=== PATIENT | male | born 1975 | race Two or more races ===

== ENCOUNTER 2023-12-07 11:02 | Inpatient (IN) | payer OTHER ==
[~2023-12-07] VITALS: Ht 182.9 cm; Wt 140.7 kg
[~2023-12-07 11:02] MED LIST: AMLO1TAB23 PO; ATOR20TA PO; CLON0.5T3 PO; DAPA1TAB4 PO; ESCI10TA PO; GLIP5TAB21 PO; METF-370 PO
[2023-12-07 11:39] LABS: Basophils # (auto) 0.1 10 ^3/uL (0-0.2); Basophils % (auto) 1.1 % (0.0-2.0); Eosinophils # (auto) 0.4 10 ^3/uL (0-0.8); Hematocrit 37.5 % (41.0-53.0); Hemoglobin 12.3 g/dL (13.5-17.5); Lymphocytes # (auto) 1.4 10 ^3/uL (0.4-5.4); Lymphocytes % (auto) 17.2 % (10.0-50.0); Mean Corpuscular Hemoglobin 27.5 pg (28.0-32.0); Mean Corpuscular Hgb Conc. 32.9 g/dL (32.0-36.0); Mean Corpuscular Volume 83.5 fL (80.0-100.0); Monocytes # (auto) 0.5 10 ^3/uL (0-1.3); Monocytes % (auto) 6.3 % (0.0-12.0); Neutrophils # (auto) 5.8 10 ^3/uL (1.6-8.6); Neutrophils % (auto) 70.4 % (37.0-80.0); Nucleated Red Blood Cells % 0.2 %; Platelet Count (auto) 237 10^3/uL (140-450); Red Blood Cells 4.49 10^6/uL (4.5-5.90); Red Cell Distribution Width 17.3 % (11.8-14.3); White Blood Cell 8.2 10^3/uL (4.4-10.8)
[2023-12-07 11:55] LABS: Chloride 110 mmol/L (98-107); Sodium 140 mmol/L (136-145)
[2023-12-07 11:56] LABS: Anion Gap 5 (5-15); Calcium 9.1 mg/dL (8.7-10.4); Carbon Dioxide 25 mmol/L (20-30)
[2023-12-07 12:01] LABS: BUN/Creatinine Ratio 17.1 (10.0-20.0); Blood Urea Nitrogen 29 mg/dL (9-23); Glucose 189 mg/dL (74-106)
[2023-12-07 12:03] LABS: Potassium 6.1 mmol/L (3.5-5.1)
[2023-12-07] MEDS: ALBUTEROL SULF 2.5 MG/0.5ML(0.5%) NEB SOLN HHN ONE (12:30)
[2023-12-07] MEDS: CALCIUM GLUC 1,000mg/50ml-NS 50 ML IV ONE (12:30)
[2023-12-07] MEDS: SODIUM BICARB 8.4% 50Meq/50ml SYR Vial IV ONE (12:30)
[2023-12-07] MEDS: SODIUM ZIRCONIUM CYCL 10 GM PAK PO ONE (14:30)
[2023-12-07] MEDS ORDERED: DOCUSATE SOD 100 MG CAP PO PRN (14:30)
[2023-12-07] MEDS ORDERED: ACETAMINOPHEN 325 MG TAB PO PRN (14:30)
[2023-12-07] MEDS: SODIUM CHLORIDE 0.9% 1,000 ML IV ONE (14:30)
[2023-12-07 14:42] VITALS: PULSE 88; RESP 18; O2SAT 96
[2023-12-07] MEDS: amLODIPine BESYLATE 5 MG TAB PO SCH (15:51)
[2023-12-07] MEDS: SODIUM CHLORIDE 0.9% 500 ML IV ONE (16:00)
[2023-12-07] MEDS: FUROSEMIDE 100 MG/10ML VIAL IV ONE (16:00)
[2023-12-07 17:55] LABS: Urine Bacteria None Seen /hpf (None Seen)
[2023-12-07 18:10] LABS: Urine Blood TRACE /uL (Negative); Urine Clarity Clear (Clear); Urine Color Colorless (Yellow); Urine Protein, UAD 2+ (Negative); Urine Specific Gravity 1.008 (1.001-1.035); Urine Urobilinogen Normal (Negative); Urine WBC 1 /hpf (0 - 3); Urine pH 6.5 (5.0-9.0)
[2023-12-07 18:21] LABS: Protein, Urine 221.6 mg/dL (0.0-11.9)
[2023-12-07 18:23] LABS: Creatinine, Urine 20.9 mg/dL (30.0-125.0); Urine Protein/Creatinine Ratio 10.6
[2023-12-07 19:21] LABS: Chloride 111 mmol/L (98-107); Potassium 4.9 mmol/L (3.5-5.1); Sodium 144 mmol/L (136-145)
[2023-12-07 19:22] LABS: Anion Gap 8 (5-15); Carbon Dioxide 25 mmol/L (20-30)
[2023-12-07 19:23] LABS: Calcium 8.9 mg/dL (8.7-10.4)
[2023-12-07 19:27] LABS: BUN/Creatinine Ratio 18.8 (10.0-20.0); Blood Urea Nitrogen 30 mg/dL (9-23); Glucose 100 mg/dL (74-106)
[2023-12-07] MEDS: hydrALAZINE HCL 20 MG/ML VL IV PRN (20:11)
[2023-12-07 20:40] VITALS: PULSE 92; RESP 20; O2SAT 95
[2023-12-07] MEDS: SODIUM CHLOR 0.9% PF (SALINE LOCK) 10ML VIAL/SYR IV SCH (22:21)
[2023-12-07 23:15] VITALS: BP 170/78; PULSE 79; RESP 18; TEMP 98.5; O2SAT 95
[2023-12-07 23:40] VITALS: PULSE 80
[2023-12-07 23:47] VITALS: BP 170/78; PULSE 79; RESP 18; TEMP 97.6; O2SAT 95
[2023-12-08] VITALS (9 sets, daily range): BP systolic 135–172; BP diastolic 76–92; PULSE 73–81; RESP 16–20; TEMP 97.9–98.4; O2SAT 90–97
[2023-12-08 08:45] LABS: Basophils # (auto) 0.1 10 ^3/uL (0-0.2); Eosinophils # (auto) 0.4 10 ^3/uL (0-0.8); Lymphocytes # (auto) 1.1 10 ^3/uL (0.4-5.4); Lymphocytes % (auto) 13.5 % (10.0-50.0); Monocytes # (auto) 0.5 10 ^3/uL (0-1.3); Neutrophils # (auto) 6.1 10 ^3/uL (1.6-8.6); White Blood Cell 8.2 10^3/uL (4.4-10.8)
[2023-12-08 08:47] LABS: Basophils % (auto) 0.9 % (0.0-2.0); Eosinophils % (auto) 4.6 % (0.0-7.0); Hematocrit 39.1 % (41.0-53.0); Hemoglobin 12.6 g/dL (13.5-17.5); Mean Corpuscular Hemoglobin 26.8 pg (28.0-32.0); Mean Corpuscular Hgb Conc. 32.1 g/dL (32.0-36.0); Mean Corpuscular Volume 83.4 fL (80.0-100.0); Monocytes % (auto) 5.9 % (0.0-12.0); Neutrophils % (auto) 75.1 % (37.0-80.0); Platelet Count (auto) 272 10^3/uL (140-450); Red Blood Cells 4.69 10^6/uL (4.5-5.90); Red Cell Distribution Width 17.2 % (11.8-14.3)
[2023-12-08 09:11] LABS: Alanine Aminotransferase 29 U/L (7-40); Albumin 3.8 g/dL (3.2-4.8); Alkaline Phosphatase 128 U/L (46-116); Anion Gap 6 (5-15); Aspartate Aminotransferase 17 U/L (13-40); BUN/Creatinine Ratio 18.8 (10.0-20.0); Bilirubin, Total 0.3 mg/dL (0.2-1.0); Blood Urea Nitrogen 30 mg/dL (9-23); Calcium 8.9 mg/dL (8.7-10.4); Carbon Dioxide 24 mmol/L (20-30); Chloride 109 mmol/L (98-107); Glucose 167 mg/dL (74-106); Potassium 5.2 mmol/L (3.5-5.1); Sodium 139 mmol/L (136-145); Total Protein 6.2 g/dL (5.7-8.2)
[2023-12-08] MEDS: MUPIROCIN 2% OINT 15gm or 22gm TOP SCH (10:00)
[2023-12-08] MEDS: amLODIPine BESYLATE 5 MG TAB PO SCH (10:52)
[2023-12-08] MEDS: METOPROLOL SUCCINATE XL 50 MG TAB PO SCH (10:53)
[2023-12-08] MEDS: PANTOPRAZOLE 40 MG/10 ML VIAL INJ IV SCH (10:53)
[2023-12-08] MEDS: NYSTATIN TOPICAL POWDER 15GM TOP ONE (11:00)
[2023-12-08] MEDS: cefTRIAXone 1GM/50ML D5W 50 ML IV ONE (11:00)
[2023-12-08] MEDS: AZITHROMYCIN 500MG/ 250ML 250 ML IV ONE (11:00)
[2023-12-08] MEDS: SODIUM ZIRCONIUM CYCL 10 GM PAK PO ONE (11:04)
[2023-12-08] MEDS ORDERED: hydrALAZINE HCL 20 MG/ML VL IV SCH (12:00)
[2023-12-08 12:31] LABS: Triglycerides 200 mg/dL (< 150)
[2023-12-08 12:32] LABS: Cholesterol 129 mg/dL (< 200); LDL Cholesterol 64 mg/dL (< 100)
[2023-12-08 12:33] LABS: HDL Cholesterol 33 mg/dL (40-59)
[2023-12-08] MEDS ORDERED: CLON0.253 PO (14:03)
[2023-12-08] MEDS ORDERED: HYDR12.55 PO (14:03)
[2023-12-08] MEDS ORDERED: ATEN-60 PO (14:03)
[2023-12-08] MEDS ORDERED: METF-929 PO (14:03)
[2023-12-08] MEDS ORDERED: ESCI1TAB37 PO (14:03)
[2023-12-08] MEDS ORDERED: LOSA-533 PO (14:03)
[2023-12-08] MEDS ORDERED: SEMA2INJ3 SC (14:03)
[2023-12-08] MEDS: FUROSEMIDE 40 MG/4 ML VIAL IV SCH (17:38)
[2023-12-08] MEDS: hydroCHLOROthiazide 25 MG TAB PO ONE (17:38)
[2023-12-08] MEDS ORDERED: FUROSEMIDE 40 MG/4 ML VIAL IV SCH (18:00)
[2023-12-08] MEDS: ONDANSETRON HCL 4 MG/2 ML VIAL IV PRN (19:15)
[2023-12-08] MEDS: GEMFIBROZIL 600 MG TAB PO SCH (21:41)
[2023-12-08] MEDS: NYSTATIN TOPICAL POWDER 15GM TOP SCH (21:46)
[2023-12-09] VITALS (8 sets, daily range): BP systolic 119–157; BP diastolic 66–91; PULSE 75–85; RESP 16–18; TEMP 97.7–100.1; O2SAT 89–94
[2023-12-09] MEDS: PANTOPRAZOLE 40 MG TAB PO SCH (05:23)
[2023-12-09 06:38] LABS: Alanine Aminotransferase 31 U/L (7-40); Albumin 3.7 g/dL (3.2-4.8); Alkaline Phosphatase 126 U/L (46-116); Anion Gap 6 (5-15); Aspartate Aminotransferase 15 U/L (13-40); BUN/Creatinine Ratio 15.9 (10.0-20.0); Blood Urea Nitrogen 30 mg/dL (9-23); Calcium 8.9 mg/dL (8.7-10.4); Carbon Dioxide 26 mmol/L (20-30); Chloride 107 mmol/L (98-107); Glucose 209 mg/dL (74-106); Potassium 5.1 mmol/L (3.5-5.1); Sodium 139 mmol/L (136-145)
[2023-12-09 06:40] LABS: Bilirubin, Total 0.3 mg/dL (0.2-1.0); Total Protein 5.9 g/dL (5.7-8.2)
[2023-12-09 06:48] LABS: Basophils # (auto) 0.1 10 ^3/uL (0-0.2); Eosinophils # (auto) 0.4 10 ^3/uL (0-0.8); Eosinophils % (auto) 6.5 % (0.0-7.0); Hematocrit 37.9 % (41.0-53.0); Hemoglobin 12.4 g/dL (13.5-17.5); Lymphocytes # (auto) 1.1 10 ^3/uL (0.4-5.4); Lymphocytes % (auto) 16.5 % (10.0-50.0); Mean Corpuscular Hemoglobin 27.3 pg (28.0-32.0); Mean Corpuscular Hgb Conc. 32.7 g/dL (32.0-36.0); Mean Corpuscular Volume 83.5 fL (80.0-100.0); Monocytes # (auto) 0.5 10 ^3/uL (0-1.3); Monocytes % (auto) 7.8 % (0.0-12.0); Neutrophils # (auto) 4.7 10 ^3/uL (1.6-8.6); Neutrophils % (auto) 68.2 % (37.0-80.0); Nucleated Red Blood Cells % 0.1 %; Platelet Count (auto) 237 10^3/uL (140-450); Red Blood Cells 4.54 10^6/uL (4.5-5.90); Red Cell Distribution Width 16.8 % (11.8-14.3); White Blood Cell 6.8 10^3/uL (4.4-10.8)
[2023-12-09] MEDS ORDERED: FUROSEMIDE 40 MG/4 ML VIAL IV SCH (07:00)
[2023-12-09] MEDS: SODIUM ZIRCONIUM CYCL 10 GM PAK PO ONE (08:49)
[2023-12-09] MEDS: cefTRIAXone 1GM/50ML D5W 50 ML IV SCH (09:47)
[2023-12-09] MEDS: hydroCHLOROthiazide 25 MG TAB PO SCH (09:48)
[2023-12-09] MEDS: AZITHROMYCIN 500MG/ 250ML 250 ML IV SCH (10:23)
[2023-12-09] MEDS: LOSARTAN POTASSIUM 50 MG TAB PO SCH (10:24)
[2023-12-10] VITALS (7 sets, daily range): BP systolic 132–156; BP diastolic 74–88; PULSE 73–78; RESP 16–20; TEMP 97.5–98.8; O2SAT 86–98
[2023-12-10 06:10] LABS: Basophils # (auto) 0.1 10 ^3/uL (0-0.2); Basophils % (auto) 1.3 % (0.0-2.0); Eosinophils # (auto) 0.5 10 ^3/uL (0-0.8); Eosinophils % (auto) 7.7 % (0.0-7.0); Hematocrit 37.1 % (41.0-53.0); Lymphocytes # (auto) 1.2 10 ^3/uL (0.4-5.4); Lymphocytes % (auto) 17.7 % (10.0-50.0); Mean Corpuscular Hgb Conc. 32.4 g/dL (32.0-36.0); Mean Corpuscular Volume 83.3 fL (80.0-100.0); Monocytes # (auto) 0.6 10 ^3/uL (0-1.3); Monocytes % (auto) 8.8 % (0.0-12.0); Neutrophils # (auto) 4.4 10 ^3/uL (1.6-8.6); Neutrophils % (auto) 64.5 % (37.0-80.0); Nucleated Red Blood Cells % 0.1 %; Platelet Count (auto) 233 10^3/uL (140-450); Red Blood Cells 4.45 10^6/uL (4.5-5.90); Red Cell Distribution Width 16.5 % (11.8-14.3); White Blood Cell 6.8 10^3/uL (4.4-10.8)
[2023-12-10 06:30] LABS: Alanine Aminotransferase 26 U/L (7-40); Albumin 3.5 g/dL (3.2-4.8); Alkaline Phosphatase 115 U/L (46-116); Anion Gap 6 (5-15); Aspartate Aminotransferase 13 U/L (13-40); BUN/Creatinine Ratio 13.6 (10.0-20.0); Blood Urea Nitrogen 27 mg/dL (9-23); Calcium 8.7 mg/dL (8.7-10.4); Carbon Dioxide 27 mmol/L (20-30); Chloride 106 mmol/L (98-107); Glucose 164 mg/dL (74-106); Potassium 4.7 mmol/L (3.5-5.1); Sodium 139 mmol/L (136-145)
[2023-12-10 06:31] LABS: Bilirubin, Total 0.3 mg/dL (0.2-1.0); Total Protein 5.9 g/dL (5.7-8.2)
[2023-12-10] MEDS: SODIUM ZIRCONIUM CYCL 10 GM PAK PO SCH (10:00)
[2023-12-10 11:55] LABS: Magnesium 2.3 mg/dL (1.6-2.6)
[2023-12-10 11:56] LABS: Phosphorus 5.2 mg/dL (2.4-5.1)
[2023-12-10 13:03] LABS: Partial Thromboplastin Time 27.9 SEC (24.5-34.5); Prothrombin Time 10.6 sec (9.3-11.8)
[2023-12-10] MEDS ORDERED: HYDR25TA5 PO (13:06)
[2023-12-10] MEDS ORDERED: METO-6 PO (13:06)
[2023-12-10] MEDS ORDERED: SODI5PAK PO (13:06)
[2023-12-10] MEDS ORDERED: LOSA-534 PO (13:06)
[2023-12-11] MEDS ORDERED: FUROSEMIDE 40 MG TAB PO SCH (06:00)
== END 2023-12-10 19:00 | disposition home or self-care (01) | DRG 137 ==
LOC: ER 11:14 → TELE 14:19 → TELE-CENTR 23:02
PROVIDERS: ADMIT Internal Medicine; ATTEND Internal Medicine
DX: J15.69 Pneumonia due to other Gram-negative bacteria (principal); N17.0 Acute kidney failure with tubular necrosis; I50.33 Acute on chronic diastolic (congestive) heart failure; I13.0 Hypertensive heart and chronic kidney disease with heart failure and stage 1 through stage 4 chronic kidney disease, or unspecified chronic kidney disease; K76.0 Fatty (change of) liver, not elsewhere classified; E11.22 Type 2 diabetes mellitus with diabetic chronic kidney disease; E87.5 Hyperkalemia; E11.65 Type 2 diabetes mellitus with hyperglycemia; I16.1 Hypertensive emergency; N18.31 Chronic kidney disease, stage 3a; F41.9 Anxiety disorder, unspecified; E66.01 Morbid (severe) obesity due to excess calories; Z89.431 Acquired absence of right foot; Z79.899 Other long term (current) drug therapy; Z79.84 Long term (current) use of oral hypoglycemic drugs; Z68.41 Body mass index [BMI] 40.0-44.9, adult; J15.9 Unspecified bacterial pneumonia
CPT/HCPCS: 36415; 71045; 71046; 71250; 76705; 76775; 80048; 80053; 80061; 81001; 82140; 82306; 82570; 82607; 82962; 83036; 83605; 83735; 83880; 84100; 84156; 84300; 84443; 85025; 85610; 85730; 93005; 94644; 96365; 96375; 99291; G0378; J2405; J2470

== ENCOUNTER 2024-03-12 14:02 | Emergency (ER) | payer OTHER ==
[~2024-03-12] VITALS: Ht 177.8 cm; Wt 131.5 kg
[~2024-03-12 14:02] MED LIST changes: +CLON0.253 PO; -CLON0.5T3 PO; -ESCI10TA PO; +ESCI1TAB37 PO; +HYDR25TA5 PO; +LOSA-534 PO; -METF-370 PO; +METF-929 PO; +METO-6 PO; +SEMA2INJ3 SC; +SODI5PAK PO
--- NOTE | 2024-03-12 14:31 | ED.PDOC ---
SOB-HPI HPI Comments 48Y M with PMHx DM and HTN presents to ED for chief complaint SOB with wheezing and bilateral lower extremity swelling. Pt denies chest pain and any h/o heart problems. Pt states SOB worsens with exertion. Pt was last d/c from [facility] on 12/10/2023 with dx hypertensive emergency, SUSY, and hyperkalemia. Pt is currently taking HCTZ. Pt has had rt toe 4th digit amputated. No known allergies. Time Seen by MD: 14:22 Primary Care Provider: MONTSERRAT Schmidt notes: Medications, Allergies Information Source: Patient Mode of Arrival: Ambulatory Severity: Mild Timing: Days Duration: Since onset Context: At Rest, With Light Exertion, With Heavy Exertion PE Risk Factors: None History of: None Modifying Factors: Nothing Associated Signs and Symptoms: Wheeze, Other Past Medical History PAST MEDICAL HISTORY: DM, HTN Surgical History: Denies all surgeries Family History Family History: Reviewed,noncontributory to illness Social History Smoker: Non-Smoker Alcohol: Denies ETOH Use Drugs: Denies Drug Use Lives In: Home Constitutional: denies: chills, diaphoresis, fatigue, fever, malaise, sweats, weakness, others EENTM: denies: blurred vision, double vision, ear bleeding, ear discharge, ear drainage, ear pain, ear ringing, eye pain, eye redness, hearing loss, mouth pain, mouth swelling, nasal discharge, nose bleeding, nose congestion, nose pain, photophobia, tearing, throat pain, throat swelling, voice changes, others Respiratory: reports: shortness of breath, SOB with excertion, wheezing; denies: cough, hemoptysis, orthopnea, SOB at rest, stridor, others Cardiovascular: denies: chest pain, dizzy spells, diaphoresis, Dyspnea on exertion, edema, irregular heart beat, left arm pain, lightheadedness, palpitations, PND, syncope, others Gastrointestinal: denies: abdomen distended, abdominal pain, blood streaked bowels, constipated, diarrhea, dysphagia, difficulty swallowing, hematemesis, melena, nausea, poor appetite, poor fluid intake, rectal bleeding, rectal pain, vomiting, others Genitourinary: denies: burning, dysuria, flank pain, frequency, hematuria, incontinence, penile discharge, penile sore, pain, testicle pain, testicle swelling, urgency, others Neurological: denies: dizziness, fainting, headache, left sided numbness, left sided weakness, numbness, paresthesia, pre-existing deficit, right sided numbness, right sided weakness, seizure, speech problems, tingling, tremors, weakness, others Musculoskeletal: denies: back pain, gout, joint pain, joint swelling, muscle pain, muscle stiffness, neck pain, others Integumetry: denies: bruises, change in color, change in hair/nails, dryness, laceration, lesions, lumps, rash, wounds, others Allergic/Immunocompromised: denies: Difficulty Healing, Frequent Infections, Hives, Itching, others Hematologic/Lymphatic: denies: anemia, blood clots, easy bleeding, easy bruising, swollen glands, others Endocrine: denies: excessive hunger, excessive sweating, excessive thirst, excessive urination, flushing, intolerance to cold, intolerance to heat, unexplained weight gain, unexplained weight loss, others Psychiatric: denies: anxiety, bipolar disorder, depression, hopeless, panic disorder, schizophrenia, sleepless, suicidal, others All Other Systems: Reviewed and Negative Physical Exam General Appearance: Moderate Distress, Normal HEENT: Normal ENT Inspection, Pharynx Normal, TMs Normal Neck: Full Range of Motion, Non-Tender, Normal, Normal Inspection Respiratory: Chest Non-Tender, Lungs Clear, No Accessory Muscle Use, No Respira tory Distress, Normal Breath Sounds Cardiovascular: No JVD, No Murmur, No Gallop, Normal Peripheral Pulses, Regular Rate/Rhythm Breast Exam: Deferred Gastrointestinal: No Organomegaly, Non Tender, No Pulsatile Mass, Normal Bowel Sounds, Soft Genitalia: Deferred Pelvic: Deferred Rectal: Deferred Extremities: Leg edema, Normal capillary refill, Normal range of motion, Non- tender, Swelling (Bilateral lower extremity) Musculoskeletal : Apperance: Normal Neurologic: Alert, geoint analyst II-XII nml as Tested, No Motor Deficits, Normal Affect, Normal Mood, No Sensory Deficits Cerebellar Function: Normal Reflexes: Normal Skin: Dry, Normal Color, Warm Peripheral Pulses: 3+ Radial (R), 3+ Radial (L) Lymphatic: No Adenopathy Was a procedure done? Was a procedure done?: No Differential Dx Differential Diagnosis: Anxiety, Asthma, Bronchitis, CHF X-Ray, Labs, Meds, VS Vital Signs Date Time Temp Pulse Resp B/P (MAP) Pulse Ox O2 Delivery O2 Flow Rate FiO2 03/12/24 17:10 157/75 03/12/24 16:37 98.0 66 16 157/75 (102) 96 98.0 03/12/24 14:37 97.7 70 18 166/90 (115) 97 03/12/24 14:36 18 97 Room Air* 0 21 03/12/24 14:20 69 Lab Test 03/12/24 14:23 Range/Units White Blood Count 8.6 4.4-10.8 10^3/uL Red Blood Count 5.10 4.5-5.90 10^6/uL Hemoglobin 13.3 L 13.5-17.5 g/dL Hematocrit 41.0 41.0-53.0 % Mean Corpuscular Volume 80.4 80.0-100.0 fL Mean Corpuscular Hemoglobin 26.1 L 28.0-32.0 pg Mean Corpuscular Hemoglobin Concent 32.4 32.0-36.0 g/dL Red Cell Distribution Width 17.1 H 11.8-14.3 % Platelet Count 218 140-450 10^3/uL Mean Platelet Volume 10.0 6.9-10.8 fL Neutrophils (%) (Auto) 66.3 37.0-80.0 % Lymphocytes (%) (Auto) 21.3 10.0-50.0 % Monocytes (%) (Auto) 6.9 0.0-12.0 % Eosinophils (%) (Auto) 4.5 0.0-7.0 % Basophils (%) (Auto) 1.0 0.0-2.0 % Neutrophils # (Auto) 5.7 1.6-8.6 10 ^3/uL Lymphocytes # (Auto) 1.8 0.4-5.4 10 ^3/uL Monocytes # (Auto) 0.6 0-1.3 10 ^3/uL Eosinophils # (Auto) 0.4 0-0.8 10 ^3/uL Basophils # (Auto) 0.1 0-0.2 10 ^3/uL Nucleated Red Blood Cells 0.1 % Sodium Level 140 136-145 mmol/L Potassium Level 5.1 3.5-5.1 mmol/L Chloride Level 112 H 98-107 mmol/L Carbon Dioxide Level 25 20-31 mmol/L Anion Gap 3 L 5-15 Blood Urea Nitrogen 46 H 9-23 mg/dL Creatinine 1.98 H 0.700-1.30 mg/dL Glomerular Filtration Rate Calc 41 >90 mL/min BUN/Creatinine Ratio 23.2 H 10.0-20.0 Serum Glucose 124 H 74-106 mg/dL Calcium Level 9.4 8.7-10.4 mg/dL Current Medications Medications (Trade) Dose Ordered Sig/Jadon Route Start Time Stop Time Status Last Admin Furosemide (Lasix Injection) 40 mg ONCE ONCE IV 03/12/24 14:45 03/12/24 14:46 DC 03/12/24 17:10 [place] [id number] Ph: [phone] DIAGNOSTIC IMAGING Diagnostic Imaging Report : [id number] Signed PATIENT: JASPREET PRESLEY JRACCT: [id number] UNIT: [id number] : 1975 LOC: ER ROOM / BED: / AGE / SEX: 48 / M ADM STATUS: REG ER SERVICE 14 ORDERING PHYSICIAN: ODILIA GROSS MD PROCEDURE(s): CXRP - CHEST PORTABLE REASON: sob ORDER NUMBER(s): [id number], ACCESSION NUMBER(s): [id number] CHEST RADIOGRAPH Indication:sob Technique: Single frontal view of the chest was obtained Comparison: XY CHEST XRAY 1 VIEW on DOS: 12/10/23, XY CHEST XRAY 1 VIEW on DOS: 07/21/23 FINDINGS: Lines and Tubes: None Lungs: No focal consolidation. Pleura: No effusion. No pneumothorax. Cardiomediastinal contours: Unremarkable Bones: No acute osseous abnormality. IMPRESSION: No acute cardiopulmonary disease. ATED BY: TANVIR FARIAS MD DICTATED DATE/TIME: 03/12/241445 SIGNED BY: TANVIR FARIAS MD SIGNED DATE/TIME: 03/12/241445 CC: Patient alert. Complaining of shortness a breath. EKG does show changes. Vitals stable. Blood pressure elevated. Was given nadolol. Reviewed his previous visit. Bilateral lower extremity swelling. Was given Lasix. Chest x-ray reviewed does show CHF. Kidney function elevated. WBC within normal limits. Hematocrit within normal limits. Explained to the patient. Continue cardiac monitoring. Time of 1ST Reevaluation: 14:52 Reevaluation 1ST: Unchanged Patient Education/Counseling: Diagnosis, Treatment Family Education/Counseling: No Family Present Departure 1 Departure Time of Disposition: 14:37 Impression: Primary Impression: CHF (congestive heart failure) Qualified Codes: I50.43 - Acute on chronic combined systolic (congestive) and diastolic (congestive) heart failure Additional Impressions: Hyperglycemia Hypertensive urgency Chronic kidney disease Qualified Codes: N18.9 - Chronic kidney disease, unspecified Disposition: ADMITTED INPATIENT Admit to: Med Surg Condition: Guarded Critical Care Note Critical Care Time?: Yes (45 min-critical care time only) Stability Stability form required: No Heart Score Heart Score: Heart Score Response (Comments) Value History Moderate Suspicious 1 EKG Normal 0 Age 45-64 1 Risk Factors 1 or 2 risk factors 1 Troponin Normal limit 0 Total 3 I personally scribed for ODILIA GROSS MD ([email or web address]) on 03/12/24 at 14:31. Electronically submitted by Selin Vazquez ([employer] I personally scribed for ODILIA GROSS MD ([email or web address]) on 03/12/24 at 14:51. Electronically submitted by Selin Vazquez ([employer] ODILIA GROSS MD Mar 12, 2024 14:31
--- NOTE | 2024-03-12 14:42 | ECG ---
[facility] Test Date: 2024-03-12 Test Time: 14:20:01 Pat Name: JASPREET PRESLEY Department: ER Room: Gender: M Supervisor Soakers: : 1975 Requested By: ODILIA GROSS Order Number: [id number] Reading MD: Torrey Fairbanks Measurements Intervals [place] Rate: 69 P: 23 NM: 148 QRS: 72 QRSD: 113 T: 158 QT: 416 QTc: 446 Interpretive Statements Sinus rhythm Inferior infarct, old Lateral leads are also involved Electronically Signed On 03-22-2024 12:48:33 PST by Torrey Fairbanks Please click the below link to view image of tracing.
--- NOTE | 2024-03-12 14:48 | DVH ---
CHEST RADIOGRAPH Indication:sob Technique: Single frontal view of the chest was obtained Comparison: XY CHEST XRAY 1 VIEW on DOS: 12/10/23, XY CHEST XRAY 1 VIEW on DOS: 07/21/23 FINDINGS: Lines and Tubes: None Lungs: No focal consolidation. Pleura: No effusion. No pneumothorax. Cardiomediastinal contours: Unremarkable Bones: No acute osseous abnormality. IMPRESSION: No acute cardiopulmonary disease.
[2024-03-12 14:51] LABS: Basophils # (auto) 0.1 10 ^3/uL (0-0.2); Eosinophils # (auto) 0.4 10 ^3/uL (0-0.8); Eosinophils % (auto) 4.5 % (0.0-7.0); Hemoglobin 13.3 g/dL (13.5-17.5); Lymphocytes # (auto) 1.8 10 ^3/uL (0.4-5.4); Lymphocytes % (auto) 21.3 % (10.0-50.0); Mean Corpuscular Hemoglobin 26.1 pg (28.0-32.0); Mean Corpuscular Hgb Conc. 32.4 g/dL (32.0-36.0); Mean Corpuscular Volume 80.4 fL (80.0-100.0); Monocytes # (auto) 0.6 10 ^3/uL (0-1.3); Monocytes % (auto) 6.9 % (0.0-12.0); Neutrophils # (auto) 5.7 10 ^3/uL (1.6-8.6); Neutrophils % (auto) 66.3 % (37.0-80.0); Nucleated Red Blood Cells % 0.1 %; Platelet Count (auto) 218 10^3/uL (140-450); Red Cell Distribution Width 17.1 % (11.8-14.3); White Blood Cell 8.6 10^3/uL (4.4-10.8)
[2024-03-12 15:05] LABS: Chloride 112 mmol/L (98-107); Potassium 5.1 mmol/L (3.5-5.1); Sodium 140 mmol/L (136-145)
[2024-03-12 15:06] LABS: Anion Gap 3 (5-15); Carbon Dioxide 25 mmol/L (20-31)
[2024-03-12 15:07] LABS: Calcium 9.4 mg/dL (8.7-10.4)
[2024-03-12 15:11] LABS: Glucose 124 mg/dL (74-106)
[2024-03-12 15:12] LABS: BUN/Creatinine Ratio 23.2 (10.0-20.0); Blood Urea Nitrogen 46 mg/dL (9-23)
[2024-03-12 16:37] VITALS: BP 157/75; TEMP 98
[2024-03-12] MEDS: FUROSEMIDE 40 MG/4 ML VIAL IV ONE (17:10)
[2024-03-12] MEDS: LABETALOL HCL 20 MG/4 ML VL IV ONE (17:10)
[2024-03-12 17:15] VITALS: PULSE 66; RESP 16; O2SAT 96
[2024-03-12 18:21] LABS: Urine Bacteria FEW /hpf (None Seen); Urine Blood 1+ /uL (Negative); Urine Clarity Clear (Clear); Urine Color Light-Yellow (Yellow); Urine Hyaline Cast FEW /lpf (0 - 2); Urine Mucus FEW (None Seen); Urine Protein, UAD 3+ (Negative); Urine Specific Gravity 1.016 (1.001-1.035); Urine Urobilinogen Normal (Negative); Urine WBC 2 /hpf (0 - 3)
== END 2024-03-12 21:41 | disposition left against medical advice (07) ==
LOC: ER 14:02
DX: I13.0 Hypertensive heart and chronic kidney disease with heart failure and stage 1 through stage 4 chronic kidney disease, or unspecified chronic kidney disease (principal); E11.22 Type 2 diabetes mellitus with diabetic chronic kidney disease; N18.9 Chronic kidney disease, unspecified; I50.89 Other heart failure
CPT/HCPCS: 36415; 71045; 80048; 81001; 85025; 93005; 96374; 99291; J1940

== ENCOUNTER 2024-05-16 12:06 | Inpatient (IN) | payer OTHER ==
[~2024-05-16] VITALS: Ht 205.7 cm; Wt 131.6 kg
--- NOTE | 2024-05-16 12:26 | ED.PDOC ---
History of Present Illness HPI Comments 48-year-old male brought by paramedics because of generalized weakness. He has been having weakness for the past week. He did have his right toe amputated on April 26. History of diabetes hypertension. Patient currently on Zosyn. Denies chest pain nausea vomiting diarrhea. Denies any other symptoms. Time Seen by : 12:11 Primary Care Provider: georgi Schmidt Notes: Nurses Notes, Medications, Allergies Allergies: Coded Allergies: NO KNOWN ALLERGIES (Unverified , 07/21/23) Home Meds Active Scripts Sodium Zirconium Cyclosilicate (Lokelma) 5 Gm Selvin, 10 GM PO DAILY for 15 Days, #1 PACK Prov:JAMILAH MARADIAGA MD 12/10/23 Hctz (Hydrochlorothiazide) 25 Mg Tab, 25 MG PO DAILY for 30 Days, #30 TAB Prov:JAMILAH MARADIAGA MD 12/10/23 Losartan Potassium (Losartan Potassium) 50 Mg Tab, 50 MG PO DAILY for 30 Days, #30 TAB Prov:JAMILAH MARADIAGA MD 12/10/23 Metoprolol Succinate (Toprol Xl) 50 Mg Tab, 50 MG PO DAILY for 30 Days, #30 TAB Prov:JAMILAH MARADIAGA MD 12/10/23 Reported Medications Semaglutide (Ozempic) 2 Mg/3 Ml Inj, 0.25 MG SC QWEEKLY, INJ 12/08/23 Clonazepam (Clonazepam Orally Disinte) 0.25 Mg Tab, 0.25 MG PO DAILY PRN for ANXIETY, TAB 12/08/23 Escitalopram Oxalate (ESCITALOPRAM OXALATE) 20 Mg Tab, 20 MG PO DAILY, TAB 12/08/23 Metformin HCl (Metformin Hydrochloride) 1,000 Mg Tab, 1000 MG PO BIDWM, TAB 12/08/23 Atorvastatin Calcium (Lipitor) 20 Mg Tab, 20 MG PO DAILY, TAB 07/22/23 Dapagliflozin Propanediol (Farxiga) 10 Mg Tab, 10 MG PO DAILY, TAB 07/22/23 Amlodipine Besylate (Amlodipine Besylate) 10 Mg Tab, 10 MG PO DAILY, TAB 07/22/23 Glipizide (Glipizide) 5 Mg Tab, 5 MG PO BIDAC, TAB 07/22/23 Information Source: Patient, Emergency Med Personnel Mode of Arrival: EMS Severity: Moderate Timing: Days Duration: Since onset Past Medical History PAST MEDICAL HISTORY: DM, HTN Surgical History: Denies all surgeries Family History Family History: Reviewed,noncontributory to illness Social History Smoker: Non-Smoker Alcohol: Denies ETOH Use Drugs: Denies Drug Use Lives In: Home Constitutional: reports: weakness; denies: chills, diaphoresis, fatigue, fever, malaise, sweats, others EENTM: denies: blurred vision, double vision, ear bleeding, ear discharge, ear drainage, ear pain, ear ringing, eye pain, eye redness, hearing loss, mouth pain, mouth swelling, nasal discharge, nose bleeding, nose congestion, nose pain, photophobia, tearing, throat pain, throat swelling, voice changes, others Respiratory: denies: cough, hemoptysis, orthopnea, SOB at rest, shortness of breath, SOB with excertion, stridor, wheezing, others Cardiovascular: denies: chest pain, dizzy spells, diaphoresis, Dyspnea on exertion, edema, irregular heart beat, left arm pain, lightheadedness, palpitations, PND, syncope, others Gastrointestinal: denies: abdomen distended, abdominal pain, blood streaked bowels, constipated, diarrhea, dysphagia, difficulty swallowing, hematemesis, melena, nausea, poor appetite, poor fluid intake, rectal bleeding, rectal pain, vomiting, others Genitourinary: denies: burning, dysuria, flank pain, frequency, hematuria, incontinence, penile discharge, penile sore, pain, testicle pain, testicle swelling, urgency, others Neurological: denies: dizziness, fainting, headache, left sided numbness, left sided weakness, numbness, paresthesia, pre-existing deficit, right sided numbnes s, right sided weakness, seizure, speech problems, tingling, tremors, weakness, others Musculoskeletal: denies: back pain, gout, joint pain, joint swelling, muscle pain, muscle stiffness, neck pain, others Integumetry: denies: bruises, change in color, change in hair/nails, dryness, laceration, lesions, lumps, rash, wounds, others Allergic/Immunocompromised: denies: Difficulty Healing, Frequent Infections, Hives, Itching, others Hematologic/Lymphatic: denies: anemia, blood clots, easy bleeding, easy bruising, swollen glands, others Endocrine: denies: excessive hunger, excessive sweating, excessive thirst, excessive urination, flushing, intolerance to cold, intolerance to heat, unexplained weight gain, unexplained weight loss, others Psychiatric: denies: anxiety, bipolar disorder, depression, hopeless, panic disorder, schizophrenia, sleepless, suicidal, others Physical Exam General Appearance: Moderate Distress HEENT: Normal ENT Inspection, Pharynx Normal, TMs Normal Neck: Full Range of Motion, Non-Tender, Normal, Normal Inspection Respiratory: Chest Non-Tender, Lungs Clear, No Accessory Muscle Use, No Respiratory Distress, Normal Breath Sounds Cardiovascular: No Edema, No JVD, No Murmur, No Gallop, Normal Peripheral Pulses, Regular Rate/Rhythm Breast Exam: Deferred Gastrointestinal: No Organomegaly, Non Tender, No Pulsatile Mass, Normal Bowel Sounds, Soft Genitalia: Deferred Pelvic: Deferred Rectal: Deferred Extremities: No calf tenderness, Normal capillary refill, Normal inspection, Normal range of motion, Non-tender, No pedal edema Musculoskeletal : Apperance: Normal Neurologic: Alert, administrator pesticide II-XII nml as Tested, No Motor Deficits, Normal Affect, Normal Mood, No Sensory Deficits Cerebellar Function: NOT DONE Reflexes: NOT DONE Skin: Dry, Normal Color, Warm, Wounds (Right foot) Peripheral Pulses: 3+ Radial (R), 3+ Radial (L) Lymphatic: No Adenopathy Was a procedure done? Was a procedure done?: No Differential Dx Considerations may include: Cellulitis Electrolyte imbalance X-Ray, Labs, Meds, VS Vital Signs Date Time Temp Pulse Resp B/P (MAP) Pulse Ox O2 Delivery O2 Flow Rate FiO2 05/16/24 12:37 96.9 68 22 151/91 (111) 98 05/16/24 12:12 61 Lab Test 05/16/24 12:42 Range/Units White Blood Count 6.7 4.4-10.8 10^3/uL Red Blood Count 3.65 L 4.5-5.90 10^6/uL Hemoglobin 9.7 L 13.5-17.5 g/dL Hematocrit 30.4 L 41.0-53.0 % Mean Corpuscular Volume 83.2 80.0-100.0 fL Mean Corpuscular Hemoglobin 26.5 L 28.0-32.0 pg Mean Corpuscular Hemoglobin Concent 31.9 L 32.0-36.0 g/dL Red Cell Distribution Width 19.4 H 11.8-14.3 % Platelet Count 215 140-450 10^3/uL Mean Platelet Volume 10.5 6.9-10.8 fL Neutrophils (%) (Auto) 77.6 37.0-80.0 % Lymphocytes (%) (Auto) 13.6 10.0-50.0 % Monocytes (%) (Auto) 5.6 0.0-12.0 % Eosinophils (%) (Auto) 2.3 0.0-7.0 % Basophils (%) (Auto) 0.9 0.0-2.0 % Neutrophils # (Auto) 5.2 1.6-8.6 10 ^3/uL Lymphocytes # (Auto) 0.9 0.4-5.4 10 ^3/uL Monocytes # (Auto) 0.4 0-1.3 10 ^3/uL Eosinophils # (Auto) 0.2 0-0.8 10 ^3/uL Basophils # (Auto) 0.1 0-0.2 10 ^3/uL Nucleated Red Blood Cells 0.7 % Sodium Level 137 136-145 mmol/L Potassium Level 7.2 *H 3.5-5.1 mmol/L Chloride Level 109 H 98-107 mmol/L Carbon Dioxide Level 13 L 20-31 mmol/L Anion Gap 15 5-15 Blood Urea Nitrogen 149 *H 9-23 mg/dL Creatinine 7.85 H 0.700-1.30 mg/dL Glomerular Filtration Rate Calc 8 >90 mL/min BUN/Creatinine Ratio 19.0 10.0-20.0 Serum Glucose 128 H 74-106 mg/dL Calcium Level 8.7 8.7-10.4 mg/dL Troponin I High Sensitivity 252 *H </=54 ng/L Current Medications Medications (Trade) Dose Ordered Sig/Jadon Route Start Time Stop Time Status Last Admin Sodium Chloride 1,000 ml @ 1,000 mls/hr Q1H ONCE IV 05/16/24 12:30 05/16/24 13:29 DC 05/16/24 13:28 Patient alert. Complaining of generalized weakness. Vitals stable. Answering all questions. Establish intravenous access. Was given fluids. Reviewed his history. Explained to the patient. Continue cardiac monitoring. EKG reviewed does not show any acute changes. Time of 1ST Reevaluation: 12:24 Reevaluation 1ST: Unchanged Patient Education/Counseling: Diagnosis, Treatment, Prognosis Family Education/Counseling: No Family Present Departure 1 Departure Time of Disposition: 12:25 Impression: Primary Impression: Hyperkalemia Additional Impression: Generalized weakness Disposition: ADMITTED INPATIENT Admit to: Med Surg Condition: Guarded Critical Care Note Critical Care Time?: Yes (90 min-critical care time only) Stability Stability form required: No Heart Score Heart Score: Heart Score Response (Comments) Value History Slightly Suspicious 0 EKG Normal 0 Age 45-64 1 Risk Factors >3 or Hx ASHD 2 Troponin Normal limit 0 Total 3 ODILIA GROSS MD May 16, 2024 12:25
[2024-05-16 13:02] LABS: Basophils # (auto) 0.1 10 ^3/uL (0-0.2); Basophils % (auto) 0.9 % (0.0-2.0); Eosinophils # (auto) 0.2 10 ^3/uL (0-0.8); Eosinophils % (auto) 2.3 % (0.0-7.0); Hematocrit 30.4 % (41.0-53.0); Hemoglobin 9.7 g/dL (13.5-17.5); Lymphocytes # (auto) 0.9 10 ^3/uL (0.4-5.4); Lymphocytes % (auto) 13.6 % (10.0-50.0); Mean Corpuscular Hemoglobin 26.5 pg (28.0-32.0); Mean Corpuscular Hgb Conc. 31.9 g/dL (32.0-36.0); Mean Corpuscular Volume 83.2 fL (80.0-100.0); Monocytes # (auto) 0.4 10 ^3/uL (0-1.3); Monocytes % (auto) 5.6 % (0.0-12.0); Neutrophils # (auto) 5.2 10 ^3/uL (1.6-8.6); Neutrophils % (auto) 77.6 % (37.0-80.0); Nucleated Red Blood Cells % 0.7 %; Platelet Count (auto) 215 10^3/uL (140-450); Red Blood Cells 3.65 10^6/uL (4.5-5.90); Red Cell Distribution Width 19.4 % (11.8-14.3); White Blood Cell 6.7 10^3/uL (4.4-10.8)
[2024-05-16 13:13] LABS: Anion Gap 15 (5-15); Sodium 137 mmol/L (136-145)
[2024-05-16 13:23] LABS: Calcium 8.7 mg/dL (8.7-10.4); Carbon Dioxide 13 mmol/L (20-31); Chloride 109 mmol/L (98-107); Glucose 128 mg/dL (74-106)
[2024-05-16 13:24] LABS: Blood Urea Nitrogen 149 mg/dL (9-23); Potassium 7.2 mmol/L (3.5-5.1)
--- NOTE | 2024-05-16 13:26 | DVH ---
EXAM: XY CHEST PORTABLE Indication: sob Technique: Single frontal view of the chest was obtained Comparison: XY CHEST PORTABLE on DOS: 03/12/24, XY CHEST XRAY 1 VIEW on DOS: 12/10/23, XY CHEST XRAY 1 VIEW on DOS: 07/21/23 FINDINGS: Lines and Tubes: None Lungs: No focal consolidation. Pleura: No effusion. No pneumothorax. Cardiomediastinal contours: Unremarkable Bones: No acute osseous abnormality. IMPRESSION: No acute cardiopulmonary disease.
[2024-05-16] MEDS: SODIUM CHLORIDE 0.9% 1,000 ML IV ONE (13:28)
[2024-05-16 14:00] VITALS: PULSE 60; RESP 21; O2SAT 100
[2024-05-16] MEDS: ALBUTEROL SULF 2.5 MG/0.5ML(0.5%) NEB SOLN NEB ONE ×2 (14:00→19:02)
[2024-05-16] MEDS: FUROSEMIDE 20 MG/2 ML VIAL IV ONE (14:26)
[2024-05-16] MEDS: SODIUM ZIRCONIUM CYCL 10 GM PAK PO ONE (14:26)
[2024-05-16] MEDS: CALCIUM GLUC 1,000mg/50ml-NS 50 ML IV ONE (14:33)
[2024-05-16 14:52] LABS: Urine Bacteria FEW /hpf (None Seen); Urine Blood Negative /uL (Negative); Urine Clarity Turbid (Clear); Urine Color Yellow (Yellow); Urine Protein, UAD 2+ (Negative); Urine Specific Gravity 1.015 (1.001-1.035); Urine Squamous Epithelial Cell None Seen /hpf (<5); Urine Urobilinogen Normal (Negative); Urine WBC 1 /hpf (0 - 3); Urine pH 5.5 (5.0-9.0)
[2024-05-16] MEDS: DEXTROSE (50%) 50ML SYRG IV ONE ×2 (14:54→19:02)
[2024-05-16] MEDS: SODIUM BICARB 8.4% 50Meq/50ml SYR INJ IV ONE (14:56)
[2024-05-16] MEDS: InsuLIN REG 1unit/0.01ml Soln (100units/ml) IV ONE ×2 (14:56→19:03)
[2024-05-16] MEDS: BUMETANIDE 2.5mg/10ml (0.25 mg/ml) INJ IV ONE (14:56)
[2024-05-16 14:57] LABS: Opiate Scree,Urine Neg (NEGATIVE)
[2024-05-16 14:59] LABS: Amphetamine Screen, Urine Neg (NEGATIVE); Barbiturate Scree,Urine Neg (NEGATIVE); Benzodiazephine Screen, Urine Neg (NEGATIVE); Cannabinoid Screen, Urine Neg (NEGATIVE); Cocaine Screen, Urine Neg (NEGATIVE); Phencyclidine Screen, Urine Neg (NEGATIVE)
[2024-05-16] MEDS: SODIUM BICARB 8.4% 50Meq/50ml SYR Vial IV ONE ×2 (15:18→19:02)
--- NOTE | 2024-05-16 15:40 | DVHINCON2 ---
Date of service: May 16, [address] Carter Reason for Consultation Acute kidney injury History of Present Illness 46-year-old male with past medical history of hypertension, diabetes, last known CKD approximately 50% GFR, hyperkalemia, diabetes, grade 1 diastolic heart failure, diabetic nephropathy. Patient reports that he was recently outside hospital more than a week ago for osteomyelitis of the foot placed on IV antibiotics with a PICC line in his arm. He does not know the name of the antibiotic. He presents to the hospital now complaining of weakness and fatigue. Nephrology consulted due to abnormal labs including an elevated potassium level and an elevated serum bicarb level. He reports that he is also on diuretics which have not been working over the last few days and has had decreased urinary output Allergies: Coded Allergies: NO KNOWN ALLERGIES (Unverified , 07/21/23) Home Meds Active Scripts Sodium Zirconium Cyclosilicate (Lokelma) 5 Gm Selvin, 10 GM PO DAILY for 15 Days, #1 PACK Prov:JAMILAH MARADIAGA MD 12/10/23 Hctz (Hydrochlorothiazide) 25 Mg Tab, 25 MG PO DAILY for 30 Days, #30 TAB Prov:JAMILAH MARADIAGA MD 12/10/23 Losartan Potassium (Losartan Potassium) 50 Mg Tab, 50 MG PO DAILY for 30 Days, #30 TAB Prov:JAMILAH MARADIAGA MD 12/10/23 Metoprolol Succinate (Toprol Xl) 50 Mg Tab, 50 MG PO DAILY for 30 Days, #30 TAB Prov:JAMILAH MARADIAGA MD 12/10/23 Reported Medications Semaglutide (Ozempic) 2 Mg/3 Ml Inj, 0.25 MG SC QWEEKLY, INJ 12/08/23 Clonazepam (Clonazepam Orally Disinte) 0.25 Mg Tab, 0.25 MG PO DAILY PRN for ANXIETY, TAB 12/08/23 Escitalopram Oxalate (ESCITALOPRAM OXALATE) 20 Mg Tab, 20 MG PO DAILY, TAB 12/08/23 Metformin HCl (Metformin Hydrochloride) 1,000 Mg Tab, 1000 MG PO BIDWM, TAB 12/08/23 Atorvastatin Calcium (Lipitor) 20 Mg Tab, 20 MG PO DAILY, TAB 07/22/23 Dapagliflozin Propanediol (Farxiga) 10 Mg Tab, 10 MG PO DAILY, TAB 07/22/23 Amlodipine Besylate (Amlodipine Besylate) 10 Mg Tab, 10 MG PO DAILY, TAB 07/22/23 Glipizide (Glipizide) 5 Mg Tab, 5 MG PO BIDAC, TAB 07/22/23 Family History: Diabetes mellitus G8 MOTHER G8 FATHER H&P Exam Vital Signs/I&O Vital Sign Date Time Temp Pulse Resp B/P (MAP) Pulse Ox O2 Delivery O2 Flow Rate FiO2 05/16/24 14:56 111/54 05/16/24 14:02 60 21 100 05/16/24 14:00 Room Air* 0 21 05/16/24 13:36 97.9 97.9 Physical Exam Obese male Mildly tremulous Abdomen is large nontender nondistended 3+ bilateral pitting edema Heart rate regular rate and rhythm Right foot in dressing and diabetic boot Labs/Diagnostic Data Labs/Diagnostic Data Laboratory Tests Test 05/16/24 14:26 05/16/24 14:23 05/16/24 14:05 05/16/24 12:42 Range/Units Random Vancomycin Level < 3.0 L 5-10 ug/mL Urine Color Yellow Yellow Urine Clarity Turbid H Clear Urine pH 5.5 5.0-9.0 Urine Specific [place] 1.015 1.001-1.035 Urine Protein 2+ H Negative Urine Ketones Negative Negative Urine Blood Negative Negative /uL Urine Nitrite Negative Negative Urine Bilirubin Negative Negative Urine Urobilinogen Normal Negative mg/dL Urine Leukocyte Esterase Trace Negative /uL Urine RBC 2 0 - 3 /hpf Urine WBC 1 0 - 3 /hpf Urine Squamous Epithelial Cells None seen <5 /hpf Urine Bacteria Few H None Seen /hpf Urine Glucose Normal Normal mg/dL Urine Opiates Screen Neg NEGATIVE Urine Fentanyl Screen Neg NEGATIVE Urine Barbiturates Screen Neg NEGATIVE Urine Phencyclidine Screen Neg NEGATIVE Urine Amphetamines Screen Neg NEGATIVE Urine Benzodiazepines Screen Neg NEGATIVE Urine Cocaine Screen Neg NEGATIVE Urine Cannabinoids Screen Neg NEGATIVE POC Glucose 118 H 70-106 mg/dl White Blood Count 6.7 4.4-10.8 10^3/uL Red Blood Count 3.65 L 4.5-5.90 10^6/uL Hemoglobin 9.7 L 13.5-17.5 g/dL Hematocrit 30.4 L 41.0-53.0 % Mean Corpuscular Volume 83.2 80.0-100.0 fL Mean Corpuscular Hemoglobin 26.5 L 28.0-32.0 pg Mean Corpuscular Hemoglobin Concent 31.9 L 32.0-36.0 g/dL Red Cell Distribution Width 19.4 H 11.8-14.3 % Platelet Count 215 140-450 10^3/uL Mean Platelet Volume 10.5 6.9-10.8 fL Neutrophils (%) (Auto) 77.6 37.0-80.0 % Lymphocytes (%) (Auto) 13.6 10.0-50.0 % Monocytes (%) (Auto) 5.6 0.0-12.0 % Eosinophils (%) (Auto) 2.3 0.0-7.0 % Basophils (%) (Auto) 0.9 0.0-2.0 % Neutrophils # (Auto) 5.2 1.6-8.6 10 ^3/uL Lymphocytes # (Auto) 0.9 0.4-5.4 10 ^3/uL Monocytes # (Auto) 0.4 0-1.3 10 ^3/uL Eosinophils # (Auto) 0.2 0-0.8 10 ^3/uL Basophils # (Auto) 0.1 0-0.2 10 ^3/uL Nucleated Red Blood Cells 0.7 % Sodium Level 137 136-145 mmol/L Potassium Level 7.2 *H 3.5-5.1 mmol/L Chloride Level 109 H 98-107 mmol/L Carbon Dioxide Level 13 L 20-31 mmol/L Anion Gap 15 5-15 Blood Urea Nitrogen 149 *H 9-23 mg/dL Creatinine 7.85 H 0.700-1.30 mg/dL Glomerular Filtration Rate Calc 8 >90 mL/min BUN/Creatinine Ratio 19.0 10.0-20.0 Serum Glucose 128 H 74-106 mg/dL Calcium Level 8.7 8.7-10.4 mg/dL Troponin I High Sensitivity 252 *H </=54 ng/L Assessment Acute kidney injury on chronic kidney disease likely multifactorial fluid overload versus medications Chronic kidney disease stage IIIA Diabetic nephropathy Diastolic heart failure decompensated Hyperkalemia Metabolic acidosis Sepsis secondary to subacute foot infection Anemia due to iron deficiency versus chronic kidney disease Medical treatment for elevated potassium level Obtain outside records to determine which antibiotic patient is taking Given concern for possible vancomycin nephrotoxicity obtain vancomycin trough Place a Kwok catheter Start diuretics Anemia panel Given fluid overload Given hypotension and low heart rate start patient on dopamine increase diuretics Strict Is&Os Low threshold to start hemodialysis does not respond to medical therapy soon. Plan discussed with: Patient HANK ACKERMAN MD May 16, 2024 15:40
[2024-05-16] MEDS: DOPamine 1600MCG/ML D5W 250 ML IV ONE (16:26)
[2024-05-16 16:28] LABS: Sodium 142 mmol/L (136-145)
[2024-05-16 16:29] LABS: Anion Gap 14 (5-15)
[2024-05-16 16:45] LABS: Calcium 8.4 mg/dL (8.7-10.4); Carbon Dioxide 17 mmol/L (20-31); Chloride 111 mmol/L (98-107); Glucose 125 mg/dL (74-106)
[2024-05-16 16:47] LABS: Potassium 6.4 mmol/L (3.5-5.1)
[2024-05-16 16:48] LABS: Blood Urea Nitrogen 157 mg/dL (9-23)
--- NOTE | 2024-05-16 16:50 | DVHHPRES ---
History of Present Illness Resident Creating Document: YOBANY HSIEH RESIDENT History of Present Illness This is a 48-year-old male with past medical history of hypertension, CKD, type 2 diabetes mellitus, osteomyelitis presented to the ED with generalized weakness for 1 week prior to this admission. the patient states that his right toe amputated on April 26, 2024 and he is on IV Zosyn TID for 6 weeks. patient denies chest pain, shortness of breath, cough, dizziness, diaphoresis, abdominal pain, nausea, vomiting, dysuria, hematuria or any change in bowel or bladder hab it. On admission potassium was 7.2, BUN 149 and creatinine was 7.85 and ekg revealed sinus rhythm. Nephrology was consulted in the ED and recommended hyperkalemia protocol management and IV dopamine per protocol. Past Medical History Hypertension, CKD, type 2 diabetes mellitus, osteomyelitis Past Surgical History Amputation Of the right 5th toes. Family History None Smoke: No ALCOHOL: none Drugs: None Lives: with Family Review of Systems Constitutional: Yes: Weakness; No: Fever, Chills, Sweats, Malaise, Other Eyes: No: Pain, Vision change, Conjunctivae inflammation, Eyelid inflammation, Other, Redness ENT: No: Ear pain, Ear discharge, Nose pain, Nose discharge, Nose congestion, Mouth pain, Mouth swelling, Throat pain, Throat swelling, Other Respiratory: Shortness of breath; No: Cough, Dry, SOB with excertion, Wheezing, Hemoptysis, Pleuritic Pain, Sputum, Wheezing, Other Cardiovascular: No: Chest Pain, Palpitations, Orthopnea, Paroxysmal Noc. Dyspnea, Edema, Lt Headedness, Other Gastrointestinal: No: Nausea, Vomiting, Abdominal Pain, Diarrhea, Constipation, Melena, Hematochezia, Other Genitourinary: No Dysuria, No Frequency, No Incontinence, No Hematuria, No Retention, No Other Musculoskeletal: No: other, neck pain, shoulder pain, arm pain, back pain, hand pain, leg pain, foot pain Skin: No: Rash, Lesions, Jaundice, Bruising, Other Neurological: No: Weakness, Numbness, Incoordination, Change in speech, Confusion, Seizures, Other Allergies: Coded Allergies: NO KNOWN ALLERGIES (Unverified , 07/21/23) Exam Vital Signs Vital Signs Date Time Temp Pulse Resp B/P (MAP) Pulse Ox O2 Delivery O2 Flow Rate FiO2 05/16/24 16:26 110/70 05/16/24 15:00 60 13 96 05/16/24 14:20 97.2 97.2 05/16/24 14:00 Room Air* 0 21 Exam Physical examination: General Appearance: Alert, Oriented X3, Cooperative, mild distress HEENT: Atraumatic, PERRLA, EOMI, Mucous membrane moist/pink Respiratory: Bilateral crackles Cardiovascular: Regular rate, Normal S1, Normal S2, No murmurs, no chest wall tenderness Abdominal: Normal bowel sounds, Soft, No tenderness, No hepatospenomegaly, No masses Extremities: Oedema + bilaterally, s/p amputation of rt 5th finger, No clubbing, No cyanosis, Normal pulses, No tenderness/swelling Skin: No rashes, No breakdown, No significant lesion Neuro: Normal gait, Normal speech, Strength at 5/5 X4 ext, Normal tone, Sensation intact, grossly intact cranial nerves. Psych/Mental Status: Mental status NL, Mood NL Labs/Xrays Labs Test 05/16/24 15:50 05/16/24 14:26 05/16/24 14:23 05/16/24 14:05 Range/Units Sodium Level 142 # 136-145 mmol/L Potassium Level 6.4 *H 3.5-5.1 mmol/L Chloride Level 111 H 98-107 mmol/L Carbon Dioxide Level 17 L 20-31 mmol/L Anion Gap 14 5-15 Blood Urea Nitrogen 157 *H 9-23 mg/dL Creatinine 7.86 H 0.700-1.30 mg/dL Glomerular Filtration Rate Calc 8 >90 mL/min BUN/Creatinine Ratio 20.0 10.0-20.0 Serum Glucose 125 H 74-106 mg/dL Calcium Level 8.4 L 8.7-10.4 mg/dL Random Vancomycin Level < 3.0 L 5-10 ug/mL Urine Color Yellow Yellow Urine Clarity Turbid H Clear Urine pH 5.5 5.0-9.0 Urine Specific [place] 1.015 1.001-1.035 Urine Protein 2+ H Negative Urine Ketones Negative Negative Urine Blood Negative Negative /uL Urine Nitrite Negative Negative Urine Bilirubin Negative Negative Urine Urobilinogen Normal Negative mg/dL Urine Leukocyte Esterase Trace Negative /uL Urine RBC 2 0 - 3 /hpf Urine WBC 1 0 - 3 /hpf Urine Squamous Epithelial Cells None seen <5 /hpf Urine Bacteria Few H None Seen /hpf Urine Glucose Normal Normal mg/dL Urine Opiates Screen Neg NEGATIVE Urine Fentanyl Screen Neg NEGATIVE Urine Barbiturates Screen Neg NEGATIVE Urine Phencyclidine Screen Neg NEGATIVE Urine Amphetamines Screen Neg NEGATIVE Urine Benzodiazepines Screen Neg NEGATIVE Urine Cocaine Screen Neg NEGATIVE Urine Cannabinoids Screen Neg NEGATIVE POC Glucose 118 H 70-106 mg/dl Test 05/16/24 12:42 Range/Units White Blood Count 6.7 4.4-10.8 10^3/uL Red Blood Count 3.65 L 4.5-5.90 10^6/uL Hemoglobin 9.7 L 13.5-17.5 g/dL Hematocrit 30.4 L 41.0-53.0 % Mean Corpuscular Volume 83.2 80.0-100.0 fL Mean Corpuscular Hemoglobin 26.5 L 28.0-32.0 pg Mean Corpuscular Hemoglobin Concent 31.9 L 32.0-36.0 g/dL Red Cell Distribution Width 19.4 H 11.8-14.3 % Platelet Count 215 140-450 10^3/uL Mean Platelet Volume 10.5 6.9-10.8 fL Neutrophils (%) (Auto) 77.6 37.0-80.0 % Lymphocytes (%) (Auto) 13.6 10.0-50.0 % Monocytes (%) (Auto) 5.6 0.0-12.0 % Eosinophils (%) (Auto) 2.3 0.0-7.0 % Basophils (%) (Auto) 0.9 0.0-2.0 % Neutrophils # (Auto) 5.2 1.6-8.6 10 ^3/uL Lymphocytes # (Auto) 0.9 0.4-5.4 10 ^3/uL Monocytes # (Auto) 0.4 0-1.3 10 ^3/uL Eosinophils # (Auto) 0.2 0-0.8 10 ^3/uL Basophils # (Auto) 0.1 0-0.2 10 ^3/uL Nucleated Red Blood Cells 0.7 % Troponin I High Sensitivity 252 *H </=54 ng/L Assessment/Plan Assessment/Plan Assessment and Plan: # Hyperkalemia with possible uremic encephalopathy # CKD stage 5 progressing to ESRD # NSTEMI type 2 # Osteomyelitis of the rt foot, s/p amputation of the rt 5th toes. - Nephrology on board - Hyperkalemia protocol management - Lokelma PO tid - IV lasix 80 mg b.i.d. - Stat hemodialysis as per Nephrology recommendation - IV dopamine drip as per protocol - IV meropenem renal dose 500 mg t.i.d. - Ordered echo - BiPAP at nighttime. Diet- Renal diet PUD prophylaxis- Pepcid 20 mg po daily Goal care discussed with the patient for more than 20 minutes full code Disposition- Telemetry Plan discussed with Dr. Barker Plan discussed with: Patient, Spouse My Orders Orders - YOBANY HSIEH Procedure Category Date Status Time Admit ADMIT 05/16/24 Transmitted 16:43 Date of Service: May 16, 2024 Billing Provider: DYLAN OWENS MD Common Visit Codes: [id number] INP/OBS CARE (HIGH) YOBANY HSIEH May 16, 2024 16:50 DYLAN OWENS MD May 17, 2024 16:40
[2024-05-16 17:13] LABS: Base Excess -14.3 mmol/L (-2.0-3.0)
[2024-05-16] MEDS: MEROPENEM 500MG IVPB 50 ML IV ONE (17:13)
[2024-05-16] MEDS ORDERED: FUROSEMIDE 20 MG/2 ML VIAL IV SCH (18:00)
[2024-05-16] MEDS: FUROSEMIDE 20 MG/2 ML VIAL IV SCH (19:01)
[2024-05-16 19:02] VITALS: BP 165/80; PULSE 70; O2SAT 98; O2SAT 99
--- NOTE | 2024-05-16 19:03 | ECG ---
[facility] Test Date: 2024-05-16 Test Time: 12:12:48 Pat Name: JASPREET PRESLEY Department: er Room: 0246T Gender: M Diagrammer: claire : 1975 Requested By: ODILIA GROSS Order Number: [id number] Reading MD: Torrey Fairbanks Measurements Intervals [place] Rate: 61 P: 138 NJ: 154 QRS: 155 QRSD: 146 T: 197 QT: 476 QTc: 480 Interpretive Statements Right and left arm electrode reversal, interpretation assumes no reversal Sinus or ectopic atrial rhythm Nonspecific intraventricular conduction delay Inferolateral infarct, age indeterminate Electronically Signed On 05-20-2024 15:36:04 PST by Torrey Fairbanks Please click the below link to view image of tracing.
--- NOTE | 2024-05-16 19:23 | DVHNC2 ---
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 Barker) Indication: Other (Dialysis) Room prepared for procedure: Yes Automotive General Manager performed hand hygien: Yes Maximal sterile barrier precau: Mask/Eye shield, Sterile gown, Cap, Sterlie gloves, Large sterlie drape Skin Preparation: Chlorhexidine gluconate Skin preparation completely dr: Yes Insertion site: Right, Internal jugular Central line catheter type: Dialysis non-tunneled Number of lumens: 2 Central line exchanged over a: No Antiseptic ointment applied to: Yes Post Assessment: Chest X-Ray, Proper placement Informed consent obtained: Yes Risks/benefits/alt described: Yes Date of Service: May 16, 2024 Billing Provider: DYLAN OWENS MD Common Visit Codes: PROCEDURE ONLY Procedure Codes: [id number] NON-TUNNEL CV CATH CHRISTIAN SLOAN RESIDENT May 16, 2024 19:23 DYLAN OWENS MD May 17, 2024 16:41
[2024-05-16 19:28] VITALS: BP 165/80; PULSE 80; RESP 16; TEMP 97.2; O2SAT 98
--- NOTE | 2024-05-16 19:33 | DVH ---
CHEST RADIOGRAPH Indication: STATUS POST DIALYSIS CATH Technique: Single frontal view of the chest was obtained COMPARISON: XY CHEST PORTABLE on DOS: 05/16/24, XY CHEST PORTABLE on DOS: 03/12/24, XY CHEST XRAY 1 EW on DOS: 12/10/23, XY CHEST XRAY 1 VIEW on DOS: 07/21/23 FINDINGS: Lines and Tubes: Right-sided central venous catheter seen with tip in the lower SVC. Lungs: Questionable mild interstitial pulmonary edema. Pleura: No effusion. No pneumothorax. Cardiomediastinal contours: Mild cardiomegaly Bones: Unremarkable IMPRESSION: 1. Questionable mild interstitial pulmonary edema. 2. Right-sided central venous catheter seen with tip in the lower SVC.
[2024-05-16] MEDS: EPOETIN ALFA-EPBX 10,000 UNIT/1ML VIAL SC ONE (21:00)
[2024-05-16 21:17] LABS: Base Excess -11.6 mmol/L (-2.0-3.0)
[2024-05-16 22:04] LABS: Protein, Urine 177.3 mg/dL (1-14)
[2024-05-16 22:07] LABS: Creatinine, Urine 105.33 mg/dL (30.0-125.0)
[2024-05-17] MEDS: hydrALAZINE HCL 20 MG/ML VL IV PRN (00:50)
[2024-05-17] MEDS: hydrALAZINE HCL 20 MG/ML VL ONE (01:02)
[2024-05-17 02:29] VITALS: O2SAT 93
[2024-05-17 06:32] LABS: Chloride 103 mmol/L (98-107); Potassium 4.7 mmol/L (3.5-5.1); Sodium 140 mmol/L (136-145)
[2024-05-17 06:33] LABS: Anion Gap 17 (5-15); Carbon Dioxide 20 mmol/L (20-31)
[2024-05-17 06:38] LABS: BUN/Creatinine Ratio 16.4 (10.0-20.0)
[2024-05-17 06:42] LABS: Calcium 8.6 mg/dL (8.7-10.4); Glucose 147 mg/dL (74-106)
[2024-05-17 06:43] LABS: Blood Urea Nitrogen 93 mg/dL (9-23)
[2024-05-17 06:46] LABS: % Iron Saturation 17.9 % (20-55)
[2024-05-17 07:30] VITALS: PULSE 91; RESP 22; O2SAT 90
[2024-05-17] MEDS: SODIUM CHL 0.9% 1000 ML BAG XX ONE (07:52)
[2024-05-17 09:02] LABS: Basophils # (auto) 0.1 10 ^3/uL (0-0.2); Basophils % (auto) 0.8 % (0.0-2.0); Eosinophils # (auto) 0.2 10 ^3/uL (0-0.8); Hemoglobin 9.2 g/dL (13.5-17.5); Monocytes # (auto) 0.5 10 ^3/uL (0-1.3); Monocytes % (auto) 5.8 % (0.0-12.0); Nucleated Red Blood Cells % 0.4 %
[2024-05-17 09:03] LABS: Hematocrit 28.1 % (41.0-53.0); Lymphocytes # (auto) 0.5 10 ^3/uL (0.4-5.4); Lymphocytes % (auto) 5.9 % (10.0-50.0); Mean Corpuscular Hemoglobin 26.8 pg (28.0-32.0); Mean Corpuscular Hgb Conc. 32.8 g/dL (32.0-36.0); Mean Corpuscular Volume 81.7 fL (80.0-100.0); Neutrophils # (auto) 6.9 10 ^3/uL (1.6-8.6); Neutrophils % (auto) 84.5 % (37.0-80.0); Platelet Count (auto) 195 10^3/uL (140-450); Red Blood Cells 3.44 10^6/uL (4.5-5.90); Red Cell Distribution Width 18.7 % (11.8-14.3); White Blood Cell 8.1 10^3/uL (4.4-10.8)
[2024-05-17 10:09] LABS: Hepatitis A Ab IgM Negative; Hepatitis B Core IgM Negative (Negative); Hepatitis B Surface Antigen Negative (Negative); Hepatitis C Antibody Negative (Negative)
[2024-05-17] MEDS: MEROPENEM 500MG IVPB 50 ML IV SCH (10:18)
[2024-05-17] MEDS: EPOETIN ALFA-EPBX 4,000 UNIT/ML VIAL SC SCH (10:19)
--- NOTE | 2024-05-17 11:02 | DVHSR ---
APPROVED REPORT EXAM: Two-dimensional and M-mode echocardiogram with Doppler and color Doppler. Blood Pressure: 158/77 mmHg INDICATION Dizziness and Vertigo RISK FACTORS Height: 69, Weight: 286 DIMENSIONS LVDd5.3 (3.8-5.7cm)LA (2D)5.0 (1.9-4.0cm)Aortic Root3.7 (2.0-3.7cm) LVDs3.9 (2.5-4.0cm)LA (MM) (1.9-4.0cm)Aortic Cusp Exc2.3 (1.5-2.0cm) EF (%) 55.0 (55-70%)Rt. Atrium4.5 (1.9-4.0cm)Asc. Aorta cm IVSd1.1 (0.7-1.1cm)RV (D) (1.8-2.4cm) PWd1.2 (0.7-1.1cm) Mitral Valve MitralMitral Stenosis E wave1.17m/sMV Mean GR.mmHg A wave1.07m/sMV Peak GR.mmHg E/A ratio1.12D MVAcm2 DECEL [id number] 1/2 [id number] IVRTmsDop MVA3.39cm2 Aortic Valve Aortic ValveAortic Stenosis V11.28m/Camila Mean GR.6mmHg V21.64m/Camila Peak GR.11mmHg LVOT Diameter2.3 (1.8-2.4cm)Doppler AVA3.24cm2 Pulmonic Valve V21.25m/s Tricuspid Valve TR Velocity3.26m/s [id number] LEFT VENTRICLE The left ventricle is of normal size. Wall thickness is mildly increased. Ejection fraction is norm al and is estimated at 55%. There is no gross wall motion abnormalities but endocardial definition i s suboptimal. There is a grade II diastolic dysfunction with evidence of elevated left-sided filling pressure. E to E prime ratio is more than 15. RIGHT VENTRICLE Mildly dilated in size. Systolic function is normal. ATRIA Moderately dilated in size. Mildly dilated in size. Likely normal. MITRAL VALVE Normal in structure and function. There is no significant mitral regurgitation. PULMONIC VALVE Likely normal. TRICUSPID VALVE Normal structure and function. There is mild tricuspid regurgitation. PA systolic pressure is estim ated at 50-55 mm Hg. AORTIC VALVE Normal in structure and function. GREAT VESSELS The aortic root is of normal size. Proximal ascending aorta is not visualized. PERICARDIAL EFFUSION No pericardial effusion. IVC is dilated in size. Other Information Technically limited study due to body habitus. Conclusion The study is technically limited. Normal left ventricular size and systolic function. Ejection fraction is estimated at 55%. Mild left ventricular hypertrophy. There is grade II diastolic dysfunction with evidence of elevated left-sided filling pressure. Mildly dilated right ventricle with a preserved systolic function. Moderately dilated left atrial chamber size. Mildly dilated right atrial chamber size. PA systolic pressure is estimated at 50-55 mm Hg.
[2024-05-17] MEDS: ONDANSETRON HCL 4 MG/2 ML VIAL IV PRN (12:32)
[2024-05-17] MEDS: CALCIUM ACETATE 667 MG CAP PO SCH (12:44)
[2024-05-17] MEDS: IRON SUCROSE COMPLEX 110 ML IV SCH (12:45)
--- NOTE | 2024-05-17 14:38 | DVHPN2 ---
Progress Note Date Seen: May 17, 2024 Medical Necessity Reason Pt with a Central, PICC or Fol: Yes The following are medically ne: PICC Line, Kwok Catheter Subjective Patient reports: Feels better Objective vital signs Vital Sign Date Time Temp Pulse Resp B/P (MAP) Pulse Ox O2 Delivery O2 Flow Rate FiO2 05/17/24 14:00 97.9 83 23 144/66 (92) 99 97.9 05/17/24 07:30 Nasal Cannula* 4 36 Total Intake and Output 05/16/24 05/16/24 05/17/24 15:00 23:00 07:00 Intake Total 1050 ml 142.222 ml 97.504 ml Output Total 200 ml 950 ml Balance 850 ml -807.778 ml 97.504 ml medications Current Medications Medications Dose Ordered Sig/Jadon Route Start Time Stop Time Status Last Admin Dose Admin Meropenem 50 ml @ 17 mls/hr DAILY IV 05/17/24 10:00 05/17/24 10:18 17 MLS/HR Furosemide 80 mg BIDD IV 05/16/24 18:00 05/17/24 05:30 80 MG Hydralazine HCl 10 mg Q6HP PRN IV 05/17/24 00:56 05/17/24 08:32 10 MG Iron Sucrose 110 ml @ 110 mls/hr DAILY@1200 IV 05/17/24 12:00 05/21/24 12:59 05/17/24 13:52 110 MLS/HR Calcium Acetate 1,334 mg TIDWMEALS PO 05/17/24 12:00 05/17/24 12:44 1,334 MG Epoetin Sagar-epbx 4,000 unit TUTHSA SC 05/17/24 10:00 05/17/24 10:19 4,000 UNIT Pantoprazole Sodium 40 mg DAILY@0600 PO 05/18/24 06:00 Ondansetron HCl 4 mg Q8HPRN PRN IV 05/17/24 12:00 05/17/24 12:32 4 MG Examination: GENERAL:Abnormal, LUNGS:Abnormal, ABDOMEN:Abnormal, SKIN:Abnormal laboratory and microbiology Laboratory Tests 05/17/24 05:38 05/17/24 05:35 Test 05/17/24 05:35 Range/Units Serum Glucose 147 H 74-106 mg/dL Problem List/Assessment/Plan Problem List/Assessment/Plan Acute kidney injury on chronic kidney disease likely multifactorial fluid overload versus medications ; inpatient HD due to Uremia Chronic kidney disease stage IIIA Diabetic nephropathy Diastolic heart failure decompensated Hyperkalemia Metabolic acidosis Sepsis secondary to subacute foot infection on ABX via PiCC Anemia due to iron deficiency versus chronic kidney disease IV iron and epogen HD tomorrow phos binder continue diuretics Strict Is&Os SW consult for acute HD chair renal diet Plan discussed with: Patient My Orders My Orders Orders - HANK ACKERMAN MD Procedure Category Date Status Time Furosemide Injection PHA 05/16/24 In Process (Lasix Injection) 18:00 Communication Order ORDERS 05/16/24 Transmitted 17:31 Hemodialysis Orders ORDERS 05/16/24 Transmitted 17:31 Dialysis Nursing SHAHZAD 05/16/24 In Process Message 17:31 Document Fluid Input SHAHZAD 05/16/24 In Process And Outpu 17:31 Basic Metabolic Panel LAB 05/18/24 Verified 04:00 Iron Sucrose Complex PHA 05/17/24 In Process (Venofer) 12:00 Calcium Acetate PHA 05/17/24 In Process Capsule (Phoslo 12:00 Epoetin Sagar-Epbx PHA 05/17/24 In Process (Retacrit) 10:00 HANK ACKERMAN MD May 17, 2024 14:38
[2024-05-17] MEDS ORDERED: DEXTROSE (50%) 50ML SYRG IV PRN (14:45)
[2024-05-17] MEDS: MORPHINE SULFATE INJ 2 MG/ml SYRG IV PRN (15:29)
[2024-05-17] MEDS: InsuLIN REG 1unit/0.01ml Soln (100units/ml) SC SCH (16:00)
[2024-05-17] MEDS: ACCU-CHEK COMFORT CURVE STRIP VI SCH (16:03)
--- NOTE | 2024-05-17 19:06 | DVHPNRES ---
Progress Note Date Seen: May 17, 2024 Resident Creating Document: YOBANY HSIEH RESIDENT Medical Necessity Reason Pt with a Central, PICC or Fol: Yes The following are medically ne: PICC Line, Kwok Catheter Subjective Review of Systems This is a 48-year-old male with past medical history of hypertension, CKD, type 2 diabetes mellitus, osteomyelitis presented to the ED with generalized weakness for 1 week prior to this admission. the patient states that his right toe amputated on April 26, 2024 and he is on IV Zosyn TID for 6 weeks. Constitutional: Yes: Weakness; No: Fever, Chills, Sweats, Malaise, Other Eyes: No: Pain, Vision change, Conjunctivae inflammation, Eyelid inflammation, Other, Redness ENT: No: Ear pain, Ear discharge, Nose pain, Nose discharge, Nose congestion, Mouth pain, Mouth swelling, Throat pain, Throat swelling, Other Respiratory: Shortness of breath; No: Cough, Dry, SOB with excertion, Wheezing, Hemoptysis, Pleuritic Pain, Sputum, Wheezing, Other Cardiovascular: No: Chest Pain, Palpitations, Orthopnea, Paroxysmal Noc. Dyspnea, Edema, Lt Headedness, Other Gastrointestinal: No: Nausea, Vomiting, Abdominal Pain, Diarrhea, Constipation, Melena, Hematochezia, Other Genitourinary: No Dysuria, No Frequency, No Incontinence, No Hematuria, No Retention, No Other Musculoskeletal: No: other, neck pain, shoulder pain, arm pain, back pain, hand pain, leg pain, foot pain Skin: No: Rash, Lesions, Jaundice, Bruising, Other Neurological: No: Weakness, Numbness, Incoordination, Change in speech, Confusion, Seizures, Other Objective vital signs Vital Sign Date Time Temp Pulse Resp B/P (MAP) Pulse Ox O2 Delivery O2 Flow Rate FiO2 05/17/24 18:06 120/69 05/17/24 18:00 116 18 91 05/17/24 14:00 97.9 97.9 05/17/24 07:30 Nasal Cannula* 4 36 Total Intake and Output 05/16/24 05/16/24 05/17/24 15:00 23:00 07:00 Intake Total 1050 ml 142.222 ml 97.504 ml Output Total 200 ml 950 ml Balance 850 ml -807.778 ml 97.504 ml medications Current Medications Medications Dose Ordered Sig/Jadon Route Start Time Stop Time Status Last Admin Dose Admin Meropenem 50 ml @ 17 mls/hr DAILY IV 05/17/24 10:00 05/17/24 10:18 17 MLS/HR Furosemide 80 mg BIDD IV 05/16/24 18:00 05/17/24 18:06 80 MG Hydralazine HCl 10 mg Q6HP PRN IV 05/17/24 00:56 05/17/24 16:50 10 MG Iron Sucrose 110 ml @ 110 mls/hr DAILY@1200 IV 05/17/24 12:00 05/21/24 12:59 05/17/24 17:32 110 MLS/HR Calcium Acetate 1,334 mg TIDWMEALS PO 05/17/24 12:00 05/17/24 18:06 1,334 MG Epoetin Sagar-epbx 4,000 unit TUTHSA SC 05/17/24 10:00 05/17/24 10:19 4,000 UNIT Pantoprazole Sodium 40 mg DAILY@0600 PO 05/18/24 06:00 Ondansetron HCl 4 mg Q8HPRN PRN IV 05/17/24 12:00 05/17/24 12:32 4 MG Diagnostic Test (Pha) 1 strip IQ4HR 05/17/24 16:00 05/17/24 16:03 1 STRIP Insulin Human Regular IQ4HR SC 05/17/24 16:00 Dextrose 50 ml UD PRN IV 05/17/24 14:45 Acetaminophen 650 mg Q6HPRN PRN PO 05/17/24 14:45 Acetaminophen/ Hydrocodone Bitart 1 tab Q4HP PRN PO 05/17/24 14:45 Morphine Sulfate 2 mg Q4HPRN PRN IV 05/17/24 14:45 05/17/24 15:29 2 MG Examination Physical examination: General Appearance: Alert, Oriented X3, Cooperative, mild distress HEENT: Atraumatic, PERRLA, EOMI, Mucous membrane moist/pink Respiratory: Bilateral crackles Cardiovascular: Regular rate, Normal S1, Normal S2, No murmurs, no chest wall tenderness Abdominal: Normal bowel sounds, Soft, No tenderness, No hepatospenomegaly, No masses Extremities: Oedema + bilaterally, s/p amputation of rt 5th finger, No clubbing, No cyanosis, Normal pulses, No tenderness/swelling Skin: No rashes, No breakdown, No significant lesion Neuro: Normal gait, Normal speech, Strength at 5/5 X4 ext, Normal tone, Sensation intact, grossly intact cranial nerves. Psych/Mental Status: Mental status NL, Mood NL laboratory and microbiology Laboratory Tests 05/17/24 05:38 05/17/24 05:35 Test 05/17/24 05:35 Range/Units Serum Glucose 147 H 74-106 mg/dL Labs and/or images reviewed: Labs reviewed by me, Image(s) reviewed by me Problem List/Assessment/Plan Problem List/Assessment/Plan Assessment and Plan: # Hyperkalemia with possible uremic encephalopathy # CKD stage 5 progressing to ESRD # NSTEMI type 2 secondary to above # Osteomyelitis of the rt foot, s/p amputation of the rt 5th toes. - Nephrology on board - Lokelma PO tid - IV lasix 80 mg b.i.d. - Continue hemodialysis as per Nephrology recommendation - IV meropenem renal dose 500 mg t.i.d. - Echo revealed ejection fraction 55% - BiPAP at nighttime. - Wound consult - Hepatitis panel negative - Consulted social work coordinator to arrange outpatient chair time. Hypertensive emergency - Amlodipine 10 mg p.o. daily and losartan potassium 50 mg daily . - IV hydralazine 10 mg q.6 p.r.n. Diet- Renal diet PUD prophylaxis- Protonix 40 mg po daily Goal care discussed with the patient for more than 20 minutes full code Disposition- Telemetry Plan discussed with Dr. Barker Plan discussed with: Patient, Other My Orders My Orders Orders - YOBANY HSIEH RESIDENT Procedure Category Date Status Time Renal DIET 05/17/24 Transmitted Standard(2gna,3gk,Lopho) Breakfast * Wound Consult CONS 05/17/24 Transmitted * Life Care Planner CONS 05/17/24 Transmitted Consult Pantoprazole Tablet PHA 05/18/24 In Process (Protonix Tablet) 06:00 Ondansetron Hcl PHA 05/17/24 In Process (Zofran) 12:00 Date of Service: May 17, 2024 Billing Provider: DYLAN OWENS MD Common Visit Codes: [id number] INP/OBS CARE(HIGH) YOBANY HSIEH RESIDENT May 17, 2024 19:06 DYLAN OWENS MD May 21, 2024 16:23
[2024-05-17 19:25] VITALS: PULSE 79; RESP 21; O2SAT 97
[2024-05-17 21:18] VITALS: BP 112/67; PULSE 76; O2SAT 98
[2024-05-18] VITALS (11 sets, daily range): BP systolic 113–166; BP diastolic 54–85; PULSE 74–83; RESP 16–19; TEMP 97.6–99.2; O2SAT 94–100
[2024-05-18] MEDS: PANTOPRAZOLE 40 MG TAB PO SCH (06:24)
[2024-05-18] MEDS: FUROSEMIDE 40 MG/4 ML VIAL IV SCH (06:25)
[2024-05-18 09:41] LABS: Basophils # (auto) 0.1 10 ^3/uL (0-0.2); Basophils % (auto) 0.9 % (0.0-2.0); Eosinophils # (auto) 0.7 10 ^3/uL (0-0.8); Eosinophils % (auto) 8.6 % (0.0-7.0); Hematocrit 25.3 % (41.0-53.0); Hemoglobin 8.3 g/dL (13.5-17.5); Lymphocytes # (auto) 0.9 10 ^3/uL (0.4-5.4); Lymphocytes % (auto) 11.3 % (10.0-50.0); Mean Corpuscular Hemoglobin 26.9 pg (28.0-32.0); Mean Corpuscular Volume 81.5 fL (80.0-100.0); Monocytes # (auto) 0.9 10 ^3/uL (0-1.3); Monocytes % (auto) 11.1 % (0.0-12.0); Neutrophils # (auto) 5.6 10 ^3/uL (1.6-8.6); Neutrophils % (auto) 68.1 % (37.0-80.0); Nucleated Red Blood Cells % 0.4 %; Platelet Count (auto) 166 10^3/uL (140-450); Red Cell Distribution Width 18.8 % (11.8-14.3); White Blood Cell 8.2 10^3/uL (4.4-10.8)
[2024-05-18 09:54] LABS: Alanine Aminotransferase 19 U/L (7-40); Albumin 3.7 g/dL (3.2-4.8); Alkaline Phosphatase 75 U/L (46-116); Anion Gap 10 (5-15); Aspartate Aminotransferase 13 U/L (13-40); BUN/Creatinine Ratio 16.9 (10.0-20.0); Carbon Dioxide 25 mmol/L (20-31); Chloride 103 mmol/L (98-107); Potassium 4.8 mmol/L (3.5-5.1); Sodium 138 mmol/L (136-145)
[2024-05-18] MEDS ORDERED: hydroCHLOROthiazide 25 MG TAB PO SCH (10:00)
[2024-05-18 10:17] LABS: Bilirubin, Total 0.3 mg/dL (0.2-1.0); Calcium 8.2 mg/dL (8.7-10.4); Glucose 184 mg/dL (74-106)
[2024-05-18 10:20] LABS: Blood Urea Nitrogen 96 mg/dL (9-23)
--- NOTE | 2024-05-18 10:29 | DVHPNRES ---
Progress Note Date Seen: May 18, 2024 Resident Creating Document: YOBANY HSIEH RESIDENT Medical Necessity Reason Pt with a Central, PICC or Fol: Yes The following are medically ne: Kwok Catheter Subjective Review of Systems This is a 48-year-old male with past medical history of hypertension, CKD, type 2 diabetes mellitus, osteomyelitis presented to the ED with generalized weakness for 1 week prior to this admission. the patient states that his right toe amputated on April 26, 2024 and he is on IV Zosyn TID for 6 weeks. Patient was seen and examined on the bedside. He is alert,oriented x3. No overnight complains. Mentioned improvement of shortness of breath and decreased bilateral leg swelling. He underwent 2nd dialysis today and waiting for outpatient chair time to discharge the patient to home. Objective vital signs Vital Sign Date Time Temp Pulse Resp B/P (MAP) Pulse Ox O2 Delivery O2 Flow Rate FiO2 05/18/24 09:00 98.3 74 16 113/54 (73) 94 98.3 05/18/24 05:12 Nasal Cannula* 4 36 Total Intake and Output 05/17/24 05/17/24 05/18/24 15:00 23:00 07:00 Intake Total 302.752 ml 330 ml Output Total 1300 ml 450 ml 1500 ml Balance -997.248 ml -120 ml -1500 ml medications Current Medications Medications Dose Ordered Sig/Jadon Route Start Time Stop Time Status Last Admin Dose Admin Meropenem 50 ml @ 17 mls/hr DAILY IV 05/17/24 10:00 05/17/24 10:18 17 MLS/HR Hydralazine HCl 10 mg Q6HP PRN IV 05/17/24 00:56 05/18/24 04:49 10 MG Iron Sucrose 110 ml @ 110 mls/hr DAILY@1200 IV 05/17/24 12:00 05/21/24 12:59 05/17/24 17:32 110 MLS/HR Calcium Acetate 1,334 mg TIDWMEALS PO 05/17/24 12:00 05/18/24 08:24 1,334 MG Epoetin Sagar-epbx 4,000 unit TUTHSA SC 05/17/24 10:00 05/17/24 10:19 4,000 UNIT Pantoprazole Sodium 40 mg DAILY@0600 PO 05/18/24 06:00 05/18/24 06:24 40 MG Ondansetron HCl 4 mg Q8HPRN PRN IV 05/17/24 12:00 05/17/24 12:32 4 MG Diagnostic Test (Pha) 1 strip IQ4HR 05/17/24 16:00 05/18/24 08:22 1 STRIP Insulin Human Regular IQ4HR SC 05/17/24 16:00 05/18/24 08:24 3 UNITS Dextrose 50 ml UD PRN IV 05/17/24 14:45 Acetaminophen 650 mg Q6HPRN PRN PO 05/17/24 14:45 Acetaminophen/ Hydrocodone Bitart 1 tab Q4HP PRN PO 05/17/24 14:45 Morphine Sulfate 2 mg Q4HPRN PRN IV 05/17/24 14:45 05/17/24 15:29 2 MG Atorvastatin Calcium 20 mg DAILY PO 05/18/24 10:00 Losartan Potassium 50 mg DAILY PO 05/18/24 10:00 Metoprolol Succinate 50 mg DAILY PO 05/18/24 10:00 Amlodipine Besylate 10 mg DAILY PO 05/18/24 10:00 Furosemide 80 mg BIDD IV 05/18/24 06:00 05/18/24 06:25 80 MG Examination Physical examination: General Appearance: Alert, Oriented X3, Cooperative, mild distress HEENT: Atraumatic, PERRLA, EOMI, Mucous membrane moist/pink Respiratory: Bilateral crackles Cardiovascular: Regular rate, Normal S1, Normal S2, No murmurs, no chest wall tenderness Abdominal: Normal bowel sounds, Soft, No tenderness, No hepatospenomegaly, No masses Extremities: Oedema + bilaterally, s/p amputation of rt 5th finger, No clubbing, No cyanosis, Normal pulses, No tenderness/swelling Skin: No rashes, No breakdown, No significant lesion Neuro: Normal gait, Normal speech, Strength at 5/5 X4 ext, Normal tone, Sensation intact, grossly intact cranial nerves. Psych/Mental Status: Mental status NL, Mood NL laboratory and microbiology Laboratory Tests 05/18/24 09:25 Test 05/18/24 09:25 Range/Units Serum Glucose 184 H 74-106 mg/dL Labs and/or images reviewed: Labs reviewed by me, Image(s) reviewed by me Problem List/Assessment/Plan Problem List/Assessment/Plan Assessment and Plan: # Hyperkalemia with possible uremic encephalopathy resolved # CKD stage 5 progressing to ESRD # NSTEMI type 2 secondary to above # Osteomyelitis of the rt foot, s/p amputation of the rt 5th toes. - Nephrology on board - Lokelma PO tid - IV lasix 80 mg b.i.d. - Continue hemodialysis as per Nephrology recommendation - IV meropenem renal dose 500 mg t.i.d. - Echo revealed ejection fraction 55% - BiPAP at nighttime. - Wound consult - Hepatitis panel negative - Consulted long term care social worker to arrange outpatient chair time. Hypertensive emergency - Amlodipine 10 mg p.o. daily and losartan potassium 50 mg daily . - IV hydralazine 10 mg q.6 p.r.n. Type 2 diabetes mellitus, HbA1C 6.8% - Mild sliding scale of insulin Diet- Renal diet PUD prophylaxis- Protonix 40 mg po daily Goal care discussed with the patient for more than 20 minutes full code Disposition- Telemetry Plan discussed with Dr. Barker Plan discussed with: Patient, Other My Orders My Orders Orders - YOBANY HSIEH Procedure Category Date Status Time * Bullet Lubricant Mixer CONS 05/17/24 Transmitted Consult Pantoprazole Tablet PHA 05/18/24 In Process (Protonix Tablet) 06:00 Ondansetron Hcl PHA 05/17/24 In Process (Zofran) 12:00 Atorvastatin (Lipitor) PHA 05/18/24 In Process 10:00 Losartan Tablet PHA 05/18/24 In Process (Cozaar Tablet) 10:00 Metoprolol Xl PHA 05/18/24 In Process Succinate (Toprol Xl) 10:00 Amlodipine Tablet PHA 05/18/24 In Process (Norvasc Tablet) 10:00 Date of Service: May 18, 2024 Billing Provider: DYLAN OWENS MD Common Visit Codes: [id number] INP/OBS CARE(HIGH) YOBANY HSIEH May 18, 2024 10:29 DYLAN OWENS MD May 21, 2024 16:37
[2024-05-18] MEDS: LOSARTAN POTASSIUM 50 MG TAB PO SCH (15:23)
[2024-05-18] MEDS: amLODIPine BESYLATE 5 MG TAB PO SCH (15:24)
[2024-05-18] MEDS: ATORVASTATIN 20 MG TAB PO SCH (15:24)
[2024-05-18] MEDS: METOPROLOL SUCCINATE XL 50 MG TAB PO SCH (15:24)
[2024-05-18] MEDS: SODIUM CHL 0.9% 1000 ML BAG XX ONE (15:39)
--- NOTE | 2024-05-18 18:30 | DVHPN2 ---
Progress Note Date Seen: May 18, 2024 Medical Necessity Reason Pt with a Central, PICC or Fol: Yes The following are medically ne: Kwok Catheter Subjective Patient reports: No new complaints, Feels better Review of Systems: HEENT:Normal, CVS:Normal, RESPIRATORY:Normal, GI:Normal, :Normal, MSK:Normal, NEURO:Normal Objective vital signs Vital Sign Date Time Temp Pulse Resp B/P (MAP) Pulse Ox O2 Delivery O2 Flow Rate FiO2 05/18/24 17:41 164/78 05/18/24 17:00 99.2 79 19 99 99.2 05/18/24 10:19 Nasal Cannula* 4 36 Total Intake and Output 05/17/24 05/17/24 05/18/24 15:00 23:00 07:00 Intake Total 302.752 ml 330 ml Output Total 1300 ml 450 ml 1500 ml Balance -997.248 ml -120 ml -1500 ml medications Current Medications Medications Dose Ordered Sig/Jadon Route Start Time Stop Time Status Last Admin Dose Admin Meropenem 50 ml @ 17 mls/hr DAILY IV 05/17/24 10:00 05/18/24 15:22 17 MLS/HR Hydralazine HCl 10 mg Q6HP PRN IV 05/17/24 00:56 05/18/24 04:49 10 MG Iron Sucrose 110 ml @ 110 mls/hr DAILY@1200 IV 05/17/24 12:00 05/21/24 12:59 05/17/24 17:32 110 MLS/HR Calcium Acetate 1,334 mg TIDWMEALS PO 05/17/24 12:00 05/18/24 15:32 1,334 MG Epoetin Sagar-epbx 4,000 unit TUTHSA SC 05/17/24 10:00 05/17/24 10:19 4,000 UNIT Pantoprazole Sodium 40 mg DAILY@0600 PO 05/18/24 06:00 05/18/24 06:24 40 MG Ondansetron HCl 4 mg Q8HPRN PRN IV 05/17/24 12:00 05/17/24 12:32 4 MG Diagnostic Test (Pha) 1 strip IQ4HR 05/17/24 16:00 05/18/24 17:41 1 STRIP Insulin Human Regular IQ4HR SC 05/17/24 16:00 05/18/24 17:56 2 UNITS Dextrose 50 ml UD PRN IV 05/17/24 14:45 Acetaminophen 650 mg Q6HPRN PRN PO 05/17/24 14:45 Acetaminophen/ Hydrocodone Bitart 1 tab Q4HP PRN PO 05/17/24 14:45 Morphine Sulfate 2 mg Q4HPRN PRN IV 05/17/24 14:45 05/17/24 15:29 2 MG Atorvastatin Calcium 20 mg DAILY PO 05/18/24 10:00 05/18/24 15:24 20 MG Losartan Potassium 50 mg DAILY PO 05/18/24 10:00 05/18/24 15:23 50 MG Metoprolol Succinate 50 mg DAILY PO 05/18/24 10:00 05/18/24 15:24 50 MG Amlodipine Besylate 10 mg DAILY PO 05/18/24 10:00 05/18/24 15:24 10 MG Furosemide 80 mg BIDD IV 05/18/24 06:00 05/18/24 17:41 80 MG laboratory and microbiology Laboratory Tests 05/18/24 09:25 Test 05/18/24 09:25 Range/Units Serum Glucose 184 H 74-106 mg/dL Problem List/Assessment/Plan Problem List/Assessment/Plan Acute kidney injury on chronic kidney disease likely multifactorial fluid overload versus medications ; inpatient HD due to Uremia Chronic kidney disease stage IIIA Diabetic nephropathy Diastolic heart failure decompensated Hyperkalemia Metabolic acidosis Sepsis secondary to subacute foot infection on ABX via PiCC Anemia due to iron deficiency versus chronic kidney disease IV iron and epogen HD today uf as tolerated phos binder continue diuretics Strict Is&Os SW consult for acute HD chair renal diet Plan discussed with: Patient Dietary Evaluation Review Comments: Continue current plan of care Expected Outcomes/Goals: F/U in 3-5 days MICA HURT MD May 18, 2024 18:30
[2024-05-18] MEDS: EPOETIN ALFA-EPBX 10,000 UNIT/1ML VIAL SC ONE (20:54)
[2024-05-19] VITALS (10 sets, daily range): BP systolic 135–174; BP diastolic 67–88; PULSE 69–77; RESP 17–19; TEMP 97.9–98.9; O2SAT 90–100
[2024-05-19] MEDS: HYDROcodone-ACET 10/325MG TAB PO PRN (00:16)
[2024-05-19 06:53] LABS: Anion Gap 10 (5-15); Carbon Dioxide 28 mmol/L (20-31); Chloride 101 mmol/L (98-107); Potassium 4.1 mmol/L (3.5-5.1); Sodium 139 mmol/L (136-145)
[2024-05-19 06:54] LABS: Calcium 8.9 mg/dL (8.7-10.4)
[2024-05-19 06:59] LABS: BUN/Creatinine Ratio 13.7 (10.0-20.0)
[2024-05-19 07:03] LABS: Blood Urea Nitrogen 60 mg/dL (9-23); Glucose 152 mg/dL (74-106)
--- NOTE | 2024-05-19 14:46 | DVHPNRES ---
Progress Note Date Seen: May 19, 2024 Resident Creating Document: CHRISTIAN SLOAN RESIDENT Has the PT tested + for MRSA If YES, has PT been informed?: No Medical Necessity Reason Pt with a Central, PICC or Fol: No The following are medically ne: Kwok Catheter Subjective Review of Systems This is a 48-year-old male with past medical history of hypertension, CKD, type 2 diabetes mellitus, osteomyelitis presented to the ED with generalized weakness for 1 week prior to this admission. the patient states that his right toe amputated on April 26, 2024 and he is on IV Zosyn TID for 6 weeks. Patient seen and examined at bedside. The patient was reporting nausea but no episode of emesis. The patient states that feels well overall, denies shortness of breath, chest pain or any other symptoms at this time. The patient had hemodialysis yesterday and BUN and creatinine are 60 and 4.39 respectively. We will continue current medical management at this time. We are still waiting for chair sit for outpatient hemodialysis. Social workers has been working on the case. ROS Constitutional: Denies weight loss, fever and chills. HEENT: Denies changes in vision and hearing. Respiratory: Denies shortness of breath and cough Cardiovascular: Denies chest discomfort or palpitations GI: Reports nausea but no vomiting. Denies abdominal pain, vomiting and diarrhea. : Denies dysuria and urinary frequency. Musculoskeletal: Denies myalgias and joint pain Skin: Denies rash and pruritus. Neurological: Denies dizziness, headache, vision or hearing problems Objective vital signs Vital Sign Date Time Temp Pulse Resp B/P (MAP) Pulse Ox O2 Delivery O2 Flow Rate FiO2 05/19/24 10:33 174/88 05/19/24 10:33 69 05/19/24 09:00 98.4 19 99 98.4 05/19/24 06:11 Nasal Cannula* 4 36 Total Intake and Output 05/18/24 05/18/24 05/19/24 15:00 23:00 07:00 Intake Total 945 ml 700 ml Output Total 2100 ml Balance -1155 ml 700 ml medications Current Medications Medications Dose Ordered Sig/Jadon Route Start Time Stop Time Status Last Admin Dose Admin Meropenem 50 ml @ 17 mls/hr DAILY IV 05/17/24 10:00 05/19/24 10:31 17 MLS/HR Hydralazine HCl 10 mg Q6HP PRN IV 05/17/24 00:56 05/19/24 07:14 10 MG Iron Sucrose 110 ml @ 110 mls/hr DAILY@1200 IV 05/17/24 12:00 05/21/24 12:59 05/19/24 14:05 110 MLS/HR Calcium Acetate 1,334 mg TIDWMEALS PO 05/17/24 12:00 05/19/24 12:54 1,334 MG Epoetin Sagar-epbx 4,000 unit TUTHSA SC 05/17/24 10:00 05/19/24 10:32 4,000 UNIT Pantoprazole Sodium 40 mg DAILY@0600 PO 05/18/24 06:00 05/19/24 05:46 40 MG Ondansetron HCl 4 mg Q8HPRN PRN IV 05/17/24 12:00 05/19/24 08:51 4 MG Diagnostic Test (Pha) 1 strip IQ4HR 05/17/24 16:00 05/19/24 12:00 1 STRIP Insulin Human Regular IQ4HR SC 05/17/24 16:00 05/19/24 14:13 4 UNITS Dextrose 50 ml UD PRN IV 05/17/24 14:45 Acetaminophen 650 mg Q6HPRN PRN PO 05/17/24 14:45 Acetaminophen/ Hydrocodone Bitart 1 tab Q4HP PRN PO 05/17/24 14:45 05/19/24 00:16 1 TAB Morphine Sulfate 2 mg Q4HPRN PRN IV 05/17/24 14:45 05/17/24 15:29 2 MG Atorvastatin Calcium 20 mg DAILY PO 05/18/24 10:00 05/19/24 10:32 20 MG Losartan Potassium 50 mg DAILY PO 05/18/24 10:00 05/19/24 10:33 50 MG Metoprolol Succinate 50 mg DAILY PO 05/18/24 10:00 05/19/24 10:33 50 MG Amlodipine Besylate 10 mg DAILY PO 05/18/24 10:00 05/19/24 10:33 10 MG Furosemide 80 mg BIDD IV 05/18/24 06:00 05/19/24 05:46 80 MG Examination Physical Examination General: Patient alert and oriented in person, place and time. Patient following commands. HEENT: Dialysis catheter placed in right internal jugular vein. Normocephalic, atraumatic, moist mucous membranes Respiratory/pulmonary: Clear lungs bilaterally, no associated crackles or wheezes. Cardiovascular: Normal heart sounds S1 and S2 with no associated murmurs Abdomen: Abdomen nondistended, there is no pain to palpation in any of the abdominal quadrants, no palpable masses. Extremities: There is no peripheral edema present at the lower extremities. Peripheral Pulses: 3+ Radial (R). 3+ Radial (L). 3+ Dorsalis pedis (R). 3+ Dorsalis pedis(L) Skin: No rashes or pruritus, there is no sacral edema present at this time. Neurological: Intact cranial nerves with no focal neurologic deficits laboratory and microbiology Laboratory Tests 05/19/24 05:02 05/18/24 09:25 Test 05/19/24 05:02 Range/Units Serum Glucose 152 H 74-106 mg/dL Problem List/Assessment/Plan Problem List/Assessment/Plan Assessment/plan Hyperkalemia with possible uremic encephalopathy resolved CKD stage 5 progressing to ESRD NSTEMI type 2 secondary to above Osteomyelitis of the rt foot, s/p amputation of the rt 5th toes. - Nephrology on board - Lokelma PO tid - IV lasix 80 mg b.i.d. - Continue hemodialysis as per Nephrology recommendation - IV meropenem renal dose 500 mg t.i.d. - Echo revealed ejection fraction 55% - BiPAP at nighttime. - Wound consult - Hepatitis panel negative - Consulted social service agency director to arrange outpatient chair time. Still waiting for chair time, social service on the case -patient reported nausea but no episodes of emesis. Patient is feeling well overall Hypertensive emergency - Amlodipine 10 mg p.o. daily and losartan potassium 50 mg daily . - IV hydralazine 10 mg q.6 p.r.n. -monitor blood pressure closely Type 2 diabetes mellitus, HbA1C 6.8% - Mild sliding scale of insulin Goals of care discussed with the patient at bedside for 20 minutes, full code Plan discussed with Dr. Arroyo Plan discussed with: Patient Dietary Evaluation Review Comments: Continue current plan of care Expected Outcomes/Goals: F/U in 3-5 days Date of Service: May 19, 2024 Billing Provider: DOMINGO ARROYO MD Common Visit Codes: [id number] INP/OBS CARE(HIGH) CHRISTIAN SLOAN RESIDENT May 19, 2024 14:46 DOMINGO ARROYO MD May 20, 2024 20:03
--- NOTE | 2024-05-19 19:11 | DVHPN2 ---
Progress Note Date Seen: May 19, 2024 Has the PT tested + for MRSA If YES, has PT been informed?: No Medical Necessity Reason Pt with a Central, PICC or Fol: No The following are medically ne: Kwok Catheter Subjective Patient reports: No new complaints Review of Systems: Deferred Objective vital signs Vital Sign Date Time Temp Pulse Resp B/P (MAP) Pulse Ox O2 Delivery O2 Flow Rate FiO2 05/19/24 18:20 139/70 05/19/24 17:00 98.9 72 18 90 98.9 05/19/24 08:00 Room Air* 0 21 Total Intake and Output 05/18/24 05/18/24 05/19/24 15:00 23:00 07:00 Intake Total 945 ml 700 ml Output Total 2100 ml Balance -1155 ml 700 ml medications Current Medications Medications Dose Ordered Sig/Jadon Route Start Time Stop Time Status Last Admin Dose Admin Meropenem 50 ml @ 17 mls/hr DAILY IV 05/17/24 10:00 05/19/24 10:31 17 MLS/HR Hydralazine HCl 10 mg Q6HP PRN IV 05/17/24 00:56 05/19/24 07:14 10 MG Iron Sucrose 110 ml @ 110 mls/hr DAILY@1200 IV 05/17/24 12:00 05/21/24 12:59 05/19/24 14:05 110 MLS/HR Calcium Acetate 1,334 mg TIDWMEALS PO 05/17/24 12:00 05/19/24 18:19 1,334 MG Epoetin Sagar-epbx 4,000 unit TUTHSA SC 05/17/24 10:00 05/19/24 10:32 4,000 UNIT Pantoprazole Sodium 40 mg DAILY@0600 PO 05/18/24 06:00 05/19/24 05:46 40 MG Ondansetron HCl 4 mg Q8HPRN PRN IV 05/17/24 12:00 05/19/24 08:51 4 MG Diagnostic Test (Pha) 1 strip IQ4HR 05/17/24 16:00 05/19/24 16:10 1 STRIP Insulin Human Regular IQ4HR SC 05/17/24 16:00 05/19/24 16:22 2 UNITS Dextrose 50 ml UD PRN IV 05/17/24 14:45 Acetaminophen 650 mg Q6HPRN PRN PO 05/17/24 14:45 Acetaminophen/ Hydrocodone Bitart 1 tab Q4HP PRN PO 05/17/24 14:45 05/19/24 00:16 1 TAB Morphine Sulfate 2 mg Q4HPRN PRN IV 05/17/24 14:45 05/17/24 15:29 2 MG Atorvastatin Calcium 20 mg DAILY PO 05/18/24 10:00 05/19/24 10:32 20 MG Losartan Potassium 50 mg DAILY PO 05/18/24 10:00 05/19/24 10:33 50 MG Metoprolol Succinate 50 mg DAILY PO 05/18/24 10:00 05/19/24 10:33 50 MG Amlodipine Besylate 10 mg DAILY PO 05/18/24 10:00 05/19/24 10:33 10 MG Furosemide 80 mg BIDD IV 05/18/24 06:00 05/19/24 18:20 80 MG laboratory and microbiology Laboratory Tests 05/19/24 05:02 05/18/24 09:25 Test 05/19/24 05:02 Range/Units Serum Glucose 152 H 74-106 mg/dL Problem List/Assessment/Plan Problem List/Assessment/Plan Acute kidney injury on chronic kidney disease likely multifactorial fluid overload versus medications ; inpatient HD due to Uremia Chronic kidney disease stage IIIA Diabetic nephropathy Diastolic heart failure decompensated Hyperkalemia Metabolic acidosis Sepsis secondary to subacute foot infection on ABX via PiCC Anemia due to iron deficiency versus chronic kidney disease IV iron and epogen HD tuesday uf as tolerated phos binder continue diuretics Strict Is&Os SW consult for acute HD chair--[facility] [employer] renal diet Plan discussed with: Patient Dietary Evaluation Review Comments: Continue current plan of care Expected Outcomes/Goals: F/U in 3-5 days MICA HURT MD May 19, 2024 19:11
[2024-05-20] VITALS (7 sets, daily range): BP systolic 131–186; BP diastolic 63–88; PULSE 74–97; RESP 16–19; TEMP 97.5–98.7; O2SAT 92–99
[2024-05-20 07:23] LABS: Basophils # (auto) 0.2 10 ^3/uL (0-0.2); Basophils % (auto) 1.7 % (0.0-2.0); Eosinophils % (auto) 10.6 % (0.0-7.0); Hematocrit 27.5 % (41.0-53.0); Lymphocytes # (auto) 0.8 10 ^3/uL (0.4-5.4); Mean Corpuscular Hgb Conc. 32.6 g/dL (32.0-36.0); Mean Corpuscular Volume 82.9 fL (80.0-100.0); Monocytes # (auto) 0.8 10 ^3/uL (0-1.3); Monocytes % (auto) 8.4 % (0.0-12.0); Neutrophils # (auto) 6.6 10 ^3/uL (1.6-8.6); Neutrophils % (auto) 70.3 % (37.0-80.0); Nucleated Red Blood Cells % 0.2 %; Platelet Count (auto) 175 10^3/uL (140-450); Red Blood Cells 3.32 10^6/uL (4.5-5.90); Red Cell Distribution Width 18.3 % (11.8-14.3); White Blood Cell 9.4 10^3/uL (4.4-10.8)
[2024-05-20 07:27] LABS: Alanine Aminotransferase 18 U/L (7-40); Albumin 3.7 g/dL (3.2-4.8); Alkaline Phosphatase 89 U/L (46-116); Anion Gap 8 (5-15); Aspartate Aminotransferase 15 U/L (13-40); BUN/Creatinine Ratio 13.6 (10.0-20.0); Calcium 9.1 mg/dL (8.7-10.4); Carbon Dioxide 29 mmol/L (20-31); Chloride 102 mmol/L (98-107); Magnesium 2.1 mg/dL (1.6-2.6); Phosphorus 4.7 mg/dL (2.4-5.1); Potassium 4.6 mmol/L (3.5-5.1); Sodium 139 mmol/L (136-145)
[2024-05-20 07:28] LABS: Total Protein 6.3 g/dL (5.7-8.2)
[2024-05-20 07:58] LABS: Bilirubin, Total 0.3 mg/dL (0.2-1.0); Blood Urea Nitrogen 64 mg/dL (9-23); Glucose 220 mg/dL (74-106)
--- NOTE | 2024-05-20 11:13 | DVHPNRES ---
Progress Note Date Seen: May 20, 2024 Resident Creating Document: YOBANY HSIEH RESIDENT Has the PT tested + for MRSA If YES, has PT been informed?: No Medical Necessity Reason Pt with a Central, PICC or Fol: No The following are medically ne: Kwok Catheter Subjective Review of Systems This is a 48-year-old male with past medical history of hypertension, CKD, type 2 diabetes mellitus, osteomyelitis presented to the ED with generalized weakness for 1 week prior to this admission. the patient states that his right toe amputated on April 26, 2024 and he is on IV Zosyn TID for 6 weeks. Patient seen and examined at bedside. The patient was reporting nausea but no episode of emesis. The patient states that feels well overall, denies shortness of breath, chest pain or any other symptoms at this time. The patient had hemodialysis on 05/18/24 and BUN and creatinine are 64 and 4.69 respectively. We will continue current medical management at this time. We are still waiting for chair sit for outpatient hemodialysis. Social workers has been working on the case. Objective vital signs Vital Sign Date Time Temp Pulse Resp B/P (MAP) Pulse Ox O2 Delivery O2 Flow Rate FiO2 05/20/24 10:08 153/76 05/20/24 10:08 97 05/20/24 09:00 97.5 18 98 97.5 05/19/24 21:50 Nasal Cannula* 4 36 Total Intake and Output 05/19/24 05/19/24 05/20/24 15:00 23:00 07:00 Intake Total 600 ml 660 ml 210 ml Output Total 1700 ml 1000 ml Balance 600 ml -1040 ml -790 ml medications Current Medications Medications Dose Ordered Sig/Jadon Route Start Time Stop Time Status Last Admin Dose Admin Meropenem 50 ml @ 17 mls/hr DAILY IV 05/17/24 10:00 05/20/24 10:06 17 MLS/HR Hydralazine HCl 10 mg Q6HP PRN IV 05/17/24 00:56 05/19/24 07:14 10 MG Iron Sucrose 110 ml @ 110 mls/hr DAILY@1200 IV 05/17/24 12:00 05/21/24 12:59 05/19/24 14:05 110 MLS/HR Calcium Acetate 1,334 mg TIDWMEALS PO 05/17/24 12:00 05/20/24 08:15 1,334 MG Epoetin Sagar-epbx 4,000 unit TUTHSA SC 05/17/24 10:00 05/19/24 10:32 4,000 UNIT Pantoprazole Sodium 40 mg DAILY@0600 PO 05/18/24 06:00 05/20/24 05:24 40 MG Ondansetron HCl 4 mg Q8HPRN PRN IV 05/17/24 12:00 05/19/24 08:51 4 MG Diagnostic Test (Pha) 1 strip IQ4HR 05/17/24 16:00 05/20/24 08:16 1 STRIP Insulin Human Regular IQ4HR SC 05/17/24 16:00 05/20/24 08:24 3 UNITS Dextrose 50 ml UD PRN IV 05/17/24 14:45 Acetaminophen 650 mg Q6HPRN PRN PO 05/17/24 14:45 Acetaminophen/ Hydrocodone Bitart 1 tab Q4HP PRN PO 05/17/24 14:45 05/19/24 00:16 1 TAB Morphine Sulfate 2 mg Q4HPRN PRN IV 05/17/24 14:45 05/17/24 15:29 2 MG Atorvastatin Calcium 20 mg DAILY PO 05/18/24 10:00 05/20/24 10:07 20 MG Losartan Potassium 50 mg DAILY PO 05/18/24 10:00 05/20/24 10:07 50 MG Metoprolol Succinate 50 mg DAILY PO 05/18/24 10:00 05/20/24 10:08 50 MG Amlodipine Besylate 10 mg DAILY PO 05/18/24 10:00 05/20/24 10:08 10 MG Furosemide 80 mg BIDD IV 05/18/24 06:00 05/20/24 05:26 80 MG Insulin Glargine 10 units HS SC 05/20/24 22:00 Examination Physical examination: General Appearance: Alert, Oriented X3, Cooperative, No acute distress HEENT: Atraumatic, PERRLA, EOMI, Mucous membrane moist/pink Respiratory: Clear to auscultation, Normal air movement Cardiovascular: Regular rate, Normal S1, Normal S2, No murmurs, no chest wall tenderness Abdominal: Normal bowel sounds, Soft, No tenderness, No hepatospenomegaly, No masses Extremities: No clubbing, No cyanosis, No edema, Normal pulses, No tenderness/swelling Skin: No rashes, No breakdown, No significant lesion Neuro: Normal gait, Normal speech, Strength at 5/5 X4 ext, Normal tone, Sensation intact, grossly intact cranial nerves Psych/Mental Status: Mental status NL, Mood NL laboratory and microbiology Laboratory Tests 05/20/24 06:37 Test 05/20/24 06:37 Range/Units Serum Glucose 220 H 74-106 mg/dL Labs and/or images reviewed: Labs reviewed by me, Image(s) reviewed by me Problem List/Assessment/Plan Problem List/Assessment/Plan Assessment and Plan: # Hyperkalemia with possible uremic encephalopathy resolved # CKD stage 5 progressing to ESRD # NSTEMI type 2 secondary to above # Osteomyelitis of the rt foot, s/p amputation of the rt 5th toes. - Nephrology on board - Lokelma PO tid - IV lasix 80 mg b.i.d. - Continue hemodialysis as per Nephrology recommendation - IV meropenem renal dose 500 mg t.i.d. - Echo revealed ejection fraction 55% - BiPAP at nighttime. - Wound consult - Hepatitis panel negative - Consulted social science professor to arrange outpatient chair time. Still waiting for chair time, social service on the case Hypertensive emergency - Amlodipine 10 mg p.o. daily and losartan potassium 50 mg daily . - IV hydralazine 10 mg q.6 p.r.n. Type 2 diabetes mellitus, HbA1C 6.8% - Mild sliding scale of insulin Diet- Renal diet PUD prophylaxis- Protonix 40 mg po daily Goal care discussed with the patient for more than 20 minutes full code Disposition- Telemetry Plan discussed with Dr. Arroyo Plan discussed with: Patient, Other My Orders My Orders Orders - YOBANY HSIEH RESIDENT Procedure Category Date Status Time Insulin Lantus PHA 05/20/24 In Process (Glargine) (Lantus) 22:00 Dietary Evaluation Review Comments: Continue current plan of care Expected Outcomes/Goals: F/U in 3-5 days Date of Service: May 20, 2024 Billing Provider: DOMINGO ARROYO MD Common Visit Codes: [id number] INP/OBS CARE(HIGH) YOBANY HSIEH May 20, 2024 11:13 DOMINGO ARROYO MD May 20, 2024 20:04
[2024-05-20 15:45] LABS: % Iron Saturation 30.9 % (20-55)
--- NOTE | 2024-05-20 17:22 | DVHPN2 ---
Progress Note Date Seen: May 20, 2024 Has the PT tested + for MRSA If YES, has PT been informed?: No Medical Necessity Reason Pt with a Central, PICC or Fol: No The following are medically ne: Kwok Catheter Subjective Patient reports: No new complaints, Feels better Review of Systems: Deferred Objective vital signs Vital Sign Date Time Temp Pulse Resp B/P (MAP) Pulse Ox O2 Delivery O2 Flow Rate FiO2 05/20/24 14:24 79 18 186/88 05/20/24 13:00 98.0 98 98.0 05/19/24 21:50 Nasal Cannula* 4 36 Total Intake and Output 05/19/24 05/19/24 05/20/24 15:00 23:00 07:00 Intake Total 600 ml 660 ml 210 ml Output Total 1700 ml 1000 ml Balance 600 ml -1040 ml -790 ml medications Current Medications Medications Dose Ordered Sig/Jadon Route Start Time Stop Time Status Last Admin Dose Admin Meropenem 50 ml @ 17 mls/hr DAILY IV 05/17/24 10:00 05/20/24 10:06 17 MLS/HR Hydralazine HCl 10 mg Q6HP PRN IV 05/17/24 00:56 05/20/24 12:32 10 MG Iron Sucrose 110 ml @ 110 mls/hr DAILY@1200 IV 05/17/24 12:00 05/21/24 12:59 05/20/24 14:21 110 MLS/HR Calcium Acetate 1,334 mg TIDWMEALS PO 05/17/24 12:00 05/20/24 12:27 1,334 MG Epoetin Sagar-epbx 4,000 unit TUTHSA SC 05/17/24 10:00 05/19/24 10:32 4,000 UNIT Pantoprazole Sodium 40 mg DAILY@0600 PO 05/18/24 06:00 05/20/24 05:24 40 MG Ondansetron HCl 4 mg Q8HPRN PRN IV 05/17/24 12:00 05/20/24 15:31 4 MG Diagnostic Test (Pha) 1 strip IQ4HR 05/17/24 16:00 05/20/24 15:39 1 STRIP Insulin Human Regular IQ4HR SC 05/17/24 16:00 05/20/24 15:51 4 UNITS Dextrose 50 ml UD PRN IV 05/17/24 14:45 Acetaminophen 650 mg Q6HPRN PRN PO 05/17/24 14:45 Acetaminophen/ Hydrocodone Bitart 1 tab Q4HP PRN PO 05/17/24 14:45 05/19/24 00:16 1 TAB Morphine Sulfate 2 mg Q4HPRN PRN IV 05/17/24 14:45 05/20/24 14:24 2 MG Atorvastatin Calcium 20 mg DAILY PO 05/18/24 10:00 05/20/24 10:07 20 MG Losartan Potassium 50 mg DAILY PO 05/18/24 10:00 05/20/24 10:07 50 MG Metoprolol Succinate 50 mg DAILY PO 05/18/24 10:00 05/20/24 10:08 50 MG Amlodipine Besylate 10 mg DAILY PO 05/18/24 10:00 05/20/24 10:08 10 MG Furosemide 80 mg BIDD IV 05/18/24 06:00 05/20/24 05:26 80 MG Insulin Glargine 10 units HS SC 05/20/24 22:00 Examination: GENERAL:Normal, HEENT:Normal, NECK:Normal, LUNGS:Normal, CVS:Normal, ABDOMEN:Normal, MSK:Normal, SKIN:Normal, NEURO:Normal, :Normal laboratory and microbiology Laboratory Tests 05/20/24 06:37 Test 05/20/24 06:37 Range/Units Serum Glucose 220 H 74-106 mg/dL Problem List/Assessment/Plan Problem List/Assessment/Plan Acute kidney injury on chronic kidney disease likely ATN/fluid overload Chronic kidney disease stage IIIA --- pt Diabetic nephropathy Diastolic heart failure decompensated Hyperkalemia Metabolic acidosis Sepsis secondary to subacute foot infection on ABX via PiCC Anemia due to iron deficiency versus chronic kidney disease recs IV iron and epogen HD tuesday uf as tolerated phos binder continue diuretics Strict Is&Os SW consult for acute HD chair--follows renal diet Plan discussed with: Patient Dietary Evaluation Review Comments: Continue current plan of care Expected Outcomes/Goals: F/U in 3-5 days MICA HURT MD May 20, 2024 17:21
[2024-05-20] MEDS: INSULIN LANTUS (GLARGINE) 1 /0.01ml (100units/ml) SC SCH (23:51)
[2024-05-21] VITALS (8 sets, daily range): BP systolic 140–175; BP diastolic 62–89; PULSE 72–103; RESP 18–21; TEMP 97.8–102.2; O2SAT 91–95
[2024-05-21 08:54] LABS: Alanine Aminotransferase 20 U/L (7-40); Alkaline Phosphatase 100 U/L (46-116); Anion Gap 5 (5-15); Aspartate Aminotransferase 19 U/L (13-40); BUN/Creatinine Ratio 12.9 (10.0-20.0); Bilirubin, Total 0.3 mg/dL (0.2-1.0); Calcium 9.4 mg/dL (8.7-10.4); Chloride 99 mmol/L (98-107); Potassium 4.7 mmol/L (3.5-5.1); Sodium 136 mmol/L (136-145); Total Protein 6.8 g/dL (5.7-8.2)
[2024-05-21 09:05] LABS: Blood Urea Nitrogen 59 mg/dL (9-23); Carbon Dioxide 32 mmol/L (20-31); Glucose 169 mg/dL (74-106)
[2024-05-21] MEDS ORDERED: LOSARTAN POTASSIUM 50 MG TAB PO SCH (14:45)
[2024-05-21] MEDS: LOSARTAN POTASSIUM 50 MG TAB PO ONE (14:56)
--- NOTE | 2024-05-21 16:19 | DVHPN2 ---
Progress Note Date Seen: May 21, 2024 Has the PT tested + for MRSA If YES, has PT been informed?: No Medical Necessity Reason Pt with a Central, PICC or Fol: No The following are medically ne: Kwok Catheter Subjective Patient reports: No new complaints Other Systems: Patient seen and examined on HD, BP stable Objective vital signs Vital Sign Date Time Temp Pulse Resp B/P (MAP) Pulse Ox O2 Delivery O2 Flow Rate FiO2 05/21/24 13:00 98.5 103 19 175/88 (117) 91 98.5 05/21/24 07:50 Room Air* 0 21 Total Intake and Output 05/20/24 05/20/24 05/21/24 15:00 23:00 07:00 Intake Total 50 ml 708 ml 900 ml Output Total 1700 ml 1550 ml Balance 50 ml -992 ml -650 ml medications Current Medications Medications Dose Ordered Sig/Jadon Route Start Time Stop Time Status Last Admin Dose Admin Meropenem 50 ml @ 17 mls/hr DAILY IV 05/17/24 10:00 05/21/24 08:53 17 MLS/HR Hydralazine HCl 10 mg Q6HP PRN IV 05/17/24 00:56 05/20/24 12:32 10 MG Calcium Acetate 1,334 mg TIDWMEALS PO 05/17/24 12:00 05/21/24 12:27 1,334 MG Epoetin Sagar-epbx 4,000 unit TUTHSA SC 05/17/24 10:00 05/19/24 10:32 4,000 UNIT Pantoprazole Sodium 40 mg DAILY@0600 PO 05/18/24 06:00 05/21/24 05:54 40 MG Ondansetron HCl 4 mg Q8HPRN PRN IV 05/17/24 12:00 05/21/24 08:57 4 MG Diagnostic Test (Pha) 1 strip IQ4HR 05/17/24 16:00 05/21/24 15:49 1 STRIP Insulin Human Regular IQ4HR SC 05/17/24 16:00 05/21/24 12:31 3 UNITS Dextrose 50 ml UD PRN IV 05/17/24 14:45 Acetaminophen 650 mg Q6HPRN PRN PO 05/17/24 14:45 Acetaminophen/ Hydrocodone Bitart 1 tab Q4HP PRN PO 05/17/24 14:45 1/18/25 00:16 1 TAB Morphine Sulfate 2 mg Q4HPRN PRN IV 05/17/24 14:45 05/20/24 14:24 2 MG Atorvastatin Calcium 20 mg DAILY PO 05/18/24 10:00 05/21/24 08:51 20 MG Metoprolol Succinate 50 mg DAILY PO 05/18/24 10:00 05/21/24 08:52 50 MG Amlodipine Besylate 10 mg DAILY PO 05/18/24 10:00 05/21/24 08:52 10 MG Furosemide 80 mg BIDD IV 05/18/24 06:00 05/21/24 05:54 80 MG Insulin Glargine 10 units HS SC 05/20/24 22:00 05/20/24 23:51 10 UNITS Losartan Potassium 100 mg DAILY PO 05/22/24 10:00 Examination: LUNGS:Normal, CVS:Normal, MSK:Normal laboratory and microbiology Laboratory Tests 05/21/24 08:18 05/20/24 06:37 Test 05/21/24 08:18 Range/Units Serum Glucose 169 H 74-106 mg/dL Problem List/Assessment/Plan Problem List/Assessment/Plan Acute kidney injury on chronic kidney disease likely ATN/fluid overload Chronic kidney disease stage IIIA --- pt Diabetic nephropathy Diastolic heart failure decompensated Hyperkalemia Metabolic acidosis Sepsis secondary to subacute foot infection on ABX via PiCC Anemia due to iron deficiency versus chronic kidney disease recs Continue with UF 2-3 L as tolerated Epogen with HD phos binder continue diuretics Strict Is&Os IV Abx SW consult for acute HD chair--follows renal diet Plan discussed with: Patient My Orders My Orders Orders - LISA WALLACE MD Procedure Category Date Status Time Hemodialysis Orders ORDERS 05/21/24 Transmitted 15:13 Epoetin Sagar-Epbx PHA 05/21/24 In Process (Retacrit) 21:00 Dietary Evaluation Review Comments: Continue current plan of care Expected Outcomes/Goals: F/U in 3-5 days LISA WALLACE MD May 21, 2024 16:18
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
[2024-05-21] MEDS: ACETAMINOPHEN 325 MG TAB PO PRN (17:46)
[2024-05-21] MEDS: EPOETIN ALFA-EPBX 10,000 UNIT/1ML VIAL SC ONE (21:31)
[2024-05-22] VITALS (7 sets, daily range): BP systolic 104–167; BP diastolic 65–84; PULSE 74–84; RESP 18–19; TEMP 98.2–100; O2SAT 85–100
--- NOTE | 2024-05-22 06:29 | DVHDSRES ---
Discharge Summary Date of Admission Resident Creating Document: YOBANY MANCIA RESIDENT May 16, 2024 at 16:43 Date of Discharge: May 22, 2024 Admitting Diagnosis Hyperkalemia with possible uremic encephalopathy Wounds: No wound was present. Labs/Diagnostic Data: Laboratory Results Test 05/22/24 04:43 05/21/24 08:18 05/20/24 06:37 05/17/24 08:29 POC Glucose 237 mg/dl (70-106) Sodium Level 136 mmol/L (136-145) Potassium Level 4.7 mmol/L (3.5-5.1) Chloride Level 99 mmol/L (98-107) Carbon Dioxide Level 32 mmol/L (20-31) Anion Gap 5 (5-15) Blood Urea Nitrogen 59 mg/dL (9-23) Creatinine 4.58 mg/dL (0.700-1.30) Glomerular Filtration Rate Calc 15 mL/min (>90) BUN/Creatinine Ratio 12.9 (10.0-20.0) Serum Glucose 169 mg/dL (74-106) Calcium Level 9.4 mg/dL (8.7-10.4) Total Bilirubin 0.3 mg/dL (0.2-1.0) Aspartate Amino Transferase (AST) 19 U/L (13-40) Alanine Aminotransferase (ALT) 20 U/L (7-40) Alkaline Phosphatase 100 U/L (46-116) Total Protein 6.8 g/dL (5.7-8.2) Albumin 4.0 g/dL (3.2-4.8) White Blood Count 9.4 10^3/uL (4.4-10.8) Red Blood Count 3.32 10^6/uL (4.5-5.90) Hemoglobin 9.0 g/dL (13.5-17.5) Hematocrit 27.5 % (41.0-53.0) Mean Corpuscular Volume 82.9 fL (80.0-100.0) Mean Corpuscular Hemoglobin 27.0 pg (28.0-32.0) Mean Corpuscular Hemoglobin Concent 32.6 g/dL (32.0-36.0) Red Cell Distribution Width 18.3 % (11.8-14.3) Platelet Count 175 10^3/uL (140-450) Mean Platelet Volume 10.1 fL (6.9-10.8) Neutrophils (%) (Auto) 70.3 % (37.0-80.0) Lymphocytes (%) (Auto) 9.0 % (10.0-50.0) Monocytes (%) (Auto) 8.4 % (0.0-12.0) Eosinophils (%) (Auto) 10.6 % (0.0-7.0) Basophils (%) (Auto) 1.7 % (0.0-2.0) Neutrophils # (Auto) 6.6 10 ^3/uL (1.6-8.6) Lymphocytes # (Auto) 0.8 10 ^3/uL (0.4-5.4) Monocytes # (Auto) 0.8 10 ^3/uL (0-1.3) Eosinophils # (Auto) 1.0 10 ^3/uL (0-0.8) Basophils # (Auto) 0.2 10 ^3/uL (0-0.2) Nucleated Red Blood Cells 0.2 % Phosphorus Level 4.7 mg/dL (2.4-5.1) Magnesium Level 2.1 mg/dL (1.6-2.6) Iron Level 72 ug/dL (65-175) Total Iron Binding Capacity 233 ug/dL (250-425) Percent Iron Saturation 30.9 % (20-55) Lactic Acid Level 0.7 mmol/L (0.4-2.0) Troponin I High Sensitivity 261 ng/L (</=54) Test 05/17/24 06:35 05/17/24 05:38 05/17/24 05:35 05/16/24 21:00 Thyroid Stimulating Hormone (TSH) 1.26 uIU/mL (0.55-4.78) Hemoglobin A1c 6.8 % A1C (<5.7) Vitamin D 25-Hydroxy 23.6 ng/mL (30.0-100) Parathyroid Hormone (Intact) 709.3 pg/mL (18.4-80.1) Ferritin 197.2 ng/mL (22-322) Blood Gas Specimen Type Arterial Blood Gas Sample Site Right radial Blood Gas Patient Temperature 37.0 Arterial Blood Date Drawn [id number] Arterial Blood pH 7.261 (7.350-7.450) Arterial Blood Partial Pressure CO2 32.8 mmHg (35.0-48.0) Arterial Blood Partial Pressure O2 127.0 mmHg (83.0-108.0) Arterial Blood HCO3 14.4 mmol/L (21.0-28.0) Arterial Blood Oxygen Saturation 98.0 % (94.0-98.0) Arterial Blood Base Excess -11.6 mmol/L (-2.0-3.0) Arterial Blood Oxyhemoglobin 97.1 % (94.0-98.0) Arterial Blood Carboxyhemoglobin 0.7 % (0.5-1.5) Arterial Blood Methemoglobin 0.2 % (0.0-1.5) Sheldon Test Yes Blood Gas Total Hemoglobin 9.70 g/dL (13.5-17.5) Blood Gas Modality Mask - bipap Blood Gas Spontaneous Rate 19 FiO2 % 40.0 Blood Gas EPAP 5 Blood Gas IPAP 15 Specimen Drawn By Aircraft Engine Assembler simón mercer Test 05/16/24 17:05 05/16/24 14:26 05/16/24 14:23 05/16/24 12:42 Blood Gas Liter Flow 2.00 Blood Gas Critical Value Read Back Yes Blood Gas Notified Whom neelima Mancia md Blood Gas Notified Time [id number] Blood Gas Notified By Cipriano lema truck loader Random Vancomycin Level < 3.0 ug/mL (5-10) Urine Color Yellow (Yellow) Urine Clarity Turbid (Clear) Urine pH 5.5 (5.0-9.0) Urine Specific Rulo 1.015 (1.001-1.035) Urine Protein 2+ (Negative) Urine Ketones Negative (Negative) Urine Blood Negative /uL (Negative) Urine Nitrite Negative (Negative) Urine Bilirubin Negative (Negative) Urine Urobilinogen Normal mg/dL (Negative) Urine Leukocyte Esterase Trace /uL (Negative) Urine RBC 2 /hpf (0 - 3) Urine WBC 1 /hpf (0 - 3) Urine Squamous Epithelial Cells None seen /hpf (<5) Urine Bacteria Few /hpf (None Seen) Urine Creatinine 105.33 mg/dL (30.0-125.0) Urine Glucose Normal mg/dL (Normal) Urine Total Protein 177.3 mg/dL (1-14) Urine Opiates Screen Neg (NEGATIVE) Urine Fentanyl Screen Neg (NEGATIVE) Urine Barbiturates Screen Neg (NEGATIVE) Urine Phencyclidine Screen Neg (NEGATIVE) Urine Amphetamines Screen Neg (NEGATIVE) Urine Benzodiazepines Screen Neg (NEGATIVE) Urine Cocaine Screen Neg (NEGATIVE) Urine Cannabinoids Screen Neg (NEGATIVE) Hepatitis A IgM Antibody Negative Hepatitis B Surface Antigen Negative (Negative) Hepatitis B Core IgM Antibody Negative (Negative) Hepatitis C Antibody Negative (Negative) Other Laboratory Tests 05/21/24 08:18 05/20/24 06:37 Brief Hx & Hospital Course: This is a 48-year-old male with past medical history of hypertension, CKD, type 2 diabetes mellitus, osteomyelitis presented to the ED with generalized weakness for 1 week prior to this admission. the patient states that his right toe amputated on April 26, 2024 and he is on IV Zosyn TID for 6 weeks. Hospital course: Patient was presented with hyperkalemia with elevated BUN and creatinine. Nephrology was on board and hyperkalemia was managed with hyperkalemia protocol management and Lokelma 10 mg p.o. t.i.d. Patient was also volume overloaded and on examination there was bilateral crackles and bilateral pedal edema 2+. IV Lasix 80 mg b.i.d. and emergency Chau catheter was placed and started inpatient hemodialysis and total received 3 session of hemodialysis. Patient has Osteomyelitis of the rt foot, s/p amputation of the rt 5th toes was on IV Zosyn since April 26 which was discontinued and treated IV meropenem renal dose. Blood pressure was controlled with resume home meds amlodipine 10 mg daily, metoprolol succinate 50 mg daily and IV hydralazine q.6 p.r.n. and blood sugar was maintained with Lantus 10 units at q.a.m. and mild sliding scale of insulin. socially responsible investment adviser was consulted regarding outpatient chair time. patient was on 5 L oxygen and titrated down to room air. plan was discussed with the patient and all questions were answered. Patient is being discharged to home . Discharge diagnosis: # Hyperkalemia with possible uremic encephalopathy # CKD stage 5 progressing to ESRD # NSTEMI type 2 secondary to above # Osteomyelitis of the rt foot, s/p amputation of the rt 5th toes. # Hypertensive emergency # Type 2 diabetes mellitus, HbA1C 6.8% Discharge disposition : Home with resume home health for continuation of IV ertapenem 500 mg daily for 3 weeks until 06/11/2024 Medications : Continue home meds Dialysis schedule : [facility] [id number].Patient chair time is set for Tuesday- and Tuesday @ 0415 patient will need to be there May 24 at 0400 for intake patient will need to bring ID, insurance card and [place]. Follow up : PCP in 1 week Podiatry in 1-2 weeks Consults/Reason for consult Nephrology was consulted. Operations or Procedures CHEST RADIOGRAPH Indication: STATUS POST DIALYSIS CATH Technique: Single frontal view of the chest was obtained COMPARISON: XY CHEST PORTABLE on DOS: 05/16/24, XY CHEST PORTABLE on DOS: 03/12/24, XY CHEST XRAY 1 VIEW on DOS: 12/10/23, XY CHEST XRAY 1 VIEW on DOS: 07/21/23 FINDINGS: Lines and Tubes: Right-sided central venous catheter seen with tip in the lower SVC. Lungs: Questionable mild interstitial pulmonary edema. Pleura: No effusion. No pneumothorax. Cardiomediastinal contours: Mild cardiomegaly Bones: Unremarkable IMPRESSION: 1. Questionable mild interstitial pulmonary edema. 2. Right-sided central venous catheter seen with tip in the lower SVC. EXAM: Two-dimensional and M-mode echocardiogram with Doppler and color Doppler. Blood Pressure: 158/77 mmHg INDICATION Dizziness and Vertigo RISK FACTORS Height: 69, Weight: 286 DIMENSIONS LVDd 5.3 (3.8-5.7cm) LA (2D) 5.0 (1.9-4.0cm) Aortic Root 3.7 (2.0- 3.7cm) LVDs 3.9 (2.5-4.0cm) LA (MM) (1.9-4.0cm) Aortic Cusp Exc 2.3 (1.5- 2.0cm) EF (%) 55.0 (55-70%) Rt. Atrium 4.5 (1.9-4.0cm) Asc. Aorta cm IVSd 1.1 (0.7-1.1cm) RV (D) (1.8-2.4cm) PWd 1.2 (0.7-1.1cm) Mitral Valve Mitral Mitral Stenosis E wave 1.17m/s MV Mean GR. mmHg A wave 1.07m/s MV Peak GR. mmHg E/A ratio 1.1 2D MVA cm2 DECEL Time 182ms PRESS 1/2 Time 65ms IVRT ms Dop MVA 3.39cm2 Aortic Valve Aortic Valve Aortic Stenosis V1 1.28m/s AO Mean GR. 6mmHg V2 1.64m/s AO Peak GR. 11mmHg LVOT Diameter 2.3 (1.8-2.4cm) Doppler MAYO 3.24cm2 Pulmonic Valve V2 1.25m/s Tricuspid Valve TR Velocity 3.26m/s RVSP 54mmHg LEFT VENTRICLE The left ventricle is of normal size. Wall thickness is mildly increased. Ejection fraction is normal and is estimated at 55%. There is no gross wall motion abnormalities but endocardial definition is suboptimal. There is a grade II diastolic dysfunction with evidence of elevated left-sided filling pressure. E to E prime ratio is more than 15. RIGHT VENTRICLE Mildly dilated in size. Systolic function is normal. ATRIA Moderately dilated in size. Mildly dilated in size. Likely normal. MITRAL VALVE Normal in structure and function. There is no significant mitral regurgitation. PULMONIC VALVE Likely normal. TRICUSPID VALVE Normal structure and function. There is mild tricuspid regurgitation. PA systolic pressure is estimated at 50-55 mm Hg. AORTIC VALVE Normal in structure and function. GREAT VESSELS The aortic root is of normal size. Proximal ascending aorta is not visualized. PERICARDIAL EFFUSION No pericardial effusion. IVC is dilated in size. Other Information Technically limited study due to body habitus. Conclusion The study is technically limited. Normal left ventricular size and systolic function. Ejection fraction is estimated at 55%. Mild left ventricular hypertrophy. There is grade II diastolic dysfunction with evidence of elevated left-sided filling pressure. Mildly dilated right ventricle with a preserved systolic function. Moderately dilated left atrial chamber size. Mildly dilated right atrial chamber size. PA systolic pressure is estimated at 50-55 mm Hg. Condition at Discharge: Guarded Final Diagnosis/Problems List # Hyperkalemia with possible uremic encephalopathy # CKD stage 5 progressing to ESRD # NSTEMI type 2 secondary to above # Osteomyelitis of the rt foot, s/p amputation of the rt 5th toes. # Hypertensive emergency # Type 2 diabetes mellitus, HbA1C 6.8% Discharge Disposition: Home with Health Services Discharge Instruct/Medications Diet: Consistent carbohydrate, Renal Activity: No Restrictions, As Tolerated Discharge Statement: "Patient was advised to return to the ER or call 911 if any headaches, dizziness, shortness of breath, chest pain, abdominal pain, bleeding, fevers, or worsening of medical condition. Patient was counseled about treatment plan, medications, possible side effects, patientverbalized understanding. All questions were answered to the best of my ability. This discharge took greater then 30 minutes in planning, reviewing documentation, counseling the patient, and discussing with other team members." ASSESSMENT ASSESSMENT Assessment YOBANY MANCIA RESIDENT May 22, 2024 06:29
[2024-05-22 06:51] LABS: Basophils # (auto) 0.1 10 ^3/uL (0-0.2); Eosinophils # (auto) 0.1 10 ^3/uL (0-0.8); Hematocrit 26.9 % (41.0-53.0); Hemoglobin 8.7 g/dL (13.5-17.5); Lymphocytes # (auto) 0.4 10 ^3/uL (0.4-5.4); Lymphocytes % (auto) 8.1 % (10.0-50.0); Mean Corpuscular Hemoglobin 27.1 pg (28.0-32.0); Mean Corpuscular Hgb Conc. 32.5 g/dL (32.0-36.0); Mean Corpuscular Volume 83.3 fL (80.0-100.0); Monocytes # (auto) 0.6 10 ^3/uL (0-1.3); Monocytes % (auto) 11.5 % (0.0-12.0); Neutrophils # (auto) 4.2 10 ^3/uL (1.6-8.6); Neutrophils % (auto) 78.4 % (37.0-80.0); Nucleated Red Blood Cells % 0.3 %; Platelet Count (auto) 178 10^3/uL (140-450); Red Blood Cells 3.23 10^6/uL (4.5-5.90); Red Cell Distribution Width 17.7 % (11.8-14.3); White Blood Cell 5.3 10^3/uL (4.4-10.8)
[2024-05-22 06:54] LABS: Potassium 4.4 mmol/L (3.5-5.1)
[2024-05-22 06:55] LABS: Anion Gap 7 (5-15); Calcium 8.8 mg/dL (8.7-10.4); Carbon Dioxide 30 mmol/L (20-31)
[2024-05-22 07:00] LABS: BUN/Creatinine Ratio 10.7 (10.0-20.0); Blood Urea Nitrogen 43 mg/dL (9-23); Chloride 98 mmol/L (98-107); Glucose 228 mg/dL (74-106); Sodium 135 mmol/L (136-145)
[2024-05-22] MEDS: LOSARTAN POTASSIUM 50 MG TAB PO SCH (10:24)
--- NOTE | 2024-05-22 10:41 | DVHPN2 ---
Progress Note Date Seen: May 22, 2024 Has the PT tested + for MRSA If YES, has PT been informed?: No Medical Necessity Reason Pt with a Central, PICC or Fol: No The following are medically ne: Kwok Catheter Subjective Patient reports: No new complaints Other Systems: Patient seen and examined by myself today in follow-up Objective vital signs Vital Sign Date Time Temp Pulse Resp B/P (MAP) Pulse Ox O2 Delivery O2 Flow Rate FiO2 05/22/24 10:24 123/76 05/22/24 10:24 84 05/22/24 09:00 98.3 19 86 98.3 05/21/24 20:00 Room Air* 0 21 Total Intake and Output 05/21/24 05/21/24 05/22/24 15:00 23:00 07:00 Intake Total 800 ml 500 ml Output Total 1450 ml 250 ml Balance -650 ml 250 ml medications Current Medications Medications Dose Ordered Sig/Jadon Route Start Time Stop Time Status Last Admin Dose Admin Meropenem 50 ml @ 17 mls/hr DAILY IV 05/17/24 10:00 05/22/24 10:23 17 MLS/HR Hydralazine HCl 10 mg Q6HP PRN IV 05/17/24 00:56 05/22/24 05:37 10 MG Calcium Acetate 1,334 mg TIDWMEALS PO 05/17/24 12:00 05/22/24 08:23 1,334 MG Epoetin Sagar-epbx 4,000 unit TUTHSA SC 05/17/24 10:00 05/22/24 10:24 4,000 UNIT Pantoprazole Sodium 40 mg DAILY@0600 PO 05/18/24 06:00 05/22/24 05:34 40 MG Ondansetron HCl 4 mg Q8HPRN PRN IV 05/17/24 12:00 05/22/24 08:34 4 MG Diagnostic Test (Pha) 1 strip IQ4HR 05/17/24 16:00 05/22/24 08:24 1 STRIP Insulin Human Regular IQ4HR SC 05/17/24 16:00 05/22/24 08:41 4 UNITS Dextrose 50 ml UD PRN IV 05/17/24 14:45 Acetaminophen 650 mg Q6HPRN PRN PO 05/17/24 14:45 05/21/24 17:46 650 MG Acetaminophen/ Hydrocodone Bitart 1 tab Q4HP PRN PO 05/17/24 14:45 05/21/24 21:31 1 TAB Morphine Sulfate 2 mg Q4HPRN PRN IV 05/17/24 14:45 05/20/24 14:24 2 MG Atorvastatin Calcium 20 mg DAILY PO 05/18/24 10:00 05/22/24 10:23 20 MG Metoprolol Succinate 50 mg DAILY PO 05/18/24 10:00 05/22/24 10:24 50 MG Amlodipine Besylate 10 mg DAILY PO 05/18/24 10:00 05/22/24 10:23 10 MG Furosemide 80 mg BIDD IV 05/18/24 06:00 05/22/24 05:37 80 MG Insulin Glargine 10 units HS SC 05/20/24 22:00 05/21/24 20:45 10 UNITS Losartan Potassium 100 mg DAILY PO 05/22/24 10:00 05/22/24 10:24 100 MG Examination: LUNGS:Normal, CVS:Normal, MSK:Abnormal laboratory and microbiology Laboratory Tests 05/22/24 05:59 Test 05/22/24 05:59 Range/Units Serum Glucose 228 H 74-106 mg/dL Problem List/Assessment/Plan Problem List/Assessment/Plan Acute kidney injury superimposed Chronic Kidney Disease secondary hemodynamic mediated, requiring intermittent hemodialysis Chronic kidney disease stage IIIA --- pt Diabetic nephropathy Diastolic heart failure decompensated Hyperkalemia Metabolic acidosis Sepsis secondary to subacute foot infection on ABX via PiCC Anemia due to iron deficiency versus chronic kidney disease Recommendations Hemodialysis tomorrow Epogen [id number] IV post hemodialysis phos binder continue diuretics Strict Is&Os IV Abx SW consult for acute HD chair--follows renal diet Plan discussed with: Patient My Orders My Orders Orders - LISA WALLACE MD Procedure Category Date Status Time Hemodialysis Orders ORDERS 05/21/24 Transmitted 15:13 Dietary Evaluation Review Comments: Continue current plan of care Expected Outcomes/Goals: F/U in 3-5 days LISA WALLACE MD May 22, 2024 10:41
[2024-05-22] MEDS: SODIUM CHL 0.9% 1000 ML BAG XX ONE (11:09)
[2024-05-22] MEDS: ERTAPENEM SOD INJ 0.5 GM in SODIUM CHL 0.9% 50 ML IV ONE (16:45)
[2024-05-23] MEDS ORDERED: SODIUM CHL 0.9% 1000 ML BAG XX ONE (07:00)
[2024-05-23] MEDS ORDERED: EPOETIN ALFA-EPBX 10,000 UNIT/1ML VIAL SC ONE (21:00)
[2024-05-24] MEDS ORDERED: CLON0.5T3 PO (12:21)
[2024-05-24] MEDS ORDERED: CLON-1003 PO (12:27)
[2024-05-24] MEDS ORDERED: ESCI1TAB37 PO (12:28)
[2024-05-24] MEDS ORDERED: LOSA-534 PO (12:28)
[2024-05-24] MEDS ORDERED: DAPA10TA3 PO (12:28)
[2024-05-24] MEDS ORDERED: HYDR25TA4 PO (12:28)
[2024-05-24] MEDS ORDERED: AMLO1TAB23 PO (12:28)
[2024-05-24] MEDS ORDERED: ATOR40TA52 PO (12:28)
[2024-05-24] MEDS ORDERED: METO25TA93 PO (12:28)
== END 2024-05-22 18:58 | disposition home health service (06) | DRG 720 ==
LOC: ER 12:06 → EDBD 12:06 → EDUNIT# 12:06 → TELE 16:43 → TELE-EAST 05-18 04:21
PROVIDERS: ADMIT Student in an Organized Health Care Education/Training Program; ATTEND Student in an Organized Health Care Education/Training Program
PROC: 02HV33Z Insertion of Infusion Device into Superior Vena Cava, Percutaneous Approach (ICD-10-PCS; principal; 2024-05-16)
PROC: 5A1D70Z Performance of Urinary Filtration, Intermittent, Less than 6 Hours Per Day (ICD-10-PCS; 2024-05-16)
PROC: 5A09357 Assistance with Respiratory Ventilation, Less than 24 Consecutive Hours, Continuous Positive Airway Pressure (ICD-10-PCS; 2024-05-16)
PROC: 5A09357 Assistance with Respiratory Ventilation, Less than 24 Consecutive Hours, Continuous Positive Airway Pressure (ICD-10-PCS; 2024-05-17)
PROC: 5A1D70Z Performance of Urinary Filtration, Intermittent, Less than 6 Hours Per Day (ICD-10-PCS; 2024-05-18)
PROC: 5A1D70Z Performance of Urinary Filtration, Intermittent, Less than 6 Hours Per Day (ICD-10-PCS; 2024-05-21)
DX: A41.9 Sepsis, unspecified organism (principal); G93.49 Other encephalopathy; I50.33 Acute on chronic diastolic (congestive) heart failure; I21.A1 Myocardial infarction type 2; E87.20 Acidosis, unspecified; E11.22 Type 2 diabetes mellitus with diabetic chronic kidney disease; D50.9 Iron deficiency anemia, unspecified; N17.9 Acute kidney failure, unspecified; I13.0 Hypertensive heart and chronic kidney disease with heart failure and stage 1 through stage 4 chronic kidney disease, or unspecified chronic kidney disease; N18.9 Chronic kidney disease, unspecified; E87.5 Hyperkalemia; I16.1 Hypertensive emergency; L08.9 Local infection of the skin and subcutaneous tissue, unspecified; N18.6 End stage renal disease; E11.40 Type 2 diabetes mellitus with diabetic neuropathy, unspecified; I13.2 Hypertensive heart and chronic kidney disease with heart failure and with stage 5 chronic kidney disease, or end stage renal disease; Z79.4 Long term (current) use of insulin; Z83.3 Family history of diabetes mellitus
CPT/HCPCS: 36415; 36556; 36600; 71045; 80048; 80053; 80074; 80202; 80307; 81001; 82306; 82570; 82728; 82805; 82962; 83036; 83540; 83550; 83605; 83735; 83970; 84100; 84132; 84156; 84443; 84484; 85025; 90935; 93005; 93306; 94640; 94660; 96361; 96365; 96375; 96376; 99291; 99292; G0378; J1335; J1642; J1756; J1815; J2185; J2405

== ENCOUNTER 2024-05-30 09:58 | Inpatient (IN) | payer MEDICAID, OTHER ==
[~2024-05-30] VITALS: Ht 177.8 cm; Wt 122.4 kg
[~2024-05-30 09:58] MED LIST changes: +ATOR40TA52 PO; +CLON-1003 PO; +DAPA10TA3 PO; -GLIP5TAB21 PO; +HYDR25TA4 PO; -METF-929 PO; +METO25TA93 PO; -SEMA2INJ3 SC; -SODI5PAK PO
--- NOTE | 2024-05-30 10:59 | ED.PDOC ---
History of Present Illness HPI Comments 48-year-old male with PMHx HTN, DM presents with a chief complaint of dialysis catheter malfunction. Patient states that he was newly diagnosed with kidney disease and has been undergoing dialysis for only x 3 weeks. Patient states that he has only had dialysis 3 times and each time they were unable to complete the sessions due to malfunctions in his current neck dialysis shunt. Patient reports that right now he does not have a promotions manager or a permanent fistula. No other symptoms or modifying factors present at this time. Chief Complaint: Tube Replacement Time Seen by MD: 10:51 Primary Care Provider: LEONCIO Reviewed Notes: Nurses Notes, Medications, Allergies Allergies: Coded Allergies: NO KNOWN ALLERGIES (Unverified , 07/21/23) Home Meds Active Scripts Metoprolol Succinate (Metoprolol Succinate Er) 25 Mg Tab, 2 TAB PO DAILY for 30 Days, #60 TAB 5 [facility]/24 Losartan Potassium (Losartan Potassium) 50 Mg Tab, 1 TAB PO DAILY for 30 Days, #30 TAB Prov:[facility] 05/24/24 Hydrochlorothiazide (Hydrochlorothiazide) 25 Mg Tab, 1 TAB PO DAILY PRN for 30 Days, #30 TAB 5 Refills Prov[facility] 05/24/24 Escitalopram Oxalate (ESCITALOPRAM OXALATE) 20 Mg Tab, 1 TAB PO DAILY for 30 D ays, #30 TAB 5 Refills Prov:[facility] 05/24/24 Dapagliflozin Propanediol (Dapagliflozin Propanediol) 10 Mg Tab, 10 MG PO DAILY for 30 Days, #30 TAB Prov:[facility] 05/24/24 Atorvastatin Calcium (ATORVASTATIN CALCIUM) 40 Mg Tab, 1 TAB PO DAILY for 30 Days, #30 TAB 5 Refills Prov:[facility] 05/24/24 Amlodipine Besylate (Amlodipine Besylate) 10 Mg Tab, 1 TAB PO DAILY for 30 Days, #30 TAB 5 Refills Prov:[facility] 05/24/24 Hctz (Hydrochlorothiazide) 25 Mg Tab, 25 MG PO DAILY for 30 Days, #30 TAB Prov:JAMILAH MARADIAGA MD 12/10/23 Losartan Potassium (Losartan Potassium) 50 Mg Tab, 50 MG PO DAILY for 30 Days, #30 TAB Prov:JAMILAH MARADIAGA MD 12/10/23 Metoprolol Succinate (Toprol Xl) 50 Mg Tab, 50 MG PO DAILY for 30 Days, #30 TAB Prov:JAMILAH MARADIAGA MD 12/10/23 Reported Medications Zrkim-4-Lsvr Ethyl Esters (Gncsn-4-Maip Ethyl Esters) 1 Gm Cap, 2 05/30/24 B-Complex W/ C & Folic Acid (Samantha-Bartolo Rx) Tab, 1 DAILY 05/30/24 Losartan Potassium (Losartan Potassium) 25 Mg Tab, 1 05/30/24 Ergocalciferol (Vitamin D) 50,000 Unit Cap, 1 05/30/24 Hydrochlorothiazide (Hydrochlorothiazide) 12.5 Mg Tab, 1 DAILY 05/30/24 Atenolol (Atenolol) 25 Mg Tab, 1 DAILY 05/30/24 Clonazepam (Klonopin) 0.5 Mg Tab, 0.5 TAB PO DAILYPRN PRN for 30 Days, #15 TAB 05/24/24 Clonazepam (Clonazepam Orally Disinte) 0.25 Mg Tab, 0.25 MG PO DAILY PRN for ANXIETY, TAB 12/08/23 Escitalopram Oxalate (ESCITALOPRAM OXALATE) 20 Mg Tab, 20 MG PO DAILY, TAB 12/08/23 Atorvastatin Calcium (Lipitor) 20 Mg Tab, 20 MG PO DAILY, TAB 07/22/23 Dapagliflozin Propanediol (Farxiga) 10 Mg Tab, 10 MG PO DAILY, TAB 07/22/23 Amlodipine Besylate (Amlodipine Besylate) 10 Mg Tab, 10 MG PO DAILY, TAB 07/22/23 Discontinued Reported Medications Clonazepam (KlonoPIN TABLET) 0.5 Mg Tb, 0.5 TAB PO PRN for 30 Days, #30 TAB 05/24/24 Discontinued Scripts Sodium Zirconium Cyclosilicate (Lokelma) 5 Gm Selvin, 10 GM PO DAILY for 15 Days, #1 PACK Prov:JAMILAH MARADIAGA MD 12/10/23 Information Source: Patient Mode of Arrival: Ambulatory Severity: Moderate Timing: Weeks Duration: Since onset Prehospital treatment: None Past Medical History PAST MEDICAL HISTORY: DM, HTN Surgical History: Denies all surgeries Surgical History (Other): RIGHT FOOT 4th/5th DIGIT Family History Family History: Reviewed,noncontributory to illness Social History Smoker: Non-Smoker Alcohol: Denies ETOH Use Drugs: Denies Drug Use Lives In: Home Constitutional: denies: chills, diaphoresis, fatigue, fever, malaise, sweats, weakness, others EENTM: denies: blurred vision, double vision, ear bleeding, ear discharge, ear drainage, ear pain, ear ringing, eye pain, eye redness, hearing loss, mouth pain, mouth swelling, nasal discharge, nose bleeding, nose congestion, nose pain, photophobia, tearing, throat pain, throat swelling, voice changes, others Respiratory: denies: cough, hemoptysis, orthopnea, SOB at rest, shortness of breath, SOB with excertion, stridor, wheezing, others Cardiovascular: denies: chest pain, dizzy spells, diaphoresis, Dyspnea on exertion, edema, irregular heart beat, left arm pain, lightheadedness, pal pitations, PND, syncope, others Gastrointestinal: denies: abdomen distended, abdominal pain, blood streaked bowels, constipated, diarrhea, dysphagia, difficulty swallowing, hematemesis, melena, nausea, poor appetite, poor fluid intake, rectal bleeding, rectal pain, vomiting, others Genitourinary: denies: burning, dysuria, flank pain, frequency, hematuria, incontinence, penile discharge, penile sore, pain, testicle pain, testicle swelling, urgency, others Neurological: denies: dizziness, fainting, headache, left sided numbness, left sided weakness, numbness, paresthesia, pre-existing deficit, right sided numbness, right sided weakness, seizure, speech problems, tingling, tremors, weakness, others Musculoskeletal: denies: back pain, gout, joint pain, joint swelling, muscle pain, muscle stiffness, neck pain, others Integumetry: denies: bruises, change in color, change in hair/nails, dryness, laceration, lesions, lumps, rash, wounds, others Allergic/Immunocompromised: denies: Difficulty Healing, Frequent Infections, Hives, Itching, others Hematologic/Lymphatic: denies: anemia, blood clots, easy bleeding, easy bru ising, swollen glands, others Endocrine: denies: excessive hunger, excessive sweating, excessive thirst, e xcessive urination, flushing, intolerance to cold, intolerance to heat, unexplained weight gain, unexplained weight loss, others Psychiatric: denies: anxiety, bipolar disorder, depression, hopeless, panic disorder, schizophrenia, sleepless, suicidal, others Unable to Obtain due to: Medical Urgency (DIALYSIS SHUNT) All Other Systems: Reviewed and Negative Physical Exam General Appearance: Mild Distress HEENT: Normal ENT Inspection, Pharynx Normal, TMs Normal, Other (Internal jugular dialysis catheter in place) Neck: Full Range of Motion, Non-Tender, Normal, Normal Inspection Respiratory: Chest Non-Tender, Lungs Clear, No Accessory Muscle Use, No Respiratory Distress, Normal Breath Sounds Cardiovascular: No Edema, No JVD, No Murmur, No Gallop, Normal Peripheral Pulses, Regular Rate/Rhythm Breast Exam: Deferred Gastrointestinal: No Organomegaly, Non Tender, No Pulsatile Mass, Normal Bowel Sounds, Soft Genitalia: Deferred Pelvic: Deferred Rectal: Deferred Extremities: No calf tenderness, Normal capillary refill, No pedal edema Musculoskeletal : Apperance: Normal Neurologic: Alert, operations general agent II-XII nml as Tested, Motor Weakness, Normal Affect, Normal Mood, No Sensory Deficits Cerebellar Function: Normal Reflexes: Normal Skin: Dry, Normal Color, Warm Lymphatic: No Adenopathy Was a procedure done? Was a procedure done?: No Differential Dx Considerations may include: Dialysis malfunction X-Ray, Labs, Meds, VS Vital Signs Date Time Temp Pulse Resp B/P (MAP) Pulse Ox O2 Delivery O2 Flow Rate FiO2 05/30/24 13:03 98.6 86 20 153/95 (114) 94 98.6 05/30/24 13:02 153/95 05/30/24 11:11 98.9 91 16 206/106 (139) 97 98.9 05/30/24 11:11 91 16 97 Room Air 05/30/24 11:10 206/106 05/30/24 10:51 98.6 90 18 191/102 (131) 97 Lab Test 05/30/24 11:37 Range/Units White Blood Count 9.2 4.4-10.8 10^3/uL Red Blood Count 3.98 L 4.5-5.90 10^6/uL Hemoglobin 10.8 L 13.5-17.5 g/dL Hematocrit 33.5 L 41.0-53.0 % Mean Corpuscular Volume 84.2 80.0-100.0 fL Mean Corpuscular Hemoglobin 27.0 L 28.0-32.0 pg Mean Corpuscular Hemoglobin Concent 32.1 32.0-36.0 g/dL Red Cell Distribution Width 17.2 H 11.8-14.3 % Platelet Count 317 140-450 10^3/uL Mean Platelet Volume 8.9 6.9-10.8 fL Neutrophils (%) (Auto) 69.9 37.0-80.0 % Lymphocytes (%) (Auto) 14.3 10.0-50.0 % Monocytes (%) (Auto) 6.2 0.0-12.0 % Eosinophils (%) (Auto) 8.5 H 0.0-7.0 % Basophils (%) (Auto) 1.1 0.0-2.0 % Neutrophils # (Auto) 6.5 1.6-8.6 10 ^3/uL Lymphocytes # (Auto) 1.3 0.4-5.4 10 ^3/uL Monocytes # (Auto) 0.6 0-1.3 10 ^3/uL Eosinophils # (Auto) 0.8 0-0.8 10 ^3/uL Basophils # (Auto) 0.1 0-0.2 10 ^3/uL Nucleated Red Blood Cells 0.1 % Sodium Level 144 136-145 mmol/L Potassium Level 4.9 3.5-5.1 mmol/L Chloride Level 106 98-107 mmol/L Carbon Dioxide Level 30 20-31 mmol/L Anion Gap 8 5-15 Blood Urea Nitrogen 36 H 9-23 mg/dL Creatinine 2.47 H 0.700-1.30 mg/dL Glomerular Filtration Rate Calc 32 >90 mL/min BUN/Creatinine Ratio 14.6 10.0-20.0 Serum Glucose 130 H 74-106 mg/dL Calcium Level 9.1 8.7-10.4 mg/dL Current Medications Medications (Trade) Dose Ordered Sig/Jadon Route Start Time Stop Time Status Last Admin Clonidine HCl (Catapres Tablet) 0.2 mg ONCE ONCE PO 05/30/24 11:00 05/30/24 11:01 DC 05/30/24 11:10 Chest X-Ray Impression: 1. Right IJ dialysis catheter with its tip in the mid SVC. The catheter may be kinked at the skin insertion site. 2. Mild platelike atelectasis in the left mid lung. No other acute intrathoracic process is identified here. The patient's CBC shows anemia with a hemoglobin of 10.8 hematocrit of 33.5 The BUN is 36 and the creatinine is 2.47 At this time, the patient is being admitted to the hospitalist The patient also came in with accelerated hypertension The patient was given clonidine 0.2 mg by mouth A nephrology consult will be obtained The patient was being admitted Images Reviewed?: Images reviewed and evaluated by me Time of 1ST Reevaluation: 11:21 Reevaluation 1ST: Unchanged Patient Education/Counseling: Diagnosis, Treatment, Prognosis Family Education/Counseling: Diagnosis, Treatment, Prognosis Departure 1 Departure Time of Disposition: 17:56 Impression: Primary Impression: Acute renal failure Qualified Codes: N17.1 - Acute kidney failure with acute cortical necrosis Additional Impression: Encounter for dialysis catheter care Disposition: ADMITTED INPATIENT Admit to: Med Surg Condition: Fair Critical Care Note Critical Care Time?: No Stability Stability form required: Yes Unstable for transfer: ED Physician Assesment (Clinical assesment) Heart Score Heart Score: Heart Score Response (Comments) Value History N/A 0 EKG N/A 0 Age N/A 0 Risk Factors N/A 0 Troponin N/A 0 Total 0 I personally scribed for GERMAINE HERMAN MD ([email or web address]) on 05/30/24 at 10:59. Electronically submitted by Jairo Lopez ([email or web address]). I personally scribed for GERMAINE HERMAN MD ([email or web address]) on 05/30/24 at 12:09. Electronically submitted by Jairo Lopez ([email or web address]). GERMAINE HERMAN MD May 30, 2024 10:59
[2024-05-30] MEDS: cloNIDine HCL 0.1 MG TAB PO ONE (11:10)
--- NOTE | 2024-05-30 11:42 | DVH ---
CHEST RADIOGRAPH Indication: Dialysis catheter malfunction Technique: Single frontal view of the chest was obtained COMPARISON: XY CHEST XRAY 1 VIEW on DOS: 05/16/24, XY CHEST PORTABLE on DOS: 05/16/24, XY CHEST PORTABL E on DOS: 03/12/24, XY CHEST XRAY 1 VIEW on DOS: 12/10/23, XY CHEST XRAY 1 VIEW on DOS: 07/21/23, chest CT dated 12/07/2023 FINDINGS: There is a right IJ dialysis catheter with its tip in the mid SVC. The catheter may be kinked at the skin insertion site. There is a right upper extremity PICC line with its tip in the mid SVC. Lung vo lumes are somewhat low. There is mild platelike atelectasis in the left mid lung. No other infiltrat es, pneumothorax, or pulmonary edema. The heart is borderline enlarged. IMPRESSION: 1. Right IJ dialysis catheter with its tip in the mid SVC. The catheter may be kinked at the skin in sertion site. 2. Mild platelike atelectasis in the left mid lung. No other acute intrathoracic process is identifi ed here.
[2024-05-30 12:25] LABS: Basophils # (auto) 0.1 10 ^3/uL (0-0.2)
[2024-05-30 12:27] LABS: Basophils % (auto) 1.1 % (0.0-2.0); Eosinophils # (auto) 0.8 10 ^3/uL (0-0.8); Eosinophils % (auto) 8.5 % (0.0-7.0); Hematocrit 33.5 % (41.0-53.0); Hemoglobin 10.8 g/dL (13.5-17.5); Lymphocytes # (auto) 1.3 10 ^3/uL (0.4-5.4); Lymphocytes % (auto) 14.3 % (10.0-50.0); Mean Corpuscular Hgb Conc. 32.1 g/dL (32.0-36.0); Mean Corpuscular Volume 84.2 fL (80.0-100.0); Monocytes # (auto) 0.6 10 ^3/uL (0-1.3); Monocytes % (auto) 6.2 % (0.0-12.0); Neutrophils # (auto) 6.5 10 ^3/uL (1.6-8.6); Neutrophils % (auto) 69.9 % (37.0-80.0); Nucleated Red Blood Cells % 0.1 %; Platelet Count (auto) 317 10^3/uL (140-450); Red Blood Cells 3.98 10^6/uL (4.5-5.90); Red Cell Distribution Width 17.2 % (11.8-14.3); White Blood Cell 9.2 10^3/uL (4.4-10.8)
[2024-05-30 12:55] LABS: Anion Gap 8 (5-15); Carbon Dioxide 30 mmol/L (20-31); Chloride 106 mmol/L (98-107); Potassium 4.9 mmol/L (3.5-5.1); Sodium 144 mmol/L (136-145)
[2024-05-30 12:56] LABS: Calcium 9.1 mg/dL (8.7-10.4)
[2024-05-30 13:01] LABS: BUN/Creatinine Ratio 14.6 (10.0-20.0); Blood Urea Nitrogen 36 mg/dL (9-23); Glucose 130 mg/dL (74-106)
[2024-05-30 13:10] VITALS: PULSE 86; RESP 20; O2SAT 94
--- NOTE | 2024-05-30 17:26 | DVHHP2 ---
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 Patient reports that the facility advised him that he was unable to get dialyzed due to an issue with the catheter. 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 Patient denies any chest pain, shortness of breath, abdominal pain, nausea, vomiting, diarrhea, fever, and chills. Patient does report that he still wears a postop shoe on his right foot. He is waiting to see his senior product marketing manager. Cardiovascular: HTN Renal/: Chronic renal failure Endocrine: Diabetes Past Surgical History: Other (Right 4th and 5th digit amputation) Family History: DM, Other (Mom and dad with diabetes) Smoke: No ALCOHOL: none Drugs: None Lives: with Family Domestic Violence: Neg Review of Systems Constitutional: No: Fever, Chills, Sweats, Weakness, Malaise, Other Eyes: No: Pain, Vision change, Conjunctivae inflammation, Eyelid inflammation, Other, Redness ENT: No: Ear pain, Ear discharge, Nose pain, Nose discharge, Nose congestion, Mouth pain, Mouth swelling, Throat pain, Throat swelling, Other Respiratory: No: Cough, Dry, Shortness of breath, SOB with excertion, Wheezing, Hemoptysis, Pleuritic Pain, Sputum, Wheezing, Other Cardiovascular: No: Chest Pain, Palpitations, Orthopnea, Paroxysmal Noc. Dy spnea, Edema, Lt Headedness, Other Gastrointestinal: No: Nausea, Vomiting, Abdominal Pain, Diarrhea, Constipation, Melena, Hematochezia, Other Genitourinary: No Dysuria, No Frequency, No Incontinence, No Hematuria, No Retention, No Other Musculoskeletal: No: other, neck pain, shoulder pain, arm pain, back pain, hand pain, leg pain, foot pain Skin: No: Rash, Lesions, Jaundice, Bruising, Other Neurological: No: Weakness, Numbness, Incoordination, Change in speech, Confusion, Seizures, Other Allergies: Coded Allergies: NO KNOWN ALLERGIES (Unverified , 07/21/23) Exam Vital Signs Vital Signs Date Time Temp Pulse Resp B/P (MAP) Pulse Ox O2 Delivery O2 Flow Rate FiO2 05/30/24 13:03 98.6 86 20 153/95 (114) 94 98.6 05/30/24 11:11 Room Air General Appearance: Alert, Oriented X3, Cooperative, No acute distress HEENT: Atraumatic, PERRLA, EOMI, Mucous membr. moist/pink, Other (Right IJ noted) Respiratory: Clear to auscultation, Normal air movement Cardiovascular: Regular rate, Normal S1, Normal S2, No murmurs Abdominal: Normal bowel sounds, Soft, No tenderness, No hepatospenomegaly, No masses Neuro: Normal speech, Normal tone, Sensation intact Psych/Mental Status: Mental status NL, Mood NL Labs/Xrays Labs Test 05/30/24 11:37 Range/Units White Blood Count 9.2 4.4-10.8 10^3/uL Red Blood Count 3.98 L 4.5-5.90 10^6/uL Hemoglobin 10.8 L 13.5-17.5 g/dL Hematocrit 33.5 L 41.0-53.0 % Mean Corpuscular Volume 84.2 80.0-100.0 fL Mean Corpuscular Hemoglobin 27.0 L 28.0-32.0 pg Mean Corpuscular Hemoglobin Concent 32.1 32.0-36.0 g/dL Red Cell Distribution Width 17.2 H 11.8-14.3 % Platelet Count 317 140-450 10^3/uL Mean Platelet Volume 8.9 6.9-10.8 fL Neutrophils (%) (Auto) 69.9 37.0-80.0 % Lymphocytes (%) (Auto) 14.3 10.0-50.0 % Monocytes (%) (Auto) 6.2 0.0-12.0 % Eosinophils (%) (Auto) 8.5 H 0.0-7.0 % Basophils (%) (Auto) 1.1 0.0-2.0 % Neutrophils # (Auto) 6.5 1.6-8.6 10 ^3/uL Lymphocytes # (Auto) 1.3 0.4-5.4 10 ^3/uL Monocytes # (Auto) 0.6 0-1.3 10 ^3/uL Eosinophils # (Auto) 0.8 0-0.8 10 ^3/uL Basophils # (Auto) 0.1 0-0.2 10 ^3/uL Nucleated Red Blood Cells 0.1 % Sodium Level 144 136-145 mmol/L Potassium Level 4.9 3.5-5.1 mmol/L Chloride Level 106 98-107 mmol/L Carbon Dioxide Level 30 20-31 mmol/L Anion Gap 8 5-15 Blood Urea Nitrogen 36 H 9-23 mg/dL Creatinine 2.47 H 0.700-1.30 mg/dL Glomerular Filtration Rate Calc 32 >90 mL/min BUN/Creatinine Ratio 14.6 10.0-20.0 Serum Glucose 130 H 74-106 mg/dL Calcium Level 9.1 8.7-10.4 mg/dL CHEST RADIOGRAPH Indication: Dialysis catheter malfunction Technique: Single frontal view of the chest was obtained COMPARISON: XY CHEST XRAY 1 VIEW on DOS: 05/16/24, XY CHEST PORTABLE on DOS: 05/16/24, XY CHEST PORTABLE on DOS: 03/12/24, XY CHEST XRAY 1 VIEW on DOS: 12/10/23, XY CHEST XRAY 1 VIEW on DOS: 07/21/23, chest CT dated 12/07/2023 FINDINGS: There is a right IJ dialysis catheter with its tip in the mid SVC. The catheter may be kinked at the skin insertion site. There is a right upper extremity PICC line with its tip in the mid SVC. Lung volumes are somewhat low. There is mild platelike atelectasis in the left mid lung. No other infiltrates, pneumothorax, or pulmonary edema. The heart is borderline enlarged. IMPRESSION: 1. Right IJ dialysis catheter with its tip in the mid SVC. The catheter may be kinked at the skin insertion site. 2. Mild platelike atelectasis in the left mid lung. No other acute i ntrathoracic process is identified here. Assessment/Plan Assessment/Plan Assessment/Plan: HD catheter malfunction SUSY Anemia Lab Antihypertensive Chest x-ray Antiemetics Pain management A.m. labs Nephrology consult Diabetes uncontrolled Hemoglobin A1c ISS and Accu-Cheks History of right 4th and 5th digit amputation Follow up outpatient with PCP Chronic hypertension Continue home medication FEN/PPX Diet Hep-Lock DVT prophylaxis not indicated patient ambulating PUD prophylaxis not indicated no history of GERD or GI bleed Admit to [facility] medications reconciled Discussed plan of care with patient and nurse Plan discussed with: Patient Date of Service: May 30, 2024 Billing Provider: LIZETH ARANDA Common Visit Codes: [id number] INP/OBS CARE (HIGH) LIZETH ARANDA May 30, 2024 17:26
[2024-05-30] MEDS ORDERED: B-CO-6 (17:28)
[2024-05-30] MEDS ORDERED: LOS25T (17:28)
[2024-05-30] MEDS ORDERED: OMEG-86 (17:28)
[2024-05-30] MEDS ORDERED: HYDR12.55 (17:28)
[2024-05-30] MEDS ORDERED: ATEN25TA (17:28)
[2024-05-30] MEDS ORDERED: ERGO1CAP12 (17:28)
[2024-05-30] MEDS ORDERED: DEXTROSE (50%) 50ML SYRG IV PRN (17:30)
[2024-05-30] MEDS ORDERED: ONDANSETRON HCL 4 MG/2 ML VIAL IV PRN (17:30)
[2024-05-30] MEDS: ACCU-CHEK COMFORT CURVE STRIP VI SCH (22:00)
[2024-05-30 23:10] VITALS: BP 197/97; PULSE 94; TEMP 97.7; O2SAT 96
[2024-05-31] MEDS: InsuLIN REG 1unit/0.01ml Soln (100units/ml) SC SCH (00:07)
[2024-05-31 00:18] VITALS: PULSE 94; RESP 18; O2SAT 96
[2024-05-31] MEDS: cloNIDine HCL 0.1 MG TAB PO ONE (00:50)
[2024-05-31 02:15] VITALS: BP 191/102; PULSE 84; RESP 19; TEMP 97.8; O2SAT 96
[2024-05-31] MEDS: hydrALAZINE HCL 20 MG/ML VL IV ONE (04:08)
[2024-05-31 04:54] LABS: Basophils # (auto) 0.1 10 ^3/uL (0-0.2); Basophils % (auto) 1.2 % (0.0-2.0); Eosinophils # (auto) 0.8 10 ^3/uL (0-0.8); Hemoglobin 9.6 g/dL (13.5-17.5); Monocytes # (auto) 0.6 10 ^3/uL (0-1.3); Neutrophils # (auto) 5.8 10 ^3/uL (1.6-8.6); Red Cell Distribution Width 17.2 % (11.8-14.3); White Blood Cell 8.8 10^3/uL (4.4-10.8)
[2024-05-31 04:56] LABS: Eosinophils % (auto) 9.2 % (0.0-7.0); Hematocrit 30.2 % (41.0-53.0); Lymphocytes # (auto) 1.4 10 ^3/uL (0.4-5.4); Lymphocytes % (auto) 16.2 % (10.0-50.0); Mean Corpuscular Hemoglobin 26.5 pg (28.0-32.0); Mean Corpuscular Hgb Conc. 31.9 g/dL (32.0-36.0); Mean Corpuscular Volume 83.3 fL (80.0-100.0); Monocytes % (auto) 7.1 % (0.0-12.0); Neutrophils % (auto) 66.3 % (37.0-80.0); Platelet Count (auto) 297 10^3/uL (140-450); Red Blood Cells 3.63 10^6/uL (4.5-5.90)
[2024-05-31 05:13] LABS: Alanine Aminotransferase 19 U/L (7-40); Anion Gap 10 (5-15); BUN/Creatinine Ratio 15.8 (10.0-20.0); Calcium 8.8 mg/dL (8.7-10.4); Carbon Dioxide 25 mmol/L (20-31); Potassium 4.5 mmol/L (3.5-5.1); Sodium 142 mmol/L (136-145)
[2024-05-31 05:14] LABS: Albumin 3.7 g/dL (3.2-4.8); Aspartate Aminotransferase 17 U/L (13-40); Total Protein 6.4 g/dL (5.7-8.2)
[2024-05-31 05:16] LABS: Alkaline Phosphatase 120 U/L (46-116); Bilirubin, Total 0.2 mg/dL (0.2-1.0); Blood Urea Nitrogen 40 mg/dL (9-23); Chloride 107 mmol/L (98-107); Glucose 182 mg/dL (74-106)
[2024-05-31] MEDS: amLODIPine BESYLATE 5 MG TAB PO SCH (08:41)
[2024-05-31] MEDS: CITALOPRAM HYDROBR 20 MG TAB PO SCH (08:41)
[2024-05-31 11:06] VITALS: BP 166/101; PULSE 101; RESP 18; TEMP 98.3; O2SAT 96
[2024-05-31] MEDS ORDERED: CLOP75TA70 PO (11:51)
[2024-05-31] MEDS ORDERED: HYDR-4902 PO (11:51)
[2024-05-31] MEDS ORDERED: ERTA1INJ3 IV (11:51)
[2024-05-31] MEDS ORDERED: ESCI20TA PO (11:51)
[2024-05-31] MEDS ORDERED: LOSA-534 PO (14:42)
[2024-05-31] MEDS ORDERED: HYDR25TA5 PO (14:42)
[2024-05-31] MEDS ORDERED: CLON-1003 PO (14:42)
[2024-05-31] MEDS ORDERED: METO-6 PO (14:42)
--- NOTE | 2024-05-31 14:49 | DVHPN2 ---
Assessment/Plan Assessment/Plan Progress note 48 M with IDDM, HTN, ESRD on HD TTS with [facility] last HD tuesday, R toe amputation and OM admitted for HD cath malfunction. From HD center informed its not working well and needs to be replaced. Physical exam Alert oriented x3 Clear breath sounds S1 S2 RRR Obese Abdomen soft nontender R IJ permacath R leg in boot Labs imaging reviewed Assessment and plan Dialysis cath malfunction, possibly kink ESRD on HD IDDM HTN s/p R 4th 5th toe amputation Obesity Nephro consult for HD IR for permacath replacement Basal bolus insulin, FSx4 resume home BP meds resume ertapenem Diet renal DVT PPX lovenox hold for possible procedure Plan discussed with: Patient My Orders Orders - VICKIE PRASAD MD Procedure Category Date Status Time Amlodipine Tablet PHA 06/01/24 Logged (Norvasc Tablet) 10:00 Amlodipine Tablet PHA 05/31/24 Logged (Norvasc Tablet) 14:45 Atenolol Tablet PHA 05/31/24 Logged (Tenormin Tablet) 14:45 Atenolol Tablet PHA 05/31/24 Logged (Tenormin Tablet) 22:00 Losartan Tablet PHA 06/01/24 Logged (Cozaar Tablet) 10:00 Losartan Tablet PHA 05/31/24 Logged (Cozaar Tablet) 14:45 Date of Service: May 31, 2024 Billing Provider: VICKIE PRASAD MD Common Visit Codes: [id number] INP/OBS CARE(HIGH) VICKIE PRASAD MD May 31, 2024 14:49
[2024-05-31 16:17] LABS: INR 0.97 (0.9-1.15); Partial Thromboplastin Time 28.7 SEC (24.5-34.5); Prothrombin Time 10.3 sec (9.3-11.8)
[2024-05-31] MEDS: ERTAPENEM SOD INJ 1 GM in SODIUM CHL 0.9% 50 ML IV ONE (16:25)
[2024-05-31] MEDS: LOSARTAN POTASSIUM 50 MG TAB PO ONE (16:26)
[2024-05-31] MEDS: ATENOLOL 25 MG TAB PO ONE (16:26)
[2024-05-31] MEDS: amLODIPine BESYLATE 5 MG TAB PO ONE (16:27)
[2024-05-31 17:00] VITALS: BP 196/111; PULSE 87; RESP 20; TEMP 98.2; O2SAT 95
[2024-05-31 21:00] VITALS: BP 178/99; PULSE 74; RESP 20; TEMP 97.5; O2SAT 93
[2024-05-31] MEDS: ACETAMINOPHEN 325 MG TAB PO PRN (21:07)
[2024-05-31] MEDS: ATORVASTATIN 20 MG TAB PO SCH (21:07)
[2024-05-31] MEDS: ATENOLOL 25 MG TAB PO SCH (21:08)
[2024-06-01] VITALS (12 sets, daily range): BP systolic 149–198; BP diastolic 88–118; PULSE 65–90; RESP 14–20; TEMP 97.5–98.1; O2SAT 94–98
[2024-06-01] MEDS: amLODIPine BESYLATE 5 MG TAB PO SCH (10:00)
[2024-06-01] MEDS: ERTAPENEM SOD INJ 1 GM in SODIUM CHL 0.9% 50 ML IV SCH (10:00)
[2024-06-01] MEDS: LOSARTAN POTASSIUM 50 MG TAB PO SCH (10:00)
--- NOTE | 2024-06-01 11:07 | DVHPN2 ---
Progress Note - Dictate Date Seen: Jun 01, 2024 Has the PT tested + for MRSA If YES, has PT been informed?: No Medical Necessity Reason Pt with a Central, PICC or Fol: No Subjective No complaints vital signs Vital Sign Date Time Temp Pulse Resp B/P (MAP) Pulse Ox O2 Delivery O2 Flow Rate FiO2 06/01/24 09:00 98.0 68 17 160/98 (118) 96 98.0 05/31/24 19:53 Room Air* 0 21 Total Intake and Output 05/31/24 05/31/24 06/01/24 15:00 23:00 07:00 Intake Total 700 ml 700 ml Output Total 0 ml 600 ml Balance 700 ml 100 ml medications Current Medications Medications Dose Ordered Sig/Jadon Route Start Time Stop Time Status Last Admin Dose Admin Ondansetron HCl 4 mg Q4HP PRN IV 05/30/24 17:30 Acetaminophen 650 mg Q6HP PRN PO 05/30/24 17:30 05/31/24 21:07 650 MG Diagnostic Test (Pha) 1 strip ACHS 05/30/24 22:00 06/01/24 06:11 1 STRIP Insulin Human Regular ACHS SC 05/30/24 22:00 06/01/24 06:10 2 UNITS Dextrose 50 ml UD PRN IV 05/30/24 17:30 Atorvastatin Calcium 40 mg HS PO 05/31/24 22:00 05/31/24 21:07 40 MG Citalopram Hydrobromide 40 mg DAILY PO 05/31/24 10:00 05/31/24 08:41 40 MG Amlodipine Besylate 10 mg DAILY PO 06/01/24 10:00 Atenolol 25 mg BID PO 05/31/24 22:00 05/31/24 21:08 25 MG Losartan Potassium 50 mg DAILY PO 06/01/24 10:00 Ertapenem 1 gm/ Sodium Chloride 50 ml @ 100 mls/hr DAILY IV 06/01/24 10:00 objective Alert and oriented x 3 NAD Lungs CTA CV: RR, no rub Abdomen: soft, [place] No edema laboratory and microbiology Laboratory Tests 05/31/24 04:31 Test 05/31/24 04:31 Range/Units Serum Glucose 182 H 74-106 mg/dL Problem List 1. ESRD 2. Clotted HD catheter needs to be replaced 3. HTN 4. Anemia 5. DM2 HD has been scheduled for today UF goal 1 L DC home after HD Plan discussed with: Patient RENE GARCES MD Jun 01, 2024 11:07
[2024-06-01] MEDS: HEPARIN SODIUM (PORCINE) 5000 UNITS/ML 1ML VIAL ONE (11:45)
[2024-06-01] MEDS: MIDAZOLAM HCL 2MG/2ML 2ml VIAL (1mg/ml) ONE (11:45)
[2024-06-01] MEDS: fentaNYL CITRATE 100 MCG/2 ML VL ONE (11:45)
[2024-06-01] MEDS: LIDOCAINE 2%HCL (LOCAL ANESTH.) INJ 20ML MDV ONE (11:46)
[2024-06-01] MEDS: ceFAZolin 1GM/50ML 50 ML IV ONE (12:04)
--- NOTE | 2024-06-01 13:33 | DVH ---
XY Insertion of Venous Cath, HISTORY: HD CATH PL PROCEDURE: Informed consent was obtained. The patient was placed supine on the interventional table. A limited localization ultrasound of the right neck base was obtained. The right neck base and upper chest were prepped with chlorhexidine which was allowed to dry and draped in the usual sterile fashio n. Time out was performed. IV sedation was administered. The skin and the soft tissues were infiltrat ed with 1% Lidocaine . With real-time ultrasound guidance, the internal jugular vein was accessed wit h a micropuncture kit, and an image documenting patency was recorded to PACS. A subcutaneous tunneled tract was created from the right upper chest to the venotomy site. A 14.5 Iranian Colby Path, 23 cm l carole hemodialysis catheter was advanced through the tunneled tract. Fluoroscopy was used to advance a guidewire through the internal jugular vein into the inferior vena cava. Following serial dilatation, a 15 Iranian peel-away sheath was introduced, though which was adva nced the catheter into the right atrium. The catheter tip position was confirmed with fluoroscopy. Th ere was satisfactory flow in both lumens. The catheter lumens were flushed with saline and heparin wa s left indwelling in the catheter. A post-procedure image of the chest was obtained. The neck incisio n site was closed with a Vicryl suture and dressed sterilely. The catheter was sutured at the skin prado rface and exit site also dressed sterilely. No immediate complication was identified. The nontunneled HD catheter was removed and manual compression held for hemostasis. DAP 209.71 FLUOROSCOPY TIME: 2.1 minutes. SEDATION: Dr. Maddy Cantrell was personally responsible for the administration of moderate sedation during the procedure performed, including the use of an independent trained observer who had no other duties during the procedure. The drugs utilized were IV fentanyl and versed (see nursing log for details). The total time of supervision by the attending physician was approximately 30 minutes. FINDINGS: Widely patent right IJV. Post procedure image demonstrates smooth course of the hemodialysi s catheter with the tip in the right atrium. IMPRESSION: Successful placement of 14.5 Iranian Colby Path, 23 cm long hemodialysis catheter through right international banker al jugular vein. Plan: Please contact IR for removal when no longer needed.
[2024-06-01] MEDS: amLODIPine BESYLATE 5 MG TAB PO ONE (17:59)
[2024-06-01] MEDS: ATENOLOL 25 MG TAB PO ONE (17:59)
[2024-06-01] MEDS: LOSARTAN POTASSIUM 50 MG TAB PO ONE (18:00)
[2024-06-01] MEDS: LABETALOL HCL 20 MG/4 ML VL IV PRN (19:25)
--- NOTE | 2024-06-01 21:33 | DVHPN2 ---
Assessment/Plan Assessment/Plan Progress note 48 M with IDDM, HTN, ESRD on HD TTS with [facility] last HD tuesday, R toe amputation and OM admitted for HD cath malfunction. From HD center informed its not working well and needs to be replaced. ssen today during rounds. permacath placed, can be discharge tomorrow after HD, have hoime invanz sreivice Physical exam Alert oriented x3 Clear breath sounds S1 S2 RRR Obese Abdomen soft nontender R IJ permacath R leg in boot Labs imaging reviewed Assessment and plan Dialysis cath malfunction, possibly kink ESRD on HD IDDM HTN s/p R 4th 5th toe amputation Obesity Nephro consult for HD IR for permacath replacement today pending HD today, can be dc tomorrow Basal bolus insulin, FSx4 resume home BP meds resume ertapenem Diet renal DVT PPX lovenox hold for possible procedure Plan discussed with: Patient My Orders Orders - VICKIE PRASAD MD Procedure Category Date Status Time Insertion Of Venous XY 06/01/24 Resulted Cath 12:11 Labetalol Hcl PHA 06/01/24 In Process (Labetalol Hcl) 16:45 Date of Service: Jun 01, 2024 Billing Provider: VICKIE PRASAD MD Common Visit Codes: [id number] INP/OBS CARE(HIGH) VICKIE PRASAD MD Jun 01, 2024 21:33
[2024-06-02] VITALS (7 sets, daily range): BP systolic 147–174; BP diastolic 80–93; PULSE 65–74; RESP 12–18; TEMP 97.9–98.4; O2SAT 91–95
[2024-06-02] MEDS: SODIUM CHL 0.9% 1000 ML BAG XX ONE (07:26)
[2024-06-02] MEDS: hydrALAZINE HCL 20 MG/ML VL IV PRN (14:05)
--- NOTE | 2024-06-02 15:45 | DVHPN2 ---
Progress Note - Dictate Date Seen: Jun 02, 2024 Has the PT tested + for MRSA If YES, has PT been informed?: No Medical Necessity Reason Pt with a Central, PICC or Fol: No Subjective No complaints vital signs Vital Sign Date Time Temp Pulse Resp B/P (MAP) Pulse Ox O2 Delivery O2 Flow Rate FiO2 06/02/24 14:05 162/93 06/02/24 12:56 98.4 69 18 93 98.4 06/02/24 08:12 Room Air* 0 21 Total Intake and Output 06/01/24 06/01/24 06/02/24 15:00 23:00 07:00 Intake Total 550 ml 375 ml Output Total 0 ml Balance 550 ml 375 ml medications Current Medications Medications Dose Ordered Sig/Jadon Route Start Time Stop Time Status Last Admin Dose Admin Ondansetron HCl 4 mg Q4HP PRN IV 05/30/24 17:30 Acetaminophen 650 mg Q6HP PRN PO 05/30/24 17:30 05/31/24 21:07 650 MG Diagnostic Test (Pha) 1 strip ACHS 05/30/24 22:00 06/02/24 11:57 1 STRIP Insulin Human Regular ACHS SC 05/30/24 22:00 06/02/24 12:08 3 UNITS Dextrose 50 ml UD PRN IV 05/30/24 17:30 Atorvastatin Calcium 40 mg HS PO 05/31/24 22:00 06/01/24 22:26 40 MG Citalopram Hydrobromide 40 mg DAILY PO 05/31/24 10:00 06/02/24 11:06 40 MG Amlodipine Besylate 10 mg DAILY PO 06/01/24 10:00 06/02/24 11:06 10 MG Atenolol 25 mg BID PO 05/31/24 22:00 06/02/24 11:07 25 MG Losartan Potassium 50 mg DAILY PO 06/01/24 10:00 06/02/24 11:07 50 MG Ertapenem 1 gm/ Sodium Chloride 50 ml @ 100 mls/hr DAILY IV 06/01/24 10:00 06/02/24 11:57 100 MLS/HR Labetalol HCl 5 mg PRN PRN IV 06/01/24 16:45 Hydralazine HCl 10 mg Q6HP PRN IV 06/01/24 19:15 06/02/24 14:05 10 MG objective Alert and oriented x 3 NAD Lungs CTA CV: RR, no rub Abdomen: soft, [place] No edema laboratory and microbiology Laboratory Tests 05/31/24 04:31 Test 05/31/24 04:31 Range/Units Serum Glucose 182 H 74-106 mg/dL Problem List 1. Renal failure, recent SUSY, he may not have "ESRD", seems to be regaining renal function, will follow this at [facility] as outpatient 2. HD catheter was replaced 3. HTN 4. Anemia 5. DM2 Patient received HD on Tuesday Please send him home today Plan discussed with: Other (mother) RENE GARCES MD Jun 02, 2024 15:45
--- NOTE | 2024-06-02 15:52 | DVHDS2 ---
Discharge Summary Date of Admission May 30, 2024 at 17:17 Date of Discharge: Jun 02, 2024 Admitting Diagnosis HD catheter malfunction ESRD Anemia Labs/Diagnostic Data: Laboratory Results Test 06/02/24 05:42 05/31/24 15:47 05/31/24 04:31 POC Glucose 160 mg/dl (70-106) Prothrombin Time 10.3 sec (9.3-11.8) Prothrombin Time INR 0.97 (0.9-1.15) Activated Partial Thromboplast Time 28.7 SEC (24.5-34.5) White Blood Count 8.8 10^3/uL (4.4-10.8) Red Blood Count 3.63 10^6/uL (4.5-5.90) Hemoglobin 9.6 g/dL (13.5-17.5) Hematocrit 30.2 % (41.0-53.0) Mean Corpuscular Volume 83.3 fL (80.0-100.0) Mean Corpuscular Hemoglobin 26.5 pg (28.0-32.0) Mean Corpuscular Hemoglobin Concent 31.9 g/dL (32.0-36.0) Red Cell Distribution Width 17.2 % (11.8-14.3) Platelet Count 297 10^3/uL (140-450) Mean Platelet Volume 8.6 fL (6.9-10.8) Neutrophils (%) (Auto) 66.3 % (37.0-80.0) Lymphocytes (%) (Auto) 16.2 % (10.0-50.0) Monocytes (%) (Auto) 7.1 % (0.0-12.0) Eosinophils (%) (Auto) 9.2 % (0.0-7.0) Basophils (%) (Auto) 1.2 % (0.0-2.0) Neutrophils # (Auto) 5.8 10 ^3/uL (1.6-8.6) Lymphocytes # (Auto) 1.4 10 ^3/uL (0.4-5.4) Monocytes # (Auto) 0.6 10 ^3/uL (0-1.3) Eosinophils # (Auto) 0.8 10 ^3/uL (0-0.8) Basophils # (Auto) 0.1 10 ^3/uL (0-0.2) Nucleated Red Blood Cells 0.0 % Sodium Level 142 mmol/L (136-145) Potassium Level 4.5 mmol/L (3.5-5.1) Chloride Level 107 mmol/L (98-107) Carbon Dioxide Level 25 mmol/L (20-31) Anion Gap 10 (5-15) Blood Urea Nitrogen 40 mg/dL (9-23) Creatinine 2.53 mg/dL (0.700-1.30) Glomerular Filtration Rate Calc 31 mL/min (>90) BUN/Creatinine Ratio 15.8 (10.0-20.0) Serum Glucose 182 mg/dL (74-106) Calcium Level 8.8 mg/dL (8.7-10.4) Total Bilirubin 0.2 mg/dL (0.2-1.0) Aspartate Amino Transferase (AST) 17 U/L (13-40) Alanine Aminotransferase (ALT) 19 U/L (7-40) Alkaline Phosphatase 120 U/L (46-116) Total Protein 6.4 g/dL (5.7-8.2) Albumin 3.7 g/dL (3.2-4.8) Other Laboratory Tests 05/31/24 04:31 Brief Hx & Hospital Course: On admission Moise Matamoros JR is a 48-year-old male with past medical history of hypertension, diabetes, kidney disease who has a right IJ that was placed 3 weeks ago at [facility], right 4th digit amputation in 2022 and right 5th digit amputation in April 20, 2024 at in her community [place] who presents to the ED for HD catheter malfunction. Patient reports that the facility advised him that he was unable to get dialyzed due to an issue with the catheter. 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 Patient denies any chest pain, shortness of breath, abdominal pain, nausea, vomiting, diarrhea, fever, and chills. Patient does report that he still wears a postop shoe on his right foot. He is waiting to see his business development agent. FINDINGS: There is a right IJ dialysis catheter with its tip in the mid SVC. The catheter may be kinked at the skin insertion site. There is a right upper extremity PICC line with its tip in the mid SVC. Lung volumes are somewhat low. There is mild platelike atelectasis in the left mid lung. No other infiltrates, pneumothorax, or pulmonary edema. The heart is borderline enlarged. IMPRESSION: 1. Right IJ dialysis catheter with its tip in the mid SVC. The catheter may be kinked at the skin insertion site. 2. Mild platelike atelectasis in the left mid lung. No other acute intrathoracic process is identified here. Cath replaced during hospialization. Patietn recieved HD using cath with no issues. DC and continue home health abx order for toe amputation. Condition at Discharge: Stable Final Diagnosis/Problems List Onstructed Chest Cath Line. Discharge Disposition: Home Discharge Instruct/Medications Diet: Renal Activity: No Restrictions, As Tolerated Discharge Statement: "Patient was advised to return to the ER or call 911 if any headaches, dizziness, shortness of breath, chest pain, abdominal pain, bleeding, fevers, or worsening of medical condition. Patient was counseled about treatment plan, medications, possible side effects, patientverbalized understanding. All questions were answered to the best of my ability. This discharge took greater then 30 minutes in planning, reviewing documentation, counseling the patient, and discussing with other team members." ASSESSMENT ASSESSMENT Hospital Course HD catheter malfunction esrd Anemia Assessment Onstructed Chest Cath Line. HD catheter malfunction ESRD Anemia Date of Service: Jun 02, 2024 Billing Provider: NNAMDI GUADALUPE MD Common Visit Codes: 98620-SRS/OBS DISCH DAY >30min NNAMDI GUADALUPE MD Jun 02, 2024 15:52
== END 2024-06-02 17:46 | disposition home health service (06) | DRG 466 ==
LOC: ER 09:58 → OVERFLOW 17:17 → WEST WING 05-31 11:07
PROVIDERS: ATTEND Student in an Organized Health Care Education/Training Program
PROC: 0JH63XZ Insertion of Tunneled Vascular Access Device into Chest Subcutaneous Tissue and Fascia, Percutaneous Approach (ICD-10-PCS; principal; 2024-06-01)
PROC: 02HV33Z Insertion of Infusion Device into Superior Vena Cava, Percutaneous Approach (ICD-10-PCS; 2024-06-01)
PROC: B518ZZA Fluoroscopy of Superior Vena Cava, Guidance (ICD-10-PCS; 2024-06-01)
PROC: B548ZZA Ultrasonography of Superior Vena Cava, Guidance (ICD-10-PCS; 2024-06-01)
PROC: 5A1D70Z Performance of Urinary Filtration, Intermittent, Less than 6 Hours Per Day (ICD-10-PCS; 2024-06-01)
DX: T82.41XA Breakdown (mechanical) of vascular dialysis catheter, initial encounter (principal); I12.0 Hypertensive chronic kidney disease with stage 5 chronic kidney disease or end stage renal disease; N17.9 Acute kidney failure, unspecified; N18.6 End stage renal disease; D63.1 Anemia in chronic kidney disease; E11.22 Type 2 diabetes mellitus with diabetic chronic kidney disease; D64.9 Anemia, unspecified; E66.9 Obesity, unspecified; Z68.39 Body mass index [BMI] 39.0-39.9, adult; Y83.8 Other surgical procedures as the cause of abnormal reaction of the patient, or of later complication, without mention of misadventure at the time of the procedure; Z79.899 Other long term (current) drug therapy; Z99.2 Dependence on renal dialysis; Z83.3 Family history of diabetes mellitus; Y92.89 Other specified places as the place of occurrence of the external cause; Z79.4 Long term (current) use of insulin
CPT/HCPCS: 36415; 36558; 71045; 77001; 80048; 80053; 82962; 85025; 85610; 85730; 87081; 90935; 99152; C1894; G0378; J1335; J1815; J2250

== ENCOUNTER 2024-07-26 10:48 | Inpatient (IN) | payer MEDICAID ==
[~2024-07-26] VITALS: Ht 177.8 cm; Wt 122.2 kg
[~2024-07-26 10:48] MED LIST changes: -ATOR40TA52 PO; +B-CO-6; -CLON0.253 PO; +CLOP75TA70 PO; -DAPA10TA3 PO; +ERGO1CAP12; +ERTA1INJ3 IV; -HYDR25TA4 PO; +OMEG-86
--- NOTE | 2024-07-26 11:17 | ED.PDOC ---
SOB-HPI HPI Comments HPI: Poor Historian. 48y M who presents to the ED for chief complaint of shortness of breath. Pt had the following ED course: - pt states he has been having shortness of breath, fatigue, fever and chills for the past 2 days -pt states he recently had dialysis 1 week prior and states kidney doctor states it was his last dialysis appt due to improvement in kidney function labs, - pt states during this last dialysis appt, after telling staff he having flu -like symptoms , he received antibiotics - pt now in the ED, noted to have 02 sat of 84% on room air and was placed in t he ED on 6 L via nc with 02 sat improving to 98% - pt states now in the ED, denies any pain by CVC dialysis port and states port was placed at [facility] 2 weeks prior - pt otherwise has noted BP of 182/87 and rr of 21 and temp of 99.6 F- -pt otherwise denies any other symptoms and no noted signs of respiratory distress are noted past medical history: DM, HTN, dialysis past surgical history: R toes amputation medications: unknown allergies: nkda social history: denies tobacco use, denies Etoh use, denies drug use REVIEW OF SYSTEMS: CONSTITUTIONAL: Denies acute: diaphoresis, chills, HEAD: Denies acute: headache, photophobia Eyes: Denies acute: Double vision, vision loss, eye pain, eye discharge. EARS: Denies acute: tinnitus, hearing loss, ear discharge, ear pain, THROAT: Denies acute: sore throat, swelling, difficulty swallowing , pain with swallowing, change in voice. NECK: Denies acute: neck pain, neck swelling, stiff neck. HEART: Denies acute : chest pain, palpitations, LUNGS: Denies acute: wheezing, cough, hemoptysis ABDOMEN: Denies acute: abdominal pain, Nausea, Vomiting, diarrhea, melena , hematemesis, hematochezia SKIN: Denies acute: rash, redness, lesions, itchiness. EXTREMITIES: Denies acute: calf pain, numbness, tingling, weakness, denies pain in extremity. Denies acute: Low back pain. Neuro: Denies acute: focal neurological deficit, motor or sensory focal neurological deficit, tremors, seizure like activity, confusion, dizziness, change in mental status, loss of bowel or bladder function, cauda equina like symptoms. : Denies acute: dysuria, hematuria, flank pain, increase in urinary frequency. PSYCH: Denies acute: hallucination, suicidal ideation, homicidal ideation. PHYSICAL EXAM: General: Bxod-jw-qapzbphs acute distress, awake and alert. Head: normocephalic, atraumatic. Neck: supple, trachea is midline, no swelling. Throat: Normal phonation. Eyes:, no erythema, no purulent discharge, no proptosis, no icterus. Heart: regular tachycardic, no significant murmur appreciated. Lungs: no apparent respiratory distress, Able to speak in full sentences. No wheezing, no rhonchi, no crackles. No stridors Clear to auscultation bilaterally. Abdomen: non tender to palpation, non distended, soft, no guarding, no rebound, + bowel sounds. Neuro: Awake, Alert, oriented to name, self, situation, follows commands GCS=15. Speech is normal. Skin: no petechia, no purpura, no cyanosis, slightly-pale, not jaundice. Lower extremities: --2/4 bilateral - Pitting edema no deformity, no focal swelling, no calf TTP. Makes eye contact. moves all four extremities. Face: no apparent facial droop. Ambulating in the ED independently. ED COURSE: Chief Complaint: Shortness of Breath Time Seen by MD: 10:50 Primary Care Provider: LEONCIO Schmidt notes: Nurses Notes, Allergies Information Source: Patient Mode of Arrival: Ambulatory Brought in by: self Past Medical History PAST MEDICAL HISTORY: DM, HTN Surgical History: Denies all surgeries Family History Family History: Reviewed,noncontributory to illness Social History Smoker: Non-Smoker Alcohol: Denies ETOH Use Drugs: Denies Drug Use Lives In: Home Was a procedure done? Was a procedure done?: No Differential Dx Differential Diagnosis: Other (DDx include ACS, unstable angina, anxiety, PE, pneumothroax, neoplasm, cardiac ischemia, COPD, asthma, CHF, pleural effusion, tobacco abuse, pneumonia, hypoxia, hypercapnia, anemia., infection/sepsis., pulmonary edema. Asthma, Cardiac tamponade, infection.) X-Ray, Labs, Meds, VS Vital Signs Date Time Temp Pulse Resp B/P (MAP) Pulse Ox O2 Delivery O2 Flow Rate FiO2 07/26/24 13:54 91 29 176/92 (120) 92 07/26/24 12:01 182/87 07/26/24 11:39 99.6 93 21 182/87 (118) 99.6 07/26/24 11:39 92 21 98 Nasal Cannula* 2 28 07/26/24 11:08 99.2 98 24 168/97 (120) 84 99.2 07/26/24 11:00 95 Lab Test 07/26/24 12:50 07/26/24 11:15 07/26/24 11:00 Range/Units Troponin I High Sensitivity 261 *H 284 *H </=54 ng/L White Blood Count 9.0 4.4-10.8 10^3/uL Red Blood Count 4.31 L 4.5-5.90 10^6/uL Hemoglobin 11.2 L 13.5-17.5 g/dL Hematocrit 34.3 L 41.0-53.0 % Mean Corpuscular Volume 79.6 L 80.0-100.0 fL Mean Corpuscular Hemoglobin 26.0 L 28.0-32.0 pg Mean Corpuscular Hemoglobin Concent 32.6 32.0-36.0 g/dL Red Cell Distribution Width 16.3 H 11.8-14.3 % Platelet Count 296 140-450 10^3/uL Mean Platelet Volume 8.9 6.9-10.8 fL Neutrophils (%) (Auto) 77.1 37.0-80.0 % Lymphocytes (%) (Auto) 13.3 10.0-50.0 % Monocytes (%) (Auto) 6.1 0.0-12.0 % Eosinophils (%) (Auto) 2.5 0.0-7.0 % Basophils (%) (Auto) 1.0 0.0-2.0 % Neutrophils # (Auto) 6.9 1.6-8.6 10 ^3/uL Lymphocytes # (Auto) 1.2 0.4-5.4 10 ^3/uL Monocytes # (Auto) 0.6 0-1.3 10 ^3/uL Eosinophils # (Auto) 0.2 0-0.8 10 ^3/uL Basophils # (Auto) 0.1 0-0.2 10 ^3/uL Nucleated Red Blood Cells 0.1 % D-Dimer, Quantitative 1.91 H 0.0-0.49 mg/L FEU Sodium Level 134 L 136-145 mmol/L Potassium Level 4.6 3.5-5.1 mmol/L Chloride Level 98 98-107 mmol/L Carbon Dioxide Level 25 20-31 mmol/L Anion Gap 11 5-15 Blood Urea Nitrogen 54 H 9-23 mg/dL Creatinine 3.00 H 0.700-1.30 mg/dL Glomerular Filtration Rate Calc 25 >90 mL/min BUN/Creatinine Ratio 18.0 10.0-20.0 Serum Glucose 158 H 74-106 mg/dL Lactic Acid Level 1.0 0.4-2.0 mmol/L Calcium Level 9.0 8.7-10.4 mg/dL Total Bilirubin 0.3 0.2-1.0 mg/dL Aspartate Amino Transferase (AST) 16 13-40 U/L Alanine Aminotransferase (ALT) 25 7-40 U/L Alkaline Phosphatase 174 H 46-116 U/L B-Type Natriuretic Peptide 720.01 0-100 pg/mL Total Protein 7.3 5.7-8.2 g/dL Albumin 4.1 3.2-4.8 g/dL Influenza Type A Antigen Negative Negative Influenza Type B Antigen Negative Negative SARS-CoV-2 Antigen (Rapid) Negative NEGATIVE Microbiology Date/Time Source Procedure Growth Status 07/26/24 11:15 Blood Blood Culture - Preliminary NO GROWTH AFTER 24 HOURS OF INCUBATION. Resulted 07/26/24 11:00 Blood Blood Culture - Preliminary NO GROWTH AFTER 24 HOURS OF INCUBATION. Resulted [place] [address] Ph: [phone] DIAGNOSTIC IMAGING Diagnostic Imaging Report : [id number] Signed PATIENT: JASPREET PRESLEY JRACCT: [id number] UNIT: [id number] : 1975 LOC: ER ROOM / BED: / AGE / SEX: 48 / M ADM STATUS: REG ER SERVICE 1051 ORDERING PHYSICIAN: LES LUCAS DO PROCEDURE(s): CXRP - CHEST PORTABLE REASON: flu like ORDER NUMBER(s): [id number], ACCESSION NUMBER(s): [id number] CHEST RADIOGRAPH Indication: flu like Technique: Single frontal view of the chest was obtained COMPARISON: XY CHEST XRAY 1 VIEW on DOS: 05/30/24, XY CHEST XRAY 1 VIEW on DOS: 05/16/24, XY CHEST PORTABLE on DOS: 05/16/24, XY CHEST PORTABLE on DOS: 03/12/24, XY CHEST XRAY 1 VIEW on DOS: 12/10/23 FINDINGS: Lines and Tubes: Right tunneled central venous catheter in satisfactory position. Lungs: Pulmonary vascular congestion Pleura: No effusion. No pneumothorax. Cardiomediastinal contours: Cardiomegaly Bones: Unremarkable IMPRESSION: Pulmonary vascular congestion ATED BY: JOS REBOLLEDO MD DICTATED DATE/TIME: 07/26/24 135 SIGNED BY: JOS REBOLLEDO MD SIGNED DATE/TIME: 07/26/24 135 CC: [place] [address] Ph: [phone] DIAGNOSTIC IMAGING Diagnostic Imaging Report : [id number] Signed PATIENT: JASPREET PRESLEY JRACCT: [id number] UNIT: [id number] : 1975 LOC: OVERFLOW ROOM / BED: [address] [place] [address] AGE / SEX: 48 / M ADM STATUS: ADM IN SERVICE ORDERING PHYSICIAN: LIZETH ARANDA ORAL SURGERY TECHNICIAN PROCEDURE(s): VQ - NM VQ SCAN REASON: PULMONARY EMBOLISM ORDER NUMBER(s): [id number], ACCESSION NUMBER(s): [id number] EXAM: NM NM VQ SCAN HISTORY: PULMONARY EMBOLISM COMPARISON: None TECHNIQUE: Following the administration of the ventilation agent, standard projections of the lungs were acquired. The same images were repeated after a dministration of the perfusion agent. Findings: Ventilation images demonstrate homogenous distribution of radiotracer throughout both lungs. Perfusion images demonstrate homogeneous distribution of radiotracer throughout both lungs. No peripheral wedge-shaped moderate or large subsegmental or segmental mismatched perfusion defects to suggest acute pulmonary embolism. Impression: 1. Based on PIOPED criteria, low probability for pulmonary embolism. ATED BY: BEBA ORTIZ DO DICTATED DATE/TIME: 07/26/241534 SIGNED BY: BEBA ORTIZ DO SIGNED DATE/TIME: 07/26/241534 CC: Time of 1ST Reevaluation: 00:00 Reevaluation 1ST: Improved Patient Education/Counseling: Diagnosis, Treatment Family Education/Counseling: No Family Present Comments Patient presented with the above HPI.---respiratory complaints/fever---workup was initiated. patient was found with the above mentioned diagnosis. the following medications were ordered: please refer to order lists of meds and tests obtained by myself Dr. Lucas. Patient ED course and VS have been stabilized. Patient has been reassessed in the ED and remained in a stable condition. Pertinent incidental findings were discussed with the patient and/or family. Patient/family voices understanding and is agreeable with plan. Patient has been observed in the ED adequate length of time to insure improvement/stability. Escalation of care considered: Consideration of escalation to observation or admission Patient was ADMITTED to the medicine team for further evaluation and treatment of their presentation. Sepsis protocol was initiated. Fluid replacement was conservative given the patient's chest x-ray finding of pulmonary vascular congestion. Patient was given Lasix. Blood pressure was elevated. He was given hydralazine. Broad- spectrum antibiotics Zosyn was initiated. Patient had elevated troponin and he was given aspirin. All the reports of any imaging studies that were ordered by myself were reviewed by myself. Departure 1 Departure Time of Disposition: 12:43 Impression: Primary Impression: Sepsis Additional Impressions: Elevated troponin Acute renal failure Elevated d-dimer Hypertensive crisis Disposition: ADMITTED INPATIENT Admit to: Tele Condition: Guarded Discharged With: Self Critical Care Note Critical Care Time?: Yes (1 hr-critical care time only) I personally scribed for LES LUCAS DO (ARGENISFARMI) on 07/26/24 at 11:17. Electronically submitted by Grecia Lee (ADARSH). I personally scribed for LES LUCAS DO (ARGENISFARMI) on 07/26/24 at 11:49. Electronically submitted by Grecia Lee (ADARSH). I personally scribed for LES LUCAS DO (ARGENISFARMI) on 07/26/24 at 11:56. Electronically submitted by Grecia Lee ([facility]). I personally scribed for LES LUCAS DO ([facility]) on 07/26/24 at 20:24. Electronically submitted by Grecia Lee ([facility]). LES LUCAS DO Jul 26, 2024 11:17
--- NOTE | 2024-07-26 11:35 | ECG ---
[facility] Test Date: 2024-07-26 Test Time: 11:00:44 Pat Name: JASPREET PRESLEY Department: ER Room: Gender: M Aerosol Supervisor: MARII : 1975 Requested By: LES LUCAS Order Number: [id number] Reading MD: Torrey Fairbanks Measurements Intervals [place] Rate: 95 P: 14 ND: 135 QRS: 4 QRSD: 99 T: 86 QT: 357 QTc: 449 Interpretive Statements Sinus rhythm Electronically Signed On 07-26-2024 14:13:42 PDT by Torrey Fairbanks Please click the below link to view image of tracing.
[2024-07-26 11:39] VITALS: PULSE 92; RESP 21; O2SAT 98
[2024-07-26 11:58] LABS: COVID19 ANTIGEN SOFIA FIA NEGATIVE (NEGATIVE)
[2024-07-26 11:59] LABS: Rapid Influenza A Negative (Negative); Rapid Influenza B Negative (Negative)
[2024-07-26] MEDS: hydrALAZINE HCL 20 MG/ML VL IV ONE (12:01)
[2024-07-26 12:26] LABS: Basophils # (auto) 0.1 10 ^3/uL (0-0.2); Eosinophils # (auto) 0.2 10 ^3/uL (0-0.8); Hemoglobin 11.2 g/dL (13.5-17.5); Monocytes # (auto) 0.6 10 ^3/uL (0-1.3); Neutrophils # (auto) 6.9 10 ^3/uL (1.6-8.6)
[2024-07-26 12:28] LABS: Eosinophils % (auto) 2.5 % (0.0-7.0); Hematocrit 34.3 % (41.0-53.0); Lymphocytes # (auto) 1.2 10 ^3/uL (0.4-5.4); Lymphocytes % (auto) 13.3 % (10.0-50.0); Mean Corpuscular Hgb Conc. 32.6 g/dL (32.0-36.0); Mean Corpuscular Volume 79.6 fL (80.0-100.0); Monocytes % (auto) 6.1 % (0.0-12.0); Neutrophils % (auto) 77.1 % (37.0-80.0); Nucleated Red Blood Cells % 0.1 %; Platelet Count (auto) 296 10^3/uL (140-450); Red Blood Cells 4.31 10^6/uL (4.5-5.90); Red Cell Distribution Width 16.3 % (11.8-14.3)
[2024-07-26 12:56] LABS: Alanine Aminotransferase 25 U/L (7-40); Albumin 4.1 g/dL (3.2-4.8); Anion Gap 11 (5-15); Aspartate Aminotransferase 16 U/L (13-40); Carbon Dioxide 25 mmol/L (20-31); Chloride 98 mmol/L (98-107); Potassium 4.6 mmol/L (3.5-5.1); Total Protein 7.3 g/dL (5.7-8.2)
[2024-07-26 12:57] LABS: Bilirubin, Total 0.3 mg/dL (0.2-1.0)
[2024-07-26 13:04] LABS: Alkaline Phosphatase 174 U/L (46-116); Blood Urea Nitrogen 54 mg/dL (9-23); Glucose 158 mg/dL (74-106); Sodium 134 mmol/L (136-145)
[2024-07-26] MEDS: PIPERACILLIN-TAZOB 3.375GM 100 ML IV ONE (13:15)
[2024-07-26] MEDS: ASPirin-EC 325mg tab PO ONE (13:15)
--- NOTE | 2024-07-26 13:56 | DVH ---
CHEST RADIOGRAPH Indication: flu like Technique: Single frontal view of the chest was obtained COMPARISON: XY CHEST XRAY 1 VIEW on DOS: 05/30/24, XY CHEST XRAY 1 VIEW on DOS: 05/16/24, XY CHEST PORT ABLE on DOS: 05/16/24, XY CHEST PORTABLE on DOS: 03/12/24, XY CHEST XRAY 1 VIEW on DOS: 12/10/23 FINDINGS: Lines and Tubes: Right tunneled central venous catheter in satisfactory position. Lungs: Pulmonary vascular congestion Pleura: No effusion. No pneumothorax. Cardiomediastinal contours: Cardiomegaly Bones: Unremarkable IMPRESSION: Pulmonary vascular congestion
[2024-07-26] MEDS ORDERED: HYDROcodone-ACET 5/325MG TAB PO PRN (14:15)
[2024-07-26] MEDS ORDERED: ONDANSETRON HCL 4 MG/2 ML VIAL IV PRN (14:15)
[2024-07-26] MEDS ORDERED: MORPHINE SULFATE INJ 2 MG/ml SYRG IV PRN ×2 (14:15)
[2024-07-26] MEDS ORDERED: NITROGLYCERIN 0.4 MG SL TAB SL PRN (14:15)
--- NOTE | 2024-07-26 14:16 | DVHHP2 ---
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 Patie nt also reports nausea, fever, dizziness, and fatigue. Patient denies any chest pain, palpitations, recent trauma or injury, abdominal pain, vomiting, diarrhea, lightheadedness, or weakness. Upon examination patient is currently on 2 L nasal cannula and reports that he does not use home oxygen. Right upper chest still has a dialysis catheter. He states that he had it placed here 3 months ago. Patient also reports that his spice mixer told him that he no longer needs dialysis. Cardiovascular: HTN Renal/: Chronic renal insuff Endocrine: Diabetes Past Surgical History: Other (Right 4th and 5th digit amputation) Smoke: No ALCOHOL: none Drugs: None Lives: with Family Domestic Violence: Neg Review of Systems Constitutional: Yes: Fever, Other (Dizziness and fatigue) Respiratory: Shortness of breath Allergies: Coded Allergies: NO KNOWN ALLERGIES (Unverified , 07/21/23) Medications Current Medications Medications Dose Ordered Sig/Jadon Route Start Time Stop Time Status Last Admin Dose Admin Heparin Sodium/ Dextrose 250 ml @ 21.744 mls/ hr [id number] IV 07/26/24 14:00 UNV Exam Vital Signs Vital Signs Date Time Temp Pulse Resp B/P (MAP) Pulse Ox O2 Delivery O2 Flow Rate FiO2 07/26/24 13:54 91 29 176/92 (120) 92 07/26/24 11:39 99.6 99.6 07/26/24 11:39 Nasal Cannula* 2 28 General Appearance: Alert, Oriented X3, Cooperative, mild distress HEENT: Atraumatic, PERRLA, EOMI, Mucous membr. moist/pink Respiratory: Normal air movement Cardiovascular: Regular rate, Normal S1, Normal S2, No murmurs Abdominal: Normal bowel sounds, Soft, No tenderness, No hepatospenomegaly, No masses Extremities: No cyanosis, Normal pulses Skin: No significant lesion Neuro: Normal speech, Normal tone, Sensation intact Psych/Mental Status: Mental status NL, Mood NL Labs/Xrays Labs Test 07/26/24 12:50 07/26/24 11:15 07/26/24 11:00 Range/Units Troponin I High Sensitivity 261 *H </=54 ng/L White Blood Count 9.0 4.4-10.8 10^3/uL Red Blood Count 4.31 L 4.5-5.90 10^6/uL Hemoglobin 11.2 L 13.5-17.5 g/dL Hematocrit 34.3 L 41.0-53.0 % Mean Corpuscular Volume 79.6 L 80.0-100.0 fL Mean Corpuscular Hemoglobin 26.0 L 28.0-32.0 pg Mean Corpuscular Hemoglobin Concent 32.6 32.0-36.0 g/dL Red Cell Distribution Width 16.3 H 11.8-14.3 % Platelet Count 296 140-450 10^3/uL Mean Platelet Volume 8.9 6.9-10.8 fL Neutrophils (%) (Auto) 77.1 37.0-80.0 % Lymphocytes (%) (Auto) 13.3 10.0-50.0 % Monocytes (%) (Auto) 6.1 0.0-12.0 % Eosinophils (%) (Auto) 2.5 0.0-7.0 % Basophils (%) (Auto) 1.0 0.0-2.0 % Neutrophils # (Auto) 6.9 1.6-8.6 10 ^3/uL Lymphocytes # (Auto) 1.2 0.4-5.4 10 ^3/uL Monocytes # (Auto) 0.6 0-1.3 10 ^3/uL Eosinophils # (Auto) 0.2 0-0.8 10 ^3/uL Basophils # (Auto) 0.1 0-0.2 10 ^3/uL Nucleated Red Blood Cells 0.1 % D-Dimer, Quantitative 1.91 H 0.0-0.49 mg/L FEU Sodium Level 134 L 136-145 mmol/L Potassium Level 4.6 3.5-5.1 mmol/L Chloride Level 98 98-107 mmol/L Carbon Dioxide Level 25 20-31 mmol/L Anion Gap 11 5-15 Blood Urea Nitrogen 54 H 9-23 mg/dL Creatinine 3.00 H 0.700-1.30 mg/dL Glomerular Filtration Rate Calc 25 >90 mL/min BUN/Creatinine Ratio 18.0 10.0-20.0 Serum Glucose 158 H 74-106 mg/dL Lactic Acid Level 1.0 0.4-2.0 mmol/L Calcium Level 9.0 8.7-10.4 mg/dL Total Bilirubin 0.3 0.2-1.0 mg/dL Aspartate Amino Transferase (AST) 16 13-40 U/L Alanine Aminotransferase (ALT) 25 7-40 U/L Alkaline Phosphatase 174 H 46-116 U/L B-Type Natriuretic Peptide 720.01 0-100 pg/mL Total Protein 7.3 5.7-8.2 g/dL Albumin 4.1 3.2-4.8 g/dL Influenza Type A Antigen Negative Negative Influenza Type B Antigen Negative Negative SARS-CoV-2 Antigen (Rapid) Negative NEGATIVE CHEST RADIOGRAPH Indication: flu like Technique: Single frontal view of the chest was obtained COMPARISON: XY CHEST XRAY 1 VIEW on DOS: 05/30/24, XY CHEST XRAY 1 VIEW on DOS: 05/16/24, XY CHEST PORTABLE on DOS: 05/16/24, XY CHEST PORTABLE on DOS: 03/12/24, XY CHEST XRAY 1 VIEW on DOS: 12/10/23 FINDINGS: Lines and Tubes: Right tunneled central venous catheter in satisfactory position. Lungs: Pulmonary vascular congestion Pleura: No effusion. No pneumothorax. 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 Plan Admit to tele Flu negative COVID negative Supportive oxygen Aspirin given ED IV antibiotics-Zosyn Antihypertensives BNP Blood cultures Type and screen EKG Troponins peaked at 284 EKG D-dimer Lactic Chest x-ray V/Q scan Echo ordered Heparin drip Nephro consult Cardiology consult DVT prophylaxis PUD prophylaxis-not indicated no history of GERD or GI bleed Discussed plan of care with patient and nurse Home medications reconciled Rounding hospitalist to resume Plavix when off heparin drip Plan discussed with: Patient My Orders Orders - LIZETH ARANDA SANITATION WORKER Procedure Category Date Status Time Ct Angio Chest CT 07/26/24 Logged Contrast 12:52 *Dr. Batool Waller -Da CONS 07/26/24 Transmitted Jackelyn 13:52 Echo 2d Mode Cardiac US 07/26/24 Logged DOP 13:52 Platelet Monitoring SHAHZAD 07/26/24 In Process 13:52 Vte Protocol Initiated SHAHZAD 07/26/24 In Process 13:52 Heparin Per SHAHZAD 07/26/24 In Process Standardized Proce 13:52 Discontinue All Im SHAHZAD 07/26/24 In Process Injections 13:52 PTPTT LAB 07/26/24 Logged 13:52 Complete Blood Count LAB 07/26/24 Logged 13:52 Heparin Sodium PHA 07/26/24 Logged (Porcine) 14:00 Heparin Drip/D5w PHA 07/26/24 Logged 100units/Ml 14:00 Admit ADMIT 07/26/24 Transmitted 14:01 Allergies SHAHZAD 07/26/24 In Process 14:01 Code Status CODE 07/26/24 Transmitted 14:01 Hydrocodone-Acet PHA 07/26/24 Logged 5/325mg Tab (Spencer 14:15 Ondansetron Hcl PHA 07/26/24 Logged (Zofran) 14:15 Complete Blood Count LAB 07/27/24 Verified 04:00 Comprehensive LAB 07/27/24 Verified Metabolic Panel 04:00 Cardiac DIET 07/26/24 Transmitted Diet-2gna,Lofat,Lochol Dinner Acetaminophen Tablet PHA 07/26/24 Logged (Tylenol Tablet) 14:15 Morphine Sulfate PHA 07/26/24 Transmitted Injection 14:15 Nitroglycerin PHA 07/26/24 Transmitted Sublingual (Ntrostat 14:15 Morphine Sulfate PHA 07/26/24 Transmitted Injection 14:15 Stat Ekg For Chest [facility] 07/26/24 In Process Pain 14:01 Notify Md Of Changes SHAHZAD 07/26/24 In Process From Base 14:01 Fire Management Officer For [facility] 07/26/24 In Process 24 Hours 14:01 Emergency Dysrhythmia [facility] 07/26/24 In Process Protocol 14:01 Rhythm Strips Once [facility] 07/26/24 In Process Every Shift 14:01 Oxygen By Nasal RT 07/26/24 Transmitted Cannula 14:01 Date of Service: Jul 26, 2024 Billing Provider: LIZETH ARANDA Common Visit Codes: [id number] INP/OBS CARE (HIGH) LIZETH ARANDA Jul 26, 2024 14:16
[2024-07-26 14:54] LABS: Basophils # (auto) 0.1 10 ^3/uL (0-0.2); Eosinophils # (auto) 0.3 10 ^3/uL (0-0.8); Eosinophils % (auto) 3.5 % (0.0-7.0); Hematocrit 33.2 % (41.0-53.0); Hemoglobin 10.7 g/dL (13.5-17.5); Lymphocytes # (auto) 1.4 10 ^3/uL (0.4-5.4); Mean Corpuscular Hemoglobin 25.6 pg (28.0-32.0); Mean Corpuscular Hgb Conc. 32.1 g/dL (32.0-36.0); Mean Corpuscular Volume 79.7 fL (80.0-100.0); Monocytes # (auto) 0.6 10 ^3/uL (0-1.3); Monocytes % (auto) 7.5 % (0.0-12.0); Neutrophils # (auto) 5.6 10 ^3/uL (1.6-8.6); Platelet Count (auto) 274 10^3/uL (140-450); Red Blood Cells 4.17 10^6/uL (4.5-5.90); Red Cell Distribution Width 16.4 % (11.8-14.3); White Blood Cell 7.9 10^3/uL (4.4-10.8)
[2024-07-26 15:08] LABS: INR 1.08 (0.9-1.15); Partial Thromboplastin Time 36.7 SEC (24.5-34.5); Prothrombin Time 11.4 sec (9.3-11.8)
[2024-07-26] MEDS: HEPARIN DRIP/D5W 100UNITS/ML 250 ML IV SCH (15:29)
[2024-07-26] MEDS: HEPARIN SODIUM (PORCINE) 5000 UNITS/ML 1ML VIAL IV ONE (15:29)
--- NOTE | 2024-07-26 15:37 | DVH ---
EXAM: NM NM VQ SCAN HISTORY: PULMONARY EMBOLISM COMPARISON: None TECHNIQUE: Following the administration of the ventilation agent, standard projections of the lungs were acquired. The same images were repeated after administration of the perfusion agent. Findings: Ventilation images demonstrate homogenous distribution of radiotracer throughout both lungs. Perfusion images demonstrate homogeneous distribution of radiotracer throughout both lungs. No periph eral wedge-shaped moderate or large subsegmental or segmental mismatched perfusion defects to suggest acute pulmonary embolism. Impression: 1. Based on PIOPED criteria, low probability for pulmonary embolism.
[2024-07-26 15:54] VITALS: BP 151/76; PULSE 67; RESP 17; TEMP 97.9; O2SAT 97
[2024-07-26 16:26] VITALS: BP 151/76; PULSE 90; RESP 17; TEMP 97.9; O2SAT 97
[2024-07-26 17:06] VITALS: BP 144/64; PULSE 88; RESP 16; TEMP 97.9; O2SAT 100
[2024-07-26] MEDS: FUROSEMIDE 40 MG/4 ML VIAL IV ONE (17:25)
--- NOTE | 2024-07-26 17:48 | DVHINCON2 ---
Date of service: Jul 26, [address] Wilfredo Alejo Reason for Consultation CKD History of Present Illness 48 Y/O M with history of Severe SUSY on advanced CKD requiring temporary hemodialysis via Rt IJ TC up until last week, DM type II, HTN, and right toe amputation presented with chief complaint of SOB, fever, chills and fatigue for the past 2 days. In ER patient has a temp of 99.6, and was hypoxic 84% on room air, he was therefore placed on supplemental oxygen. CXR shows pulmonary congestion. He still has Right IJ Tunneled CVC in place. Labs shows Cr of 3.0 mg/dl, GFR: 25 ml/min, WBC: 7.9, Troponin is 284, repeat is the same. He was started on IV antibiotics. Nephrology consulted for advanced CKD in patient who was recently taken off hemodialysis. Past Medical History CKD DM HTN Past Surgical History Right toe amputation Tunneled CVC placement Allergies: Coded Allergies: NO KNOWN ALLERGIES (Unverified , 07/21/23) Home Meds Active Scripts Clonazepam (Klonopin) 0.5 Mg Tab, 0.5 TAB PO DAILYPRN PRN for 30 Days, #15 TAB Prov:VICKIE PRASAD MD 05/31/24 Hctz (Hydrochlorothiazide) 25 Mg Tab, 25 MG PO DAILY for 30 Days, #30 TAB Prov:VICKIE PRASAD MD 05/31/24 Losartan Potassium (Losartan Potassium) 50 Mg Tab, 50 MG PO DAILY for 30 Days, #30 TAB Prov:VICKIE PRASAD MD 05/31/24 Metoprolol Succinate (Toprol Xl) 50 Mg Tab, 50 MG PO DAILY for 30 Days, #30 TAB Prov:VICKIE PRASAD MD 05/31/24 Metoprolol Succinate (Metoprolol Succinate Er) 25 Mg Tab, 2 TAB PO DAILY for 30 Days, #60 TAB 5 Refills Prov:YOBANY HSIEH RESIDENT 05/24/24 Reported Medications Ertapenem Sodium (Ertapenem) 1 Gm Inj, 500 MG IV DAILY, INJ 05/31/24 Clopidogrel Bisulfate (CLOPIDOGREL) 75 Mg Tab, 75 MG PO DAILY for 30 Days, MG 05/31/24 Qnpux-9-Eknx Ethyl Esters (Aolvr-2-Jqsy Ethyl Esters) 1 Gm Cap, 2 05/30/24 B-Complex W/ C & Folic Acid (Samantha-Bartolo Rx) Tab, 1 DAILY 05/30/24 Ergocalciferol (Vitamin D) 50,000 Unit Cap, 1 05/30/24 Escitalopram Oxalate (ESCITALOPRAM OXALATE) 20 Mg Tab, 20 MG PO DAILY, TAB 12/08/23 Atorvastatin Calcium (Lipitor) 20 Mg Tab, 20 MG PO DAILY, TAB 07/22/23 Dapagliflozin Propanediol (Farxiga) 10 Mg Tab, 10 MG PO DAILY, TAB 07/22/23 Amlodipine Besylate (Amlodipine Besylate) 10 Mg Tab, 10 MG PO DAILY, TAB 07/22/23 Current Medications Current Medications Medications (Trade) Dose Ordered Sig/Jadon Route PRN Reason Start Time Stop Time Status Last Admin Heparin Sodium/ Dextrose 250 ml @ 20 mls/hr [id number] IV 07/26/24 15:30 07/26/24 16:21 DC 07/26/24 15:29 Acetaminophen/ Hydrocodone Bitart ([place] 5/325MG Tab) 1 tab Q4HP PRN PO MODERATE PAIN (4-6 PAIN SCALE) 07/26/24 14:15 Ondansetron HCl (Zofran) 4 mg Q4HP PRN IV NAUSEA / VOMITING 07/26/24 14:15 Acetaminophen (Tylenol Tablet) 650 mg Q6HP PRN PO PAIN SCALE 1-3 OR TEMP>100.4 07/26/24 14:15 Morphine Sulfate 2 mg Q4HPRN PRN IV SEVERE PAIN (7-10 PAIN SCALE) 07/26/24 14:15 Nitroglycerin (Ntrostat Sublingual) 0.4 mg Q5MINP PRN SL FOR CHEST PAIN 07/26/24 14:15 Morphine Sulfate 2 mg Q30M PRN IV FOR CHEST PAIN 07/26/24 14:15 Atorvastatin Calcium (Lipitor) 20 mg DAILY PO 07/27/24 10:00 Multivit/Ca Carb/ B Cmplx/FA/Prenat (Nephro-Bartolo Tablet) 1 tab DAILY PO 07/27/24 10:00 Ergocalciferol (Vitamin D 50,000 Unit) 50,000 unit DAILY PO 07/27/24 10:00 Hydrochlorothiazide (hydroCHLOROthiazide TABLET) 25 mg DAILY PO 07/27/24 10:00 07/26/24 17:48 DC Patient Own Medication 10 mg DAILY PO 07/27/24 10:00 UNV Patient Own Medication 20 mg DAILY PO 07/27/24 10:00 UNV Patient Own Medication 2 tab DAILY PO 07/27/24 10:00 UNV Losartan Potassium (Cozaar Tablet) 50 mg DAILY PO 07/27/24 10:00 Piperacillin Sod/ Tazobactam Sod 100 ml @ 25 mls/hr Q8HR IV 07/26/24 22:00 Amlodipine Besylate (Norvasc Tablet) 10 mg DAILY PO 07/27/24 10:00 Citalopram Hydrobromide (CeleXA TABLET) 40 mg DAILY PO 07/27/24 10:00 Metoprolol Succinate (Toprol Xl) 50 mg DAILY PO 07/27/24 10:00 Enoxaparin Sodium (Lovenox) 30 mg DAILY SC 07/27/24 10:00 UNV Enoxaparin Sodium (Lovenox) 40 mg HS SC 07/26/24 22:00 Family History: Diabetes mellitus G8 MOTHER G8 FATHER Hypertension G8 MOTHER G8 FATHER Thyroid disease G8 SISTER Review of Systems as per HPI, all other systems were reviewed and are negative H&P Exam Vital Signs/I&O Vital Sign Date Time Temp Pulse Resp B/P (MAP) Pulse Ox O2 Delivery O2 Flow Rate FiO2 07/26/24 17:25 176/86 07/26/24 17:06 97.9 88 16 100 97.9 07/26/24 16:26 Nasal Cannula* 4 36 Physical Exam Gen: NAD, AAOx3 HEENT: NC, AT Cardiac: RRR, no murmur Lungs: Crackles lung bases Abd: soft, no tenderness Ext: no edema Neuro: no focal deficits + Rt IJ TC Labs/Diagnostic Data Labs/Diagnostic Data Laboratory Tests Test 07/26/24 14:34 07/26/24 12:50 07/26/24 11:15 07/26/24 11:00 Range/Units White Blood Count 7.9 9.0 4.4-10.8 10^3/uL Red Blood Count 4.17 L 4.31 L 4.5-5.90 10^6/uL Hemoglobin 10.7 L 11.2 L 13.5-17.5 g/dL Hematocrit 33.2 L 34.3 L 41.0-53.0 % Mean Corpuscular Volume 79.7 L 79.6 L 80.0-100.0 fL Mean Corpuscular Hemoglobin 25.6 L 26.0 L 28.0-32.0 pg Mean Corpuscular Hemoglobin Concent 32.1 32.6 32.0-36.0 g/dL Red Cell Distribution Width 16.4 H 16.3 H 11.8-14.3 % Platelet Count 274 296 140-450 10^3/uL Mean Platelet Volume 8.5 8.9 6.9-10.8 fL Neutrophils (%) (Auto) 70.0 77.1 37.0-80.0 % Lymphocytes (%) (Auto) 18.0 13.3 10.0-50.0 % Monocytes (%) (Auto) 7.5 6.1 0.0-12.0 % Eosinophils (%) (Auto) 3.5 2.5 0.0-7.0 % Basophils (%) (Auto) 1.0 1.0 0.0-2.0 % Neutrophils # (Auto) 5.6 6.9 1.6-8.6 10 ^3/uL Lymphocytes # (Auto) 1.4 1.2 0.4-5.4 10 ^3/uL Monocytes # (Auto) 0.6 0.6 0-1.3 10 ^3/uL Eosinophils # (Auto) 0.3 0.2 0-0.8 10 ^3/uL Basophils # (Auto) 0.1 0.1 0-0.2 10 ^3/uL Nucleated Red Blood Cells 0.0 0.1 % Prothrombin Time 11.4 9.3-11.8 sec Prothrombin Time INR 1.08 0.9-1.15 Activated Partial Thromboplast Time 36.7 H 24.5-34.5 SEC Troponin I High Sensitivity 235 *H 261 *H 284 *H </=54 ng/L D-Dimer, Quantitative 1.91 H 0.0-0.49 mg/L FEU Sodium Level 134 L 136-145 mmol/L Potassium Level 4.6 3.5-5.1 mmol/L Chloride Level 98 98-107 mmol/L Carbon Dioxide Level 25 20-31 mmol/L Anion Gap 11 5-15 Blood Urea Nitrogen 54 H 9-23 mg/dL Creatinine 3.00 H 0.700-1.30 mg/dL Glomerular Filtration Rate Calc 25 >90 mL/min BUN/Creatinine Ratio 18.0 10.0-20.0 Serum Glucose 158 H 74-106 mg/dL Lactic Acid Level 1.0 0.4-2.0 mmol/L Calcium Level 9.0 8.7-10.4 mg/dL Total Bilirubin 0.3 0.2-1.0 mg/dL Aspartate Amino Transferase (AST) 16 13-40 U/L Alanine Aminotransferase (ALT) 25 7-40 U/L Alkaline Phosphatase 174 H 46-116 U/L B-Type Natriuretic Peptide 720.01 0-100 pg/mL Total Protein 7.3 5.7-8.2 g/dL Albumin 4.1 3.2-4.8 g/dL Influenza Type A Antigen Negative Negative Influenza Type B Antigen Negative Negative SARS-CoV-2 Antigen (Rapid) Negative NEGATIVE Assessment CKD stage IV history of Severe SUSY on advanced CKD requiring temporary hemodialysis via Rt IJ TC up until last week Sepsis Acute on chronic diastolic CHF Elevated troponin, serial measurement no uptrend Hypervolemic hyponatremia, mild DM type II HTN right toe amputation Plan: IR consult to remove Tunneled CVC obtain blood cultures Start Lasix 40 mg IV daily continue Metoprolol succinate 50 mg PO daily, Amlodipine 10 mg daily DC HCTZ , it is in effective in patients with advanced CKD daily BMP Strict I&Os Plan discussed with: Patient, Other NAMAN REYES MD Jul 26, 2024 17:48
[2024-07-26 20:00] VITALS: PULSE 85
[2024-07-26 21:00] VITALS: BP 149/87; PULSE 85; RESP 19; TEMP 98.1; O2SAT 96
[2024-07-26] MEDS: ENOXAPARIN SOD 40 MG/0.4 ML SYRINGE SC SCH (21:58)
[2024-07-26] MEDS: PIPERACILLIN-TAZOB 3.375GM 100 ML IV SCH (21:58)
[2024-07-26 22:01] LABS: INR 1.06 (0.9-1.15); Partial Thromboplastin Time 33.9 SEC (24.5-34.5); Prothrombin Time 11.2 sec (9.3-11.8)
[2024-07-27] VITALS (11 sets, daily range): BP systolic 132–189; BP diastolic 62–94; PULSE 80–95; RESP 16–20; TEMP 97.8–98.4; O2SAT 95–97
--- NOTE | 2024-07-27 06:32 | DVHPN2 ---
Progress Note - Dictate Date Seen: Jul 27, 2024 Medical Necessity Reason Pt with a Central, PICC or Fol: No Subjective no new symptoms vital signs Vital Sign Date Time Temp Pulse Resp B/P (MAP) Pulse Ox O2 Delivery O2 Flow Rate FiO2 07/27/24 05:00 97.9 95 20 166/94 (118) 95 97.9 07/26/24 20:00 Nasal Cannula* 4 36 Total Intake and Output 07/26/24 07/26/24 07/27/24 15:00 23:00 07:00 Intake Total 20 ml 640 ml Output Total 700 ml Balance 20 ml -60 ml medications Current Medications Medications Dose Ordered Sig/Jadon Route Start Time Stop Time Status Last Admin Dose Admin Acetaminophen/ Hydrocodone Bitart 1 tab Q4HP PRN PO 07/26/24 14:15 Ondansetron HCl 4 mg Q4HP PRN IV 07/26/24 14:15 Acetaminophen 650 mg Q6HP PRN PO 07/26/24 14:15 Morphine Sulfate 2 mg Q4HPRN PRN IV 07/26/24 14:15 Nitroglycerin 0.4 mg Q5MINP PRN SL 07/26/24 14:15 Morphine Sulfate 2 mg Q30M PRN IV 07/26/24 14:15 Atorvastatin Calcium 20 mg DAILY PO 07/27/24 10:00 Multivit/Ca Carb/ B Cmplx/FA/Prenat 1 tab DAILY PO 07/27/24 10:00 Ergocalciferol 50,000 unit DAILY PO 07/27/24 10:00 Patient Own Medication 10 mg DAILY PO 07/27/24 10:00 UNV Patient Own Medication 20 mg DAILY PO 07/27/24 10:00 UNV Patient Own Medication 2 tab DAILY PO 07/27/24 10:00 UNV Losartan Potassium 50 mg DAILY PO 07/27/24 10:00 Piperacillin Sod/ Tazobactam Sod 100 ml @ 25 mls/hr Q8HR IV 07/26/24 22:00 07/27/24 05:16 25 MLS/HR Amlodipine Besylate 10 mg DAILY PO 07/27/24 10:00 Citalopram Hydrobromide 40 mg DAILY PO 07/27/24 10:00 Metoprolol Succinate 50 mg DAILY PO 07/27/24 10:00 Enoxaparin Sodium 30 mg DAILY SC 07/27/24 10:00 UNV Enoxaparin Sodium 40 mg HS SC 07/26/24 22:00 07/26/24 21:58 40 MG Furosemide 40 mg DAILY IV 07/27/24 10:00 objective Gen: NAD, AAOx3 HEENT: NC,AT Lungs: Crackles lung bases Cardiac: RRR, no murmur Abd: soft, no tenderness Ext: no edema Neuro: no focal deficits + Rt IJ TC laboratory and microbiology Laboratory Tests 07/26/24 14:34 07/26/24 11:15 Test 07/26/24 11:15 Range/Units Serum Glucose 158 H 74-106 mg/dL Assessment/Plan CKD stage IV history of Severe SUSY on advanced CKD requiring temporary hemodialysis via Rt IJ TC up until last week Sepsis Acute on chronic diastolic CHF Elevated troponin, serial measurement no uptrend Hypervolemic hyponatremia, mild DM type II HTN right toe amputation Plan: IR consult to remove Tunneled CVC obtain blood cultures Lasix 40 mg IV daily continue Metoprolol succinate 50 mg PO daily, Amlodipine 10 mg daily DC HCTZ , it is in effective in patients with advanced CKD daily BMP Strict I&Os Plan discussed with: Patient NAMAN REYES MD Jul 27, 2024 06:32
[2024-07-27 07:08] LABS: Basophils # (auto) 0.1 10 ^3/uL (0-0.2); Eosinophils # (auto) 0.5 10 ^3/uL (0-0.8); Hemoglobin 10.7 g/dL (13.5-17.5)
[2024-07-27 07:10] LABS: Alanine Aminotransferase 20 U/L (7-40); Albumin 3.5 g/dL (3.2-4.8); Anion Gap 8 (5-15); Aspartate Aminotransferase 19 U/L (13-40); BUN/Creatinine Ratio 15.3 (10.0-20.0); Calcium 8.8 mg/dL (8.7-10.4); Carbon Dioxide 22 mmol/L (20-31); Chloride 104 mmol/L (98-107); Potassium 4.8 mmol/L (3.5-5.1); Total Protein 6.6 g/dL (5.7-8.2)
[2024-07-27 07:11] LABS: Eosinophils % (auto) 7.1 % (0.0-7.0); Hematocrit 33.9 % (41.0-53.0); Mean Corpuscular Hgb Conc. 31.6 g/dL (32.0-36.0); Mean Corpuscular Volume 82.1 fL (80.0-100.0); Monocytes # (auto) 0.5 10 ^3/uL (0-1.3); Monocytes % (auto) 7.2 % (0.0-12.0); Neutrophils # (auto) 5.3 10 ^3/uL (1.6-8.6); Neutrophils % (auto) 70.7 % (37.0-80.0); Nucleated Red Blood Cells % 0.1 %; Platelet Count (auto) 240 10^3/uL (140-450); Red Blood Cells 4.12 10^6/uL (4.5-5.90); White Blood Cell 7.5 10^3/uL (4.4-10.8)
[2024-07-27 07:13] LABS: Alkaline Phosphatase 146 U/L (46-116); Bilirubin, Total 0.2 mg/dL (0.2-1.0); Blood Urea Nitrogen 44 mg/dL (9-23); Glucose 162 mg/dL (74-106); Sodium 134 mmol/L (136-145)
[2024-07-27] MEDS: LIDOCAINE 2%HCL (LOCAL ANESTH.) INJ 10ml MDV ONE (08:04)
[2024-07-27] MEDS ORDERED: PATIENTS OWN MEDICATION (Escitalopram Oxalate 20 MG) PO SCH (10:00)
[2024-07-27] MEDS ORDERED: METOPROLOL SUCCINATE PO SCH (10:00)
[2024-07-27] MEDS ORDERED: PATIENTS OWN MEDICATION (Amlodipine Besylate 10 MG) PO SCH (10:00)
[2024-07-27] MEDS ORDERED: hydroCHLOROthiazide 25 MG TAB PO SCH (10:00)
[2024-07-27] MEDS ORDERED: ENOXAPARIN SOD 30 MG/0.3 ML SYRINGE SC SCH (10:00)
--- NOTE | 2024-07-27 10:21 | DVHINCON2 ---
Date Seen: Jul 27, 2024 Referring Physician SANAM Juarez Reason for Consultation Elevated troponin, r/o right heart strain History of Present Illness This is a 48-year-old male patient who presents to the emergency room with chief complaint of shortness of breath for one week. He comes to the emergency room for further evaluation. Cardiology has now been consulted for elevated troponin level and to rule out RV strain. Initial twelve lead electrocardiogram reveals normal sinus rhythm without any significant ST segment changes. Initial troponi n level of 284ng/L with down trend thereafter. Significant medical history includes hypertension, dyslipidemia, severe acute kidney injury on advanced CKD requiring temporary dialysis (last dialysis one week ago), [id number] diabetes mellitus, and morbid obesity Past Medical History Past medical history reviewed. No other significant than mentioned above. Past Surgical History Right foot 4th and 5th digit amputation Family History: Diabetes mellitus G8 MOTHER G8 FATHER Hypertension G8 MOTHER G8 FATHER Thyroid disease G8 SISTER Family History Family history reviewed. Social History Denies the use of tobacco, alcohol or illicit drugs. Allergies: Coded Allergies: NO KNOWN ALLERGIES (Unverified , 07/21/23) Home Meds Active Scripts Clonazepam (Klonopin) 0.5 Mg Tab, 0.5 TAB PO DAILYPRN PRN for 30 Days, #15 TAB Prov:VICKIE PRASAD MD 05/31/24 Hctz (Hydrochlorothiazide) 25 Mg Tab, 25 MG PO DAILY for 30 Days, #30 TAB Prov:VICKIE PRASAD MD 05/31/24 Losartan Potassium (Losartan Potassium) 50 Mg Tab, 50 MG PO DAILY for 30 Days, #30 TAB Prov:VICKIE PRASAD MD 05/31/24 Metoprolol Succinate (Toprol Xl) 50 Mg Tab, 50 MG PO DAILY for 30 Days, #30 TAB Prov:VICKIE PRASAD MD 05/31/24 Metoprolol Succinate (Metoprolol Succinate Er) 25 Mg Tab, 2 TAB PO DAILY for 30 Days, #60 TAB 5 Refills Prov:YOBANY HSIEH RESIDENT 05/24/24 Reported Medications Ertapenem Sodium (Ertapenem) 1 Gm Inj, 500 MG IV DAILY, INJ 05/31/24 Clopidogrel Bisulfate (CLOPIDOGREL) 75 Mg Tab, 75 MG PO DAILY for 30 Days, MG 05/31/24 Odrch-2-Rnhp Ethyl Esters (Gawzy-3-Iblx Ethyl Esters) 1 Gm Cap, 2 05/30/24 B-Complex W/ C & Folic Acid (Samantha-Bartolo Rx) Tab, 1 DAILY 05/30/24 Ergocalciferol (Vitamin D) 50,000 Unit Cap, 1 05/30/24 Escitalopram Oxalate (ESCITALOPRAM OXALATE) 20 Mg Tab, 20 MG PO DAILY, TAB 12/08/23 Atorvastatin Calcium (Lipitor) 20 Mg Tab, 20 MG PO DAILY, TAB 07/22/23 Dapagliflozin Propanediol (Farxiga) 10 Mg Tab, 10 MG PO DAILY, TAB 07/22/23 Amlodipine Besylate (Amlodipine Besylate) 10 Mg Tab, 10 MG PO DAILY, TAB 07/22/23 Home Meds Home medications reviewed. Current Medications Current Medications Medications (Trade) Dose Ordered Sig/Jadon Route PRN Reason Start Time Stop Time Status Last Admin Heparin Sodium/ Dextrose 250 ml @ 20 mls/hr [id number] IV 07/26/24 15:30 07/26/24 16:21 DC 07/26/24 15:29 Acetaminophen/ Hydrocodone Bitart ([place] 5/325MG Tab) 1 tab Q4HP PRN PO MODERATE PAIN (4-6 PAIN SCALE) 07/26/24 14:15 Ondansetron HCl (Zofran) 4 mg Q4HP PRN IV NAUSEA / VOMITING 07/26/24 14:15 Acetaminophen (Tylenol Tablet) 650 mg Q6HP PRN PO PAIN SCALE 1-3 OR TEMP>100.4 07/26/24 14:15 Morphine Sulfate 2 mg Q4HPRN PRN IV SEVERE PAIN (7-10 PAIN SCALE) 07/26/24 14:15 Nitroglycerin (Ntrostat Sublingual) 0.4 mg Q5MINP PRN SL FOR CHEST PAIN 07/26/24 14:15 Morphine Sulfate 2 mg Q30M PRN IV FOR CHEST PAIN 07/26/24 14:15 Atorvastatin Calcium (Lipitor) 20 mg DAILY PO 07/27/24 10:00 Multivit/Ca Carb/ B Cmplx/FA/Prenat (Nephro-Bartolo Tablet) 1 tab DAILY PO 07/27/24 10:00 Ergocalciferol (Vitamin D 50,000 Unit) 50,000 unit DAILY PO 07/27/24 10:00 Hydrochlorothiazide (hydroCHLOROthiazide TABLET) 25 mg DAILY PO 07/27/24 10:00 07/26/24 17:48 DC Patient Own Medication 10 mg DAILY PO 07/27/24 10:00 UNV Patient Own Medication 20 mg DAILY PO 07/27/24 10:00 UNV Patient Own Medication 2 tab DAILY PO 07/27/24 10:00 UNV Losartan Potassium (Cozaar Tablet) 50 mg DAILY PO 07/27/24 10:00 Piperacillin Sod/ Tazobactam Sod 100 ml @ 25 mls/hr Q8HR IV 07/26/24 22:00 07/27/24 05:16 Amlodipine Besylate (Norvasc Tablet) 10 mg DAILY PO 07/27/24 10:00 Citalopram Hydrobromide (CeleXA TABLET) 40 mg DAILY PO 07/27/24 10:00 Metoprolol Succinate (Toprol Xl) 50 mg DAILY PO 07/27/24 10:00 Enoxaparin Sodium (Lovenox) 30 mg DAILY SC 07/27/24 10:00 UNV Enoxaparin Sodium (Lovenox) 40 mg HS SC 07/26/24 22:00 07/26/24 21:58 Furosemide (Lasix Injection) 40 mg DAILY IV 07/27/24 10:00 Review of Systems Constitutional: No symptom reported Ears, Nose, & Throat: No symptom reported Eyes: No symptom reported Neurological: No symptoms reported Pulmonary/Respiratory: Shortness of breath Cardiovascular: No symptom reported Gastrointestinal: No symptom reported Genitourinary: No symptom reported Musculoskeletal: No symptom reported Skin: No symptom reported Psychiatric: No symptom reported Endocrine: No symptom reported Hematologic/Lymphatic: No symptom reported Vital Signs Vital Signs Date Time Temp Pulse Resp B/P (MAP) Pulse Ox O2 Delivery O2 Flow Rate FiO2 07/27/24 08:23 Nasal Cannula* 4 36 07/27/24 05:00 97.9 95 20 166/94 (118) 95 97.9 Physical Exam General Appearance: Cooperative. Morbid obesity Pulmonary/Respiratory: Clear, bilateral breaths sounds. Cardiovascular/Chest: Regular rate and rhythm. Peripheral Pulses: 2+ Radial (R). 2+ Radial (L). 2+ Pedal (R). 2+ Pedal (L) Abdominal Exam: Normal bowel sounds. Ankle Exam: Negative ankle edema Lower extremities: Negative lower extremity edema Neuro/Mental Status: A/OX4, coherent. Thoughts/Psych: Normal thought pattern. Appropriate mood and affect. Good judgment and insight. Appearance: No acute distress. Skin Exam: Normal inspection. Normal color. Warm and dry. Labs/Diagnostic Data Labs Test 07/27/24 06:15 07/26/24 21:30 07/26/24 14:34 07/26/24 11:15 Range/Units White Blood Count 7.5 4.4-10.8 10^3/uL Red Blood Count 4.12 L 4.5-5.90 10^6/uL Hemoglobin 10.7 L 13.5-17.5 g/dL Hematocrit 33.9 L 41.0-53.0 % Mean Corpuscular Volume 82.1 80.0-100.0 fL Mean Corpuscular Hemoglobin 26.0 L 28.0-32.0 pg Mean Corpuscular Hemoglobin Concent 31.6 L 32.0-36.0 g/dL Red Cell Distribution Width 16.0 H 11.8-14.3 % Platelet Count 240 140-450 10^3/uL Mean Platelet Volume 8.6 6.9-10.8 fL Neutrophils (%) (Auto) 70.7 37.0-80.0 % Lymphocytes (%) (Auto) 14.0 10.0-50.0 % Monocytes (%) (Auto) 7.2 0.0-12.0 % Eosinophils (%) (Auto) 7.1 H 0.0-7.0 % Basophils (%) (Auto) 1.0 0.0-2.0 % Neutrophils # (Auto) 5.3 1.6-8.6 10 ^3/uL Lymphocytes # (Auto) 1.0 0.4-5.4 10 ^3/uL Monocytes # (Auto) 0.5 0-1.3 10 ^3/uL Eosinophils # (Auto) 0.5 0-0.8 10 ^3/uL Basophils # (Auto) 0.1 0-0.2 10 ^3/uL Nucleated Red Blood Cells 0.1 % Sodium Level 134 L 136-145 mmol/L Potassium Level 4.8 3.5-5.1 mmol/L Chloride Level 104 98-107 mmol/L Carbon Dioxide Level 22 20-31 mmol/L Anion Gap 8 5-15 Blood Urea Nitrogen 44 #H 9-23 mg/dL Creatinine 2.88 H 0.700-1.30 mg/dL Glomerular Filtration Rate Calc 26 >90 mL/min BUN/Creatinine Ratio 15.3 10.0-20.0 Serum Glucose 162 H 74-106 mg/dL Calcium Level 8.8 8.7-10.4 mg/dL Total Bilirubin 0.2 0.2-1.0 mg/dL Aspartate Amino Transferase (AST) 19 13-40 U/L Alanine Aminotransferase (ALT) 20 7-40 U/L Alkaline Phosphatase 146 H 46-116 U/L Total Protein 6.6 5.7-8.2 g/dL Albumin 3.5 3.2-4.8 g/dL Prothrombin Time 11.2 9.3-11.8 sec Prothrombin Time INR 1.06 0.9-1.15 Activated Partial Thromboplast Time 33.9 24.5-34.5 SEC Troponin I High Sensitivity 235 *H </=54 ng/L D-Dimer, Quantitative 1.91 H 0.0-0.49 mg/L FEU Lactic Acid Level 1.0 0.4-2.0 mmol/L B-Type Natriuretic Peptide 720.01 0-100 pg/mL Test 07/26/24 11:00 Range/Units Influenza Type A Antigen Negative Negative Influenza Type B Antigen Negative Negative SARS-CoV-2 Antigen (Rapid) Negative NEGATIVE Assessment NSTEMI, likely type II in the setting of hypertensive urgency Rule out RV strain Dyslipidemia Chronic kidney disease Type 2 diabetes mellitus Morbid obesity Plan/Recommendation We will continue with the following plan/recommendations (Dr. New): Patient seen and examined at bedside with . A transthoracic echocardiogram done on 05/17/2024 reveals an EF of 55%, RVSP 54 mmHg. We will proceed with obtaining a new transthoracic echocardiogram. Elevated troponin level likely secondary to hypertensive urgency. Recommend aggressive blood pressure control as tolerated. Continue with close cardiac surveillance. Thank you for allowing us to care for this patient. Please call with any questions or concerns. Critical care time spent: 42 minutes This medical document was created using an electronic medical record system with voice recognition software and computerized dictation system. Although this document has been carefully reviewed, there might still be some phonetic and typographical errors. Occasional wrong-word or ``sound-alike substitutions may have occurred due to the inherent limitations of voice recognition software. These areas are purely typographical due to imperfections of the software programs and do not reflect any compromise in the patient's medical care. Please read the chart carefully and recognize, using context, where these substitutions have occurred. Plan discussed with: Patient NYHA Physical activity limitations: NA Date of Service: Jul 27, 2024 Billing Provider: DAVE LONDON Cardiology Common Codes: 25316-[id number] INP/OBS CARE (High) Cardiology Consultation Codes: [id number] CONSULT <45MIN DAVE LONDON Jul 27, 2024 10:21
[2024-07-27] MEDS: FUROSEMIDE 40 MG/4 ML VIAL IV SCH (10:38)
[2024-07-27] MEDS: CITALOPRAM HYDROBR 20 MG TAB PO SCH (10:38)
[2024-07-27] MEDS: B-COMPLEX W/ C & FOLIC ACID(NEPHROVITE TAB) PO SCH (10:38)
[2024-07-27] MEDS: ERGOCALCIFEROL 50,000 UNIT(1.25MG) CAP PO SCH (10:38)
[2024-07-27] MEDS: ATORVASTATIN 20 MG TAB PO SCH (10:38)
[2024-07-27] MEDS: METOPROLOL SUCCINATE XL 50 MG TAB PO SCH (10:39)
[2024-07-27] MEDS: LOSARTAN POTASSIUM 50 MG TAB PO SCH (10:40)
[2024-07-27] MEDS: amLODIPine BESYLATE 5 MG TAB PO SCH (10:41)
[2024-07-27] MEDS: LABETALOL HCL 20 MG/4 ML VL IV PRN (13:26)
--- NOTE | 2024-07-27 16:39 | DVHPNRES ---
Progress Note Date Seen: Jul 27, 2024 Resident Creating Document: YOBANY HSIEH RESIDENT Medical Necessity Reason Pt with a Central, PICC or Fol: No Subjective Review of Systems Shiloh, Moise Forrest GRAMAJO is a 48 Year Male with past medical history of hypertension, diabetes type 2, CKD, ESRD on HD (//) with [facility], and s/p amputation due to osteomyelitis presented to the ED with shortness of breath x1 week. Patient also reports nausea, fever, dizziness, and fatigue. Patient denies any chest pain, palpitations, recent trauma or injury, abdominal pain, vomiting, diarrhea, lightheadedness, or weakness. Right upper chest still has a dialysis catheter. He states that he had it placed here 3 months ago and Patient also reports that his edger technician told him that he no longer needs dialysis. Patient was seen and examined on the bedside. He is alert oriented x3 and saturating normal on room air. Dialysis catheter was removed by IR today. patient is complaining of mild shortness of breath and leg swelling. No other active complaint. Constitutional: No: Fever, Chills, Sweats, Weakness, Malaise, Other Eyes: No: Pain, Vision change, Conjunctivae inflammation, Eyelid inflammation, Other, Redness ENT: No: Ear pain, Ear discharge, Nose pain, Nose discharge, Nose congestion, Mouth pain, Mouth swelling, Throat pain, Throat swelling, Other Respiratory: Shortness of breath, improving No: Cough, Dry,Wheezing, Hemoptysis, Pleuritic Pain, Sputum, Wheezing, Other Cardiovascular: No: Chest Pain, Palpitations, Orthopnea, Paroxysmal Noc. Dyspnea, Edema, Lt Headedness, Other Gastrointestinal: No: Nausea, Vomiting, Abdominal Pain, Diarrhea, Constipation, Melena, Hematochezia, Other Musculoskeletal: No: other, neck pain, shoulder pain, arm pain, back pain, hand pain, leg pain, foot pain Neurological:; No: Weakness, Numbness, Incoordination, Change in speech, Confusion, Seizures Objective vital signs Vital Sign Date Time Temp Pulse Resp B/P (MAP) Pulse Ox O2 Delivery O2 Flow Rate FiO2 07/27/24 14:26 86 162/81 07/27/24 12:40 97.8 17 97 97.8 07/27/24 08:23 Nasal Cannula* 4 36 Total Intake and Output 07/26/24 07/26/24 07/27/24 15:00 23:00 07:00 Intake Total 20 ml 790 ml Output Total 700 ml Balance 20 ml 90 ml medications Current Medications Medications Dose Ordered Sig/Jadon Route Start Time Stop Time Status Last Admin Dose Admin Acetaminophen/ Hydrocodone Bitart 1 tab Q4HP PRN PO 07/26/24 14:15 Ondansetron HCl 4 mg Q4HP PRN IV 07/26/24 14:15 Acetaminophen 650 mg Q6HP PRN PO 07/26/24 14:15 Morphine Sulfate 2 mg Q4HPRN PRN IV 07/26/24 14:15 Nitroglycerin 0.4 mg Q5MINP PRN SL 07/26/24 14:15 Morphine Sulfate 2 mg Q30M PRN IV 07/26/24 14:15 Atorvastatin Calcium 20 mg DAILY PO 07/27/24 10:00 07/27/24 10:38 20 MG Multivit/Ca Carb/ B Cmplx/FA/Prenat 1 tab DAILY PO 07/27/24 10:00 07/27/24 10:38 1 TAB Ergocalciferol 50,000 unit DAILY PO 07/27/24 10:00 07/27/24 10:38 50,000 UNIT Patient Own Medication 10 mg DAILY PO 07/27/24 10:00 UNV Patient Own Medication 20 mg DAILY PO 07/27/24 10:00 UNV Patient Own Medication 2 tab DAILY PO 07/27/24 10:00 UNV Losartan Potassium 50 mg DAILY PO 07/27/24 10:00 07/27/24 10:40 50 MG Piperacillin Sod/ Tazobactam Sod 100 ml @ 25 mls/hr Q8HR IV 07/26/24 22:00 07/27/24 14:05 25 MLS/HR Citalopram Hydrobromide 40 mg DAILY PO 07/27/24 10:00 07/27/24 10:38 40 MG Metoprolol Succinate 50 mg DAILY PO 07/27/24 10:00 07/27/24 10:39 50 MG Enoxaparin Sodium 30 mg DAILY SC 07/27/24 10:00 UNV Enoxaparin Sodium 40 mg HS SC 07/26/24 22:00 07/26/24 21:58 40 MG Furosemide 40 mg DAILY IV 07/27/24 10:00 07/27/24 10:38 40 MG Labetalol HCl 5 mg Q2HPRN PRN IV 07/27/24 12:15 07/27/24 13:26 5 MG Nifedipine 60 mg DAILY PO 07/28/24 10:00 Examination Physical examination: General Appearance: Alert, Oriented X3, Cooperative, No acute distress HEENT: Atraumatic, PERRLA, EOMI, Mucous membrane moist/pink Respiratory: Clear to auscultation, Normal air movement Cardiovascular: Regular rate, Normal S1, Normal S2, No murmurs, no chest wall tenderness Abdominal: Normal bowel sounds, Soft, No tenderness, No hepatospenomegaly, No masses Extremities: Bilateral pedal edema+, No clubbing, No cyanosis, Normal pulses, No tenderness/swelling Skin: No rashes, No breakdown, No significant lesion Neuro: Normal gait, Normal speech, Strength at 5/5 X4 ext, Normal tone, Sensation intact, Cranial nerves 3-12 NL, Reflexes 2+ Psych/Mental Status: Mental status NL, Mood NL laboratory and microbiology Laboratory Tests 07/27/24 06:15 Test 07/27/24 06:15 Range/Units Serum Glucose 162 H 74-106 mg/dL Microbiology Date/Time Source Procedure Growth Status 07/26/24 11:15 Blood Blood Culture - Preliminary NO GROWTH AFTER 24 HOURS OF INCUBATION. Resulted Labs and/or images reviewed: Labs reviewed by me, Image(s) reviewed by me Problem List/Assessment/Plan Problem List/Assessment/Plan Assessment and plan: # Sepsis ruled out # Acute Hypoxic respiratory failure, rule out pulmonary embolism # Possible acute exacerbation of chronic diastolic heart failure # Hypertensive emergency # NSTEMI likely type 2 due to above - Elevated D dimer - CxR pulmonary vascular congestion - V/Q scan showed low probability for pulmonary embolism - IV Lasix 40 mg daily - IV labetalol IV mg q.2 hours p.r.n. - Continue amlodipine 10 mg p.o. daily, losartan 50 mg daily , metoprolol succinate 50 mg daily, nifedipine ER 60 mg p.o. daily - Echo on 05/26 demonstrated EF 55% and pulmonary artery systolic pressure 50- 55 mm Hg - Cardiology on board # History of severe SUSY on CKD required hemodialysis 3 times a week for last three-month via rt IJ tunnel catheter - According to the patient edger technician patient does not need to hemodialysis and remove the dialysis catheter by IR - Strict I&O - Avoid nephrotoxic drug - monitor BMP # Type 2 diabetes mellitus, hemoglobin A1c 6.8 on 05/17/2024 - Mild sliding scale of insulin. # History of osteomyelitis and status post amputation of right 4th and 5th toes # PUD prophylaxis - Pepcid 20 mg po daily # DVT prophylaxis - Lovenox 40 mg sc daily Goal of care discussed with the patient for more than 20 minutes full code Plan discussed with Dr. Barker Plan discussed with: Patient, Other My Orders My Orders Orders - YOBANY HSIEH Procedure Category Date Status Time Labetalol Hcl PHA 07/27/24 In Process (Labetalol Hcl) 12:15 Date of Service: Jul 27, 2024 Billing Provider: DYLAN OWENS MD Common Visit Codes: [id number] INP/OBS CARE(HIGH) YOBANY HSIEH Jul 27, 2024 16:39 DYLAN OWENS MD Aug 01, 2024 23:39
[2024-07-27] MEDS: ACETAMINOPHEN 325 MG TAB PO PRN (19:55)
--- NOTE | 2024-07-27 21:14 | DVHINCON2 ---
Date Seen: Jul 27, 2024 Referring Physician SANAM Juarez Reason for Consultation Elevated troponin, r/o right heart strain History of Present Illness This is a 48-year-old male with a PMH of hypertension, dyslipidemia, severe acute kidney injury on advanced CKD requiring temporary dialysis (last dialysis one week ago), [id number] diabetes mellitus, and morbid obesity who presents to the ED with complaint of shortness of breath x1 week. Cardiology has now been consulted for elevated troponin level and to rule out RV strain. Initial twelve lead electrocardiogram reveals normal sinus rhythm without any significant ST segment changes. Initial troponin level of 284ng/L with down trend thereafter. Chest x-ray shows pulmonary vascular congestion. Patient was admitted to the hospital. Past Medical History Past medical history reviewed. No other significant than mentioned above. Past Surgical History Right foot 4th and 5th digit amputation Family History: Diabetes mellitus G8 MOTHER G8 FATHER Hypertension G8 MOTHER G8 FATHER Thyroid disease G8 SISTER Allergies: Coded Allergies: NO KNOWN ALLERGIES (Unverified , 07/21/23) Home Meds Active Scripts Clonazepam (Klonopin) 0.5 Mg Tab, 0.5 TAB PO DAILYPRN PRN for 30 Days, #15 TAB Prov:VICKIE PRASAD MD 05/31/24 Hctz (Hydrochlorothiazide) 25 Mg Tab, 25 MG PO DAILY for 30 Days, #30 TAB Prov:VICKIE PRASAD MD 05/31/24 Losartan Potassium (Losartan Potassium) 50 Mg Tab, 50 MG PO DAILY for 30 Days, #30 TAB Prov:VICKIE PRASAD MD 05/31/24 Metoprolol Succinate (Toprol Xl) 50 Mg Tab, 50 MG PO DAILY for 30 Days, #30 TAB Prov:IVCKIE PRASAD MD 05/31/24 Metoprolol Succinate (Metoprolol Succinate Er) 25 Mg Tab, 2 TAB PO DAILY for 30 Days, #60 TAB 5 Refills Prov:YOBANY HSIEH RESIDENT 05/24/24 Reported Medications Ertapenem Sodium (Ertapenem) 1 Gm Inj, 500 MG IV DAILY, INJ 05/31/24 Clopidogrel Bisulfate (CLOPIDOGREL) 75 Mg Tab, 75 MG PO DAILY for 30 Days, MG 05/31/24 Lgjfp-0-Dogu Ethyl Esters (Fgvay-0-Xbse Ethyl Esters) 1 Gm Cap, 2 05/30/24 B-Complex W/ C & Folic Acid (Samantha-Bartolo Rx) Tab, 1 DAILY 05/30/24 Ergocalciferol (Vitamin D) 50,000 Unit Cap, 1 05/30/24 Escitalopram Oxalate (ESCITALOPRAM OXALATE) 20 Mg Tab, 20 MG PO DAILY, TAB 12/08/23 Atorvastatin Calcium (Lipitor) 20 Mg Tab, 20 MG PO DAILY, TAB 07/22/23 Dapagliflozin Propanediol (Farxiga) 10 Mg Tab, 10 MG PO DAILY, TAB 07/22/23 Amlodipine Besylate (Amlodipine Besylate) 10 Mg Tab, 10 MG PO DAILY, TAB 07/22/23 Current Medications Current Medications Medications (Trade) Dose Ordered Sig/Jadon Route PRN Reason Start Time Stop Time Status Last Admin Heparin Sodium/ Dextrose 250 ml @ 20 mls/hr [id number] IV 07/26/24 15:30 07/26/24 16:21 DC 07/26/24 15:29 Acetaminophen/ Hydrocodone Bitart ([place] 5/325MG Tab) 1 tab Q4HP PRN PO MODERATE PAIN (4-6 PAIN SCALE) 07/26/24 14:15 Ondansetron HCl (Zofran) 4 mg Q4HP PRN IV NAUSEA / VOMITING 07/26/24 14:15 Acetaminophen (Tylenol Tablet) 650 mg Q6HP PRN PO PAIN SCALE 1-3 OR TEMP>100.4 07/26/24 14:15 Morphine Sulfate 2 mg Q4HPRN PRN IV SEVERE PAIN (7-10 PAIN SCALE) 07/26/24 14:15 Nitroglycerin (Ntrostat Sublingual) 0.4 mg Q5MINP PRN SL FOR CHEST PAIN 07/26/24 14:15 Morphine Sulfate 2 mg Q30M PRN IV FOR CHEST PAIN 07/26/24 14:15 Atorvastatin Calcium (Lipitor) 20 mg DAILY PO 07/27/24 10:00 07/27/24 10:38 Multivit/Ca Carb/ B Cmplx/FA/Prenat (Nephro-Bartolo Tablet) 1 tab DAILY PO 07/27/24 10:00 07/27/24 10:38 Ergocalciferol (Vitamin D 50,000 Unit) 50,000 unit DAILY PO 07/27/24 10:00 07/27/24 10:38 Hydrochlorothiazide (hydroCHLOROthiazide TABLET) 25 mg DAILY PO 07/27/24 10:00 07/26/24 17:48 DC Patient Own Medication 10 mg DAILY PO 07/27/24 10:00 UNV Patient Own Medication 20 mg DAILY PO 07/27/24 10:00 UNV Patient Own Medication 2 tab DAILY PO 07/27/24 10:00 UNV Losartan Potassium (Cozaar Tablet) 50 mg DAILY PO 07/27/24 10:00 07/27/24 10:40 Piperacillin Sod/ Tazobactam Sod 100 ml @ 25 mls/hr Q8HR IV 07/26/24 22:00 07/27/24 05:16 Amlodipine Besylate (Norvasc Tablet) 10 mg DAILY PO 07/27/24 10:00 07/27/24 12:29 DC 07/27/24 10:41 Citalopram Hydrobromide (CeleXA TABLET) 40 mg DAILY PO 07/27/24 10:00 07/27/24 10:38 Metoprolol Succinate (Toprol Xl) 50 mg DAILY PO 07/27/24 10:00 07/27/24 10:39 Enoxaparin Sodium (Lovenox) 30 mg DAILY SC 07/27/24 10:00 UNV Enoxaparin Sodium (Lovenox) 40 mg HS SC 07/26/24 22:00 07/26/24 21:58 Furosemide (Lasix Injection) 40 mg DAILY IV 07/27/24 10:00 07/27/24 10:38 Labetalol HCl (Labetalol HCl) 5 mg Q2HPRN PRN IV SBP>160 07/27/24 12:15 07/27/24 13:26 Nifedipine (Procardia Xl (Time-Release)) 60 mg DAILY PO 07/28/24 10:00 Review of Systems Constitutional: No symptom reported Ears, Nose, & Throat: No symptom reported Eyes: No symptom reported Neurological: No symptoms reported Pulmonary/Respiratory: Shortness of breath Cardiovascular: No symptom reported Gastrointestinal: No symptom reported Genitourinary: No symptom reported Musculoskeletal: No symptom reported Skin: No symptom reported Psychiatric: No symptom reported Endocrine: No symptom reported Hematologic/Lymphatic: No symptom reported Vital Signs Vital Signs Date Time Temp Pulse Resp B/P (MAP) Pulse Ox O2 Delivery O2 Flow Rate FiO2 07/27/24 13:26 88 189/91 07/27/24 12:40 97.8 17 97 97.8 07/27/24 08:23 Nasal Cannula* 4 36 Physical Exam GENERAL: Awake, alert, oriented. Morbid obesity. LUNGS: Clear. CARDIOVASCULAR: Heart sounds are good. ABDOMEN: Soft. Labs/Diagnostic Data Labs Test 07/27/24 06:15 07/26/24 21:30 07/26/24 14:34 07/26/24 11:15 Range/Units White Blood Count 7.5 4.4-10.8 10^3/uL Red Blood Count 4.12 L 4.5-5.90 10^6/uL Hemoglobin 10.7 L 13.5-17.5 g/dL Hematocrit 33.9 L 41.0-53.0 % Mean Corpuscular Volume 82.1 80.0-100.0 fL Mean Corpuscular Hemoglobin 26.0 L 28.0-32.0 pg Mean Corpuscular Hemoglobin Concent 31.6 L 32.0-36.0 g/dL Red Cell Distribution Width 16.0 H 11.8-14.3 % Platelet Count 240 140-450 10^3/uL Mean Platelet Volume 8.6 6.9-10.8 fL Neutrophils (%) (Auto) 70.7 37.0-80.0 % Lymphocytes (%) (Auto) 14.0 10.0-50.0 % Monocytes (%) (Auto) 7.2 0.0-12.0 % Eosinophils (%) (Auto) 7.1 H 0.0-7.0 % Basophils (%) (Auto) 1.0 0.0-2.0 % Neutrophils # (Auto) 5.3 1.6-8.6 10 ^3/uL Lymphocytes # (Auto) 1.0 0.4-5.4 10 ^3/uL Monocytes # (Auto) 0.5 0-1.3 10 ^3/uL Eosinophils # (Auto) 0.5 0-0.8 10 ^3/uL Basophils # (Auto) 0.1 0-0.2 10 ^3/uL Nucleated Red Blood Cells 0.1 % Sodium Level 134 L 136-145 mmol/L Potassium Level 4.8 3.5-5.1 mmol/L Chloride Level 104 98-107 mmol/L Carbon Dioxide Level 22 20-31 mmol/L Anion Gap 8 5-15 Blood Urea Nitrogen 44 #H 9-23 mg/dL Creatinine 2.88 H 0.700-1.30 mg/dL Glomerular Filtration Rate Calc 26 >90 mL/min BUN/Creatinine Ratio 15.3 10.0-20.0 Serum Glucose 162 H 74-106 mg/dL Calcium Level 8.8 8.7-10.4 mg/dL Total Bilirubin 0.2 0.2-1.0 mg/dL Aspartate Amino Transferase (AST) 19 13-40 U/L Alanine Aminotransferase (ALT) 20 7-40 U/L Alkaline Phosphatase 146 H 46-116 U/L Total Protein 6.6 5.7-8.2 g/dL Albumin 3.5 3.2-4.8 g/dL Prothrombin Time 11.2 9.3-11.8 sec Prothrombin Time INR 1.06 0.9-1.15 Activated Partial Thromboplast Time 33.9 24.5-34.5 SEC Troponin I High Sensitivity 235 *H </=54 ng/L D-Dimer, Quantitative 1.91 H 0.0-0.49 mg/L FEU Lactic Acid Level 1.0 0.4-2.0 mmol/L B-Type Natriuretic Peptide 720.01 0-100 pg/mL Test 07/26/24 11:00 Range/Units Influenza Type A Antigen Negative Negative Influenza Type B Antigen Negative Negative SARS-CoV-2 Antigen (Rapid) Negative NEGATIVE Microbiology Date/Time Source Procedure Growth Status 07/26/24 11:15 Blood Blood Culture - Preliminary NO GROWTH AFTER 24 HOURS OF INCUBATION. Resulted Assessment NSTEMI, likely type II in the setting of hypertensive urgency. Rule out RV strain. Dyslipidemia. Chronic kidney disease. Type 2 diabetes mellitus. Morbid obesity. Plan/Recommendation I agree with your ongoing assessment and care of plan. Patient has been seen by Alise Guzman NP on my behalf, her and I discussed the plan with the patient. A transthoracic echocardiogram done on 05/17/2024 reveals an EF of 55%, RVSP 54 mmHg. We will proceed with obtaining a new transthoracic echocardiogram. Elevated troponin level likely secondary to hypertensive urgency. Recommend aggressive blood pressure control as tolerated. Continue with close cardiac surveillance. Additional plan as per the hospital course. Plan discussed with: Patient NYHA Physical activity limitations: NA Date of Service: Jul 27, 2024 Billing Provider: RAFFAELE FOUNTAIN MD Cardiology Common Codes: [id number] INP/OBS CARE (High) Cardiology Consultation Codes: [id number] CONSULT <45MIN RAFFAELE FOUNTAIN MD Jul 27, 2024 13:52
[2024-07-28] VITALS (7 sets, daily range): BP systolic 112–153; BP diastolic 72–86; PULSE 61–90; RESP 18–20; TEMP 36.6; O2SAT 91–100
[2024-07-28 07:38] LABS: Chloride 100 mmol/L (98-107)
[2024-07-28 07:39] LABS: Anion Gap 8 (5-15); Carbon Dioxide 27 mmol/L (20-31)
[2024-07-28 07:40] LABS: Calcium 8.7 mg/dL (8.7-10.4); Sodium 135 mmol/L (136-145)
[2024-07-28 07:45] LABS: BUN/Creatinine Ratio 17.4 (10.0-20.0)
[2024-07-28 07:46] LABS: Blood Urea Nitrogen 54 mg/dL (9-23); Glucose 199 mg/dL (74-106)
[2024-07-28] MEDS: NIFEdipine ER 30 MG TAB PO SCH (09:38)
--- NOTE | 2024-07-28 13:32 | DVHPN2 ---
Progress Note - Dictate Date Seen: Jul 28, 2024 Medical Necessity Reason Pt with a Central, PICC or Fol: No Subjective no new symptoms vital signs Vital Sign Date Time Temp Pulse Resp B/P (MAP) Pulse Ox O2 Delivery O2 Flow Rate FiO2 07/28/24 12:38 98.5 68 20 141/85 (103) 100 98.5 07/28/24 07:54 Nasal Cannula* 4 36 Total Intake and Output 07/27/24 07/27/24 07/28/24 15:00 23:00 07:00 Intake Total 1800 ml 235 ml Balance 1800 ml 235 ml medications Current Medications Medications Dose Ordered Sig/Jadon Route Start Time Stop Time Status Last Admin Dose Admin Acetaminophen/ Hydrocodone Bitart 1 tab Q4HP PRN PO 07/26/24 14:15 Ondansetron HCl 4 mg Q4HP PRN IV 07/26/24 14:15 Acetaminophen 650 mg Q6HP PRN PO 07/26/24 14:15 07/27/24 19:55 650 MG Morphine Sulfate 2 mg Q4HPRN PRN IV 07/26/24 14:15 Nitroglycerin 0.4 mg Q5MINP PRN SL 07/26/24 14:15 Morphine Sulfate 2 mg Q30M PRN IV 07/26/24 14:15 Atorvastatin Calcium 20 mg DAILY PO 07/27/24 10:00 07/28/24 09:37 20 MG Multivit/Ca Carb/ B Cmplx/FA/Prenat 1 tab DAILY PO 07/27/24 10:00 07/28/24 09:38 1 TAB Ergocalciferol 50,000 unit DAILY PO 07/27/24 10:00 07/28/24 09:38 50,000 UNIT Patient Own Medication 10 mg DAILY PO 07/27/24 10:00 UNV Patient Own Medication 20 mg DAILY PO 07/27/24 10:00 UNV Patient Own Medication 2 tab DAILY PO 07/27/24 10:00 UNV Losartan Potassium 50 mg DAILY PO 07/27/24 10:00 07/28/24 09:40 50 MG Piperacillin Sod/ Tazobactam Sod 100 ml @ 25 mls/hr Q8HR IV 07/26/24 22:00 07/28/24 05:19 25 MLS/HR Citalopram Hydrobromide 40 mg DAILY PO 07/27/24 10:00 07/28/24 09:37 40 MG Metoprolol Succinate 50 mg DAILY PO 07/27/24 10:00 07/28/24 09:38 50 MG Enoxaparin Sodium 30 mg DAILY SC 07/27/24 10:00 UNV Enoxaparin Sodium 40 mg HS SC 07/26/24 22:00 07/27/24 21:31 40 MG Furosemide 40 mg DAILY IV 07/27/24 10:00 07/28/24 09:37 40 MG Labetalol HCl 5 mg Q2HPRN PRN IV 07/27/24 12:15 07/27/24 13:26 5 MG Nifedipine 60 mg DAILY PO 07/28/24 10:00 07/28/24 09:38 60 MG objective Gen: NAD, AAOx3 HEENT: NC,AT Lungs: Crackles lung bases Cardiac: RRR, no murmur Abd: soft, no tenderness Ext: no edema Neuro: no focal deficits + Rt IJ TC laboratory and microbiology Laboratory Tests 07/28/24 06:54 07/27/24 06:15 Test 07/28/24 06:54 Range/Units Serum Glucose 199 H 74-106 mg/dL Assessment/Plan CKD stage IV history of Severe SUSY on advanced CKD requiring temporary hemodialysis via Rt IJ TC up until last week Sepsis Acute on chronic diastolic CHF Elevated troponin, serial measurement no uptrend Hypervolemic hyponatremia, mild DM type II HTN right toe amputation Plan: s/p removal of Tunneled CVC on 07/27/24 GFR stable f/u blood cultures . no growth so far Continue Lasix 40 mg IV daily continue Metoprolol succinate 50 mg PO daily, Nifedipine 60 mg daily, and Losartan 50 mg daily daily BMP Strict I&Os Plan discussed with: Patient, Other NAMAN REYES MD Jul 28, 2024 13:32
[2024-07-28] MEDS ORDERED: AUG875T PO (16:59)
[2024-07-28] MEDS ORDERED: NIFE1TAB30 PO (16:59)
--- NOTE | 2024-07-28 17:10 | DVHDS2 ---
Discharge Summary Date of Admission Jul 26, 2024 at 14:01 Date of Discharge: Jul 28, 2024 Labs/Diagnostic Data: Laboratory Results Test 07/28/24 06:54 07/27/24 06:15 07/26/24 21:30 07/26/24 14:34 Sodium Level 135 mmol/L (136-145) Potassium Level 5.0 mmol/L (3.5-5.1) Chloride Level 100 mmol/L (98-107) Carbon Dioxide Level 27 mmol/L (20-31) Anion Gap 8 (5-15) Blood Urea Nitrogen 54 mg/dL (9-23) Creatinine 3.11 mg/dL (0.700-1.30) Glomerular Filtration Rate Calc 24 mL/min (>90) BUN/Creatinine Ratio 17.4 (10.0-20.0) Serum Glucose 199 mg/dL (74-106) Calcium Level 8.7 mg/dL (8.7-10.4) White Blood Count 7.5 10^3/uL (4.4-10.8) Red Blood Count 4.12 10^6/uL (4.5-5.90) Hemoglobin 10.7 g/dL (13.5-17.5) Hematocrit 33.9 % (41.0-53.0) Mean Corpuscular Volume 82.1 fL (80.0-100.0) Mean Corpuscular Hemoglobin 26.0 pg (28.0-32.0) Mean Corpuscular Hemoglobin Concent 31.6 g/dL (32.0-36.0) Red Cell Distribution Width 16.0 % (11.8-14.3) Platelet Count 240 10^3/uL (140-450) Mean Platelet Volume 8.6 fL (6.9-10.8) Neutrophils (%) (Auto) 70.7 % (37.0-80.0) Lymphocytes (%) (Auto) 14.0 % (10.0-50.0) Monocytes (%) (Auto) 7.2 % (0.0-12.0) Eosinophils (%) (Auto) 7.1 % (0.0-7.0) Basophils (%) (Auto) 1.0 % (0.0-2.0) Neutrophils # (Auto) 5.3 10 ^3/uL (1.6-8.6) Lymphocytes # (Auto) 1.0 10 ^3/uL (0.4-5.4) Monocytes # (Auto) 0.5 10 ^3/uL (0-1.3) Eosinophils # (Auto) 0.5 10 ^3/uL (0-0.8) Basophils # (Auto) 0.1 10 ^3/uL (0-0.2) Nucleated Red Blood Cells 0.1 % Total Bilirubin 0.2 mg/dL (0.2-1.0) Aspartate Amino Transferase (AST) 19 U/L (13-40) Alanine Aminotransferase (ALT) 20 U/L (7-40) Alkaline Phosphatase 146 U/L (46-116) Total Protein 6.6 g/dL (5.7-8.2) Albumin 3.5 g/dL (3.2-4.8) Prothrombin Time 11.2 sec (9.3-11.8) Prothrombin Time INR 1.06 (0.9-1.15) Activated Partial Thromboplast Time 33.9 SEC (24.5-34.5) Troponin I High Sensitivity 235 ng/L (</=54) Test 07/26/24 11:15 07/26/24 11:00 D-Dimer, Quantitative 1.91 mg/L FEU (0.0-0.49) Lactic Acid Level 1.0 mmol/L (0.4-2.0) B-Type Natriuretic Peptide 720.01 pg/mL (0-100) Influenza Type A Antigen Negative (Negative) Influenza Type B Antigen Negative (Negative) SARS-CoV-2 Antigen (Rapid) Negative (NEGATIVE) Other Laboratory Tests 07/28/24 06:54 07/27/24 06:15 Brief Hx & Hospital Course: [id number] M with past medical history of hypertension, diabetes type 2, CKD, ESRD on HD (T//) with [facility], and right 4th and 5th digit amputation who presents to the ED with shortness of breath x1 week. Patient also reports nausea, fever, dizziness, and fatigue. Patient denies any chest pain, palpitations, recent trauma or injury, abdominal pain, vomiting, diarrhea, lightheadedness, or weakness. Upon examination patient is currently on 2 L nasal cannula and reports that he does not use home oxygen. Right upper chest still has a dialysis catheter. He states that he had it placed here 3 months ago. Patient also reports that his institutional asset manager told him that he no longer needs dialysis. Summary: Patient presented with shortness of breath for 1 week and fatigue dizziness nausea fever. On admit labs patient was noted to have creatinine 3.0 BUN 54, both high due to CKD. CBC shows stable normocytic microcytic anemia. Flu COVID swabs rapid negative. D-dimer elevated 1.9. BNP elevated at 720, troponins elevated at 284 and trending down. Lactic acid negative. Chest x-ray with pulmonary vascular congestion. Unable to do CTA for PE concern, patient was given NM V/Q scan which shows low probability for PE. PE ruled out. On exam patient appears to be volume overload, chest x-ray agreeing, BNP of green, troponin agreeing. Patient admitted for acute on chronic diastolic heart failure exacerbation. Patient also has fevers there is concern for possible infection. Patient has HD catheter is removed and blood culture obtained. On follow up blood cultures are negative but said for infection remains. While inpatient patient was given IV antibiotic Zosyn and we will need further antibiotics Augmentin after discharge. Patient was diuresed with Lasix 40 IV b.i.d. and appeared to be euvolemic on 07/28. Blood pressure control requiring change in medications as outlined below. On 07/28 patient was afebrile, vital signs stable, appears euvolemic, nauseous requirements, patient is stable for discharge as per plan below. Diagnosis: # Acute Hypoxic respiratory failure, ruled out pulmonary embolism # acute exacerbation of chronic diastolic heart failure, possible # Hypervolemic hyponatremia, mild # Hypertensive emergency # NSTEMI, likely type II in the setting of hypertensive urgency # History of severe SUSY on CKD4 required hemodialysis 3 times a week # Type 2 diabetes mellitus, hemoglobin A1c 6.8 on 05/17/2024 # infection from CVC HD catheter, possible # Sepsis ruled out # bacteremia ruled out # History of osteomyelitis and status post amputation of right 4th and 5th toes # Dyslipidemia # Morbid obesity Discharge plan: - take Augmentin 875 mg twice daily twice for 5 days Start Procardia 60 mg daily Stop amlodipine 10 mg, stop hydrochlorothiazide 25 mg, - continue other medications not mentioned above ( Lipitor, Klonopin, Plavix, Farxiga, escitalopram, losartan, metoprolol, ) - Follow up with PCP and Nephrology - continue diabetic, low-salt diet Condition at Discharge: Fair Final Diagnosis/Problems List # Acute Hypoxic respiratory failure, ruled out pulmonary embolism # acute exacerbation of chronic diastolic heart failure, possible # Hypervolemic hyponatremia, mild # Hypertensive emergency # NSTEMI, likely type II in the setting of hypertensive urgency # History of severe SUSY on CKD4 required hemodialysis 3 times a week # Type 2 diabetes mellitus, hemoglobin A1c 6.8 on 05/17/2024 # infection from CVC HD catheter, possible # Sepsis ruled out # bacteremia ruled out # History of osteomyelitis and status post amputation of right 4th and 5th toes # Dyslipidemia # Morbid obesity Discharge Disposition: Home Discharge Instruct/Medications Diet: Consistent carbohydrate, Cardiac 2g Na,low cholest Activity: No Restrictions, As Tolerated Follow Up/Referral: pcp, nephrology Medications: below Discharge Statement: "Patient was advised to return to the ER or call 911 if any headaches, dizziness, shortness of breath, chest pain, abdominal pain, bleeding, fevers, or worsening of medical condition. Patient was counseled about treatment plan, medications, possible side effects, patientverbalized understanding. All questions were answered to the best of my ability. This discharge took greater then 30 minutes in planning, reviewing documentation, counseling the patient, and discussing with other team members." Date of Service: Jul 28, 2024 Billing Provider: DYLAN OWENS MD Common Visit Codes: 42542-KCD/OBS DISCH DAY >30min DYLAN OWENS MD Jul 28, 2024 17:10
--- NOTE | 2024-07-29 00:07 | DVHPN2 ---
Progress Note - Dictate Date Seen: Jul 28, 2024 Medical Necessity Reason Pt with a Central, PICC or Fol: No Subjective Patient was seen and evaluated in follow up. Patient has no new complaints at this time. Patient denies any cardiac symptoms. Patient is cardiac stable for discharge. Telemetry reviewed. vital signs Vital Sign Date Time Temp Pulse Resp B/P (MAP) Pulse Ox O2 Delivery O2 Flow Rate FiO2 07/28/24 17:37 36.6 61 07/28/24 16:44 18 112/73 (86) 92 07/28/24 07:54 Nasal Cannula* 4 36 Total Intake and Output 07/27/24 07/27/24 07/28/24 15:00 23:00 07:00 Intake Total 1800 ml 235 ml Balance 1800 ml 235 ml medications Current Medications Medications Dose Ordered Sig/Jadon Route Start Time Stop Time Status Last Admin Dose Admin Patient Own Medication 10 mg DAILY PO 07/27/24 10:00 UNV Patient Own Medication 20 mg DAILY PO 07/27/24 10:00 UNV Patient Own Medication 2 tab DAILY PO 07/27/24 10:00 UNV Enoxaparin Sodium 30 mg DAILY SC 07/27/24 10:00 UNV objective GENERAL: Awake, alert, oriented. Morbid obesity. LUNGS: Clear. CARDIOVASCULAR: Heart sounds are good. ABDOMEN: Soft. laboratory and microbiology Laboratory Tests 07/28/24 06:54 07/27/24 06:15 Test 07/28/24 06:54 Range/Units Serum Glucose 199 H 74-106 mg/dL Problem List NSTEMI, likely type II in the setting of hypertensive urgency. Rule out RV strain. Dyslipidemia. Chronic kidney disease. Type 2 diabetes mellitus. Morbid obesity. Assessment/Plan Continued all current supportive medical care. Nifedipine, Losartan. Diuretics with Lasix. Lipitor, Metoprolol. IV antibiotics as ordered. [place] and Morphine for pain management. Additional plan as per the hospital course. Plan discussed with: Patient RAFFAELE FOUNTAIN MD Jul 28, 2024 18:28
--- NOTE | 2024-07-29 01:19 | DVHSR ---
APPROVED REPORT EXAM: LIMITED Two-dimensional and M-mode echocardiogram. Blood Pressure: 166/91 mmHg INDICATION SOB RISK FACTORS Obesity: Height: 5' 10", Weight: 266 DIMENSIONS LVDd4.8 (3.8-5.7cm)LA (2D)4.0 (1.9-4.0cm)Aortic Root (2.0-3.7cm) LVDs3.0 (2.5-4.0cm)LA (MM) (1.9-4.0cm)Aortic Cusp Exc (1.5-2.0cm) EF (%) 68.0 (55-70%)Rt. Atrium4.2 (1.9-4.0cm)Asc. Aorta cm IVSd1.0 (0.7-1.1cm)RV (D) (1.8-2.4cm) PWd0.9 (0.7-1.1cm) Mitral Valve MitralMitral Stenosis E/A ratio0.02D MVAcm2 Tricuspid Valve TR Velocity2.80m/s [id number] Other Information Quality : LimitedRhythm : Conclusion LV EJECTION FRACTION IS 65% NORMAL VALVES NORMAL RV FUNCTION NO EFFUSION
== END 2024-07-28 18:07 | disposition home or self-care (01) | DRG 721 ==
LOC: ER 10:48 → OVERFLOW 14:01 → TELE-WESTW 15:53
PROVIDERS: ADMIT Student in an Organized Health Care Education/Training Program; ATTEND Student in an Organized Health Care Education/Training Program
DX: T80.211A Bloodstream infection due to central venous catheter, initial encounter (principal); J96.01 Acute respiratory failure with hypoxia; I21.A1 Myocardial infarction type 2; I50.33 Acute on chronic diastolic (congestive) heart failure; E87.1 Hypo-osmolality and hyponatremia; E11.22 Type 2 diabetes mellitus with diabetic chronic kidney disease; D50.9 Iron deficiency anemia, unspecified; N17.9 Acute kidney failure, unspecified; E66.01 Morbid (severe) obesity due to excess calories; I13.2 Hypertensive heart and chronic kidney disease with heart failure and with stage 5 chronic kidney disease, or end stage renal disease; Z68.38 Body mass index [BMI] 38.0-38.9, adult; N18.6 End stage renal disease; E86.1 Hypovolemia; Y83.8 Other surgical procedures as the cause of abnormal reaction of the patient, or of later complication, without mention of misadventure at the time of the procedure; I16.1 Hypertensive emergency; E78.5 Hyperlipidemia, unspecified; I25.2 Old myocardial infarction; Z83.3 Family history of diabetes mellitus; Z82.49 Family history of ischemic heart disease and other diseases of the circulatory system; Z79.84 Long term (current) use of oral hypoglycemic drugs; Z79.02 Long term (current) use of antithrombotics/antiplatelets; Z99.2 Dependence on renal dialysis; Z79.899 Other long term (current) drug therapy
CPT/HCPCS: 36415; 71045; 78582; 80048; 80053; 83605; 83880; 84484; 85025; 85379; 85610; 85730; 86850; 86900; 86901; 87040; 87426; 87804; 93005; 93306; 96365; 96367; 96375; G0378; J2003; J2543

== ENCOUNTER 2024-08-24 01:12 | Inpatient (IN) | payer MEDICAID ==
[2024-08-24] VITALS (15 sets, daily range): BP systolic 137–155; BP diastolic 60–101; PULSE 80–98; RESP 13–39; TEMP 97.7–98.6; O2SAT 93–99
[~2024-08-24] VITALS: Ht 177.8 cm; Wt 127.1 kg
[~2024-08-24 01:12] MED LIST changes: -AMLO1TAB23 PO; +AUG875T PO; -HYDR25TA5 PO; -METO25TA93 PO; +NIFE1TAB30 PO
--- NOTE | 2024-08-24 01:42 | ECG ---
[facility] Test Date: 2024-08-24 Test Time: 01:28:53 Pat Name: JASPREET PRESLEY Department: ED Room: [address] [place] [address] Gender: M Silicator: SILKE : 1975 Requested By: PURVI RAMOS Order Number: [id number] Reading MD: Torrey Fairbanks Measurements Intervals [place] Rate: 86 P: 55 DC: 148 QRS: 90 QRSD: 114 T: 58 QT: 375 QTc: 449 Interpretive Statements Sinus rhythm Borderline intraventricular conduction delay Electronically Signed On 08-26-2024 20:27:14 PDT by Torrey Fairbanks Please click the below link to view image of tracing.
--- NOTE | 2024-08-24 02:04 | ED.PDOC ---
SOB-HPI HPI Comments 48-year-old male came to ER due to shortness of breath. Patient does have history of hypertension, diabetes, LA, and CHF. Patient used to be on dialysis for 3 months but was discontinued 2 weeks ago. Patient was admitted here a month ago, for acute respiratory failure, CHF exacerbation. Patient states for the past week, he has been having shortness of breath progressively worsening, worsening bipedal edema, and orthopnea. Denies any acute chest pains. Patient was saturating 88% on room air upon arrival, with a blood pressure of 187/94 mm Hg Chief Complaint: Shortness of Breath Time Seen by MD: 02:04 Primary Care Provider: LEONCIO Reviewed notes: Nurses Notes Information Source: Patient Mode of Arrival: Wheelchair Severity: Moderate Timing: Days Duration: Since onset Context: At Rest, With Light Exertion History of: CHF Prehospital treatment: Oxygen Modifying Factors: Nothing Associated Signs and Symptoms: Leg Swelling Past Medical History PAST MEDICAL HISTORY: CHF, DM, HTN, LA Surgical History: Denies all surgeries Family History Family History: Reviewed,noncontributory to illness Social History Smoker: Non-Smoker Alcohol: Denies ETOH Use Drugs: Denies Drug Use Lives In: Home Constitutional: denies: chills, diaphoresis, fatigue, fever, malaise, sweats, weakness, others EENTM: denies: blurred vision, double vision, ear bleeding, ear discharge, ear drainage, ear pain, ear ringing, eye pain, eye redness, hearing loss, mouth pain, mouth swelling, nasal discharge, nose bleeding, nose congestion, nose pain, photophobia, tearing, throat pain, throat swelling, voice changes, others Respiratory: reports: orthopnea, SOB at rest, shortness of breath, SOB with excertion; denies: cough, hemoptysis, stridor, wheezing, others Cardiovascular: reports: edema; denies: chest pain, dizzy spells, diaphoresis, Dyspnea on exertion, irregular heart beat, left arm pain, lightheadedness, palpitations, PND, syncope, others Gastrointestinal: denies: abdomen distended, abdominal pain, blood streaked bowels, constipated, diarrhea, dysphagia, difficulty swallowing, hematemesis, melena, nausea, poor appetite, poor fluid intake, rectal bleeding, rectal pain, vomiting, others Genitourinary: denies: burning, dysuria, flank pain, frequency, hematuria, incontinence, penile discharge, penile sore, pain, testicle pain, testicle swelling, urgency, others Neurological: denies: dizziness, fainting, headache, left sided numbness, left sided weakness, numbness, paresthesia, pre-existing deficit, right sided numbness, right sided weakness, seizure, speech problems, tingling, tremors, weakness, others Musculoskeletal: denies: back pain, gout, joint pain, joint swelling, muscle pain, muscle stiffness, neck pain, others Integumetry: denies: bruises, change in color, change in hair/nails, dryness, laceration, lesions, lumps, rash, wounds, others Allergic/Immunocompromised: denies: Difficulty Healing, Frequent Infections, Hives, Itching, others Hematologic/Lymphatic: denies: anemia, blood clots, easy bleeding, easy bruising, swollen glands, others Endocrine: denies: excessive hunger, excessive sweating, excessive thirst, excessive urination, flushing, intolerance to cold, intolerance to heat, unexplained weight gain, unexplained weight loss, others Psychiatric: denies: anxiety, bipolar disorder, depression, hopeless, panic disorder, schizophrenia, sleepless, suicidal, others Physical Exam General Appearance: No Apparent Distress, Normal HEENT: Normal ENT Inspection, Pharynx Normal, TMs Normal Neck: Full Range of Motion, Non-Tender, Normal, Normal Inspection Respiratory: Chest Non-Tender, Lungs Clear, No Accessory Muscle Use, No Respiratory Distress, Normal Breath Sounds Cardiovascular: No Edema, No JVD, No Murmur, No Gallop, Normal Peripheral Pulses, Regular Rate/Rhythm Breast Exam: Deferred Gastrointestinal: No Organomegaly, Non Tender, No Pulsatile Mass, Normal Bowel Sounds, Soft Genitalia: Deferred Pelvic: Deferred Rectal: Deferred Extremities: No calf tenderness, Normal capillary refill, Normal inspection, Normal range of motion, Non-tender, No pedal edema Musculoskeletal : Apperance: Normal 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 Was a procedure done?: No Differential Dx Differential Diagnosis: Asthma, Bronchitis, CHF, Myocardial infarction, Pneumonia, Respiratory Distress X-Ray, Labs, Meds, VS Vital Signs Date Time Temp Pulse Resp B/P (MAP) Pulse Ox O2 Delivery O2 Flow Rate FiO2 08/24/24 02:13 89 36 93 Nasal Cannula* 4 36 08/24/24 02:13 98.6 89 36 190/93 (125) 93 98.6 08/24/24 02:11 190/97 08/24/24 02:10 190/97 08/24/24 01:28 86 08/24/24 01:27 97.9 89 22 187/94 (125) 88 97.9 08/24/24 01:27 88 Room Air* 0 21 Lab Test 08/24/24 03:08 08/24/24 02:45 08/24/24 01:53 08/24/24 01:24 Range/Units Blood Gas Specimen Type Arterial Blood Gas Sample Site Right radial Blood Gas Patient Temperature 37.0 Arterial Blood Date Drawn [id number] Arterial Blood pH 7.292 L 7.350-7.450 Arterial Blood Partial Pressure CO2 36.9 35.0-48.0 mmHg Arterial Blood Partial Pressure O2 76.4 L 83.0-108.0 mmHg Arterial Blood HCO3 17.4 L 21.0-28.0 mmol/L Arterial Blood Oxygen Saturation 94.0 94.0-98.0 % Arterial Blood Base Excess -8.4 L -2.0-3.0 mmol/L Arterial Blood Oxyhemoglobin 93.0 L 94.0-98.0 % Arterial Blood Carboxyhemoglobin 0.7 0.5-1.5 % Arterial Blood Methemoglobin 0.4 0.0-1.5 % Sheldon Test Yes Blood Gas Total Hemoglobin 11.80 L 13.5-17.5 g/dL Blood Gas Modality Nasal cannula FiO2 % 28.0 Troponin I High Sensitivity Pending 130 *H </=54 ng/L White Blood Count Pending Red Blood Count Pending Hemoglobin Pending Hematocrit Pending Mean Corpuscular Volume Pending Mean Corpuscular Hemoglobin Pending Mean Corpuscular Hemoglobin Concent Pending Red Cell Distribution Width Pending Platelet Count Pending Mean Platelet Volume Pending Neutrophils (%) (Auto) Pending Lymphocytes (%) (Auto) Pending Monocytes (%) (Auto) Pending Basophils (%) (Auto) Pending Neutrophils # (Auto) Pending Lymphocytes # (Auto) Pending Monocytes # (Auto) Pending Prothrombin Time Pending Prothrombin Time INR Pending Activated Partial Thromboplast Time Pending Sodium Level 139 136-145 mmol/L Potassium Level 6.5 *H 3.5-5.1 mmol/L Chloride Level 111 H 98-107 mmol/L Carbon Dioxide Level 20 20-31 mmol/L Anion Gap 8 5-15 Blood Urea Nitrogen 81 *H 9-23 mg/dL Creatinine 3.34 H 0.700-1.30 mg/dL Glomerular Filtration Rate Calc 22 >90 mL/min BUN/Creatinine Ratio 24.3 H 10.0-20.0 Serum Glucose 117 H 74-106 mg/dL Calcium Level 9.0 8.7-10.4 mg/dL Total Bilirubin 0.2 0.2-1.0 mg/dL Aspartate Amino Transferase (AST) 18 13-40 U/L Alanine Aminotransferase (ALT) 27 7-40 U/L Alkaline Phosphatase 185 H 46-116 U/L B-Type Natriuretic Peptide Pending Total Protein 7.3 5.7-8.2 g/dL Albumin 4.3 3.2-4.8 g/dL POC Glucose 127 H 70-106 mg/dl Current Medications Medications (Trade) Dose Ordered Sig/Jadon Route Start Time Stop Time Status Last Admin Furosemide (Lasix Injection) 40 mg ONCE ONCE IV 08/24/24 01:45 08/24/24 01:46 DC 08/24/24 02:10 Nitroglycerin (Nitro-Bid) 1 pkg ONCE ONCE TD 08/24/24 02:00 08/24/24 02:01 DC 08/24/24 02:11 Time of 1ST Reevaluation: 01:51 Reevaluation 1ST: Unchanged Patient Education/Counseling: Diagnosis, Treatment Family Education/Counseling: No Family Present Departure 1 Departure Time of Disposition: 03:22 Impression: Primary Impression: Acute renal failure Additional Impressions: Elevated troponin CHF (congestive heart failure) Disposition: 09 ADMITTED INPATIENT Admit to: [facility] Condition: Guarded Comments Acute CHF Exacerbation with Renal Failure Chief Complaint: Bilateral leg swelling, shortness of breath History of Present Illness: 48-year-old male with known history of chronic kidney disease and congestive heart failure presents with worsening bilateral lower extremity edema over the past 1-2 weeks. Patient reports progressive symptoms including orthopnea and paroxysmal nocturnal dyspnea for the last two days. These symptoms are consistent with acute exacerbation of his congestive heart failure. Review of Systems: Cardiovascular: Positive for orthopnea, paroxysmal nocturnal dyspnea Respiratory: Positive for shortness of breath, increased work of breathing Extremities: Positive for bilateral leg swelling All other systems reviewed and negative Medications: No current medications documented Allergies: No known allergies documented Past Medical History: 1. Chronic kidney disease 2. Congestive heart failure Physical Exam: General: Increased work of breathing Cardiovascular: Decreased blood pressure Respiratory: Decreased breath sounds bilaterally Extremities: Bilateral lower extremity edema present Lab Results: CBC: Unremarkable BUN: 130 Creatinine: 3.34 (elevated from baseline of 1.8) Potassium: 6.5 (elevated) Troponin: Elevated at 130 Imaging and Other Relevant Results: Chest X-ray: Increased pulmonary vascular congestion consistent with CHF Medical Decision Making: Summary Statement: 48-year-old male with history of CHF and CKD presenting with volume overload, acute kidney injury, and hyperkalemia requiring admission. Problem List: 1. Acute on chronic heart failure exacerbation 2. Acute kidney injury 3. Hyperkalemia 4. Elevated troponin Differential Diagnosis: 1. CHF exacerbation 2. Cardiorenal syndrome 3. Acute coronary syndrome 4. Volume overload due to renal failure ED Course: Patient presents with clear evidence of volume overload and cardiopulmonary compromise. Labs reveal significant renal dysfunction and dangerous hyperkalemia requiring immediate attention. Decision made to admit for intensive management. Assessment and Plan: 1. Acute on Chronic Heart Failure Exacerbation: - Admit to hospital for aggressive diuresis - Continue cardiac monitoring - Serial troponin measurements 2. Acute Kidney Injury: - Nephrology consultation - Monitor fluid status and urine output - Trending of renal function 3. Hyperkalemia (K 6.5): - Immediate treatment with calcium gluconate, insulin/glucose, and sodium bicarbonate as needed - Serial potassium monitoring Billing Information: ICD-10: I50.23 - Acute on chronic systolic (congestive) heart failure ICD-10: N17.9 - Acute kidney failure, unspecified ICD-10: E87.5 - Hyperkalemia Critical Care Note Critical Care Time?: Yes (45 min-critical care time only) Critical care comment: Shortness of breath Total critical care time: Approximately 36 minutes Due to a high probability of clinically significant, life threatening deterioration, the patient required my highest level of preparedness to inter vene emergently and I personally spent this critical care time directly and personally managing the patient. This critical care time included obtaining a history; examining the patient; pulse oximetry; ordering and review of studies; arranging urgent treatment with development of a management plan; evaluation of patient's response to treatment; frequent reassessment; and, discussions with other providers. This critical care time was performed to assess and manage the high probability of imminent, life-threatening deterioration that could result in multi-organ failure. It was exclusive of separately billable procedures and treating other patients. Stability Stability form required: No Heart Score Heart Score: Heart Score Response (Comments) Value History Moderate Suspicious 1 EKG Repolarization Disturb 1 Age 45-64 1 Risk Factors >3 or Hx ASHD 2 Troponin Normal limit 0 Total 5 I personally scribed for PURVI RAMOS MD ([email or web address]) on 08/24/24 at 02:04. Electronically submitted by Abdirizak Bowen ([facility]). I personally scribed for PURVI RAMOS MD ([email or web address]) on 08/24/24 at 02:05. Electronically submitted by Abdirizak Bowen ([facility]). PURVI RAMOS MD Aug 24, 2024 02:04
[2024-08-24] MEDS: FUROSEMIDE 40 MG/4 ML VIAL IV ONE ×4 (02:10→23:12)
[2024-08-24] MEDS: NITROGLYCERIN 2% OINT 1GM PKG TD ONE (02:11)
--- NOTE | 2024-08-24 02:51 | DVH ---
CHEST RADIOGRAPH Indication: SOB Technique: Single frontal view of the chest was obtained COMPARISON: XY CHEST PORTABLE on DOS: 07/26/24, XY CHEST XRAY 1 VIEW on DOS: 05/30/24, XY CHEST XRAY 1 VIEW on DOS: 05/16/24, XY CHEST PORTABLE on DOS: 05/16/24, XY CHEST PORTABLE on DOS: 03/12/24 FINDINGS: Lines and Tubes: None Lungs: Diffuse increased prominence of the pulmonary vasculature. Probable small bilateral pleural ef fusions, [id number]. No pneumothorax. Cardiomediastinal contours: Heart within the upper limits of normal in size. Bones: Unremarkable IMPRESSION: 1. Diffuse increased prominence of the pulmonary vasculature and probable small bilateral pleural eff usions, [id number].
[2024-08-24 03:07] LABS: Alanine Aminotransferase 27 U/L (7-40); Albumin 4.3 g/dL (3.2-4.8); Anion Gap 8 (5-15); Aspartate Aminotransferase 18 U/L (13-40); BUN/Creatinine Ratio 24.3 (10.0-20.0); Sodium 139 mmol/L (136-145); Total Protein 7.3 g/dL (5.7-8.2)
[2024-08-24 03:15] LABS: Base Excess -8.4 mmol/L (-2.0-3.0)
[2024-08-24 03:16] LABS: Basophils # (auto) 0.1 10 ^3/uL (0-0.2); Basophils % (auto) 1.3 % (0.0-2.0); Eosinophils # (auto) 0.6 10 ^3/uL (0-0.8); Lymphocytes # (auto) 1.2 10 ^3/uL (0.4-5.4); Monocytes # (auto) 0.4 10 ^3/uL (0-1.3); Neutrophils # (auto) 4.1 10 ^3/uL (1.6-8.6); Neutrophils % (auto) 64.2 % (37.0-80.0); Nucleated Red Blood Cells % 0.1 %; Platelet Count (auto) 242 10^3/uL (140-450)
[2024-08-24 03:18] LABS: Alkaline Phosphatase 185 U/L (46-116); Bilirubin, Total 0.2 mg/dL (0.2-1.0); Carbon Dioxide 20 mmol/L (20-31); Chloride 111 mmol/L (98-107); Glucose 117 mg/dL (74-106)
[2024-08-24 03:19] LABS: Blood Urea Nitrogen 81 mg/dL (9-23); Potassium 6.5 mmol/L (3.5-5.1)
[2024-08-24 03:20] LABS: Eosinophils % (auto) 9.4 % (0.0-7.0); Hematocrit 34.8 % (41.0-53.0); Lymphocytes % (auto) 18.7 % (10.0-50.0); Mean Corpuscular Hemoglobin 25.4 pg (28.0-32.0); Mean Corpuscular Hgb Conc. 31.7 g/dL (32.0-36.0); Mean Corpuscular Volume 80.1 fL (80.0-100.0); Monocytes % (auto) 6.4 % (0.0-12.0); Red Blood Cells 4.35 10^6/uL (4.5-5.90); Red Cell Distribution Width 18.5 % (11.8-14.3); White Blood Cell 6.4 10^3/uL (4.4-10.8)
[2024-08-24 03:34] LABS: INR 0.96 (0.9-1.15); Partial Thromboplastin Time 31.3 SEC (24.5-34.5); Prothrombin Time 10.2 sec (9.3-11.8)
[2024-08-24] MEDS: SODIUM ZIRCONIUM CYCL 10 GM PAK PO ONE ×3 (03:42→08:37)
[2024-08-24] MEDS ORDERED: NITROGLYCERIN 0.4 MG SL TAB SL PRN (04:00)
[2024-08-24] MEDS ORDERED: MORPHINE SULFATE INJ 2 MG/ml SYRG IV PRN (04:00)
[2024-08-24] MEDS ORDERED: DOCUSATE SOD 100 MG CAP PO PRN (04:00)
[2024-08-24] MEDS ORDERED: ONDANSETRON HCL 4 MG/2 ML VIAL IV PRN (04:00)
--- NOTE | 2024-08-24 04:02 | DVHHPRES ---
History of Present Illness Resident Creating Document: CELSO ZHANG History of Present Illness Moise Matamoros is a 48 year old male patient who presents to the ED with chief complaint of progressive dyspnea from functional class II to functional class IV eight days before his admission, associated with bilateral lower limb swelling. Patient reports last hemodialysis session was approximately three weeks ago, he was taken off of dialysis since his kidneys had recovered previously. He was only on hemodialysis for three months. Patient recently admitted due to CHF, he has been compliant with his medication including Lasix. Upon arrival to ED patient was found hypertensive ([id number]'s). Denies fever, chills, palpitation, syncope, chest pain, nausea, vomiting, diarrhea, bleeding, recent travel, sick contacts and motor or sensory deficits. 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 Surgical history: 04/2024 PCI with 1 SALMA, right foot 5th toe amputation, right ankle surgery, incision and drainage of testicular abscess Family history: Father had heart disease Social history: Lives in [place] with family (next of kin is sister). Oc casionally smokes marijuana. Denies current tobacco, alcohol and other drug abuse Allergies: Denies Home medication: Does not recall. Per EMR escitalopram 10 mg p.o. daily, Plavix 75 mg p.o. daily, atorvastatin 20 mg p.o. daily, dapagliflozin 10 mg p.o. daily, nifedipine, metoprolol, losartan 25 mg p.o. daily Patient seen and examined at bedside. Presents currently less dyspnea, still complains of lower limb extremity swelling. Patient responded to hypertensive emergency with nitroglycerin patch, nitroglycerin drip sounds standby. Past Medical History Per HPI Past Surgical History Per HPI Family History Per HPI Past Social History Per HPI Review of Systems Review of Systems Per HPI Allergies: Coded Allergies: NO KNOWN ALLERGIES (Unverified , 07/21/23) Exam Vital Signs Vital Signs Date Time Temp Pulse Resp B/P (MAP) Pulse Ox O2 Delivery O2 Flow Rate FiO2 08/24/24 03:23 157/99 08/24/24 02:13 89 36 93 Nasal Cannula* 4 36 08/24/24 02:13 98.6 98.6 Exam Patient lying in bed, in no acute distress General: Lucid, afebrile, mucosae are moist Cardiovascular: Normal S1 and S2. No murmurs, gallops or rubs Respiratory: Regular ventilation mechanics, tachypneic. Bibasilar crackles, scattered expiratory wheezing, rest of auscultation clear Abdomen: Soft, nontender, no organomegaly, normal bowel sounds MSK/skin: Mobilizes 4 limbs. Skin is dry and warm. Bilateral suprapatellar pitting edema plus two Neurological: Oriented in 3 spheres. No motor no sensitive deficits. Pupils are isocoric and reactive Labs/Xrays Labs Test 08/24/24 03:08 08/24/24 02:45 08/24/24 01:53 08/24/24 01:24 Range/Units Blood Gas Specimen Type Arterial Blood Gas Sample Site Right radial Blood Gas Patient Temperature 37.0 Arterial Blood Date Drawn [id number] Arterial Blood pH 7.292 L 7.350-7.450 Arterial Blood Partial Pressure CO2 36.9 35.0-48.0 mmHg Arterial Blood Partial Pressure O2 76.4 L 83.0-108.0 mmHg Arterial Blood HCO3 17.4 L 21.0-28.0 mmol/L Arterial Blood Oxygen Saturation 94.0 94.0-98.0 % Arterial Blood Base Excess -8.4 L -2.0-3.0 mmol/L Arterial Blood Oxyhemoglobin 93.0 L 94.0-98.0 % Arterial Blood Carboxyhemoglobin 0.7 0.5-1.5 % Arterial Blood Methemoglobin 0.4 0.0-1.5 % Sheldon Test Yes Blood Gas Total Hemoglobin 11.80 L 13.5-17.5 g/dL Blood Gas Modality Nasal cannula FiO2 % 28.0 Troponin I High Sensitivity 131 *H </=54 ng/L White Blood Count 6.4 4.4-10.8 10^3/uL Red Blood Count 4.35 L 4.5-5.90 10^6/uL Hemoglobin 11.0 L 13.5-17.5 g/dL Hematocrit 34.8 L 41.0-53.0 % Mean Corpuscular Volume 80.1 80.0-100.0 fL Mean Corpuscular Hemoglobin 25.4 L 28.0-32.0 pg Mean Corpuscular Hemoglobin Concent 31.7 L 32.0-36.0 g/dL Red Cell Distribution Width 18.5 H 11.8-14.3 % Platelet Count 242 140-450 10^3/uL Mean Platelet Volume 9.5 6.9-10.8 fL Neutrophils (%) (Auto) 64.2 37.0-80.0 % Lymphocytes (%) (Auto) 18.7 10.0-50.0 % Monocytes (%) (Auto) 6.4 0.0-12.0 % Eosinophils (%) (Auto) 9.4 H 0.0-7.0 % Basophils (%) (Auto) 1.3 0.0-2.0 % Neutrophils # (Auto) 4.1 1.6-8.6 10 ^3/uL Lymphocytes # (Auto) 1.2 0.4-5.4 10 ^3/uL Monocytes # (Auto) 0.4 0-1.3 10 ^3/uL Eosinophils # (Auto) 0.6 0-0.8 10 ^3/uL Basophils # (Auto) 0.1 0-0.2 10 ^3/uL Nucleated Red Blood Cells 0.1 % Prothrombin Time 10.2 9.3-11.8 sec Prothrombin Time INR 0.96 0.9-1.15 Activated Partial Thromboplast Time 31.3 24.5-34.5 SEC Sodium Level 139 136-145 mmol/L Potassium Level 6.5 *H 3.5-5.1 mmol/L Chloride Level 111 H 98-107 mmol/L Carbon Dioxide Level 20 20-31 mmol/L Anion Gap 8 5-15 Blood Urea Nitrogen 81 *H 9-23 mg/dL Creatinine 3.34 H 0.700-1.30 mg/dL Glomerular Filtration Rate Calc 22 >90 mL/min BUN/Creatinine Ratio 24.3 H 10.0-20.0 Serum Glucose 117 H 74-106 mg/dL Calcium Level 9.0 8.7-10.4 mg/dL Total Bilirubin 0.2 0.2-1.0 mg/dL Aspartate Amino Transferase (AST) 18 13-40 U/L Alanine Aminotransferase (ALT) 27 7-40 U/L Alkaline Phosphatase 185 H 46-116 U/L B-Type Natriuretic Peptide 448.43 0-100 pg/mL Total Protein 7.3 5.7-8.2 g/dL Albumin 4.3 3.2-4.8 g/dL POC Glucose 127 H 70-106 mg/dl Assessment/Plan Assessment/Plan Assessment: Acute respiratory failure due to fluid overload Hypertensive emergency Cardiorenal syndrome type 3 Acute on chronic diastolic congestive heart failure (HFpEF, LVEF 65% on 06/2024) SUSY hemodynamically mediated (VMN) on CKD - questionable ESRD (off hemodialysis for three weeks) Severe Hyperkalemia NSTEMI probable type 2 due to above Metabolic acidosis with normal anion gap Coronary artery disease with history of SC - status post PCI with 1 SALMA on 04/2024 Diabetes-controlled (hemoglobin A1c: 6.8% on 05/2024) History of diabetic foot status post amputation Anxiety Obesity Plan: Patient required IV diuretics, bronchodilators and oxygen therapy, improving his respiratory status. Ordered swabs, unlikely pneumonia. Ordered Hyperkalemia treatment. EKG shows sinus rhythm with flattened T-waves, indicated calcium gluconate. Consulted nephrology (Dr. Archer). Patient was recently discontinued from hemodialysis, but is currently with fluid overload and hyperkalemia. Patient may require hemodialysis once again. Optimize afterload. Continue with antihypertensive medication accept ARB, nitroglycerin drips on standby. Patient was only on clopidogrel and atorvastatin. Added aspirin since patient recently completed PCI with placement of one SALMA on April 2024. Goals of care discussed with patient for over 18 minutes: Full code status Discussed plan with Dr. Max, patient and nurses: Patient currently on IV diuretics, hyperkalemia protocol, oxygen therapy, bronchodilators. Consulted Nephrology since patient may benefit from hemodialysis he becomes refractory to medical treatment. Patient has poor prognosis. Plan discussed with: Patient, Other (Nurses) My Orders Orders - CELSO ZHANG Procedure Category Date Status Time Admit ADMIT 08/24/24 Transmitted 03:51 Code Status CODE 08/24/24 Transmitted 03:51 Vital Signs SHAHZAD 08/24/24 In Process 03:51 Review Orders With SHAHZAD 08/24/24 In Process . 03:51 Npo (Nothing By DIET 08/24/24 Transmitted Mouth) Diet Breakfast Docusate Sodium PHA 08/24/24 In Process Capsule (Colace 04:00 Notify Md Of Changes SHAHZAD 08/24/24 In Process From Base 03:51 Advance Directive SHAHZAD 08/24/24 In Process 03:51 Echo 2d Mode Cardiac US 08/24/24 Logged DOP 03:51 Patient Condition ORDERS 08/24/24 Transmitted 03:51 Allergies SHAHZAD 08/24/24 In Process 03:51 Ondansetron Hcl PHA 08/24/24 In Process (Zofran) 04:00 Morphine Sulfate PHA 08/24/24 In Process Injection 04:00 Nitroglycerin PHA 08/24/24 In Process Sublingual (Ntrostat 04:00 Morphine Sulfate PHA 08/24/24 In Process Injection 04:00 Oxygen By Nasal RT 08/24/24 Transmitted Cannula 03:51 Stat Ekg For Chest SHAHZAD 08/24/24 In Process Pain 03:51 Notify Md Of Changes SHAHZAD 08/24/24 In Process From Base 03:51 [employer] For SHAHZAD 08/24/24 In Process 24 Hours 03:51 Emergency Dysrhythmia SHAHZAD 08/24/24 In Process Protocol 03:51 Rhythm Strips Once SHAHZAD 08/24/24 In Process Every Shift 03:51 Electrocardigram EKG 08/24/24 Logged 03:51 Potassium LAB 08/24/24 Logged 07:51 Insulin R (Human) PHA 08/24/24 In Process (Insulin R) 04:00 Dextrose 50% Syringe PHA 08/24/24 In Process 04:00 Albuterol Medneb PHA 08/24/24 In Process (Ventolin Medneb) 04:00 Sodium Bicarb PHA 08/24/24 In Process 50meq/50ml Syr 04:00 Furosemide Injection PHA 08/24/24 In Process (Lasix Injection) 04:00 Calcium Gluc PHA 08/24/24 Logged 1,000mg/50ml-Ns 04:00 Sodium Zirconium PHA 08/24/24 Logged Cyclosilicate 04:00 Vitamin D, 25-Hydroxy LAB 08/24/24 Logged 03:51 Vitamin B12 LAB 08/24/24 Logged 03:51 Urinalysis LAB 08/24/24 Logged 03:51 Thyroid Stimulating LAB 08/24/24 Logged Hormone 03:51 Phosphorus LAB 08/24/24 Logged 03:51 Lipid Panel LAB 08/24/24 Logged 03:51 Magnesium LAB 08/24/24 Logged 03:51 Lactic Acid W/ Reflex LAB 08/24/24 Logged Order 03:51 Hemoglobin A1c LAB 08/24/24 Logged 03:51 Drug Screen LAB 08/24/24 Logged 03:51 Nitroglycerin PHA 08/24/24 Logged 50mg/250ml (Tridil) 04:00 *Dr. Gianni Waller CONS 08/24/24 Transmitted -[place] 03:59 Atorvastatin (Lipitor) PHA 08/24/24 Transmitted 10:00 B-Complex W/ C & PHA 08/24/24 Transmitted Folic Tablet 10:00 Clopidogrel Bisulfate PHA 08/24/24 Transmitted (Plavix) 10:00 Ergocalciferol PHA 08/24/24 Transmitted (Vitamin D 50,000 04:00 Metoprolol Xl PHA 08/24/24 Transmitted Succinate (Toprol Xl) 10:00 (Nf) Escitalopram PHA 08/24/24 Transmitted Oxalate 10:00 (Nf) Nifedipine PHA 08/24/24 Transmitted (Nifedipine Er) 10:00 Date of Service: Aug 24, 2024 Billing Provider: MONCHO MAX MD Common Visit Codes: [id number] INP/OBS CARE (HIGH) CELSO ZHANG RESIDENT Aug 24, 2024 04:02 MONCHO MAX MD Aug 24, 2024 11:47
[2024-08-24] MEDS: ALBUTEROL SULF 2.5 MG/0.5ML(0.5%) NEB SOLN NEB ONE ×2 (04:11→23:09)
[2024-08-24] MEDS: CALCIUM GLUC 1,000mg/50ml-NS 50 ML IV ONE ×2 (04:29→23:13)
[2024-08-24] MEDS: SODIUM BICARB 8.4% 50Meq/50ml SYR INJ IV ONE ×2 (04:29→23:12)
[2024-08-24] MEDS: DEXTROSE (50%) 50ML SYRG IV ONE ×3 (04:29→23:12)
[2024-08-24] MEDS: InsuLIN REG 1unit/0.01ml Soln (100units/ml) IV ONE ×3 (04:29→23:24)
[2024-08-24] MEDS: NITROGLYCERIN 50MG/250ML 250 ML IV ONE (04:30)
[2024-08-24] MEDS: FUROSEMIDE 20 MG/2 ML VIAL IV ONE (04:30)
[2024-08-24] MEDS: PANTOPRAZOLE 40 MG/10 ML VIAL INJ IV ONE (04:41)
[2024-08-24] MEDS: ALBUTEROL SULF 2.5 MG/0.5ML(0.5%) NEB SOLN ONE (05:29)
[2024-08-24] MEDS: IPRATROPIUM BROM 0.5 MG/2.5ML INH SOL NEB SCH (05:44)
[2024-08-24] MEDS: LEVALBUTEROL HCL 1.25 MG/3 ML NEB NEB SCH (05:44)
[2024-08-24] MEDS: LEVALBUTEROL HCL 1.25 MG/3 ML NEB ONE (05:45)
[2024-08-24] MEDS: IPRATROPIUM BROM 0.5 MG/2.5ML INH SOL ONE (05:45)
[2024-08-24] MEDS: FUROSEMIDE 40 MG/4 ML VIAL IV SCH (05:49)
[2024-08-24 05:51] LABS: Basophils # (auto) 0.1 10 ^3/uL (0-0.2); Eosinophils # (auto) 0.6 10 ^3/uL (0-0.8); Eosinophils % (auto) 7.5 % (0.0-7.0); Mean Corpuscular Hemoglobin 25.3 pg (28.0-32.0); Mean Corpuscular Hgb Conc. 31.3 g/dL (32.0-36.0); Monocytes # (auto) 0.6 10 ^3/uL (0-1.3)
[2024-08-24 05:54] LABS: Basophils % (auto) 1.1 % (0.0-2.0); Hematocrit 33.9 % (41.0-53.0); Hemoglobin 10.6 g/dL (13.5-17.5); Lymphocytes # (auto) 1.9 10 ^3/uL (0.4-5.4); Lymphocytes % (auto) 24.5 % (10.0-50.0); Mean Corpuscular Volume 80.9 fL (80.0-100.0); Monocytes % (auto) 7.1 % (0.0-12.0); Neutrophils # (auto) 4.7 10 ^3/uL (1.6-8.6); Neutrophils % (auto) 59.8 % (37.0-80.0); Nucleated Red Blood Cells % 0.2 %; Platelet Count (auto) 201 10^3/uL (140-450); Red Blood Cells 4.19 10^6/uL (4.5-5.90); Red Cell Distribution Width 18.8 % (11.8-14.3); White Blood Cell 7.9 10^3/uL (4.4-10.8)
[2024-08-24 06:05] LABS: Alanine Aminotransferase 26 U/L (7-40); Albumin 4.1 g/dL (3.2-4.8); Anion Gap 11 (5-15); Aspartate Aminotransferase 18 U/L (13-40); BUN/Creatinine Ratio 24.4 (10.0-20.0); Calcium 8.8 mg/dL (8.7-10.4); Cholesterol 121 mg/dL (< 200); LDL Cholesterol 63 mg/dL (< 100); Magnesium 2.3 mg/dL (1.6-2.6); Sodium 141 mmol/L (136-145); Total Protein 6.9 g/dL (5.7-8.2); Triglycerides 146 mg/dL (< 150)
[2024-08-24 06:17] LABS: Alkaline Phosphatase 175 U/L (46-116); Bilirubin, Total 0.2 mg/dL (0.2-1.0); Blood Urea Nitrogen 77 mg/dL (9-23); Carbon Dioxide 18 mmol/L (20-31); Chloride 112 mmol/L (98-107); Glucose 122 mg/dL (74-106); HDL Cholesterol 34 mg/dL (40-59); Phosphorus 5.4 mg/dL (2.4-5.1)
[2024-08-24 06:18] LABS: Potassium 5.6 mmol/L (3.5-5.1)
[2024-08-24 07:22] LABS: Platelet Estimate Adequate
[2024-08-24 08:53] LABS: Urine Bacteria None Seen /hpf (None Seen)
[2024-08-24 09:10] LABS: Base Excess -7.5 mmol/L (-2.0-3.0)
[2024-08-24 09:15] LABS: Amphetamine Screen, Urine Neg (NEGATIVE); Barbiturate Scree,Urine Neg (NEGATIVE); Benzodiazephine Screen, Urine Neg (NEGATIVE); Cannabinoid Screen, Urine Neg (NEGATIVE); Cocaine Screen, Urine Neg (NEGATIVE); Opiate Scree,Urine Neg (NEGATIVE); Phencyclidine Screen, Urine Neg (NEGATIVE)
[2024-08-24 09:16] LABS: Urine Blood TRACE /uL (Negative); Urine Clarity Clear (Clear); Urine Color Colorless (Yellow); Urine Mucus FEW (None Seen); Urine Protein, UAD 2+ (Negative); Urine Squamous Epithelial Cell FEW /hpf (<5); Urine Urobilinogen Normal (Negative); Urine WBC 1 /HPF (0-3); Urine pH 5.5 (5.0-9.0)
[2024-08-24] MEDS: CLOPIDOGREL BISULFATE 75 MG TAB PO SCH (10:34)
[2024-08-24] MEDS: ASPirin 81 mg TAB PO SCH (10:35)
[2024-08-24] MEDS: METOPROLOL SUCCINATE XL 50 MG TAB PO SCH (10:35)
[2024-08-24] MEDS: ERGOCALCIFEROL 50,000 UNIT(1.25MG) CAP PO SCH (10:36)
[2024-08-24] MEDS: NIFEdipine ER 30 MG TAB PO SCH (10:36)
[2024-08-24] MEDS: HEPARIN SODIUM (PORCINE) 5000 UNITS/ML 1ML VIAL SC SCH (10:37)
[2024-08-24] MEDS: CITALOPRAM HYDROBR 20 MG TAB PO SCH (10:38)
[2024-08-24] MEDS: B-COMPLEX W/ C & FOLIC ACID(NEPHROVITE TAB) PO SCH (10:38)
[2024-08-24] MEDS: ATORVASTATIN 20 MG TAB PO SCH (10:38)
[2024-08-24 10:58] LABS: Protein, Urine 249.1 mg/dL (1-14)
[2024-08-24 11:01] LABS: Creatinine, Urine 38.19 mg/dL (30.0-125.0); Urine Protein/Creatinine Ratio 6.52
--- NOTE | 2024-08-24 11:14 | DVHPNRES ---
Progress Note Date Seen: Aug 24, 2024 Resident Creating Document: BRIAN STE RESIDENT Medical Necessity Reason Pt with a Central, PICC or Fol: No Subjective Review of Systems Patient is a 48 year old male patient who presents to the ED with chief complaint of progressive dyspnea from functional class II to functional class IV eight days before his admission, associated with bilateral lower limb swelling. Patient reports last hemodialysis session was approximately three weeks ago, he was taken off of dialysis since his kidneys had recovered previously. He was only on hemodialysis for three months. Patient recently admitted due to CHF, he has been compliant with his medication including Lasix. Upon arrival to ED patient was found hypertensive ([id number]). Denies fever, chills, palpitation, syncope, chest pain, nausea, vomiting, diarrhea, bleeding, recent travel, sick contacts and motor or sensory deficits. 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 Surgical history: 04/2024 PCI with 1 SALMA, right foot 5th toe amputation, right ankle surgery, incision and drainage of testicular abscess Family history: Father had heart disease Social history: Lives in [place] with family (next of kin is sister). Occasionally smokes marijuana. Denies current tobacco, alcohol and other drug abuse Allergies: Denies Home medication: Does not recall. Per EMR escitalopram 10 mg p.o. daily, Plavix 75 mg p.o. daily, atorvastatin 20 mg p.o. daily, dapagliflozin 10 mg p.o. daily, nifedipine, metoprolol, losartan 25 mg p.o. daily Review of systems Patient seen and examined at the bedside Patient using accessory muscles of breathing and has work of breathing, with increased respiratory rate around 23-26 Denies chest pain, cough, dysuria, headache, abdominal pain, diarrhea or constipation Objective vital signs Vital Sign Date Time Temp Pulse Resp B/P (MAP) Pulse Ox O2 Delivery O2 Flow Rate FiO2 08/24/24 10:36 145/79 08/24/24 10:35 93 08/24/24 09:31 26 94 08/24/24 08:09 Nasal Cannula* 3 32 08/24/24 07:30 97.5 97.5 medications Current Medications Medications Dose Ordered Sig/Jadon Route Start Time Stop Time Status Last Admin Dose Admin Ondansetron HCl 4 mg Q4HP PRN IV 08/24/24 04:00 Morphine Sulfate 2 mg Q4HPRN PRN IV 08/24/24 04:00 Nitroglycerin 0.4 mg Q5MINP PRN SL 08/24/24 04:00 Morphine Sulfate 2 mg Q30M PRN IV 08/24/24 04:00 Atorvastatin Calcium 20 mg DAILY PO 08/24/24 10:00 08/24/24 10:38 20 MG Multivit/Ca Carb/ B Cmplx/FA/Prenat 1 tab DAILY PO 08/24/24 10:00 08/24/24 10:38 1 TAB Clopidogrel Bisulfate 75 mg DAILY PO 08/24/24 10:00 08/24/24 10:34 75 MG Ergocalciferol 50,000 unit QWEEKLY PO 08/24/24 10:00 08/24/24 10:36 50,000 UNIT Metoprolol Succinate 50 mg DAILY PO 08/24/24 10:00 08/24/24 10:35 50 MG Citalopram Hydrobromide 40 mg DAILY PO 08/24/24 10:00 08/24/24 10:38 40 MG Nifedipine 60 mg DAILY PO 08/24/24 10:00 08/24/24 10:36 60 MG Aspirin 81 mg DAILY PO 08/24/24 10:00 08/24/24 10:35 81 MG Furosemide 40 mg TID IV 08/24/24 06:00 08/24/24 05:49 40 MG Heparin Sodium (Porcine) 5,000 units Q12HR SC 08/24/24 10:00 08/24/24 10:37 5,000 UNITS Ipratropium [place] 0.5 mg Q6HWA [facility] 08/24/24 06:00 08/24/24 05:44 0.5 MG Levalbuterol HCl 0.625 mg Q6HR NEB 08/24/24 06:00 08/24/24 05:44 0.625 MG Sodium Bicarbonate 650 mg TID PO 08/24/24 14:00 Examination Constitutional: Patient is alert and oriented to time, place and person and is in moderate respiratory distress with increased work of breathing and use of accessory muscles with respiratory rate more than 22 per minute Gen - no pallor, no icterus, no cyanosis, no clubbing, no LAD Skin - Patients skin is warm and dry, HEENT - normocephalic, atraumatic, moist mucous membranes, patient was decreased vision with the cataract in the right eye Neck - full ROM, no LAD, JVD could not be assessed. Pulmonary - B/L diminished breath sounds with crackles/rales up to the middle 1/3 of bilateral lungs , no wheezing, no stridor cardiovascular - variable S1,S2 heard, no added sounds, no murmurs heard. capillary refill normal <2 secs. Extremities: Bilateral lower extremity edema 3+ up to the mid shins GI - soft, nontender abdomen. no hepatospleenomegaly. Bowel sounds normoactive Neurological - Patient is A/O X 3 . Bilateral upper extremity strength 5/5, bilateral lower extremity strength 5/5, no facial droop, normal speech, no tremor, no sensory deficiets. laboratory and microbiology Laboratory Tests 08/24/24 07:10 08/24/24 05:28 Test 08/24/24 05:28 Range/Units Serum Glucose 122 H 74-106 mg/dL Problem List/Assessment/Plan Problem List/Assessment/Plan Neurology Normal exam Respiratory Acute on chronic hypoxic respiratory failure likely due to fluid overload B/L Pleural effusion - ABG reviewed shows mixed respiratory and metabolic acidosis - chest x-ray shows bilateral pulmonary edema with left pleural effusion - on diuresis with bumex and metolazone - duo nebs q.6 hours - on oxygen via nasal cannula, maintain SpO2 more than 92% Cardiovascular Acute on chronic heart failure with preserved ejection fraction NSTEMI likely type 2 Coronary artery disease status post PCI with a 1 SALMA (04/2024) Hypertensive heart disease with heart failure Dyslipidemia - 12 lead ECG showed sinus rhythm, troponins elevated 130-150 - echo 07/24 shows LVEF 65%, normal valves, normal RV function, no effusion - elevated BNP - DAPT and atorvastatin - nifedipine 60 mg daily, carvedilol 6.25 mg b.i.d. 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 ESRD, improved , was previously on hemodialysis Hyperkalemia Hyperphosphatemia Hyperparathyroidism likely secondary to ckd Vitamin D deficiency - BUN increased but creatinine improving - FENa 6% - urine microalbumin and total protein elevated - on bumex and metolazone - nephrology on board - hyperkalemia protocol - strict I&O endocrinology Insulin-dependent type 2 diabetes mellitus Morbid obesity - HbA1c 7.5% - on mild insulin sliding scale - consistent carb diet DVT prophylaxis: Heparin PUD prophylaxis: Protonix Goals of care discussed with the patient for over 25 minutes. Full code Critical care time spent excluding procedures: 51 minutes Plan discussed with Dr. Sebastian Plan discussed with: Patient, Other (RN ( Lissette )) My Orders My Orders Orders - BRIAN TSE RESIDENT Procedure Category Date Status Time Abg W/ Co-Ox RT 08/24/24 Logged 08:43 Urine LAB 08/24/24 In Process Protein/Creatinine Urine Sodium LAB 08/24/24 In Process 10:09 Sodium Bicarb Tab PHA 08/24/24 In Process 14:00 Kidney US 08/24/24 Logged 10:09 BRIAN TSE RESIDENT Aug 24, 2024 11:14
[2024-08-24 12:03] LABS: Sodium 140 mmol/L (136-145)
[2024-08-24 12:04] LABS: Anion Gap 8 (5-15); Calcium 8.9 mg/dL (8.7-10.4); Carbon Dioxide 21 mmol/L (20-31)
[2024-08-24 12:07] LABS: Chloride 111 mmol/L (98-107); Potassium 5.5 mmol/L (3.5-5.1)
[2024-08-24 12:09] LABS: BUN/Creatinine Ratio 26.9 (10.0-20.0); Glucose 103 mg/dL (74-106)
[2024-08-24 12:11] LABS: Blood Urea Nitrogen 83 mg/dL (9-23)
[2024-08-24] MEDS: ATORVASTATIN 20 MG TAB PO ONE (13:24)
--- NOTE | 2024-08-24 13:32 | DVH ---
EXAM: US KIDNEY; DATE: 08/24/2024 11:06 AM HISTORY: CKD COMPARISON: US KIDNEY on DOS: 12/07/23, US KIDNEY on DOS: 07/21/23 TECHNIQUE: Real-time ultrasound performed utilizing grayscale and color techniques. FINDINGS: RIGHT KIDNEY: 13.6 cm in length. No hydronephrosis or nephrolithiasis. No suspicious lesions identi fied. LEFT KIDNEY: 13.3 cm in length. No hydronephrosis or nephrolithiasis. No suspicious lesions identif ied. BLADDER: No mural thickening or focal lesion. Postvoid volume was not obtained. The bilateral uretera l jets are not observed. OTHER: None. IMPRESSION: 1. No significant abnormality identified.
[2024-08-24] MEDS: SODIUM BICARBONATE 650 MG TAB PO SCH (14:09)
[2024-08-24] MEDS: PANTOPRAZOLE 40 MG TAB PO ONE (14:09)
[2024-08-24] MEDS: BUMETANIDE 2.5mg/10ml (0.25 mg/ml) INJ IV ONE (14:35)
[2024-08-24] MEDS ORDERED: DEXTROSE (50%) 50ML SYRG IV PRN (15:15)
[2024-08-24] MEDS: ACCU-CHEK COMFORT CURVE STRIP VI SCH (17:00)
[2024-08-24] MEDS: InsuLIN REG 1unit/0.01ml Soln (100units/ml) SC SCH (17:00)
[2024-08-24] MEDS: CARVEDILOL 3.125 MG TAB PO SCH (21:24)
[2024-08-24 21:47] LABS: Sodium 141 mmol/L (136-145)
[2024-08-24 21:48] LABS: Anion Gap 8 (5-15); Carbon Dioxide 23 mmol/L (20-31)
[2024-08-24 21:53] LABS: Glucose 99 mg/dL (74-106)
[2024-08-24 21:58] LABS: Chloride 110 mmol/L (98-107)
[2024-08-24 22:00] LABS: Blood Urea Nitrogen 80 mg/dL (9-23); Potassium 6.1 mmol/L (3.5-5.1)
[2024-08-24] MEDS ORDERED: CARVEDILOL 3.125 MG TAB PO SCH (22:00)
--- NOTE | 2024-08-24 22:06 | DVHINCON2 ---
DATE OF CONSULTATION: 08/24/2024 CONSULTING PHYSICIAN: Dr. Royal. REASON FOR CONSULTATION: Management of renal failure. HISTORY OF PRESENT ILLNESS: The patient is a 48-year-old gentleman who was on hemodialysis until recently. His dialysis treatments were discontinued about 3 weeks ago because a 24-hour urine collection showed that he had recovered enough renal function with a GFR above 20 mL/minute. The dialysis catheter was removed, but unfortunately, since this, he has not followed up with outpatient Nephrology and comes to the hospital complaining of worsening dyspnea and shortness of breath with worsening edema of the lower extremities. When he presented to the Emergency Room, he was mildly hyperkalemic and had obvious fluid overload, so he is being admitted for medical management. REVIEW OF SYSTEMS: He denies any chest pain. No nausea, vomiting, constipation, or diarrhea. No changes in appetite or weight. PAST MEDICAL HISTORY: Significant for longstanding hypertension, diabetes, cwtsk-ae-[id number] renal disease with recent discontinuation of hemodialysis. He has a history of congestive heart failure with diastolic dysfunction. Ejection fraction reportedly 65%. He also has a history of peripheral vascular disease. SOCIAL HISTORY: The patient denies smoking cigarettes or drinking alcohol. He occasionally smokes marijuana. FAMILY HISTORY: Significant for heart disease and diabetes. MEDICATIONS IN THE HOSPITAL: Include atorvastatin, carvedilol, sodium bicarbonate, aspirin, nifedipine, vitamin D, Plavix, albuterol, and furosemide. He also received medical treatment for the hyperkalemia. PHYSICAL EXAMINATION: VITAL SIGNS: Blood pressure is 160/70, heart rate 93, respirations 18, temperature 98.5. GENERAL: The patient is an adult gentleman who appears to be chronically ill, in no acute distress. Alert and oriented x 3. HEENT: Unremarkable. NECK: No jugular venous distention. No palpable thyroid or lymphadenopathy. LUNGS: Show bilateral crackles. CARDIOVASCULAR: Shows an S4 gallop, 2/6 systolic murmur. ABDOMEN: Soft, nontender. No organomegaly. EXTREMITIES: 2+ edema. NEUROLOGIC: Nonfocal. LABORATORY FINDINGS: Sodium 140, potassium 5.5 after treatment down to 5.2, bicarbonate 21, BUN 83, creatinine 3, hemoglobin 11. ASSESSMENT AND PLAN: * Chronic kidney disease stage IV. * Fluid overload. * Congestive heart failure. * Anemia of renal disease. * Diabetic nephropathy. * Hyperkalemia. The patient continue to have medical treatment of the hyperkalemia with dextrose insulin, calcium gluconate, oral potassium binders such as Veltassa or Lokelma, and there is no need for renal replacement therapy. I am going to start him on intravenous Bumex 3 mg every 12 hours and add metolazone 5 mg p.o. in the morning. We will have to carefully follow his intake and output of fluid with the use of nephrotoxic medications, daily check on his creatinine and electrolytes. Thank you for the consultation. MD ALEXIS Lopez/YARA TID: [id number] RECEIPT: [id number]
[2024-08-25] VITALS (36 sets, daily range): BP systolic 122–169; BP diastolic 56–100; PULSE 79–94; RESP 13–22; TEMP 97.6–98.1; O2SAT 89–98
[2024-08-25 03:22] LABS: Basophils # (auto) 0.1 10 ^3/uL (0-0.2); Hemoglobin 10.3 g/dL (13.5-17.5); Lymphocytes # (auto) 0.8 10 ^3/uL (0.4-5.4); Mean Corpuscular Hgb Conc. 31.6 g/dL (32.0-36.0); Monocytes # (auto) 0.4 10 ^3/uL (0-1.3); Nucleated Red Blood Cells % 0.1 %
[2024-08-25 03:24] LABS: Basophils % (auto) 1.1 % (0.0-2.0); Eosinophils # (auto) 0.3 10 ^3/uL (0-0.8); Eosinophils % (auto) 5.3 % (0.0-7.0); Hematocrit 32.6 % (41.0-53.0); Lymphocytes % (auto) 12.7 % (10.0-50.0); Mean Corpuscular Hemoglobin 25.3 pg (28.0-32.0); Monocytes % (auto) 6.2 % (0.0-12.0); Neutrophils # (auto) 4.9 10 ^3/uL (1.6-8.6); Neutrophils % (auto) 74.7 % (37.0-80.0); Platelet Count (auto) 227 10^3/uL (140-450); Red Blood Cells 4.08 10^6/uL (4.5-5.90); Red Cell Distribution Width 18.4 % (11.8-14.3); White Blood Cell 6.6 10^3/uL (4.4-10.8)
[2024-08-25 03:35] LABS: Sodium 140 mmol/L (136-145)
[2024-08-25 03:36] LABS: Anion Gap 7 (5-15); Carbon Dioxide 23 mmol/L (20-31)
[2024-08-25 03:37] LABS: Calcium 8.8 mg/dL (8.7-10.4)
[2024-08-25 03:41] LABS: BUN/Creatinine Ratio 24.9 (10.0-20.0)
[2024-08-25 03:42] LABS: Chloride 110 mmol/L (98-107); Glucose 116 mg/dL (74-106); Potassium 5.5 mmol/L (3.5-5.1)
[2024-08-25 03:44] LABS: Blood Urea Nitrogen 80 mg/dL (9-23)
[2024-08-25] MEDS: SODIUM ZIRCONIUM CYCL 10 GM PAK PO ONE (04:53)
[2024-08-25] MEDS: PANTOPRAZOLE 40 MG TAB PO SCH (04:54)
--- NOTE | 2024-08-25 05:41 | ECG ---
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
[2024-08-25 06:35] LABS: Anion Gap 7 (5-15); Carbon Dioxide 24 mmol/L (20-31); Sodium 141 mmol/L (136-145)
[2024-08-25 06:36] LABS: Calcium 8.8 mg/dL (8.7-10.4)
[2024-08-25 06:41] LABS: BUN/Creatinine Ratio 25.3 (10.0-20.0); Magnesium 2.3 mg/dL (1.6-2.6)
[2024-08-25 06:52] LABS: Chloride 110 mmol/L (98-107); Glucose 143 mg/dL (74-106)
[2024-08-25 06:54] LABS: Blood Urea Nitrogen 81 mg/dL (9-23); Potassium 5.8 mmol/L (3.5-5.1)
--- NOTE | 2024-08-25 07:03 | DVH ---
CHEST RADIOGRAPH Indication: B/L pulmonary congestion, pleural effusion Technique: Single frontal view of the chest was obtained COMPARISON: XY CHEST XRAY 1 VIEW on DOS: 08/24/24, XY CHEST PORTABLE on DOS: 07/26/24, XY CHEST XRAY 1 VIEW on DOS: 05/30/24, XY CHEST XRAY 1 VIEW on DOS: 05/16/24, XY CHEST PORTABLE on DOS: 05/16/24 FINDINGS: Lines and Tubes: None Lungs: Stable appearing moderate diffuse increased prominence of the pulmonary vasculature and small bilateral pleural effusions. No pneumothorax. Cardiomediastinal contours: Stable cardiomegaly. Bones: Unremarkable IMPRESSION: 1. Stable appearing moderate diffuse increased prominence of the pulmonary vasculature, small bilater al pleural effusions and cardiomegaly.
[2024-08-25] MEDS: metOLazone 5 MG TAB PO SCH (07:47)
[2024-08-25] MEDS: ATORVASTATIN 20 MG TAB PO SCH (07:49)
--- NOTE | 2024-08-25 11:02 | DVHPN2 ---
Progress Note - Dictate Date Seen: Aug 25, 2024 Medical Necessity Reason Pt with a Central, PICC or Fol: No Subjective Feels much better vital signs Vital Sign Date Time Temp Pulse Resp B/P (MAP) Pulse Ox O2 Delivery O2 Flow Rate FiO2 08/25/24 09:33 94 Nasal Cannula 4.0 08/25/24 09:33 36 08/25/24 09:00 87 21 163/93 (116) 08/25/24 08:00 97.6 97.6 Total Intake and Output 08/24/24 08/24/24 08/25/24 15:00 23:00 07:00 Intake Total 1100 ml Output Total 1000 ml 1200 ml 1875 ml Balance -1000 ml -1200 ml -775 ml medications Current Medications Medications Dose Ordered Sig/Jadon Route Start Time Stop Time Status Last Admin Dose Admin Ondansetron HCl 4 mg Q4HP PRN IV 08/24/24 04:00 Morphine Sulfate 2 mg Q4HPRN PRN IV 08/24/24 04:00 Nitroglycerin 0.4 mg Q5MINP PRN SL 08/24/24 04:00 Morphine Sulfate 2 mg Q30M PRN IV 08/24/24 04:00 Multivit/Ca Carb/ B Cmplx/FA/Prenat 1 tab DAILY PO 08/24/24 10:00 08/25/24 07:46 1 TAB Clopidogrel Bisulfate 75 mg DAILY PO 08/24/24 10:00 08/25/24 07:49 75 MG Ergocalciferol 50,000 unit QWEEKLY PO 08/24/24 10:00 08/24/24 10:36 50,000 UNIT Citalopram Hydrobromide 40 mg DAILY PO 08/24/24 10:00 08/25/24 07:48 40 MG Nifedipine 60 mg DAILY PO 08/24/24 10:00 08/25/24 07:47 60 MG Aspirin 81 mg DAILY PO 08/24/24 10:00 08/25/24 07:49 81 MG Heparin Sodium (Porcine) 5,000 units Q12HR SC 08/24/24 10:00 08/25/24 07:49 5,000 UNITS Ipratropium [place] 0.5 mg Q6HWA NEB 08/24/24 06:00 08/25/24 05:42 0.5 MG Levalbuterol HCl 0.625 mg Q6HR NEB 08/24/24 06:00 08/25/24 05:42 0.625 MG Atorvastatin Calcium 40 mg DAILY PO 08/25/24 10:00 08/25/24 07:49 40 MG Pantoprazole Sodium 40 mg DAILY@0600 PO 08/25/24 06:00 08/25/24 04:54 40 MG Metolazone 10 mg DAILY PO 08/25/24 10:00 08/25/24 07:47 10 MG Carvedilol 3.125 mg Q12HR PO 08/24/24 22:00 08/25/24 07:48 3.125 MG Diagnostic Test (Pha) 1 strip ACHS 08/24/24 17:00 08/25/24 10:29 1 STRIP Insulin Human Regular ACHS SC 08/24/24 17:00 08/25/24 05:05 2 UNITS Dextrose 50 ml UD PRN IV 08/24/24 15:15 Bumetanide 2.5 mg Q8HR IV 08/25/24 14:00 UNV objective Alert and oriented x 3 NAD Lungs CTA CV: RR No pericardial rub Abdomen: soft, NT 2 + leg edema laboratory and microbiology Laboratory Tests 08/25/24 06:04 08/25/24 03:05 Test 08/25/24 06:04 Range/Units Serum Glucose 143 H 74-106 mg/dL Problem List 1. CKD4 2. CHF exacerbation 3. Anasarca 4, Refractory hyperkalemia 5. HTN 6. DM2 7. 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
[2024-08-25] MEDS: ALBUTEROL SULF 2.5 MG/0.5ML(0.5%) NEB SOLN NEB ONE (11:22)
[2024-08-25] MEDS: BUMETANIDE 2.5mg/10ml (0.25 mg/ml) INJ IV SCH (11:53)
[2024-08-25] MEDS: ACETAMINOPHEN 325 MG TAB PO PRN (18:08)
--- NOTE | 2024-08-25 18:53 | DVHPN2 ---
Subjective Patient is a 48 year old male patient who presents to the ED with chief complaint of progressive dyspnea from functional class II to functional class IV eight days before his admission, associated with bilateral lower limb swelling. Patient reports last hemodialysis session was approximately three weeks ago, he was taken off of dialysis since his kidneys had recovered previously. He was only on hemodialysis for three months. Patient recently admitted due to CHF, he has been compliant with his medication including Lasix. Upon arrival to ED patient was found hypertensive ([id number]). Denies fever, chills, palpitation, syncope, chest pain, nausea, vomiting, diarrhea, bleeding, recent travel, sick contacts and motor or sensory deficits. 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 Surgical history: 04/2024 PCI with 1 SALMA, right foot 5th toe amputation, right ankle surgery, incision and drainage of testicular abscess Family history: Father had heart disease Social history: Lives in [place] with family (next of kin is sister). Occasionally smokes marijuana. Denies current tobacco, alcohol and other drug abuse Allergies: Denies Home medication: Does not recall. Per EMR escitalopram 10 mg p.o. daily, Plavix 75 mg p.o. daily, atorvastatin 20 mg p.o. daily, dapagliflozin 10 mg p.o. daily, nifedipine, metoprolol, losartan 25 mg p.o. daily Review of systems Patient seen and examined at the bedside Patient using accessory muscles of breathing and has work of breathing, with increased respiratory rate around 23-26 Denies chest pain, cough, dysuria, headache, abdominal pain, diarrhea or constipation Reviewed: H&P Changes from previous H/P or p: No Changes General: Per HPI Objective Vitals Vital Signs Date Time Temp Pulse Resp B/P (MAP) Pulse Ox O2 Delivery O2 Flow Rate FiO2 08/25/24 18:29 84 18 98 08/25/24 18:21 Nasal Cannula* 2 28 08/25/24 18:00 147/75 (99) 08/25/24 17:00 97.8 97.8 Intake/Output Intake and Output 08/25/24 07:00 Intake Total 1100 ml Output Total 4075 ml Balance -2975 ml Intake Oral 1000 ml IV Total 100 ml Output Urine Total 4075 ml # Bowel Movements 1 Exam Constitutional: Patient is alert and oriented to time, place and person and is in moderate respiratory distress with increased work of breathing and use of accessory muscles with respiratory rate more than 22 per minute Gen - no pallor, no icterus, no cyanosis, no clubbing, no LAD Skin - Patients skin is warm and dry, HEENT - normocephalic, atraumatic, moist mucous membranes, patient was decreased vision with the cataract in the right eye Neck - full ROM, no LAD, JVD could not be assessed. Pulmonary - B/L diminished breath sounds with crackles/rales up to the middle 1/3 of bilateral lungs , no wheezing, no stridor cardiovascular - variable S1,S2 heard, no added sounds, no murmurs heard. capillary refill normal <2 secs. Extremities: Bilateral lower extremity edema 3+ up to the mid shins GI - soft, nontender abdomen. no hepatospleenomegaly. Bowel sounds normoactive Neurological - Patient is A/O X 3 . Bilateral upper extremity strength 5/5, bilateral lower extremity strength 5/5, no facial droop, normal speech, no tremor, no sensory deficiets. Medications Current Medications Medications Dose Ordered Sig/Jadon Route Start Time Stop Time Status Last Admin Dose Admin Ondansetron HCl 4 mg Q4HP PRN IV 08/24/24 04:00 Morphine Sulfate 2 mg Q4HPRN PRN IV 08/24/24 04:00 Nitroglycerin 0.4 mg Q5MINP PRN SL 08/24/24 04:00 Morphine Sulfate 2 mg Q30M PRN IV 08/24/24 04:00 Multivit/Ca Carb/ B Cmplx/FA/Prenat 1 tab DAILY PO 08/24/24 10:00 08/25/24 07:46 1 TAB Clopidogrel Bisulfate 75 mg DAILY PO 08/24/24 10:00 08/25/24 07:49 75 MG Ergocalciferol 50,000 unit QWEEKLY PO 08/24/24 10:00 08/24/24 10:36 50,000 UNIT Citalopram Hydrobromide 40 mg DAILY PO 08/24/24 10:00 08/25/24 07:48 40 MG Nifedipine 60 mg DAILY PO 08/24/24 10:00 08/25/24 07:47 60 MG Aspirin 81 mg DAILY PO 08/24/24 10:00 08/25/24 07:49 81 MG Heparin Sodium (Porcine) 5,000 units Q12HR SC 08/24/24 10:00 08/25/24 07:49 5,000 UNITS Ipratropium [place] 0.5 mg Q6HWA NEB 08/24/24 06:00 08/25/24 18:09 0.5 MG Levalbuterol HCl 0.625 mg Q6HR NEB 08/24/24 06:00 08/25/24 18:08 0.625 MG Atorvastatin Calcium 40 mg DAILY PO 08/25/24 10:00 08/25/24 07:49 40 MG Pantoprazole Sodium 40 mg DAILY@0600 PO 08/25/24 06:00 08/25/24 04:54 40 MG Metolazone 10 mg DAILY PO 08/25/24 10:00 08/25/24 07:47 10 MG Carvedilol 3.125 mg Q12HR PO 08/24/24 22:00 08/25/24 07:48 3.125 MG Diagnostic Test (Pha) 1 strip ACHS 08/24/24 17:00 08/25/24 16:21 1 STRIP Insulin Human Regular ACHS SC 08/24/24 17:00 08/25/24 05:05 2 UNITS Dextrose 50 ml UD PRN IV 08/24/24 15:15 Bumetanide 2.5 mg TID@0600,1200,1800 IV 08/25/24 12:00 08/25/24 17:34 2.5 MG Zirconium Oxide 10 gm BID PO 08/25/24 22:00 Acetaminophen 650 mg Q6HP PRN PO 08/25/24 17:45 08/25/24 18:08 650 MG Laboratory Results Laboratory Tests 08/25/24 03:05 08/25/24 06:04 Chemistry Test 08/24/24 21:11 08/25/24 03:05 08/25/24 06:04 Calcium Level 9.0 mg/dL (8.7-10.4) 8.8 mg/dL (8.7-10.4) 8.8 mg/dL (8.7-10.4) Magnesium Level 2.3 mg/dL (1.6-2.6) Phosphorus Level 6.0 mg/dL (2.4-5.1) H Urinalysis Test 08/24/24 08:45 Urine Color Colorless (Yellow) Urine Clarity Clear (Clear) Urine pH 5.5 (5.0-9.0) Urine Specific [place] 1.010 (1.001-1.035) Urine Protein 2+ (Negative) H Urine Ketones Negative (Negative) Urine Blood Trace /uL (Negative) H Urine Nitrite Negative (Negative) Urine Bilirubin Negative (Negative) Urine Urobilinogen Normal mg/dL (Negative) Urine Leukocyte Esterase Negative /uL (Negative) Urine RBC 1 /hpf (0 - 3) Urine Microscopic WBC 1 /HPF (0-3) Urine Squamous Epithelial Cells Few /hpf (<5) Urine Bacteria None seen /hpf (None Seen) Urine Mucus Few (None Seen) Urine Creatinine 38.19 mg/dL (30.0-125.0) Urine Microalbumin 1430.0 mg/L (<30.0) H Urine Protein/Creatinine Ratio 6.52 Urine Sodium 103 mmol/L (40-220) Urine Glucose Trace mg/dL (Normal) Urine Total Protein 249.1 mg/dL (1-14) H Microbiology Microbiology Date/Time Source Procedure Growth Status 08/25/24 08:25 Nose MRSA Screen - Final Complete Labs and/or images reviewed: Labs reviewed by me, Image(s) reviewed by me Assessment/Plan Assessment/Plan 08/25 - in [facility] for close monitoring for hyperkalemia. Nephrology guiding diuresis. Vital signs stable, hypoxic respiratory failure improving. Patient now on room air. BUN in critical level, . Patient is able to diurese with diuretics and not yet meeting any criteria for HD, defer to Nephrology. Continue primary team's plan in down escalate to tele if patient is potassium returns to normal. Increase Lokelma to 10 b.i.d.. Neurology Normal exam Respiratory Acute on chronic hypoxic respiratory failure likely due to fluid overload B/L Pleural effusion - ABG reviewed shows mixed respiratory and metabolic acidosis - chest x-ray shows bilateral pulmonary edema with left pleural effusion - on diuresis with bumex and metolazone - duo nebs q.6 hours - on oxygen via nasal cannula, maintain SpO2 more than 92% Cardiovascular Acute on chronic heart failure with preserved ejection fraction NSTEMI likely type 2 Coronary artery disease status post PCI with a 1 SALMA (04/2024) Hypertensive heart disease with heart failure Dyslipidemia - 12 lead ECG showed sinus rhythm, troponins elevated 130-150 - echo 07/24 shows LVEF 65%, normal valves, normal RV function, no effusion - elevated BNP - DAPT and atorvastatin - nifedipine 60 mg daily, carvedilol 6.25 mg b.i.d. 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 ESRD, improved , was previously on hemodialysis Hyperkalemia Hyperphosphatemia Hyperparathyroidism likely secondary to ckd Vitamin D deficiency - BUN increased but creatinine improving - FENa 6% - urine microalbumin and total protein elevated - on bumex and metolazone - nephrology on board - hyperkalemia protocol - strict I&O endocrinology Insulin-dependent type 2 diabetes mellitus Morbid obesity - HbA1c 7.5% - on mild insulin sliding scale - consistent carb diet DVT prophylaxis: Heparin PUD prophylaxis: Protonix Goals of care discussed with the patient for over 25 minutes. Full code Critical care time spent excluding procedures: 51 minutes Plan discussed with: Patient My Orders Orders - DYLAN OWENS MD Procedure Category Date Status Time Sodium Zirconium PHA 08/25/24 In Process Cyclosilicate 22:00 Acetaminophen Tablet PHA 08/25/24 In Process (Tylenol Tablet) 17:45 Date of Service: Aug 25, 2024 Billing Provider: DYLAN OWENS MD Common Visit Codes: [id number] CARE 30-74 MIN DYLAN OWENS MD Aug 25, 2024 18:53
[2024-08-25] MEDS: SODIUM ZIRCONIUM CYCL 10 GM PAK PO SCH (21:42)
[2024-08-26] VITALS (37 sets, daily range): BP systolic 132–168; BP diastolic 63–90; PULSE 80–91; RESP 12–25; TEMP 96.8–98.1; O2SAT 88–97
[2024-08-26 04:43] LABS: Basophils # (auto) 0.1 10 ^3/uL (0-0.2); Eosinophils # (auto) 0.6 10 ^3/uL (0-0.8); Hematocrit 31.8 % (41.0-53.0); Lymphocytes # (auto) 1.2 10 ^3/uL (0.4-5.4); Mean Corpuscular Hemoglobin 25.1 pg (28.0-32.0); White Blood Cell 5.2 10^3/uL (4.4-10.8)
[2024-08-26 04:46] LABS: Eosinophils % (auto) 10.6 % (0.0-7.0); Hemoglobin 10.1 g/dL (13.5-17.5); Lymphocytes % (auto) 22.8 % (10.0-50.0); Mean Corpuscular Hgb Conc. 31.8 g/dL (32.0-36.0); Mean Corpuscular Volume 78.9 fL (80.0-100.0); Monocytes # (auto) 0.3 10 ^3/uL (0-1.3); Monocytes % (auto) 6.6 % (0.0-12.0); Nucleated Red Blood Cells % 0.2 %; Platelet Count (auto) 211 10^3/uL (140-450); Red Blood Cells 4.03 10^6/uL (4.5-5.90); Red Cell Distribution Width 18.5 % (11.8-14.3)
[2024-08-26 04:57] LABS: Alanine Aminotransferase 19 U/L (7-40); Albumin 3.8 g/dL (3.2-4.8); Anion Gap 7 (5-15); Aspartate Aminotransferase 15 U/L (13-40); BUN/Creatinine Ratio 25.1 (10.0-20.0); Carbon Dioxide 24 mmol/L (20-31); Sodium 140 mmol/L (136-145); Total Protein 6.4 g/dL (5.7-8.2)
[2024-08-26 04:58] LABS: Alkaline Phosphatase 149 U/L (46-116); Bilirubin, Total 0.2 mg/dL (0.2-1.0); Blood Urea Nitrogen 79 mg/dL (9-23); Calcium 8.6 mg/dL (8.7-10.4); Chloride 109 mmol/L (98-107); Glucose 107 mg/dL (74-106); Potassium 5.2 mmol/L (3.5-5.1)
[2024-08-26] MEDS: LEVALBUTEROL HCL 1.25 MG/3 ML NEB NEB SCH (05:39)
[2024-08-26] MEDS ORDERED: SODIUM ZIRCONIUM CYCL 10 GM PAK PO SCH (10:00)
--- NOTE | 2024-08-26 12:22 | DVHPN2 ---
Subjective Patient is a 48 year old male patient who presents to the ED with chief complaint of progressive dyspnea from functional class II to functional class IV eight days before his admission, associated with bilateral lower limb swelling. Patient reports last hemodialysis session was approximately three weeks ago, he was taken off of dialysis since his kidneys had recovered previously. He was only on hemodialysis for three months. Patient recently admitted due to CHF, he has been compliant with his medication including Lasix. Upon arrival to ED patient was found hypertensive ([id number]). Denies fever, chills, palpitation, syncope, chest pain, nausea, vomiting, diarrhea, bleeding, recent travel, sick contacts and motor or sensory deficits. 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 Surgical history: 04/2024 PCI with 1 SALMA, right foot 5th toe amputation, right ankle surgery, incision and drainage of testicular abscess Family history: Father had heart disease Social history: Lives in [place] with family (next of kin is sister). Occasionally smokes marijuana. Denies current tobacco, alcohol and other drug abuse Allergies: Denies Home medication: Does not recall. Per EMR escitalopram 10 mg p.o. daily, Plavix 75 mg p.o. daily, atorvastatin 20 mg p.o. daily, dapagliflozin 10 mg p.o. daily, nifedipine, metoprolol, losartan 25 mg p.o. daily Review of systems Patient seen and examined at the bedside Patient using accessory muscles of breathing and has work of breathing, with increased respiratory rate around 23-26 Denies chest pain, cough, dysuria, headache, abdominal pain, diarrhea or constipation Reviewed: H&P Changes from previous H/P or p: No Changes General: Per HPI Objective Vitals Vital Signs Date Time Temp Pulse Resp B/P (MAP) Pulse Ox O2 Delivery O2 Flow Rate FiO2 08/26/24 11:55 87 24 96 08/26/24 11:49 Nasal Cannula 4.0 08/26/24 11:49 36 08/26/24 10:23 157/84 4/27/25 05:00 97.9 97.9 Intake/Output Intake and Output 08/26/24 07:00 Intake Total 1100 ml Output Total 3650 ml Balance -2550 ml Intake Oral 1100 ml Output Urine Total 3650 ml # Bowel Movements 1 Exam Constitutional: Patient is alert and oriented to time, place and person and is in moderate respiratory distress with increased work of breathing and use of accessory muscles with respiratory rate more than 22 per minute Gen - no pallor, no icterus, no cyanosis, no clubbing, no LAD Skin - Patients skin is warm and dry, HEENT - normocephalic, atraumatic, moist mucous membranes, patient was decreased vision with the cataract in the right eye Neck - full ROM, no LAD, JVD could not be assessed. Pulmonary - B/L diminished breath sounds with crackles/rales up to the middle 1/3 of bilateral lungs , no wheezing, no stridor cardiovascular - variable S1,S2 heard, no added sounds, no murmurs heard. capillary refill normal <2 secs. Extremities: Bilateral lower extremity edema 3+ up to the mid shins GI - soft, nontender abdomen. no hepatospleenomegaly. Bowel sounds normoactive Neurological - Patient is A/O X 3 . Bilateral upper extremity strength 5/5, bilateral lower extremity strength 5/5, no facial droop, normal speech, no tremor, no sensory deficiets. Medications Current Medications Medications Dose Ordered Sig/Jadon Route Start Time Stop Time Status Last Admin Dose Admin Ondansetron HCl 4 mg Q4HP PRN IV 08/24/24 04:00 Morphine Sulfate 2 mg Q4HPRN PRN IV 08/24/24 04:00 Nitroglycerin 0.4 mg Q5MINP PRN SL 08/24/24 04:00 Morphine Sulfate 2 mg Q30M PRN IV 08/24/24 04:00 Multivit/Ca Carb/ B Cmplx/FA/Prenat 1 tab DAILY PO 08/24/24 10:00 08/26/24 10:19 1 TAB Clopidogrel Bisulfate 75 mg DAILY PO 08/24/24 10:00 08/26/24 10:20 75 MG Ergocalciferol 50,000 unit QWEEKLY PO 08/24/24 10:00 08/24/24 10:36 50,000 UNIT Citalopram Hydrobromide 40 mg DAILY PO 08/24/24 10:00 08/26/24 10:17 40 MG Nifedipine 60 mg DAILY PO 08/24/24 10:00 08/26/24 10:20 60 MG Aspirin 81 mg DAILY PO 08/24/24 10:00 08/26/24 10:17 81 MG Heparin Sodium (Porcine) 5,000 units Q12HR SC 08/24/24 10:00 08/26/24 10:15 5,000 UNITS Ipratropium [place] 0.5 mg Q6HWA [facility] 08/24/24 06:00 08/26/24 11:49 0.5 MG Atorvastatin Calcium 40 mg DAILY PO 08/25/24 10:00 08/26/24 10:18 40 MG Pantoprazole Sodium 40 mg DAILY@0600 PO 08/25/24 06:00 08/26/24 06:13 40 MG Metolazone 10 mg DAILY PO 08/25/24 10:00 08/26/24 10:23 10 MG Carvedilol 3.125 mg Q12HR PO 08/24/24 22:00 08/26/24 10:19 3.125 MG Diagnostic Test (Pha) 1 strip ACHS 08/24/24 17:00 08/26/24 07:21 1 STRIP Insulin Human Regular ACHS SC 08/24/24 17:00 08/25/24 05:05 2 UNITS Dextrose 50 ml UD PRN IV 08/24/24 15:15 Bumetanide 2.5 mg TID@0600,1200,1800 IV 08/25/24 12:00 08/26/24 06:13 2.5 MG Zirconium Oxide 10 gm BID PO 08/25/24 22:00 08/26/24 10:45 10 GM Acetaminophen 650 mg Q6HP PRN PO 08/25/24 17:45 08/25/24 18:08 650 MG Levalbuterol HCl 0.625 mg Q6HWA [facility] 08/26/24 06:00 08/26/24 11:49 0.625 MG Laboratory Results Laboratory Tests 08/26/24 04:03 Chemistry Test 08/26/24 04:03 Albumin 3.8 g/dL (3.2-4.8) Calcium Level 8.6 mg/dL (8.7-10.4) L Magnesium Level 2.3 mg/dL (1.6-2.6) Phosphorus Level 5.4 mg/dL (2.4-5.1) H Total Protein 6.4 g/dL (5.7-8.2) LFT Test 08/26/24 04:03 Alanine Aminotransferase (ALT) 19 U/L (7-40) Alkaline Phosphatase 149 U/L (46-116) H Aspartate Amino Transferase (AST) 15 U/L (13-40) Total Bilirubin 0.2 mg/dL (0.2-1.0) Urinalysis Test 08/24/24 08:45 Urine Color Colorless (Yellow) Urine Clarity Clear (Clear) Urine pH 5.5 (5.0-9.0) Urine Specific [place] 1.010 (1.001-1.035) Urine Protein 2+ (Negative) H Urine Ketones Negative (Negative) Urine Blood Trace /uL (Negative) H Urine Nitrite Negative (Negative) Urine Bilirubin Negative (Negative) Urine Urobilinogen Normal mg/dL (Negative) Urine Leukocyte Esterase Negative /uL (Negative) Urine RBC 1 /hpf (0 - 3) Urine Microscopic WBC 1 /HPF (0-3) Urine Squamous Epithelial Cells Few /hpf (<5) Urine Bacteria None seen /hpf (None Seen) Urine Mucus Few (None Seen) Urine Creatinine 38.19 mg/dL (30.0-125.0) Urine Microalbumin 1430.0 mg/L (<30.0) H Urine Protein/Creatinine Ratio 6.52 Urine Sodium 103 mmol/L (40-220) Urine Glucose Trace mg/dL (Normal) Urine Total Protein 249.1 mg/dL (1-14) H Microbiology Microbiology Date/Time Source Procedure Growth Status 08/25/24 08:25 Nose MRSA Screen - Final Complete Labs and/or images reviewed: Labs reviewed by me, Image(s) reviewed by me Assessment/Plan Assessment/Plan 08/25 - in [facility] for close monitoring for hyperkalemia. Nephrology guiding diuresis. Vital signs stable, hypoxic respiratory failure improving. Patient now on room air. BUN in critical level, . Patient is able to diurese with diuretics and not yet meeting any criteria for HD, defer to Nephrology. Continue primary team's plan in down escalate to tele if patient is potassium returns to normal. Increase Lokelma to 10 b.i.d.. 08/26-patient is improving, continues to diurese well, hypokalemia improved, vital signs stable. Patient to use status and hypokalemia now improved can deescalate to tele no for the need for close monitoring. Increased Lokelma to t.i.d., continue Nephrology plan for diuresis we will continue following up. Continue current treatment plan. Neurology Normal exam Respiratory Acute on chronic hypoxic respiratory failure likely due to fluid overload B/L Pleural effusion - ABG reviewed shows mixed respiratory and metabolic acidosis - chest x-ray shows bilateral pulmonary edema with left pleural effusion - on diuresis with bumex and metolazone - duo nebs q.6 hours - on oxygen via nasal cannula, maintain SpO2 more than 92% Cardiovascular Acute on chronic heart failure with preserved ejection fraction NSTEMI likely type 2 Coronary artery disease status post PCI with a 1 SALMA (04/2024) Hypertensive heart disease with heart failure Dyslipidemia - 12 lead ECG showed sinus rhythm, troponins elevated 130-150 - echo 07/24 shows LVEF 65%, normal valves, normal RV function, no effusion - elevated BNP - DAPT and atorvastatin - nifedipine 60 mg daily, carvedilol 6.25 mg b.i.d. 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 ESRD, improved , was previously on hemodialysis Hyperkalemia Hyperphosphatemia Hyperparathyroidism likely secondary to ckd Vitamin D deficiency - BUN increased but creatinine improving - FENa 6% - urine microalbumin and total protein elevated - on bumex and metolazone - nephrology on board - hyperkalemia protocol - strict I&O endocrinology Insulin-dependent type 2 diabetes mellitus Morbid obesity - HbA1c 7.5% - on mild insulin sliding scale - consistent carb diet DVT prophylaxis: Heparin PUD prophylaxis: Protonix Goals of care discussed with the patient for over 25 minutes. Full code Critical care time spent excluding procedures: 51 minutes Plan discussed with: Patient My Orders Orders - DYLAN OWENS MD Procedure Category Date Status Time Sodium Zirconium PHA 08/25/24 In Process Cyclosilicate 22:00 Acetaminophen Tablet PHA 08/25/24 In Process (Tylenol Tablet) 17:45 Date of Service: Aug 26, 2024 Billing Provider: DYLAN OWENS MD Common Visit Codes: [id number] CARE 30-74 MIN DYLAN OWENS MD Aug 26, 2024 12:22
--- NOTE | 2024-08-26 12:41 | DVHPN2 ---
Progress Note - Dictate Date Seen: Aug 26, 2024 Medical Necessity Reason Pt with a Central, PICC or Fol: No Subjective Feels much better vital signs Vital Sign Date Time Temp Pulse Resp B/P (MAP) Pulse Ox O2 Delivery O2 Flow Rate FiO2 08/26/24 11:55 87 24 96 08/26/24 11:49 Nasal Cannula 4.0 08/26/24 11:49 36 08/26/24 10:23 157/84 08/26/24 05:00 97.9 97.9 Total Intake and Output 08/25/24 08/25/24 08/26/24 15:00 23:00 07:00 Intake Total 600 ml 500 ml Output Total 2050 ml 1600 ml Balance -1450 ml -1100 ml medications Current Medications Medications Dose Ordered Sig/Jadon Route Start Time Stop Time Status Last Admin Dose Admin Ondansetron HCl 4 mg Q4HP PRN IV 08/24/24 04:00 Morphine Sulfate 2 mg Q4HPRN PRN IV 08/24/24 04:00 Nitroglycerin 0.4 mg Q5MINP PRN SL 08/24/24 04:00 Morphine Sulfate 2 mg Q30M PRN IV 08/24/24 04:00 Multivit/Ca Carb/ B Cmplx/FA/Prenat 1 tab DAILY PO 08/24/24 10:00 08/26/24 10:19 1 TAB Clopidogrel Bisulfate 75 mg DAILY PO 08/24/24 10:00 08/26/24 10:20 75 MG Ergocalciferol 50,000 unit QWEEKLY PO 08/24/24 10:00 08/24/24 10:36 50,000 UNIT Citalopram Hydrobromide 40 mg DAILY PO 08/24/24 10:00 08/26/24 10:17 40 MG Nifedipine 60 mg DAILY PO 08/24/24 10:00 08/26/24 10:20 60 MG Aspirin 81 mg DAILY PO 08/24/24 10:00 08/26/24 10:17 81 MG Heparin Sodium (Porcine) 5,000 units Q12HR SC 08/24/24 10:00 08/26/24 10:15 5,000 UNITS Ipratropium [place] 0.5 mg Q6HWA [facility] 08/24/24 06:00 08/26/24 11:49 0.5 MG Atorvastatin Calcium 40 mg DAILY PO 08/25/24 10:00 08/26/24 10:18 40 MG Pantoprazole Sodium 40 mg DAILY@0600 PO 08/25/24 06:00 08/26/24 06:13 40 MG Metolazone 10 mg DAILY PO 08/25/24 10:00 08/26/24 10:23 10 MG Carvedilol 3.125 mg Q12HR PO 08/24/24 22:00 08/26/24 10:19 3.125 MG Diagnostic Test (Pha) 1 strip ACHS 08/24/24 17:00 08/26/24 07:21 1 STRIP Insulin Human Regular ACHS SC 08/24/24 17:00 08/25/24 05:05 2 UNITS Dextrose 50 ml UD PRN IV 08/24/24 15:15 Bumetanide 2.5 mg TID@0600,1200,1800 IV 08/25/24 12:00 08/26/24 06:13 2.5 MG Zirconium Oxide 10 gm BID PO 08/25/24 22:00 08/26/24 10:45 10 GM Acetaminophen 650 mg Q6HP PRN PO 08/25/24 17:45 08/25/24 18:08 650 MG Levalbuterol HCl 0.625 mg Q6HWA [facility] 08/26/24 06:00 08/26/24 11:49 0.625 MG objective Alert and oriented x 3 NAD Lungs CTA CV: RR No pericardial rub Abdomen: soft, NT 2 + leg edema laboratory and microbiology Laboratory Tests 08/26/24 04:03 Test 08/26/24 04:03 Range/Units Serum Glucose 107 H 74-106 mg/dL Problem List 1. CKD4, was on HD for 3 months and stopped 3 weeks ago after regaining enough renal function, HD catheter was removed 2. CHF exacerbation, diuresing very well, 7.5 L in last 24 h 3. Anasarca 4, Refractory hyperkalemia, improving 5. HTN 6. DM2 7. Anemia of CKD 8. 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
[2024-08-26] MEDS: SODIUM ZIRCONIUM CYCL 10 GM PAK PO SCH (22:17)
[2024-08-27] VITALS (14 sets, daily range): BP systolic 129–167; BP diastolic 69–88; PULSE 67–96; RESP 18–20; TEMP 97.7–98.8; O2SAT 90–99
[2024-08-27 06:58] LABS: Basophils # (auto) 0.1 10 ^3/uL (0-0.2); Lymphocytes # (auto) 1.3 10 ^3/uL (0.4-5.4); Mean Corpuscular Hgb Conc. 31.8 g/dL (32.0-36.0); Monocytes # (auto) 0.5 10 ^3/uL (0-1.3)
[2024-08-27 07:01] LABS: Basophils % (auto) 1.1 % (0.0-2.0); Eosinophils # (auto) 0.7 10 ^3/uL (0-0.8); Eosinophils % (auto) 12.3 % (0.0-7.0); Hematocrit 33.4 % (41.0-53.0); Hemoglobin 10.6 g/dL (13.5-17.5); Lymphocytes % (auto) 21.2 % (10.0-50.0); Mean Corpuscular Hemoglobin 25.4 pg (28.0-32.0); Mean Corpuscular Volume 79.8 fL (80.0-100.0); Monocytes % (auto) 7.8 % (0.0-12.0); Neutrophils # (auto) 3.5 10 ^3/uL (1.6-8.6); Neutrophils % (auto) 57.6 % (37.0-80.0); Nucleated Red Blood Cells % 0.3 %; Platelet Count (auto) 218 10^3/uL (140-450); Red Blood Cells 4.19 10^6/uL (4.5-5.90); Red Cell Distribution Width 18.4 % (11.8-14.3)
[2024-08-27 07:24] LABS: Alanine Aminotransferase 18 U/L (7-40); Anion Gap 8 (5-15); BUN/Creatinine Ratio 22.5 (10.0-20.0); Calcium 8.8 mg/dL (8.7-10.4); Carbon Dioxide 24 mmol/L (20-31); Glucose 98 mg/dL (74-106); Sodium 140 mmol/L (136-145)
[2024-08-27 07:25] LABS: Total Protein 6.5 g/dL (5.7-8.2)
[2024-08-27 07:26] LABS: Albumin 3.8 g/dL (3.2-4.8); Aspartate Aminotransferase 16 U/L (13-40)
[2024-08-27 07:27] LABS: Blood Urea Nitrogen 72 mg/dL (9-23); Chloride 108 mmol/L (98-107)
[2024-08-27 07:28] LABS: Alkaline Phosphatase 152 U/L (46-116); Bilirubin, Total 0.2 mg/dL (0.2-1.0)
--- NOTE | 2024-08-27 11:55 | DVH ---
CHEST RADIOGRAPH Indication: B/L congestion, pl effusions- imp/worsened Technique: Single frontal view of the chest was obtained Comparison: XY CHEST XRAY 1 VIEW on DOS: 08/25/24, XY CHEST XRAY 1 VIEW on DOS: 08/24/24, XY CHEST PORT ABLE on DOS: 07/26/24, XY CHEST XRAY 1 VIEW on DOS: 05/30/24, XY CHEST XRAY 1 VIEW on DOS: 05/16/24 FINDINGS: Lines and Tubes: None Lungs: No focal consolidation. Pleura: Improving pulmonary edema and small bilateral pleural effusions. No pneumothorax. Cardiomediastinal contours: Unremarkable Bones: No acute osseous abnormality. IMPRESSION: Improving pulmonary edema and small bilateral pleural effusions.
--- NOTE | 2024-08-27 17:30 | DVHPNRES ---
Progress Note Date Seen: Aug 27, 2024 Resident Creating Document: BRIAN TSE RESIDENT Medical Necessity Reason Pt with a Central, PICC or Fol: No Subjective Review of Systems Patient is a 48 year old male patient who presents to the ED with chief complaint of progressive dyspnea from functional class II to functional class IV eight days before his admission, associated with bilateral lower limb swelling. Patient reports last hemodialysis session was approximately three weeks ago, he was taken off of dialysis since his kidneys had recovered previously. He was only on hemodialysis for three months. Patient recently admitted due to CHF, he has been compliant with his medication including Lasix. Upon arrival to ED patient was found hypertensive ([id number]). Denies fever, chills, palpitation, syncope, chest pain, nausea, vomiting, diarrhea, bleeding, recent travel, sick contacts and motor or sensory deficits. 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 Surgical history: 04/2024 PCI with 1 SALMA, right foot 5th toe amputation, right ankle surgery, incision and drainage of testicular abscess Family history: Father had heart disease Social history: Lives in [place] with family (next of kin is sister). Occasionally smokes marijuana. Denies current tobacco, alcohol and other drug abuse Allergies: Denies Home medication: Does not recall. Per EMR escitalopram 10 mg p.o. daily, Plavix 75 mg p.o. daily, atorvastatin 20 mg p.o. daily, dapagliflozin 10 mg p.o. daily, nifedipine, metoprolol, losartan 25 mg p.o. daily Review of systems Patient seen and examined at the bedside Patient breathing comfortably at 2-3 L oxygen per minute via nasal cannula, denies shortness of breath while in bed Patient diuresing well with -3 L balance on 08/25, -2.5 L on 08/26, -3.4 L on 08/27 Still has bilateral 3+ pitting edema Objective vital signs Vital Sign Date Time Temp Pulse Resp B/P (MAP) Pulse Ox O2 Delivery O2 Flow Rate FiO2 08/27/24 17:22 155/87 08/27/24 16:48 98.1 67 18 95 98.1 08/27/24 11:32 Nasal Cannula 4.0 08/27/24 11:32 36 Total Intake and Output 08/26/24 08/26/24 08/27/24 15:00 23:00 07:00 Intake Total 460 ml 1400 ml Output Total 1250 ml 3600 ml 400 ml Balance -790 ml -3600 ml 1000 ml medications Current Medications Medications Dose Ordered Sig/Jadon Route Start Time Stop Time Status Last Admin Dose Admin Ondansetron HCl 4 mg Q4HP PRN IV 08/24/24 04:00 Morphine Sulfate 2 mg Q4HPRN PRN IV 08/24/24 04:00 Nitroglycerin 0.4 mg Q5MINP PRN SL 08/24/24 04:00 Multivit/Ca Carb/ B Cmplx/FA/Prenat 1 tab DAILY PO 08/24/24 10:00 08/27/24 10:08 1 TAB Clopidogrel Bisulfate 75 mg DAILY PO 08/24/24 10:00 08/27/24 10:08 75 MG Ergocalciferol 50,000 unit QWEEKLY PO 08/24/24 10:00 08/24/24 10:36 50,000 UNIT Citalopram Hydrobromide 40 mg DAILY PO 08/24/24 10:00 08/26/24 10:17 40 MG Nifedipine 60 mg DAILY PO 08/24/24 10:00 08/27/24 10:07 60 MG Aspirin 81 mg DAILY PO 08/24/24 10:00 08/27/24 10:08 81 MG Heparin Sodium (Porcine) 5,000 units Q12HR SC 08/24/24 10:00 08/27/24 10:11 5,000 UNITS Ipratropium [place] 0.5 mg Q6HWA NEB 08/24/24 06:00 08/27/24 11:31 0.5 MG Atorvastatin Calcium 40 mg DAILY PO 08/25/24 10:00 08/27/24 10:07 40 MG Pantoprazole Sodium 40 mg DAILY@0600 PO 08/25/24 06:00 08/27/24 05:41 40 MG Metolazone 10 mg DAILY PO 08/25/24 10:00 08/27/24 10:07 10 MG Carvedilol 3.125 mg Q12HR PO 08/24/24 22:00 08/27/24 10:07 3.125 MG Diagnostic Test (Pha) 1 strip ACHS 08/24/24 17:00 08/27/24 17:22 1 STRIP Insulin Human Regular ACHS SC 08/24/24 17:00 08/25/24 05:05 2 UNITS Dextrose 50 ml UD PRN IV 08/24/24 15:15 Bumetanide 2.5 mg TID@0600,1200,1800 IV 08/25/24 12:00 08/27/24 17:22 2.5 MG Acetaminophen 650 mg Q6HP PRN PO 08/25/24 17:45 08/27/24 00:28 650 MG Levalbuterol HCl 0.625 mg Q6HWA [facility] 08/26/24 06:00 08/27/24 11:31 0.625 MG Zirconium Oxide 10 gm TID PO 08/26/24 22:00 08/27/24 12:43 10 GM Examination Constitutional: Patient is alert and oriented to time, place and person and does not appear to be in any respiratory distress Gen - no pallor, no icterus, no cyanosis, no clubbing, no LAD Skin - Patients skin is warm and dry HEENT - normocephalic, atraumatic, moist mucous membranes, patient was decreased vision with the cataract in the right eye Neck - full ROM, no LAD, no JVD Pulmonary - B/L diminished breath sounds with improved crackles/rales, now in the lower 1/3 of bilateral lungs , no wheezing, no stridor cardiovascular - variable S1,S2 heard, no added sounds, no murmurs heard. capillary refill normal <2 secs. Extremities: Bilateral lower extremity edema 3+ up to the mid shins GI - soft, nontender abdomen. no hepatospleenomegaly. Bowel sounds normoactive Neurological - Patient is A/O X 3 . Bilateral upper extremity strength 5/5, bilateral lower extremity strength 5/5, no facial droop, normal speech, no tremor, no sensory deficiets. laboratory and microbiology Laboratory Tests 08/27/24 05:10 Test 08/27/24 05:10 Range/Units Serum Glucose 98 74-106 mg/dL Microbiology Date/Time Source Procedure Growth Status 08/25/24 08:25 Nose MRSA Screen - Final Complete Problem List/Assessment/Plan Problem List/Assessment/Plan Neurology Normal exam Respiratory Acute on chronic hypoxic respiratory failure likely due to fluid overload B/L Pleural effusion - ABG reviewed shows mixed respiratory and metabolic acidosis - chest x-ray shows bilateral pulmonary edema with left pleural effusion - on diuresis with bumex and metolazone - duo nebs q.6 hours - on oxygen via nasal cannula, maintain SpO2 more than 92% Cardiovascular Acute on chronic heart failure with preserved ejection fraction NSTEMI likely type 2 Coronary artery disease status post PCI with a 1 SALMA (04/2024) Hypertensive heart disease with heart failure Dyslipidemia - 12 lead ECG showed sinus rhythm, troponins elevated 130-150 - echo 07/24 shows LVEF 65%, normal valves, normal RV function, no effusion - elevated BNP - DAPT and atorvastatin - nifedipine 60 mg daily, carvedilol 6.25 mg b.i.d. 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 ESRD, improved , was previously on hemodialysis Hyperkalemia Hyperphosphatemia Hyperparathyroidism likely secondary to ckd Vitamin D deficiency - BUN increased but creatinine improving - FENa 6% - urine microalbumin and total protein elevated - on bumex and metolazone - nephrology on board - hyperkalemia protocol - strict I&O endocrinology Insulin-dependent type 2 diabetes mellitus Morbid obesity - HbA1c 7.5% - on mild insulin sliding scale - consistent carb diet DVT prophylaxis: Heparin PUD prophylaxis: Protonix Goals of care discussed with the patient for over 25 minutes. Full code Time spent: 41 minutes Plan discussed with Dr. Ocampo Plan discussed with: Patient, Other (RN ( Thania )) My Orders My Orders Orders - BRIAN TSE Procedure Category Date Status Time Chest Xray 1 View XY 08/27/24 Resulted 10:22 Pt Request For Service PT 08/27/24 Logged 10:39 Carvedilol Tablet PHA 08/27/24 Verified (Coreg Tablet) 22:00 Date of Service: Aug 27, 2024 Billing Provider: YAMILETH OCAMPO MD Common Visit Codes: [id number] INP/OBS CARE(HIGH) Secondary Visit Codes: [id number] CARE PLAN 30 MINUTES BRIAN TSE RESIDENT Aug 27, 2024 17:30 YAMILETH OCAMPO MD Aug 28, 2024 16:06
--- NOTE | 2024-08-27 20:06 | DVHPN2 ---
Progress Note - Dictate Date Seen: Aug 27, 2024 Medical Necessity Reason Pt with a Central, PICC or Fol: No Subjective no new symptoms vital signs Vital Sign Date Time Temp Pulse Resp B/P (MAP) Pulse Ox O2 Delivery O2 Flow Rate FiO2 08/27/24 17:56 95 Nasal Cannula 2.0 08/27/24 17:56 28 08/27/24 17:56 85 18 08/27/24 17:22 155/87 08/27/24 16:48 98.1 98.1 Total Intake and Output 08/26/24 08/26/24 08/27/24 15:00 23:00 07:00 Intake Total 460 ml 1400 ml Output Total 1250 ml 3600 ml 400 ml Balance -790 ml -3600 ml 1000 ml medications Current Medications Medications Dose Ordered Sig/Jadon Route Start Time Stop Time Status Last Admin Dose Admin Ondansetron HCl 4 mg Q4HP PRN IV 08/24/24 04:00 Morphine Sulfate 2 mg Q4HPRN PRN IV 08/24/24 04:00 Nitroglycerin 0.4 mg Q5MINP PRN SL 08/24/24 04:00 Multivit/Ca Carb/ B Cmplx/FA/Prenat 1 tab DAILY PO 08/24/24 10:00 08/27/24 10:08 1 TAB Clopidogrel Bisulfate 75 mg DAILY PO 08/24/24 10:00 08/27/24 10:08 75 MG Ergocalciferol 50,000 unit QWEEKLY PO 08/24/24 10:00 08/24/24 10:36 50,000 UNIT Citalopram Hydrobromide 40 mg DAILY PO 08/24/24 10:00 08/26/24 10:17 40 MG Nifedipine 60 mg DAILY PO 08/24/24 10:00 08/27/24 10:07 60 MG Aspirin 81 mg DAILY PO 08/24/24 10:00 08/27/24 10:08 81 MG Heparin Sodium (Porcine) 5,000 units Q12HR SC 08/24/24 10:00 08/27/24 10:11 5,000 UNITS Ipratropium [place] 0.5 mg Q6HWA NEB 08/24/24 06:00 08/27/24 17:56 0.5 MG Atorvastatin Calcium 40 mg DAILY PO 08/25/24 10:00 08/27/24 10:07 40 MG Pantoprazole Sodium 40 mg DAILY@0600 PO 08/25/24 06:00 08/27/24 05:41 40 MG Metolazone 10 mg DAILY PO 08/25/24 10:00 08/27/24 10:07 10 MG Diagnostic Test (Pha) 1 strip ACHS 08/24/24 17:00 08/27/24 17:22 1 STRIP Insulin Human Regular ACHS SC 08/24/24 17:00 08/25/24 05:05 2 UNITS Dextrose 50 ml UD PRN IV 08/24/24 15:15 Bumetanide 2.5 mg TID@0600,1200,1800 IV 08/25/24 12:00 08/27/24 17:22 2.5 MG Acetaminophen 650 mg Q6HP PRN PO 08/25/24 17:45 08/27/24 00:28 650 MG Levalbuterol HCl 0.625 mg Q6HWA NEB 08/26/24 06:00 08/27/24 17:56 0.625 MG Zirconium Oxide 10 gm TID PO 08/26/24 22:00 08/27/24 19:41 10 GM Carvedilol 6.25 mg Q12HR PO 08/27/24 22:00 laboratory and microbiology Laboratory Tests 08/27/24 05:10 Test 08/27/24 05:10 Range/Units Serum Glucose 98 74-106 mg/dL Assessment/Plan Assessment: 1. CKD4, was on HD for 3 months and stopped 3 weeks ago after regaining enough renal function, HD catheter was removed 2. CHF exacerbation 3. Anasarca 4, hyperkalemia, resolved 5. HTN 6. DM2 7. Anemia of CKD 8. H/O CAD Plan: gfr stable good UO 3.6 L in the last 24 h Continue diuresis with Bumex 2.5 mg IV Q8H and Metolazone 10 mg daily Daily Lokelma Strict is and Os Daily BMP No need for STOCK ASSOCIATE Will need close nephrology follow up as outpatient Plan discussed with: Patient, Other NAMAN REYES MD Aug 27, 2024 20:06
[2024-08-27] MEDS: CARVEDILOL 3.125 MG TAB PO SCH (21:41)
[2024-08-28] VITALS (16 sets, daily range): BP systolic 138–177; BP diastolic 80–94; PULSE 76–88; RESP 14–20; TEMP 97.5–98.4; O2SAT 88–100
[2024-08-28 07:09] LABS: Basophils # (auto) 0.1 10 ^3/uL (0-0.2); Eosinophils # (auto) 0.6 10 ^3/uL (0-0.8); Hemoglobin 10.3 g/dL (13.5-17.5); Lymphocytes # (auto) 1.2 10 ^3/uL (0.4-5.4); White Blood Cell 5.6 10^3/uL (4.4-10.8)
[2024-08-28 07:11] LABS: Eosinophils % (auto) 10.6 % (0.0-7.0); Hematocrit 32.2 % (41.0-53.0); Lymphocytes % (auto) 21.9 % (10.0-50.0); Mean Corpuscular Hemoglobin 25.4 pg (28.0-32.0); Mean Corpuscular Hgb Conc. 32.1 g/dL (32.0-36.0); Mean Corpuscular Volume 79.2 fL (80.0-100.0); Monocytes # (auto) 0.4 10 ^3/uL (0-1.3); Monocytes % (auto) 7.9 % (0.0-12.0); Neutrophils # (auto) 3.3 10 ^3/uL (1.6-8.6); Neutrophils % (auto) 58.6 % (37.0-80.0); Nucleated Red Blood Cells % 0.1 %; Platelet Count (auto) 221 10^3/uL (140-450); Red Blood Cells 4.06 10^6/uL (4.5-5.90); Red Cell Distribution Width 18.1 % (11.8-14.3)
[2024-08-28 07:14] LABS: Chloride 106 mmol/L (98-107); Potassium 4.5 mmol/L (3.5-5.1); Sodium 140 mmol/L (136-145)
[2024-08-28 07:15] LABS: Anion Gap 9 (5-15); Carbon Dioxide 25 mmol/L (20-31)
[2024-08-28 07:16] LABS: Calcium 8.7 mg/dL (8.7-10.4)
[2024-08-28 07:20] LABS: BUN/Creatinine Ratio 22.9 (10.0-20.0)
[2024-08-28 07:21] LABS: Blood Urea Nitrogen 71 mg/dL (9-23); Glucose 131 mg/dL (74-106); Magnesium 2.2 mg/dL (1.6-2.6)
[2024-08-28 07:23] LABS: Phosphorus 5.9 mg/dL (2.4-5.1)
--- NOTE | 2024-08-28 11:45 | DVHPNRES ---
Progress Note Date Seen: Aug 28, 2024 Resident Creating Document: JHAJJBRIAN RESIDENT Medical Necessity Reason Pt with a Central, PICC or Fol: No Subjective Review of Systems Patient seen and examined at the bedside Patient breathing comfortably at 2-3 L oxygen per minute via nasal cannula, denies shortness of breath while in bed Patient diuresing well with -3 L balance on 08/25, -2.5 L on 08/26, -3.4 L on 08/27, -2.4L on 08/28 Still has bilateral 3+ pitting edema Objective vital signs Vital Sign Date Time Temp Pulse Resp B/P (MAP) Pulse Ox O2 Delivery O2 Flow Rate FiO2 08/28/24 11:38 85 16 100 08/28/24 11:32 Nasal Cannula 0.0 08/28/24 11:32 21 08/28/24 10:23 167/83 08/28/24 09:00 97.9 97.9 Total Intake and Output 08/27/24 08/27/24 08/28/24 15:00 23:00 07:00 Intake Total 690 ml 900 ml Output Total 3600 ml 400 ml Balance -2910 ml 500 ml medications Current Medications Medications Dose Ordered Sig/Jadon Route Start Time Stop Time Status Last Admin Dose Admin Ondansetron HCl 4 mg Q4HP PRN IV 08/24/24 04:00 Morphine Sulfate 2 mg Q4HPRN PRN IV 08/24/24 04:00 Nitroglycerin 0.4 mg Q5MINP PRN SL 08/24/24 04:00 Multivit/Ca Carb/ B Cmplx/FA/Prenat 1 tab DAILY PO 08/24/24 10:00 08/28/24 10:20 1 TAB Clopidogrel Bisulfate 75 mg DAILY PO 08/24/24 10:00 08/28/24 10:20 75 MG Ergocalciferol 50,000 unit QWEEKLY PO 08/24/24 10:00 08/24/24 10:36 50,000 UNIT Citalopram Hydrobromide 40 mg DAILY PO 08/24/24 10:00 08/28/24 10:23 40 MG Nifedipine 60 mg DAILY PO 08/24/24 10:00 08/28/24 10:20 60 MG Aspirin 81 mg DAILY PO 08/24/24 10:00 08/28/24 10:23 81 MG Heparin Sodium (Porcine) 5,000 units Q12HR SC 08/24/24 10:00 08/28/24 11:03 5,000 UNITS Ipratropium [place] 0.5 mg Q6HWA [facility] 08/24/24 06:00 08/28/24 11:32 0.5 MG Atorvastatin Calcium 40 mg DAILY PO 08/25/24 10:00 08/28/24 10:22 40 MG Pantoprazole Sodium 40 mg DAILY@0600 PO 08/25/24 06:00 08/28/24 06:10 40 MG Metolazone 10 mg DAILY PO 08/25/24 10:00 08/28/24 10:21 10 MG Diagnostic Test (Pha) 1 strip ACHS 08/24/24 17:00 08/28/24 06:16 1 STRIP Insulin Human Regular ACHS SC 08/24/24 17:00 08/28/24 06:15 2 UNITS Dextrose 50 ml UD PRN IV 08/24/24 15:15 Bumetanide 2.5 mg TID@0600,1200,1800 IV 08/25/24 12:00 08/28/24 06:11 2.5 MG Acetaminophen 650 mg Q6HP PRN PO 08/25/24 17:45 08/27/24 00:28 650 MG Levalbuterol HCl 0.625 mg Q6HWA [facility] 08/26/24 06:00 08/28/24 11:32 0.625 MG Zirconium Oxide 10 gm TID PO 08/26/24 22:00 08/28/24 03:48 10 GM Carvedilol 6.25 mg Q12HR PO 08/27/24 22:00 08/28/24 10:23 6.25 MG Examination Constitutional: Patient is alert and oriented to time, place and person and does not appear to be in any respiratory distress Gen - no pallor, no icterus, no cyanosis, no clubbing, no LAD Skin - Patients skin is warm and dry HEENT - normocephalic, atraumatic, moist mucous membranes, patient was decreased vision with the cataract in the right eye Neck - full ROM, no LAD, no JVD Pulmonary - B/L diminished breath sounds with improved crackles/rales, now in the lower 1/3 of bilateral lungs , no wheezing, no stridor cardiovascular - variable S1,S2 heard, no added sounds, no murmurs heard. capillary refill normal <2 secs. Extremities: Bilateral lower extremity edema 3+ up to the mid shins GI - soft, nontender abdomen. no hepatospleenomegaly. Bowel sounds normoactive Neurological - Patient is A/O X 3 . Bilateral upper extremity strength 5/5, bilateral lower extremity strength 5/5, no facial droop, normal speech, no tremor, no sensory deficiets. laboratory and microbiology Laboratory Tests 08/28/24 06:10 Test 08/28/24 06:10 Range/Units Serum Glucose 131 H 74-106 mg/dL Microbiology Date/Time Source Procedure Growth Status 08/25/24 08:25 Nose MRSA Screen - Final Complete Problem List/Assessment/Plan Problem List/Assessment/Plan Neurology Normal exam Respiratory Acute on chronic hypoxic respiratory failure likely due to fluid overload B/L Pleural effusion - ABG reviewed shows mixed respiratory and metabolic acidosis - chest x-ray shows bilateral pulmonary edema with left pleural effusion - on diuresis with bumex and metolazone - duo nebs q.6 hours - on oxygen via nasal cannula, maintain SpO2 more than 92% Cardiovascular Acute on chronic heart failure with preserved ejection fraction NSTEMI likely type 2 Coronary artery disease status post PCI with a 1 SALMA (04/2024) Hypertensive heart disease with heart failure Dyslipidemia - 12 lead ECG showed sinus rhythm, troponins elevated 130-150 - echo 07/24 shows LVEF 65%, normal valves, normal RV function, no effusion - elevated BNP - DAPT and atorvastatin - nifedipine 90 mg daily, carvedilol 6.25 mg b.i.d. 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 ESRD, improved , was previously on hemodialysis Hyperkalemia Hyperphosphatemia Hyperparathyroidism likely secondary to ckd Vitamin D deficiency - BUN increased but creatinine improving - FENa 6% - urine microalbumin and total protein elevated - on bumex and metolazone - nephrology on board - hyperkalemia protocol - strict I&O endocrinology Insulin-dependent type 2 diabetes mellitus Morbid obesity - HbA1c 7.5% - on mild insulin sliding scale - consistent carb diet DVT prophylaxis: Heparin PUD prophylaxis: Protonix Goals of care discussed with the patient for over 25 minutes. Full code Time spent: 42 minutes Plan discussed with Dr. Ocampo Plan discussed with: Patient, Other (sister, RN ( Masha )) My Orders My Orders Orders - BRIAN TSE Procedure Category Date Status Time Carvedilol Tablet PHA 08/27/24 In Process (Coreg Tablet) 22:00 Date of Service: Aug 28, 2024 Billing Provider: YAMILETH OCAMPO MD Common Visit Codes: [id number] INP/OBS CARE(HIGH) Secondary Visit Codes: [id number] CARE PLAN 30 MINUTES BRIAN TSE Aug 28, 2024 11:45 YAMILETH OCAMPO MD Aug 29, 2024 16:16
--- NOTE | 2024-08-28 13:51 | DVHPN2 ---
Progress Note - Dictate Date Seen: Aug 28, 2024 Medical Necessity Reason Pt with a Central, PICC or Fol: No Subjective no new symptoms vital signs Vital Sign Date Time Temp Pulse Resp B/P (MAP) Pulse Ox O2 Delivery O2 Flow Rate FiO2 08/28/24 13:14 98.3 85 18 173/94 (120) 97 98.3 08/28/24 11:32 Nasal Cannula 0.0 08/28/24 11:32 21 Total Intake and Output 08/27/24 08/27/24 08/28/24 15:00 23:00 07:00 Intake Total 690 ml 900 ml Output Total 3600 ml 400 ml Balance -2910 ml 500 ml medications Current Medications Medications Dose Ordered Sig/Jadon Route Start Time Stop Time Status Last Admin Dose Admin Ondansetron HCl 4 mg Q4HP PRN IV 08/24/24 04:00 Morphine Sulfate 2 mg Q4HPRN PRN IV 08/24/24 04:00 Nitroglycerin 0.4 mg Q5MINP PRN SL 08/24/24 04:00 Multivit/Ca Carb/ B Cmplx/FA/Prenat 1 tab DAILY PO 08/24/24 10:00 08/28/24 10:20 1 TAB Clopidogrel Bisulfate 75 mg DAILY PO 08/24/24 10:00 08/28/24 10:20 75 MG Ergocalciferol 50,000 unit QWEEKLY PO 08/24/24 10:00 08/24/24 10:36 50,000 UNIT Citalopram Hydrobromide 40 mg DAILY PO 08/24/24 10:00 08/28/24 10:23 40 MG Aspirin 81 mg DAILY PO 08/24/24 10:00 08/28/24 10:23 81 MG Heparin Sodium (Porcine) 5,000 units Q12HR SC 08/24/24 10:00 08/28/24 11:03 5,000 UNITS Ipratropium [place] 0.5 mg Q6HWA [facility] 08/24/24 06:00 08/28/24 11:32 0.5 MG Atorvastatin Calcium 40 mg DAILY PO 08/25/24 10:00 08/28/24 10:22 40 MG Pantoprazole Sodium 40 mg DAILY@0600 PO 08/25/24 06:00 08/28/24 06:10 40 MG Metolazone 10 mg DAILY PO 08/25/24 10:00 08/28/24 10:21 10 MG Diagnostic Test (Pha) 1 strip ACHS 08/24/24 17:00 08/28/24 11:30 1 STRIP Insulin Human Regular ACHS SC 08/24/24 17:00 08/28/24 06:15 2 UNITS Dextrose 50 ml UD PRN IV 08/24/24 15:15 Bumetanide 2.5 mg TID@0600,1200,1800 IV 08/25/24 12:00 08/28/24 12:33 2.5 MG Acetaminophen 650 mg Q6HP PRN PO 08/25/24 17:45 08/27/24 00:28 650 MG Levalbuterol HCl 0.625 mg Q6HWA [facility] 08/26/24 06:00 08/28/24 11:32 0.625 MG Zirconium Oxide 10 gm TID PO 08/26/24 22:00 08/28/24 03:48 10 GM Carvedilol 6.25 mg Q12HR PO 08/27/24 22:00 08/28/24 10:23 6.25 MG Nifedipine 90 mg DAILY PO 08/29/24 10:00 objective Alert and oriented x 3 NAD Lungs CTA CV: RR No pericardial rub Abdomen: soft, NT 2 + leg edema laboratory and microbiology Laboratory Tests 08/28/24 06:10 Test 08/28/24 06:10 Range/Units Serum Glucose 131 H 74-106 mg/dL Assessment/Plan Assessment: 1. CKD4, was on HD for 3 months and stopped 3 weeks ago after regaining enough renal function, HD catheter was removed 2. CHF exacerbation 3. Anasarca 4, hyperkalemia, resolved 5. HTN 6. DM2 7. Anemia of CKD 8. H/O CAD Plan: Cr stable. latest Cr is 3.1 mg/dl good UO 4L L in the last 24 h Continue diuresis with Bumex 2.5 mg IV Q8H and Metolazone 10 mg daily Fluid restriction Daily Lokelma Strict is and Os Daily BMP Will need close nephrology follow up as outpatient Plan discussed with: Patient NAMAN REYES MD Aug 28, 2024 13:51
[2024-08-28] MEDS: NIFEdipine ER 30 MG TAB PO ONE (14:43)
[2024-08-29] VITALS (16 sets, daily range): BP systolic 126–176; BP diastolic 60–97; PULSE 77–90; RESP 16–18; TEMP 97.9–98.6; O2SAT 93–100
[2024-08-29] MEDS: MORPHINE SULFATE INJ 2 MG/ml SYRG IV PRN (04:12)
[2024-08-29 06:35] LABS: Basophils # (auto) 0.1 10 ^3/uL (0-0.2); Eosinophils # (auto) 0.5 10 ^3/uL (0-0.8); Lymphocytes # (auto) 1.3 10 ^3/uL (0.4-5.4); Monocytes # (auto) 0.5 10 ^3/uL (0-1.3); Nucleated Red Blood Cells % 0.1 %
[2024-08-29 06:37] LABS: Basophils % (auto) 1.4 % (0.0-2.0); Hematocrit 31.7 % (41.0-53.0); Lymphocytes % (auto) 22.1 % (10.0-50.0); Mean Corpuscular Hgb Conc. 31.7 g/dL (32.0-36.0); Mean Corpuscular Volume 79.1 fL (80.0-100.0); Monocytes % (auto) 9.5 % (0.0-12.0); Neutrophils # (auto) 3.3 10 ^3/uL (1.6-8.6); Platelet Count (auto) 216 10^3/uL (140-450); Red Blood Cells 4.01 10^6/uL (4.5-5.90); Red Cell Distribution Width 17.9 % (11.8-14.3); White Blood Cell 5.7 10^3/uL (4.4-10.8)
--- NOTE | 2024-08-29 07:22 | DVH ---
EXAM: XR Chest, 1 View CLINICAL INDICATION: SOB TECHNIQUE: Frontal view of the chest. COMPARISON: XY CHEST XRAY 1 VIEW on DOS: 08/27/24, XY CHEST XRAY 1 VIEW on DOS: 08/25/24, XY CHEST XR AY 1 VIEW on DOS: 08/24/24, XY CHEST PORTABLE on DOS: 07/26/24, XY CHEST XRAY 1 VIEW on DOS: 05/30/24 FINDINGS: LUNGS AND PLEURAL SPACES: Unremarkable. No consolidation. No pneumothorax. HEART: Unremarkable. No cardiomegaly. MEDIASTINUM: Unremarkable. Normal mediastinal contour. BONES/JOINTS: Unremarkable. No acute fracture. OTHER FINDINGS: . None. IMPRESSION: No acute cardiopulmonary process.
[2024-08-29 07:33] LABS: Anion Gap 7 (5-15); Carbon Dioxide 26 mmol/L (20-31); Chloride 107 mmol/L (98-107); Potassium 4.5 mmol/L (3.5-5.1); Sodium 140 mmol/L (136-145)
[2024-08-29 07:39] LABS: BUN/Creatinine Ratio 24.2 (10.0-20.0); Glucose 104 mg/dL (74-106)
[2024-08-29 07:40] LABS: Blood Urea Nitrogen 76 mg/dL (9-23); Magnesium 2.3 mg/dL (1.6-2.6)
[2024-08-29 07:41] LABS: Calcium 8.6 mg/dL (8.7-10.4)
[2024-08-29 07:48] LABS: Phosphorus 5.7 mg/dL (2.4-5.1)
[2024-08-29] MEDS: NIFEdipine ER 30 MG TAB PO SCH (09:38)
--- NOTE | 2024-08-29 16:37 | DVHPN2 ---
Progress Note - Dictate Date Seen: Aug 29, 2024 Medical Necessity Reason Pt with a Central, PICC or Fol: No Subjective no new symptoms vital signs Vital Sign Date Time Temp Pulse Resp B/P (MAP) Pulse Ox O2 Delivery O2 Flow Rate FiO2 08/29/24 16:29 98.1 83 18 140/76 (97) 93 98.1 08/29/24 11:07 Nasal Cannula 2.0 08/29/24 11:07 28 Total Intake and Output 08/28/24 08/28/24 08/29/24 15:00 23:00 07:00 Intake Total 780 ml 800 ml 1000 ml Output Total 400 ml 1800 ml Balance 780 ml 400 ml -800 ml medications Current Medications Medications Dose Ordered Sig/Jadon Route Start Time Stop Time Status Last Admin Dose Admin Ondansetron HCl 4 mg Q4HP PRN IV 08/24/24 04:00 Morphine Sulfate 2 mg Q4HPRN PRN IV 08/24/24 04:00 08/29/24 04:12 2 MG Nitroglycerin 0.4 mg Q5MINP PRN SL 08/24/24 04:00 Multivit/Ca Carb/ B Cmplx/FA/Prenat 1 tab DAILY PO 08/24/24 10:00 08/29/24 09:35 1 TAB Clopidogrel Bisulfate 75 mg DAILY PO 08/24/24 10:00 08/29/24 09:35 75 MG Ergocalciferol 50,000 unit QWEEKLY PO 08/24/24 10:00 08/24/24 10:36 50,000 UNIT Citalopram Hydrobromide 40 mg DAILY PO 08/24/24 10:00 08/29/24 09:35 40 MG Aspirin 81 mg DAILY PO 08/24/24 10:00 08/29/24 09:36 81 MG Heparin Sodium (Porcine) 5,000 units Q12HR SC 08/24/24 10:00 08/29/24 09:43 5,000 UNITS Ipratropium [place] 0.5 mg Q6HWA NEB 08/24/24 06:00 08/29/24 11:07 0.5 MG Atorvastatin Calcium 40 mg DAILY PO 08/25/24 10:00 08/29/24 09:36 40 MG Pantoprazole Sodium 40 mg DAILY@0600 PO 08/25/24 06:00 08/29/24 06:06 40 MG Metolazone 10 mg DAILY PO 08/25/24 10:00 08/29/24 09:35 10 MG Diagnostic Test (Pha) 1 strip ACHS 08/24/24 17:00 08/29/24 11:52 1 STRIP Insulin Human Regular ACHS SC 08/24/24 17:00 08/28/24 21:54 2 UNITS Dextrose 50 ml UD PRN IV 08/24/24 15:15 Bumetanide 2.5 mg TID@0600,1200,1800 IV 08/25/24 12:00 08/29/24 12:18 2.5 MG Acetaminophen 650 mg Q6HP PRN PO 08/25/24 17:45 08/27/24 00:28 650 MG Levalbuterol HCl 0.625 mg Q6HWA [facility] 08/26/24 06:00 08/29/24 11:07 0.625 MG Zirconium Oxide 10 gm TID PO 08/26/24 22:00 08/29/24 13:16 10 GM Carvedilol 6.25 mg Q12HR PO 08/27/24 22:00 08/29/24 09:37 6.25 MG Nifedipine 90 mg DAILY PO 08/29/24 10:00 08/29/24 09:38 90 MG objective Alert and oriented x 3 NAD Lungs CTA CV: RR No pericardial rub Abdomen: soft, NT 2 + leg edema laboratory and microbiology Laboratory Tests 08/29/24 05:50 Test 08/29/24 05:50 Range/Units Serum Glucose 104 74-106 mg/dL Assessment/Plan Assessment: 1. CKD4, was on HD for 3 months and stopped 3 weeks ago after regaining enough renal function, HD catheter was removed 2. CHF exacerbation 3. Anasarca 4, hyperkalemia, resolved 5. HTN 6. DM2 7. Anemia of CKD 8. H/O CAD Plan: Cr stable. latest Cr is 3.14 mg/dl good UO 2L L in the last 24 h Continue diuresis with Bumex 2.5 mg IV Q8H and Metolazone 10 mg daily . upon discharge change Bumex to 2 mg PO TID, and change to Metolazone 5 mg PO daily. Fluid restriction Daily Lokelma. continue upon discharge Strict is and Os Daily BMP Will need close nephrology follow up as outpatient Plan discussed with: Patient NAMAN REYES MD Aug 29, 2024 16:37
--- NOTE | 2024-08-29 19:46 | DVHPNRES ---
Progress Note Date Seen: Aug 29, 2024 Resident Creating Document: JHJose De JesusJBRIAN Zaragoza RESIDENT Medical Necessity Reason Pt with a Central, PICC or Fol: No Subjective Review of Systems Patient seen and examined at the bedside Patient breathing comfortably on 2 L oxygen per minute via nasal cannula, denies shortness of breath while in bed Patient diuresing well with -3 L balance on 08/25, -2.5 L on 08/26, -3.4 L on 08/27, -2.4L on 08/28, -1.2L on Still has bilateral 3+ pitting edema Objective vital signs Vital Sign Date Time Temp Pulse Resp B/P (MAP) Pulse Ox O2 Delivery O2 Flow Rate FiO2 08/29/24 18:32 83 16 100 08/29/24 18:26 Nasal Cannula* 2 08/29/24 17:19 142/83 08/29/24 16:29 98.1 98.1 Total Intake and Output 08/28/24 08/28/24 08/29/24 15:00 23:00 07:00 Intake Total 780 ml 800 ml 1000 ml Output Total 400 ml 1800 ml Balance 780 ml 400 ml -800 ml medications Current Medications Medications Dose Ordered Sig/Jadon Route Start Time Stop Time Status Last Admin Dose Admin Ondansetron HCl 4 mg Q4HP PRN IV 08/24/24 04:00 Morphine Sulfate 2 mg Q4HPRN PRN IV 08/24/24 04:00 08/29/24 04:12 2 MG Nitroglycerin 0.4 mg Q5MINP PRN SL 08/24/24 04:00 Multivit/Ca Carb/ B Cmplx/FA/Prenat 1 tab DAILY PO 08/24/24 10:00 08/29/24 09:35 1 TAB Clopidogrel Bisulfate 75 mg DAILY PO 08/24/24 10:00 08/29/24 09:35 75 MG Ergocalciferol 50,000 unit QWEEKLY PO 08/24/24 10:00 08/24/24 10:36 50,000 UNIT Citalopram Hydrobromide 40 mg DAILY PO 08/24/24 10:00 08/29/24 09:35 40 MG Aspirin 81 mg DAILY PO 08/24/24 10:00 08/29/24 09:36 81 MG Heparin Sodium (Porcine) 5,000 units Q12HR SC 08/24/24 10:00 08/29/24 09:43 5,000 UNITS Ipratropium [place] 0.5 mg Q6HWA [facility] 08/24/24 06:00 08/29/24 18:26 0.5 MG Atorvastatin Calcium 40 mg DAILY PO 08/25/24 10:00 08/29/24 09:36 40 MG Pantoprazole Sodium 40 mg DAILY@0600 PO 08/25/24 06:00 08/29/24 06:06 40 MG Metolazone 10 mg DAILY PO 08/25/24 10:00 08/29/24 09:35 10 MG Diagnostic Test (Pha) 1 strip ACHS 08/24/24 17:00 08/29/24 17:04 1 STRIP Insulin Human Regular ACHS SC 08/24/24 17:00 08/28/24 21:54 2 UNITS Dextrose 50 ml UD PRN IV 08/24/24 15:15 Bumetanide 2.5 mg TID@0600,1200,1800 IV 08/25/24 12:00 08/29/24 17:19 2.5 MG Acetaminophen 650 mg Q6HP PRN PO 08/25/24 17:45 08/27/24 00:28 650 MG Levalbuterol HCl 0.625 mg Q6HWA [facility] 08/26/24 06:00 08/29/24 18:26 0.625 MG Zirconium Oxide 10 gm TID PO 08/26/24 22:00 08/29/24 13:16 10 GM Carvedilol 6.25 mg Q12HR PO 08/27/24 22:00 08/29/24 09:37 6.25 MG Nifedipine 90 mg DAILY PO 08/29/24 10:00 08/29/24 09:38 90 MG Examination Constitutional: Patient is alert and oriented to time, place and person and does not appear to be in any respiratory distress Gen - no pallor, no icterus, no cyanosis, no clubbing, no LAD Skin - Patients skin is warm and dry HEENT - normocephalic, atraumatic, moist mucous membranes, patient was decreased vision with the cataract in the right eye Neck - full ROM, no LAD, no JVD Pulmonary - B/L diminished breath sounds with crackles/rales in the lower 1/2 of bilateral lungs , no wheezing, no stridor cardiovascular - variable S1,S2 heard, no added sounds, no murmurs heard. capillary refill normal <2 secs. Extremities: Bilateral lower extremity edema 3+ up to the mid shins GI - soft, nontender abdomen. no hepatospleenomegaly. Bowel sounds normoactive Neurological - Patient is A/O X 3 . Bilateral upper extremity strength 5/5, bilateral lower extremity strength 5/5, no facial droop, normal speech, no tremor, no sensory deficiets. laboratory and microbiology Laboratory Tests 08/29/24 05:50 Test 08/29/24 05:50 Range/Units Serum Glucose 104 74-106 mg/dL Microbiology Date/Time Source Procedure Growth Status 08/25/24 08:25 Nose MRSA Screen - Final Complete Problem List/Assessment/Plan Problem List/Assessment/Plan Respiratory Acute on chronic hypoxic respiratory failure likely due to fluid overload B/L Pleural effusion - ABG reviewed shows mixed respiratory and metabolic acidosis - chest x-ray shows bilateral pulmonary edema with left pleural effusion - on diuresis with bumex and metolazone - duo nebs q.6 hours - on oxygen via nasal cannula, maintain SpO2 more than 92% - added jardiance - fluid restriction Cardiovascular Acute on chronic heart failure with preserved ejection fraction NSTEMI likely type 2 Coronary artery disease status post PCI with a 1 SALMA (04/2024) Hypertensive heart disease with heart failure Dyslipidemia - 12 lead ECG showed sinus rhythm, troponins elevated 130-150 - echo 07/24 shows LVEF 65%, normal valves, normal RV function, no effusion - elevated BNP - DAPT and atorvastatin - nifedipine 90 mg daily, carvedilol 6.25 mg b.i.d. 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 ESRD, improved , was previously on hemodialysis Hyperkalemia Hyperphosphatemia Hyperparathyroidism likely secondary to ckd Vitamin D deficiency - BUN increased but creatinine improving - FENa 6% - urine microalbumin and total protein elevated - on bumex and metolazone - nephrology on board - hyperkalemia protocol - strict I&O endocrinology Insulin-dependent type 2 diabetes mellitus Morbid obesity - HbA1c 7.5% - on mild insulin sliding scale - consistent carb diet DVT prophylaxis: Heparin PUD prophylaxis: Protonix Goals of care discussed with the patient for over 25 minutes. Full code Time spent: 41 minutes Plan discussed with Dr. Ocampo Plan discussed with: Patient Date of Service: Aug 29, 2024 Billing Provider: YAMILETH OCAMPO MD Common Visit Codes: [id number] INP/OBS CARE(HIGH) Secondary Visit Codes: [id number] CARE PLAN 30 MINUTES BRIAN TSE RESIDENT Aug 29, 2024 19:46 YAMILETH OCAMPO MD August 30, 2024 12:51
[2024-08-30] VITALS (15 sets, daily range): BP systolic 136–168; BP diastolic 73–102; PULSE 77–87; RESP 16–20; TEMP 97.6–98.4; O2SAT 92–100
[2024-08-30 06:57] LABS: Anion Gap 7 (5-15); Carbon Dioxide 28 mmol/L (20-31); Chloride 105 mmol/L (98-107); Potassium 4.4 mmol/L (3.5-5.1); Sodium 140 mmol/L (136-145)
[2024-08-30 06:58] LABS: Calcium 8.9 mg/dL (8.7-10.4)
[2024-08-30 07:01] LABS: Basophils # (auto) 0.1 10 ^3/uL (0-0.2); Eosinophils # (auto) 0.4 10 ^3/uL (0-0.8); Eosinophils % (auto) 7.6 % (0.0-7.0); Hematocrit 31.8 % (41.0-53.0); Hemoglobin 10.2 g/dL (13.5-17.5); Lymphocytes # (auto) 1.1 10 ^3/uL (0.4-5.4); Lymphocytes % (auto) 21.2 % (10.0-50.0); Mean Corpuscular Hemoglobin 25.1 pg (28.0-32.0); Mean Corpuscular Hgb Conc. 32.1 g/dL (32.0-36.0); Mean Corpuscular Volume 78.2 fL (80.0-100.0); Monocytes # (auto) 0.5 10 ^3/uL (0-1.3); Monocytes % (auto) 8.6 % (0.0-12.0); Neutrophils # (auto) 3.3 10 ^3/uL (1.6-8.6); Neutrophils % (auto) 60.6 % (37.0-80.0); Nucleated Red Blood Cells % 0.2 %; Platelet Count (auto) 209 10^3/uL (140-450); Red Blood Cells 4.06 10^6/uL (4.5-5.90); White Blood Cell 5.4 10^3/uL (4.4-10.8)
[2024-08-30 07:03] LABS: BUN/Creatinine Ratio 23.7 (10.0-20.0); Blood Urea Nitrogen 76 mg/dL (9-23); Glucose 84 mg/dL (74-106)
[2024-08-30 07:04] LABS: Magnesium 2.3 mg/dL (1.6-2.6)
[2024-08-30] MEDS: EMPAGLIFLOZIN 10 MG TAB PO SCH (09:49)
--- NOTE | 2024-08-30 16:34 | DVHPN2 ---
Progress Note - Dictate Date Seen: August 30, 2024 Medical Necessity Reason Pt with a Central, PICC or Fol: No Subjective no new symptoms vital signs Vital Sign Date Time Temp Pulse Resp B/P (MAP) Pulse Ox O2 Delivery O2 Flow Rate FiO2 08/30/24 13:00 98.0 80 16 168/102 (124) 98 98.0 08/30/24 11:25 Nasal Cannula 2.0 08/30/24 11:25 28 Total Intake and Output 08/29/24 08/29/24 08/30/24 15:00 23:00 07:00 Intake Total 120 ml 920 ml 900 ml Output Total 700 ml 1520 ml 1500 ml Balance -580 ml -600 ml -600 ml medications Current Medications Medications Dose Ordered Sig/Jadon Route Start Time Stop Time Status Last Admin Dose Admin Ondansetron HCl 4 mg Q4HP PRN IV 08/24/24 04:00 Morphine Sulfate 2 mg Q4HPRN PRN IV 08/24/24 04:00 08/29/24 22:11 2 MG Nitroglycerin 0.4 mg Q5MINP PRN SL 08/24/24 04:00 Multivit/Ca Carb/ B Cmplx/FA/Prenat 1 tab DAILY PO 08/24/24 10:00 08/30/24 09:49 1 TAB Clopidogrel Bisulfate 75 mg DAILY PO 08/24/24 10:00 08/30/24 09:49 75 MG Ergocalciferol 50,000 unit QWEEKLY PO 08/24/24 10:00 08/24/24 10:36 50,000 UNIT Citalopram Hydrobromide 40 mg DAILY PO 08/24/24 10:00 08/30/24 09:49 40 MG Aspirin 81 mg DAILY PO 08/24/24 10:00 08/30/24 09:48 81 MG Heparin Sodium (Porcine) 5,000 units Q12HR SC 08/24/24 10:00 08/30/24 09:48 5,000 UNITS Ipratropium [place] 0.5 mg Q6HWA [facility] 08/24/24 06:00 08/30/24 11:24 0.5 MG Atorvastatin Calcium 40 mg DAILY PO 08/25/24 10:00 08/30/24 09:48 40 MG Pantoprazole Sodium 40 mg DAILY@0600 PO 08/25/24 06:00 08/30/24 06:08 40 MG Metolazone 10 mg DAILY PO 08/25/24 10:00 08/30/24 09:50 10 MG Diagnostic Test (Pha) 1 strip ACHS 08/24/24 17:00 08/30/24 11:52 1 STRIP Insulin Human Regular ACHS SC 08/24/24 17:00 08/29/24 22:09 2 UNITS Dextrose 50 ml UD PRN IV 08/24/24 15:15 Bumetanide 2.5 mg TID@0600,1200,1800 IV 08/25/24 12:00 08/30/24 12:17 2.5 MG Acetaminophen 650 mg Q6HP PRN PO 08/25/24 17:45 08/27/24 00:28 650 MG Levalbuterol HCl 0.625 mg Q6HWA [facility] 08/26/24 06:00 08/30/24 11:25 0.625 MG Zirconium Oxide 10 gm TID PO 08/26/24 22:00 08/30/24 15:55 10 GM Carvedilol 6.25 mg Q12HR PO 08/27/24 22:00 08/30/24 09:50 6.25 MG Nifedipine 90 mg DAILY PO 08/29/24 10:00 08/30/24 09:50 90 MG Empaglifozin 10 mg DAILY PO 08/30/24 10:00 08/30/24 09:49 10 MG objective Alert and oriented x 3 NAD Lungs CTA CV: RR No pericardial rub Abdomen: soft, NT 2 + leg edema laboratory and microbiology Laboratory Tests 08/30/24 06:10 Test 08/30/24 06:10 Range/Units Serum Glucose 84 74-106 mg/dL Assessment/Plan Assessment: CKD4, was on HD for 3 months and stopped 3 weeks ago after regaining enough renal function, HD catheter was removed CHF exacerbation Anasarca hyperkalemia, resolved HTN DM2 Nephrotic range proteinuria. UPCR: 6.5 g/g Anemia of CKD H/O CAD Plan: Cr stable. latest Cr is 3.2 mg/dl good UO 3.2L L in the last 24 h Continue diuresis with Bumex 2.5 mg IV Q8H and Metolazone 10 mg daily . upon discharge change Bumex to 2 mg PO TID, and change to Metolazone 5 mg PO daily. Fluid restriction started Jardiance 10 g PO daily ideally RAAS inhibitors need to be started , but due to history of hyperkalemia, and aggressive diuresis will hold off for now. Daily Lokelma. continue upon discharge Strict is and Os Daily BMP Will need close nephrology follow up as outpatient Plan discussed with: Patient, Other NAMAN REYES MD August 30, 2024 16:34
--- NOTE | 2024-08-30 20:17 | DVHPNRES ---
Progress Note Date Seen: August 30, 2024 Resident Creating Document: BRIAN TSE RESIDENT Medical Necessity Reason Pt with a Central, PICC or Fol: No Subjective Review of Systems Patient seen and examined at the bedside Patient breathing comfortably on 2 L oxygen per minute via nasal cannula, denies shortness of breath while and on walking Patient diuresing well with -3 L balance on 08/25, -2.5 L on 08/26, -3.4 L on 08/27, -2.4L on 08/28, -1.8L on edema has improved Objective vital signs Vital Sign Date Time Temp Pulse Resp B/P (MAP) Pulse Ox O2 Delivery O2 Flow Rate FiO2 08/30/24 18:45 98 Nasal Cannula* 2 28 08/30/24 18:45 78 20 08/30/24 17:48 158/85 08/30/24 16:34 98.2 98.2 Total Intake and Output 08/29/24 08/29/24 08/30/24 15:00 23:00 07:00 Intake Total 120 ml 920 ml 900 ml Output Total 700 ml 1520 ml 1500 ml Balance -580 ml -600 ml -600 ml medications Current Medications Medications Dose Ordered Sig/Jadon Route Start Time Stop Time Status Last Admin Dose Admin Ondansetron HCl 4 mg Q4HP PRN IV 08/24/24 04:00 Morphine Sulfate 2 mg Q4HPRN PRN IV 08/24/24 04:00 08/29/24 22:11 2 MG Nitroglycerin 0.4 mg Q5MINP PRN SL 08/24/24 04:00 Multivit/Ca Carb/ B Cmplx/FA/Prenat 1 tab DAILY PO 08/24/24 10:00 08/30/24 09:49 1 TAB Clopidogrel Bisulfate 75 mg DAILY PO 08/24/24 10:00 08/30/24 09:49 75 MG Ergocalciferol 50,000 unit QWEEKLY PO 08/24/24 10:00 08/24/24 10:36 50,000 UNIT Citalopram Hydrobromide 40 mg DAILY PO 08/24/24 10:00 08/30/24 09:49 40 MG Aspirin 81 mg DAILY PO 08/24/24 10:00 08/30/24 09:48 81 MG Heparin Sodium (Porcine) 5,000 units Q12HR SC 08/24/24 10:00 08/30/24 09:48 5,000 UNITS Ipratropium [place] 0.5 mg Q6HWA [facility] 08/24/24 06:00 08/30/24 19:24 0.5 MG Atorvastatin Calcium 40 mg DAILY PO 08/25/24 10:00 08/30/24 09:48 40 MG Pantoprazole Sodium 40 mg DAILY@0600 PO 08/25/24 06:00 08/30/24 06:08 40 MG Metolazone 10 mg DAILY PO 08/25/24 10:00 08/30/24 09:50 10 MG Diagnostic Test (Pha) 1 strip ACHS 08/24/24 17:00 08/30/24 17:20 1 STRIP Insulin Human Regular ACHS SC 08/24/24 17:00 08/29/24 22:09 2 UNITS Dextrose 50 ml UD PRN IV 08/24/24 15:15 Bumetanide 2.5 mg TID@0600,1200,1800 IV 08/25/24 12:00 08/30/24 17:48 2.5 MG Acetaminophen 650 mg Q6HP PRN PO 08/25/24 17:45 08/27/24 00:28 650 MG Levalbuterol HCl 0.625 mg Q6HWA [facility] 08/26/24 06:00 08/30/24 19:24 0.625 MG Zirconium Oxide 10 gm TID PO 08/26/24 22:00 08/30/24 15:55 10 GM Carvedilol 6.25 mg Q12HR PO 08/27/24 22:00 08/30/24 09:50 6.25 MG Nifedipine 90 mg DAILY PO 08/29/24 10:00 08/30/24 09:50 90 MG Empaglifozin 10 mg DAILY PO 08/30/24 10:00 08/30/24 09:49 10 MG Examination Constitutional: Patient is alert and oriented to time, place and person and does not appear to be in any respiratory distress Gen - no pallor, no icterus, no cyanosis, no clubbing, no LAD Skin - Patients skin is warm and dry HEENT - normocephalic, atraumatic, moist mucous membranes, patient was decreased vision with the cataract in the right eye Neck - full ROM, no LAD, no JVD Pulmonary - B/L diminished breath sounds with crackles/rales in the lower 1/2 of bilateral lungs , no wheezing, no stridor cardiovascular - variable S1,S2 heard, no added sounds, no murmurs heard. capillary refill normal <2 secs. Extremities: Bilateral lower extremity edema 3+ up to the mid shins GI - soft, nontender abdomen. no hepatospleenomegaly. Bowel sounds normoactive Neurological - Patient is A/O X 3 . Bilateral upper extremity strength 5/5, bilateral lower extremity strength 5/5, no facial droop, normal speech, no tremor, no sensory deficiets. laboratory and microbiology Laboratory Tests 08/30/24 06:10 Test 08/30/24 06:10 Range/Units Serum Glucose 84 74-106 mg/dL Microbiology Date/Time Source Procedure Growth Status 08/25/24 08:25 Nose MRSA Screen - Final Complete Problem List/Assessment/Plan Problem List/Assessment/Plan Respiratory Acute on chronic hypoxic respiratory failure likely due to fluid overload B/L Pleural effusion - ABG reviewed shows mixed respiratory and metabolic acidosis - chest x-ray shows bilateral pulmonary edema with left pleural effusion - on diuresis with bumex and metolazone - duo nebs q.6 hours - on oxygen via nasal cannula, maintain SpO2 more than 92% - added jardiance - fluid restriction Cardiovascular Acute on chronic heart failure with preserved ejection fraction NSTEMI likely type 2 Coronary artery disease status post PCI with a 1 SALMA (04/2024) Hypertensive heart disease with heart failure Dyslipidemia - 12 lead ECG showed sinus rhythm, troponins elevated 130-150 - echo 07/24 shows LVEF 65%, normal valves, normal RV function, no effusion - elevated BNP - DAPT and atorvastatin - nifedipine 90 mg daily, carvedilol 6.25 mg b.i.d. 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 ESRD, improved , was previously on hemodialysis Hyperkalemia Hyperphosphatemia Hyperparathyroidism likely secondary to ckd Vitamin D deficiency - BUN increased but creatinine improving - FENa 6% - urine microalbumin and total protein elevated - on bumex and metolazone - nephrology on board - hyperkalemia protocol - strict I&O endocrinology Insulin-dependent type 2 diabetes mellitus Morbid obesity - HbA1c 7.5% - on mild insulin sliding scale - consistent carb diet DVT prophylaxis: Heparin PUD prophylaxis: Protonix Goals of care discussed with the patient for over 21 minutes. Full code Time spent: 37 minutes Plan discussed with Dr. Ocampo Plan discussed with: Patient My Orders My Orders Orders - BRIAN TSE Procedure Category Date Status Time Empagliflozin PHA 08/30/24 In Process (Jardiance) 10:00 Dietary NOTICE 08/30/24 Transmitted Recommendations 17:02 Dietary Evaluation Review Comments: 1) CCHO 75 + renal standard diet 2) Consider renagel 800mg 1 tab TID with meals 3) Pro-stat 1 pk daily 4) Continue current POC Expected Outcomes/Goals: lab values to improve fu 3-5 days Date of Service: August 30, 2024 Billing Provider: YAMILETH OCAMPO MD Common Visit Codes: [id number] INP/OBS CARE(HIGH) Secondary Visit Codes: [id number] CARE PLAN 30 MINUTES BRIAN TSE August 30, 2024 20:17 YAMILETH OCAMPO MD September 02, 2024 12:18
[2024-08-31] VITALS (10 sets, daily range): BP systolic 142–178; BP diastolic 74–96; PULSE 78–91; RESP 18–22; TEMP 97.7–98.2; O2SAT 92–100
--- NOTE | 2024-08-31 06:51 | DVHPN2 ---
Progress Note - Dictate Date Seen: August 31, 2024 Medical Necessity Reason Pt with a Central, PICC or Fol: No Subjective no new symptoms vital signs Vital Sign Date Time Temp Pulse Resp B/P (MAP) Pulse Ox O2 Delivery O2 Flow Rate FiO2 08/31/24 05:48 155/85 08/31/24 05:31 81 20 100 08/31/24 05:24 Nasal Cannula* 2 28 08/31/24 05:00 97.7 97.7 Total Intake and Output 08/30/24 08/30/24 08/31/24 15:00 23:00 07:00 Intake Total 720 ml 675 ml Output Total 2650 ml 1800 ml Balance -1930 ml -1125 ml medications Current Medications Medications Dose Ordered Sig/Jadon Route Start Time Stop Time Status Last Admin Dose Admin Ondansetron HCl 4 mg Q4HP PRN IV 08/24/24 04:00 Morphine Sulfate 2 mg Q4HPRN PRN IV 08/24/24 04:00 08/29/24 22:11 2 MG Nitroglycerin 0.4 mg Q5MINP PRN SL 08/24/24 04:00 Multivit/Ca Carb/ B Cmplx/FA/Prenat 1 tab DAILY PO 08/24/24 10:00 08/30/24 09:49 1 TAB Clopidogrel Bisulfate 75 mg DAILY PO 08/24/24 10:00 08/30/24 09:49 75 MG Ergocalciferol 50,000 unit QWEEKLY PO 08/24/24 10:00 08/24/24 10:36 50,000 UNIT Citalopram Hydrobromide 40 mg DAILY PO 08/24/24 10:00 08/30/24 09:49 40 MG Aspirin 81 mg DAILY PO 08/24/24 10:00 08/30/24 09:48 81 MG Heparin Sodium (Porcine) 5,000 units Q12HR SC 08/24/24 10:00 08/30/24 22:29 5,000 UNITS Ipratropium [place] 0.5 mg Q6HWA [facility]B 08/24/24 06:00 08/31/24 05:24 0.5 MG Atorvastatin Calcium 40 mg DAILY PO 08/25/24 10:00 08/30/24 09:48 40 MG Pantoprazole Sodium 40 mg DAILY@0600 PO 08/25/24 06:00 08/31/24 05:48 40 MG Metolazone 10 mg DAILY PO 08/25/24 10:00 08/30/24 09:50 10 MG Diagnostic Test (Pha) 1 strip ACHS 08/24/24 17:00 08/31/24 06:49 1 STRIP Insulin Human Regular ACHS SC 08/24/24 17:00 08/29/24 22:09 2 UNITS Dextrose 50 ml UD PRN IV 08/24/24 15:15 Bumetanide 2.5 mg TID@0600,1200,1800 IV 08/25/24 12:00 08/31/24 05:48 2.5 MG Acetaminophen 650 mg Q6HP PRN PO 08/25/24 17:45 08/27/24 00:28 650 MG Levalbuterol HCl 0.625 mg Q6HWA NEB 08/26/24 06:00 08/31/24 05:24 0.625 MG Zirconium Oxide 10 gm TID PO 08/26/24 22:00 08/31/24 05:48 10 GM Carvedilol 6.25 mg Q12HR PO 08/27/24 22:00 08/30/24 22:24 6.25 MG Nifedipine 90 mg DAILY PO 08/29/24 10:00 08/30/24 09:50 90 MG Empaglifozin 10 mg DAILY PO 08/30/24 10:00 08/30/24 09:49 10 MG objective Alert and oriented x 3 NAD Lungs CTA CV: RR No pericardial rub Abdomen: soft, NT 2 + leg edema laboratory and microbiology Laboratory Tests 08/30/24 06:10 Test 08/30/24 06:10 Range/Units Serum Glucose 84 74-106 mg/dL Assessment/Plan Assessment: CKD4, was on HD for 3 months and stopped 3 weeks ago after regaining enough renal function, HD catheter was removed CHF exacerbation Anasarca hyperkalemia, resolved HTN DM2 Nephrotic range proteinuria. UPCR: 6.5 g/g Anemia of CKD H/O CAD Plan: UO has improved after addition of Jardiance. made over 4 L in last 24 hours labs from today are pending Continue diuresis with Bumex 2.5 mg IV Q8H and Metolazone 10 mg daily . upon discharge change Bumex to 2 mg PO TID, and change to Metolazone 5 mg PO daily. Fluid restriction Continue Jardiance 10 g PO daily ideally RAAS inhibitors need to be started , but due to history of hyperkalemia, and aggressive diuresis will hold off for now. Daily Lokelma. continue upon discharge Strict is and Os Daily BMP Will need close nephrology follow up as outpatient Dietary Evaluation Review Comments: 1) CCHO 75 + renal standard diet 2) Consider renagel 800mg 1 tab TID with meals 3) Pro-stat 1 pk daily 4) Continue current POC Expected Outcomes/Goals: lab values to improve fu 3-5 days Plan discussed with: Patient NAMAN REYES MD August 31, 2024 06:51
[2024-08-31 07:25] LABS: Anion Gap 10 (5-15); Carbon Dioxide 29 mmol/L (20-31); Chloride 101 mmol/L (98-107); Potassium 4.3 mmol/L (3.5-5.1); Sodium 140 mmol/L (136-145)
[2024-08-31 07:31] LABS: BUN/Creatinine Ratio 25.3 (10.0-20.0); Glucose 86 mg/dL (74-106)
[2024-08-31 07:40] LABS: Phosphorus 5.6 mg/dL (2.4-5.1)
[2024-08-31 07:42] LABS: Blood Urea Nitrogen 80 mg/dL (9-23)
--- NOTE | 2024-08-31 10:29 | DVH ---
CHEST RADIOGRAPH Indication: SOB Technique: Single frontal view of the chest was obtained Comparison: XY CHEST XRAY 1 VIEW on DOS: 08/29/24, XY CHEST XRAY 1 VIEW on DOS: 08/27/24, XY CHEST XRAY 1 VIEW on DOS: 08/25/24, XY CHEST XRAY 1 VIEW on DOS: 08/24/24, XY CHEST PORTABLE on DOS: 07/26/24 FINDINGS: Lines and Tubes: None Lungs: No focal consolidation. Pleura: No effusion. No pneumothorax. Cardiomediastinal contours: Unremarkable Bones: No acute osseous abnormality. IMPRESSION: No acute cardiopulmonary disease.
[2024-08-31] MEDS ORDERED: SODI5PAK PO (14:19)
[2024-08-31] MEDS ORDERED: DAPA1TAB4 PO (14:19)
[2024-08-31] MEDS ORDERED: ASPI-325 PO (14:19)
[2024-08-31] MEDS ORDERED: CARV-214 PO (14:19)
[2024-08-31] MEDS ORDERED: ERGO1CAP23 PO (14:19)
[2024-08-31] MEDS ORDERED: ATOR40TA52 PO (14:19)
[2024-08-31] MEDS ORDERED: CLOP75TA70 PO (14:19)
[2024-08-31] MEDS ORDERED: NIFE1TAB31 PO (14:20)
[2024-08-31] MEDS ORDERED: BUM1T PO (14:20)
[2024-08-31] MEDS ORDERED: METO5TAB5 PO (14:20)
--- NOTE | 2024-08-31 14:20 | DVHDSRES ---
Discharge Summary Date of Admission Resident Creating Document: BRIAN TSE RESIDENT Aug 24, 2024 at 03:51 Date of Discharge: August 31, 2024 Admitting Diagnosis Acute respiratory failure due to fluid overload Hypertensive emergency Cardiorenal syndrome type 3 Acute on chronic diastolic congestive heart failure (HFpEF, LVEF 65% on 06/2024) SUSY hemodynamically mediated (VMN) on CKD - questionable ESRD (off hemodialysis for three weeks) Severe Hyperkalemia NSTEMI probable type 2 due to above Metabolic acidosis with normal anion gap Coronary artery disease with history of RI - status post PCI with 1 SALMA on 04/2024 Diabetes-controlled (hemoglobin A1c: 6.8% on 05/2024) History of diabetic foot status post amputation Anxiety Obesity Wounds: none Labs/Diagnostic Data: Laboratory Results Test 08/31/24 11:21 08/31/24 06:48 08/30/24 06:10 08/27/24 05:10 POC Glucose 86 mg/dl (70-106) Sodium Level 140 mmol/L (136-145) Potassium Level 4.3 mmol/L (3.5-5.1) Chloride Level 101 mmol/L (98-107) Carbon Dioxide Level 29 mmol/L (20-31) Anion Gap 10 (5-15) Blood Urea Nitrogen 80 mg/dL (9-23) Creatinine 3.16 mg/dL (0.700-1.30) Glomerular Filtration Rate Calc 23 mL/min (>90) BUN/Creatinine Ratio 25.3 (10.0-20.0) Serum Glucose 86 mg/dL (74-106) Calcium Level 9.0 mg/dL (8.7-10.4) Phosphorus Level 5.6 mg/dL (2.4-5.1) White Blood Count 5.4 10^3/uL (4.4-10.8) Red Blood Count 4.06 10^6/uL (4.5-5.90) Hemoglobin 10.2 g/dL (13.5-17.5) Hematocrit 31.8 % (41.0-53.0) Mean Corpuscular Volume 78.2 fL (80.0-100.0) Mean Corpuscular Hemoglobin 25.1 pg (28.0-32.0) Mean Corpuscular Hemoglobin Concent 32.1 g/dL (32.0-36.0) Red Cell Distribution Width 18.0 % (11.8-14.3) Platelet Count 209 10^3/uL (140-450) Mean Platelet Volume 9.2 fL (6.9-10.8) Neutrophils (%) (Auto) 60.6 % (37.0-80.0) Lymphocytes (%) (Auto) 21.2 % (10.0-50.0) Monocytes (%) (Auto) 8.6 % (0.0-12.0) Eosinophils (%) (Auto) 7.6 % (0.0-7.0) Basophils (%) (Auto) 2.0 % (0.0-2.0) Neutrophils # (Auto) 3.3 10 ^3/uL (1.6-8.6) Lymphocytes # (Auto) 1.1 10 ^3/uL (0.4-5.4) Monocytes # (Auto) 0.5 10 ^3/uL (0-1.3) Eosinophils # (Auto) 0.4 10 ^3/uL (0-0.8) Basophils # (Auto) 0.1 10 ^3/uL (0-0.2) Nucleated Red Blood Cells 0.2 % Magnesium Level 2.3 mg/dL (1.6-2.6) Total Bilirubin 0.2 mg/dL (0.2-1.0) Aspartate Amino Transferase (AST) 16 U/L (13-40) Alanine Aminotransferase (ALT) 18 U/L (7-40) Alkaline Phosphatase 152 U/L (46-116) Total Protein 6.5 g/dL (5.7-8.2) Albumin 3.8 g/dL (3.2-4.8) Test 08/24/24 09:05 08/24/24 08:45 08/24/24 05:28 08/24/24 01:53 Blood Gas Specimen Type Arterial Blood Gas Sample Site Right radial Blood Gas Patient Temperature 37.0 Arterial Blood Date Drawn [id number] Arterial Blood pH 7.261 (7.350-7.450) Arterial Blood Partial Pressure CO2 43.7 mmHg (35.0-48.0) Arterial Blood Partial Pressure O2 77.6 mmHg (83.0-108.0) Arterial Blood HCO3 19.2 mmol/L (21.0-28.0) Arterial Blood Oxygen Saturation 93.7 % (94.0-98.0) Arterial Blood Base Excess -7.5 mmol/L (-2.0-3.0) Arterial Blood Oxyhemoglobin 92.9 % (94.0-98.0) Arterial Blood Carboxyhemoglobin 0.4 % (0.5-1.5) Arterial Blood Methemoglobin 0.5 % (0.0-1.5) [place]on Test Yes Blood Gas Total Hemoglobin 11.10 g/dL (13.5-17.5) Blood Gas Liter Flow 3.00 Blood Gas Modality Nasal cannula FiO2 % 32.0 Urine Color Colorless (Yellow) Urine Clarity Clear (Clear) Urine pH 5.5 (5.0-9.0) Urine Specific [place] 1.010 (1.001-1.035) Urine Protein 2+ (Negative) Urine Ketones Negative (Negative) Urine Blood Trace /uL (Negative) Urine Nitrite Negative (Negative) Urine Bilirubin Negative (Negative) Urine Urobilinogen Normal mg/dL (Negative) Urine Leukocyte Esterase Negative /uL (Negative) Urine RBC 1 /hpf (0 - 3) Urine Microscopic WBC 1 /HPF (0-3) Urine Squamous Epithelial Cells Few /hpf (<5) Urine Bacteria None seen /hpf (None Seen) Urine Mucus Few (None Seen) Urine Creatinine 38.19 mg/dL (30.0-125.0) Urine Microalbumin 1430.0 mg/L (<30.0) Urine Protein/Creatinine Ratio 6.52 Urine Sodium 103 mmol/L (40-220) Urine Glucose Trace mg/dL (Normal) Urine Total Protein 249.1 mg/dL (1-14) Urine Opiates Screen Neg (NEGATIVE) Urine Fentanyl Screen Neg (NEGATIVE) Urine Barbiturates Screen Neg (NEGATIVE) Urine Phencyclidine Screen Neg (NEGATIVE) Urine Amphetamines Screen Neg (NEGATIVE) Urine Benzodiazepines Screen Neg (NEGATIVE) Urine Cocaine Screen Neg (NEGATIVE) Urine Cannabinoids Screen Neg (NEGATIVE) Platelet Estimate Adequate Hemoglobin A1c 7.5 % A1C (<5.7) Lactic Acid Level 1.1 mmol/L (0.4-2.0) Troponin I High Sensitivity 150 ng/L (</=54) Triglycerides Level 146 mg/dL (< 150) Cholesterol Level 121 mg/dL (< 200) LDL Cholesterol 63 mg/dL (< 100) HDL Cholesterol 34 mg/dL (40-59) Vitamin B12 Level 661 pg/mL (211-911) Vitamin D 25-Hydroxy 27.1 ng/mL (30.0-100) Thyroid Stimulating Hormone (TSH) 3.24 uIU/mL (0.55-4.78) Parathyroid Hormone (Intact) 363.7 pg/mL (18.4-80.1) Prothrombin Time 10.2 sec (9.3-11.8) Prothrombin Time INR 0.96 (0.9-1.15) Activated Partial Thromboplast Time 31.3 SEC (24.5-34.5) B-Type Natriuretic Peptide 448.43 pg/mL (0-100) Other Laboratory Tests 08/31/24 06:48 08/30/24 06:10 Brief Hx & Hospital Course: Patient is a 48 year old male patient who presents to the ED with chief complaint of progressive dyspnea from functional class II to functional class IV eight days before his admission, associated with bilateral lower limb swelling. Patient reports last hemodialysis session was approximately three weeks ago, he was taken off of dialysis since his kidneys had recovered previously. He was only on hemodialysis for three months. Patient recently admitted due to CHF, he has been compliant with his medication including Lasix. Upon arrival to ED patient was found hypertensive ([id number]). Denies fever, chills, palpitation, syncope, chest pain, nausea, vomiting, diarrhea, bleeding, recent travel, sick contacts and motor or sensory deficits. Past medical history: Hypertension, dyslipidemia, diabetes, obesity, chronic kidney disease required hemodialysis for approximately three months has been off for the past three weeks, coronary artery disease with RI in 04/2024 status post PCI with 1 SALMA, HFpEF (last echocardiogram on 06/2024 which showed LVEF 65%, normal valves, normal RV function with RVSP 40 mmHg), diabetic foot status post right 5th toe amputation in 2023, Anxiety, testicular abscess status post I&D. Surgical history: 04/2024 PCI with 1 SALMA, right foot 5th toe amputation, right ankle surgery, incision and drainage of testicular abscess Family history: Father had heart disease Social history: Lives in [place] with family (next of kin is sister). Occasionally smokes marijuana. Denies current tobacco, alcohol and other drug abuse Allergies: Denies Home medication: Does not recall. Per EMR escitalopram 10 mg p.o. daily, Plavix 75 mg p.o. daily, atorvastatin 20 mg p.o. daily, dapagliflozin 10 mg p.o. daily, nifedipine, metoprolol, losartan 25 mg p.o. daily Hospital course Patient was while in the hospital was started on diuretics initially with Lasix and later on changed to Bumex and metolazone. Patient required diuresis for long period of time as initially had high oxygen requirement. Nephrology were consulted as the patient was recently taken off dialysis. As per Nephrology patient needed aggressive diuresis for the time being and was not a candidate of dialysis since he was making good amount of urine. With the aggressive diuresis over the course of hospital stay patient had a net negative fluid balance of - 16L. Oxygen requirement decreased and patient was taken off oxygen. Patient was able to walk on his own without any O2 support. Patient was discharged in stable condition to home. Discharge plan Medications: Bumex 2 mg t.i.d., metolazone 5 mg daily, Farxiga 10 mg, nifedipine 90 mg, carvedilol 6.25 mg b.i.d., aspirin, atorvastatin Consults/Reason for consult Nephrology consultation for SUSY on CKD Operations or Procedures none Condition at Discharge: Good Final Diagnosis/Problems List Acute on chronic hypoxic respiratory failure likely due to fluid overload B/L Pleural effusion Acute on chronic heart failure with preserved ejection fraction NSTEMI likely type 2 Coronary artery disease status post PCI with a 1 SALMA (04/2024) Hypertensive heart disease with heart failure Dyslipidemia 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 ESRD, improved , was previously on hemodialysis Hyperkalemia Hyperphosphatemia Hyperparathyroidism likely secondary to ckd Vitamin D deficiency Insulin-dependent type 2 diabetes mellitus Morbid obesity Discharge Disposition: Home Discharge Instruct/Medications Diet: Cardiac 2g Na,low cholest, Renal Diet comment: Fluid restriction 1200ml/day Activity: No Restrictions, As Tolerated Follow Up/Referral: Follow up in the d/c clinic in one week Follow up with in the outpatient nephrology clinic Medications: as per EMR Discharge Statement: "Patient was advised to return to the ER or call 911 if any headaches, dizziness, shortness of breath, chest pain, abdominal pain, bleeding, fevers, or worsening of medical condition. Patient was counseled about treatment plan, medications, possible side effects, patientverbalized understanding. All questions were answered to the best of my ability. 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 ESRD, improved , was previously on hemodialysis Hyperkalemia Hyperphosphatemia Hyperparathyroidism likely secondary to ckd Vitamin D deficiency Insulin-dependent type 2 diabetes mellitus Morbid obesity BRIAN TSE RESIDENT August 31, 2024 14:20
== END 2024-08-31 16:10 | disposition home or self-care (01) | DRG 133 ==
LOC: ER 01:12 → OVERFLOW 03:51 → TELE-WESTW 03:55
PROVIDERS: ADMIT Internal Medicine Pulmonary Disease; ATTEND Emergency Medicine
DX: J96.21 Acute and chronic respiratory failure with hypoxia (principal); N17.0 Acute kidney failure with tubular necrosis; I21.A1 Myocardial infarction type 2; I50.33 Acute on chronic diastolic (congestive) heart failure; E87.4 Mixed disorder of acid-base balance; D63.1 Anemia in chronic kidney disease; J91.8 Pleural effusion in other conditions classified elsewhere; I13.2 Hypertensive heart and chronic kidney disease with heart failure and with stage 5 chronic kidney disease, or end stage renal disease; N18.6 End stage renal disease; N25.81 Secondary hyperparathyroidism of renal origin; E11.51 Type 2 diabetes mellitus with diabetic peripheral angiopathy without gangrene; E11.22 Type 2 diabetes mellitus with diabetic chronic kidney disease; I16.1 Hypertensive emergency; Z68.37 Body mass index [BMI] 37.0-37.9, adult; Z99.2 Dependence on renal dialysis; E66.01 Morbid (severe) obesity due to excess calories; E78.5 Hyperlipidemia, unspecified; E87.5 Hyperkalemia; I25.10 Atherosclerotic heart disease of native coronary artery without angina pectoris; E55.9 Vitamin D deficiency, unspecified; F41.9 Anxiety disorder, unspecified; E87.6 Hypokalemia; Z98.61 Coronary angioplasty status; Z89.421 Acquired absence of other right toe(s); Z83.3 Family history of diabetes mellitus; Z82.49 Family history of ischemic heart disease and other diseases of the circulatory system; Z79.899 Other long term (current) drug therapy; Z79.4 Long term (current) use of insulin
CPT/HCPCS: 36415; 36600; 71045; 76775; 80048; 80053; 80061; 80307; 81001; 82043; 82306; 82570; 82607; 82805; 82962; 83036; 83605; 83735; 83880; 83970; 84100; 84132; 84156; 84300; 84443; 84484; 85025; 85610; 85730; 87081; 93005; 94640; 97110; 97116; 97163; 97530; 99291; G0378; J1815; J2470

== ENCOUNTER 2025-03-13 16:18 | Inpatient (IN) | payer MEDICAID ==
[~2025-03-13] VITALS: Ht 177.8 cm; Wt 123.8 kg
[~2025-03-13 16:18] MED LIST changes: +ASPI-325 PO; -ATOR20TA PO; +ATOR40TA52 PO; -AUG875T PO; +BUM1T PO; +CARV-214 PO; -ERGO1CAP12; +ERGO1CAP23 PO; -ERTA1INJ3 IV; -LOSA-534 PO; -METO-6 PO; +METO5TAB5 PO; +NIFE1TAB31 PO; -OMEG-86; +SODI5PAK PO
--- NOTE | 2025-03-13 17:34 | DVH ---
CHEST RADIOGRAPH Indication: HTN Technique: Single frontal view of the chest was obtained Comparison: XY CHEST XRAY 1 VIEW on DOS: 08/31/24, XY CHEST XRAY 1 VIEW on DOS: 08/29/24, XY CHEST XRAY 1 VIEW on DOS: 08/27/24 FINDINGS: Lines and Tubes: None Lungs: No focal consolidation. linear density over the left lower lung zone. 8 mm right lateral upper to Mid lung zone nodule. Pleura: No effusion. No pneumothorax. Cardiomediastinal contours: Unremarkable Bones: No acute osseous abnormality. IMPRESSION: Left lower lung zone linear atelectasis. Otherwise, no evidence of acute cardiopulmonary disease. 8 mm nodular density of the right lateral upper to mid lung zone.
[2025-03-13 18:08] LABS: Hematocrit 33.5 % (41.0-53.0); Hemoglobin 10.9 g/dL (13.5-17.5); Mean Corpuscular Hemoglobin 26.3 pg (28.0-32.0); Mean Corpuscular Volume 80.6 fL (80.0-100.0); Nucleated Red Blood Cells % 0.1 %
[2025-03-13 18:23] LABS: Alanine Aminotransferase 30 U/L (7-40); Albumin 3.7 g/dL (3.2-4.8); Anion Gap 12 (5-15); BUN/Creatinine Ratio 13.1 (10.0-20.0); Carbon Dioxide 22 mmol/L (20-31); Glucose 99 mg/dL (74-106); Sodium 144 mmol/L (136-145); Total Protein 6.8 g/dL (5.7-8.2)
[2025-03-13 18:30] LABS: Alkaline Phosphatase 200 U/L (46-116); Bilirubin, Total 0.3 mg/dL (0.2-1.0); Blood Urea Nitrogen 64 mg/dL (9-23); Calcium 7.5 mg/dL (8.7-10.4); Chloride 110 mmol/L (98-107); Potassium 5.5 mmol/L (3.5-5.1)
--- NOTE | 2025-03-13 19:30 | ED.PDOC ---
HPI Comments HPI: Poor Historian. 49-year-old male sent by his PCP's office for elevated blood pressure found incidentally at the clinic today. Patient denies any symptoms. Patient states compliance with his medications. On arrival patient systolic blood pressure was in the 200s. P some medications were ordered. Patient denies any chest pain or shortness of breath. Patient is on aspirin and Plavix. States compliance with his medications. Past Medical History: Heart disease, hyperlipidemia, hypertension, diabetes, depression, patient is on aspirin and Plavix. Eye blindness Past Surgical History: Cardiac Stents REVIEW OF SYSTEMS: CONSTITUTIONAL: Denies acute: fever, diaphoresis, chills, generalized weakness. HEAD: Denies acute: headache, photophobia Eyes: Denies acute: Double vision, vision loss, eye pain, eye discharge. EARS: Denies acute: tinnitus, hearing loss, ear discharge, ear pain, THROAT: Denies acute: sore throat, swelling, difficulty swallowing , pain with swallowing, change in voice. NECK: Denies acute: neck pain, neck swelling, stiff neck. HEART: Denies acute : chest pain, palpitations, LUNGS: Denies acute: SOB, wheezing, cough, hemoptysis ABDOMEN: Denies acute: abdominal pain, Nausea, Vomiting, diarrhea, melena , hematemesis, hematochezia SKIN: Denies acute: rash, redness, lesions, itchiness. EXTREMITIES: Denies acute: calf pain, numbness, tingling, weakness, denies pain in extremity. Denies acute: Low back pain. Neuro: Denies acute: focal neurological deficit, motor or sensory focal neurological deficit, tremors, seizure like activity, confusion, dizziness, change in mental status, loss of bowel or bladder function, cauda equina like symptoms. : Denies acute: dysuria, hematuria, flank pain, increase in urinary frequency. PSYCH: Denies acute: hallucination, suicidal ideation, homicidal ideation. PHYSICAL EXAM: General: -----no---acute distress, awake and alert. Head: normocephalic, atraumatic. No raccoon's eyes, no hernandez sign. Neck: supple, trachea is midline, no swelling. Throat: Normal phonation. Eyes:, no erythema, no purulent discharge, no proptosis, no icterus. Heart: regular rate, regular rhythm, no significant murmur appreciated. Lungs: no apparent respiratory distress, Able to speak in full sentences. No wheezing, no rhonchi, no crackles. No stridors Clear to auscultation bilaterally. Abdomen: non tender to palpation, non distended, soft, no guarding, no rebound, + bowel sounds. Obese Neuro: Awake, Alert, oriented to name, self, situation, follows commands GCS=15. Speech is normal. Skin: no petechia, no purpura, no cyanosis, non-pale, not jaundice. Lower extremities: --2/4 b/l - Pitting edema no deformity, no focal swelling, no calf TTP. Makes eye contact. moves all four extremities. Face: no apparent facial droop. ED COURSE: DISCLAIMER: This medical document was created using an electronic medical record system with voice recognition software and computerized dictation system. Although this document has been carefully reviewed, there might still be some phonetic and typographical errors. Occasional wrong-word or "sound-alike" substitutions may have occurred due to the inherent limitations of voice recognition software. These areas are purely typographical due to imperfections of the software programs and do not reflect any compromise in the patient's medical care. Please read the chart carefully and recognize, using context, where these substitutions have occurred. Chief Complaint: High Blood Pressure Time Seen by MD: 16:35 Primary Care Provider: LEONCIO Schmidt Notes: Allergies Allergies: Coded Allergies: NO KNOWN ALLERGIES (Unverified , 07/21/23) Home Meds Active Scripts Bumetanide (Bumetanide) 2 Mg Tab, 1 TAB PO BID, #60 TAB 1 Refill Prov:DYLAN OWENS MD 03/15/25 Metolazone (Metolazone) 5 Mg Tab, 5 MG PO DAILY for 30 Days, #30 TAB 1 Refill Prov:DYLAN OWENS MD 03/15/25 Atorvastatin Calcium (ATORVASTATIN CALCIUM) 40 Mg Tab, 40 MG PO DAILY for 40 Days, #40 TAB 0 Refills Prov:BRIAN TSE 08/31/24 Sodium Zirconium Cyclosilicate (Lokelma) 5 Gm Selvin, 10 GM PO TID for 21 Days, #63 PACK Prov[facility] ZaragozaSS[facility] 08/31/24 Ergocalciferol (VITAMIN D 89812 UNIT) 50,000 [place], [address] UNIT PO QWEEKLY for 21 Days, #3 CAP Prov:[facility]ITALJEANNINESSM [facility] 08/31/24 Clopidogrel Bisulfate (CLOPIDOGREL) 75 Mg Tab, 75 MG PO DAILY for 21 Days, #21 TAB Prov:[facility]ANN[facility] ZaragozaSSM [facility] 08/31/24 Carvedilol (COREG) 3.125 Mg Tab, 6.25 MG PO Q12HR for 21 Days, #84 TAB Prov:[facility]ANN[facility] ZaragozaSSM [facility] 08/31/24 Aspirin (Aspirin Low Dose) 81 Mg Tab, 81 MG PO DAILY for 21 Days, #21 TAB Prov[facility] 08/31/24 Dapagliflozin Propanediol (Farxiga) 10 Mg Tab, 10 MG PO DAILY for 21 Days, #21 TAB Prov:[facility]ANN[facility] ZaragozaSS[facility] 08/31/24 Clonazepam (Klonopin) 0.5 Mg Tab, 0.5 TAB PO DAILYPRN PRN for 30 Days, #15 TAB Prov:VICKIE PRASAD MD 05/31/24 Reported Medications Semaglutide (Ozempic) 4 Mg/3 Ml Inj, 5 MG SC, INJ 03/14/25 Escitalopram Oxalate (ESCITALOPRAM OXALATE) 20 Mg Tab, 20 MG PO DAILY, TAB 12/08/23 Discontinued Reported Medications Bumetanide (Bumex Tablet) 1 Mg Tab, 1 MG PO DAILY, TAB BLK BX WARNING-CAN LEAD TO PROFOUND DIURESIS WITH FLUID- ELECTROLYTE LOSS 03/14/25 Discontinued Scripts Bumetanide (Bumex Tablet) 1 Mg Tab, 2 MG PO TID for 21 Days, #126 TAB 0 Refills BLK BX WARNING-CAN LEAD TO PROFOUND DIURESIS WITH FLUID- ELECTROLYTE LOSS Prov:BRIAN MCFARLANE [facility] 08/31/24 Information Source: Patient Mode of Arrival: Ambulatory Past Medical History PAST MEDICAL HISTORY: CHF, DM, HTN, [place] Surgical History: Denies all surgeries Family History Family History: Reviewed,noncontributory to illness Social History Smoker: Non-Smoker Alcohol: Denies ETOH Use Drugs: Denies Drug Use Lives In: Home Was a procedure done? Was a procedure done?: No CP Differential Dx Differential Diagnosis: N/A Differential Diagnosis: Other (DDX include renal disease, thyroid disease, electrolyte abnormality, increased salt intake, medications non-compliance, undiagnosed HTN, Hypertensive crisis, hypertensive urgency., drug toxicity.) X-Ray, Labs, Meds, VS Vital Signs Date Time Temp Pulse Resp B/P (MAP) Pulse Ox O2 Delivery O2 Flow Rate FiO2 03/13/25 18:32 86 96 227/125 (159) 96 03/13/25 18:31 227/125 03/13/25 16:53 84 03/13/25 16:46 246/133 03/13/25 16:38 88 03/13/25 16:26 97.0 89 97 244/138 (173) 97 97.0 243/133 (169) 03/13/25 16:20 97.0 87 15 244/138 96 97.0 Lab Test 03/13/25 18:23 03/13/25 17:21 03/13/25 16:40 Range/Units Troponin I High Sensitivity 219 *H 234 *H </=54 ng/L White Blood Count 7.8 4.4-10.8 10^3/uL Red Blood Count 4.15 L 4.5-5.90 10^6/uL Hemoglobin 10.9 L 13.5-17.5 g/dL Hematocrit 33.5 L 41.0-53.0 % Mean Corpuscular Volume 80.6 80.0-100.0 fL Mean Corpuscular Hemoglobin 26.3 L 28.0-32.0 pg Mean Corpuscular Hemoglobin Concent 32.7 32.0-36.0 g/dL Red Cell Distribution Width 16.7 H 11.8-14.3 % Platelet Count 234 140-450 10^3/uL Mean Platelet Volume 9.8 6.9-10.8 fL Neutrophils (%) (Auto) 71.5 37.0-80.0 % Lymphocytes (%) (Auto) 14.9 10.0-50.0 % Monocytes (%) (Auto) 6.1 0.0-12.0 % Eosinophils (%) (Auto) 6.5 0.0-7.0 % Basophils (%) (Auto) 1.0 0.0-2.0 % Neutrophils # (Auto) 5.6 1.6-8.6 10 ^3/uL Lymphocytes # (Auto) 1.2 0.4-5.4 10 ^3/uL Monocytes # (Auto) 0.5 0-1.3 10 ^3/uL Eosinophils # (Auto) 0.5 0-0.8 10 ^3/uL Basophils # (Auto) 0.1 0-0.2 10 ^3/uL Nucleated Red Blood Cells 0.1 % Sodium Level 144 136-145 mmol/L Potassium Level 5.5 H 3.5-5.1 mmol/L Chloride Level 110 H 98-107 mmol/L Carbon Dioxide Level 22 20-31 mmol/L Anion Gap 12 5-15 Blood Urea Nitrogen 64 H 9-23 mg/dL Creatinine 4.88 H 0.700-1.30 mg/dL Glomerular Filtration Rate Calc 14 >90 mL/min BUN/Creatinine Ratio 13.1 10.0-20.0 Serum Glucose 99 74-106 mg/dL Calcium Level 7.5 L 8.7-10.4 mg/dL Total Bilirubin 0.3 0.2-1.0 mg/dL Aspartate Amino Transferase (AST) 22 13-40 U/L Alanine Aminotransferase (ALT) 30 7-40 U/L Alkaline Phosphatase 200 H 46-116 U/L Total Protein 6.8 5.7-8.2 g/dL Albumin 3.7 3.2-4.8 g/dL POC Glucose 109 H 70-106 mg/dl [place] [id number] Ph: [phone] DIAGNOSTIC IMAGING Diagnostic Imaging Report : [id number] Signed PATIENT: JASPREET PRESLEY JRACCT: [id number] UNIT: [id number] : 1975 LOC: ER ROOM / BED: / AGE / SEX: 49 / M ADM STATUS: REG ER SERVICE 170 ORDERING PHYSICIAN: LES LUCAS DO PROCEDURE(s): CXRP - CHEST PORTABLE REASON: HTN ORDER NUMBER(s): [id number], ACCESSION NUMBER(s): [id number] CHEST RADIOGRAPH Indication: HTN Technique: Single frontal view of the chest was obtained Comparison: XY CHEST XRAY 1 VIEW on DOS: 08/31/24, XY CHEST XRAY 1 VIEW on DOS: 08/29/24, XY CHEST XRAY 1 VIEW on DOS: 08/27/24 FINDINGS: Lines and Tubes: None Lungs: No focal consolidation. linear density over the left lower lung zone. 8 mm right lateral upper to Mid lung zone nodule. Pleura: No effusion. No pneumothorax. Cardiomediastinal contours: Unremarkable Bones: No acute osseous abnormality. IMPRESSION: Left lower lung zone linear atelectasis. Otherwise, no evidence of acute cardiopulmonary disease. 8 mm nodular density of the right lateral upper to mid lung zone. ATED BY: SOFÍA LOPEZ DO DICTATED DATE/TIME: 03/13/251731 SIGNED BY: SOFÍA LOPEZ DO SIGNED DATE/TIME: 03/13/251731 CC: Time of 1ST Reevaluation: 00:00 Reevaluation 1ST: N/A Patient Education/Counseling: Diagnosis, Treatment Family Education/Counseling: Other Comments MDM: patient presented with the above HPI.---hypertensive urgency---workup was initiated. patient was found with the above mentioned diagnosis. the following medications were ordered: please refer to order lists of meds and tests obtained by myself Dr. Lucas. Patient ED course and VS have been stabilized. Patient has been reassessed in the ED and remained in a stable condition. Pertinent incidental findings were discussed with the patient and/or family. Patient/family voices understanding and is agreeable with plan. Patient has been observed in the ED adequate length of time to insure improvement/stability. Escalation of care considered: Consideration of escalation to observation or admission Patient was given aspirin, nitroglycerin, labetalol. Patient was ADMITTED to the medicine team for further evaluation and treatment of their presentation. All the reports of any imaging studies that were ordered by myself were reviewed by myself. Departure 1 Departure Time of Disposition: 19:29 Impression: Primary Impression: Hypertensive crisis Additional Impressions: Elevated troponin Pulmonary nodule Disposition: ADMITTED INPATIENT Admit to: Tele Condition: Guarded e-Prescriptions Bumetanide (Bumetanide) 2 Mg Tab 1 TAB PO BID, #60 TAB 1 Refill Prov: DYLAN OWENS MD 11/14/25 Metolazone (Metolazone) 5 Mg Tab 5 MG PO DAILY for 30 Days, #30 TAB 1 Refill Prov: DYLAN OWENS MD 03/15/25 Discharged With: Self Critical Care Note Critical Care Time?: Yes (45 min-critical care time only) Heart Score Heart Score: Heart Score Response (Comments) Value History N/A 0 EKG N/A 0 Age N/A 0 Risk Factors N/A 0 Troponin N/A 0 Total 0 LES LUCAS DO Mar 13, 2025 19:30
[2025-03-13 19:43] VITALS: PULSE 79; RESP 14; O2SAT 95
[2025-03-13] MEDS: LABETALOL HCL 20 MG/4 ML VL IV ONE (19:45)
[2025-03-13] MEDS ORDERED: NITROGLYCERIN 0.4 MG SL TAB SL PRN (19:45)
[2025-03-13] MEDS ORDERED: MORPHINE SULFATE 4 MG/ML SYR/VIAL IV PRN (19:45)
[2025-03-13] MEDS: NITROGLYCERIN 0.4 MG SL TAB SL ONE (19:46)
[2025-03-13] MEDS: SODIUM ZIRCONIUM CYCL 10 GM PAK PO ONE (20:30)
[2025-03-13] MEDS ORDERED: SODIUM ZIRCONIUM CYCL 10 GM PAK PO ONE (20:30)
[2025-03-13] MEDS: ATORVASTATIN 20 MG TAB PO SCH (22:00)
[2025-03-13] MEDS: CARVEDILOL 3.125 MG TAB PO SCH (22:00)
[2025-03-14] VITALS (7 sets, daily range): BP systolic 144–187; BP diastolic 80–125; PULSE 72–80; RESP 16–19; TEMP 96.2–98; O2SAT 95–100
--- NOTE | 2025-03-14 00:29 | DVHHP2 ---
History of Present Illness Reason for Visit: Hypertension to History of Present Illness 49-year-old male presents for evaluation of hypertension. Patient reports having an appointment today with his primary care provider. When they did initial vitals they noted his blood pressure in the 200s. Patient is asymptomatic. No headache, blurred vision, dizziness or chest pain. He reports being compliant with his medications. Past Medical History Hypertension, diabetes, dyslipidemia, heart disease Past Surgical History Cardiac stent Family History Noncontributory Smoke: No ALCOHOL: none Drugs: None Lives: with Family Review of Systems Review of Systems Review of systems are currently negative otherwise addressed in HPI. Allergies: Coded Allergies: NO KNOWN ALLERGIES (Unverified , 07/21/23) Medications Current Medications Medications Dose Ordered Sig/Jadon Route Start Time Stop Time Status Last Admin Dose Admin Nitroglycerin 0.4 mg Q5MINP PRN SL 03/13/25 19:45 Morphine Sulfate 2 mg Q30M PRN IV 03/13/25 19:45 Hydralazine HCl 10 mg Q6HP PRN IV 03/13/25 20:30 Aspirin 81 mg DAILY PO 03/14/25 10:00 Atorvastatin Calcium 40 mg HS PO 03/13/25 22:00 03/13/25 22:00 40 MG Carvedilol 6.25 mg Q12HR PO 03/13/25 22:00 03/13/25 22:00 6.25 MG Clopidogrel Bisulfate 75 mg DAILY PO 03/14/25 10:00 Nifedipine 60 mg DAILY PO 03/14/25 10:00 Exam Vital Signs Vital Signs Date Time Temp Pulse Resp B/P (MAP) Pulse Ox O2 Delivery O2 Flow Rate FiO2 03/13/25 23:41 77 12 188/108 (134) 96 03/13/25 19:43 98.4 98.4 03/13/25 19:43 Room Air* 0 21 Exam Gen: 49-year-old male in mild distress Skin: Warm, dry, normal color and texture, no rash. HEENT: Normocephalic atraumatic, mucous membranes moist and pink. Neck: Cervical and supraclavicular nodes normal without enlargement, trachea is midline, thyroid gland is normal without masses. Pulmonary: Clear to auscultation and percussion bilaterally. Cardiac: Regular rate and rhythm. No murmur Abdomen: Soft, nontender, nondistended, bowel sounds present all 4 quadrants, no guarding, no rigidity, no organomegaly. Extremities: No cyanosis, clubbing, no edema Neuro: Cranial nerves II through XII grossly intact, normal affect and speech, no focal motor deficits. Labs/Xrays ORDERING PHYSICIAN: LIZETH ARANDA PROCEDURE(s): ECIDC - ECHO 2D MODE CARDIAC DOP REASON: sob ORDER NUMBER(s): [id number], ACCESSION NUMBER(s): [id number] APPROVED REPORT EXAM: LIMITED Two-dimensional and M-mode echocardiogram. Blood Pressure: 166/91 mmHg INDICATION SOB RISK FACTORS Obesity: Height: 5' 10", Weight: 266 DIMENSIONS LVDd 4.8 (3.8-5.7cm) LA (2D) 4.0 (1.9-4.0cm) Aortic Root (2.0- 3.7cm) LVDs 3.0 (2.5-4.0cm) LA (MM) (1.9-4.0cm) Aortic Cusp Exc (1.5- 2.0cm) EF (%) 68.0 (55-70%) Rt. Atrium 4.2 (1.9-4.0cm) Asc. Aorta cm IVSd 1.0 (0.7-1.1cm) RV (D) (1.8-2.4cm) PWd 0.9 (0.7-1.1cm) Mitral Valve Mitral Mitral Stenosis E/A ratio 0.0 2D MVA cm2 Tricuspid Valve TR Velocity 2.80m/s RVSP 40mmHg Other Information Quality : Limited Rhythm : Conclusion LV EJECTION FRACTION IS 65% NORMAL VALVES NORMAL RV FUNCTION NO EFFUSION SIGNED BY: RAFFAELE FOUNTAIN MD SIGNED DATE/TIME: 07/29/24 0119 ORDERING PHYSICIAN: LES LUCAS DO PROCEDURE(s): CXRP - CHEST PORTABLE REASON: HTN ORDER NUMBER(s): [id number], ACCESSION NUMBER(s): [id number] CHEST RADIOGRAPH Indication: HTN Technique: Single frontal view of the chest was obtained Comparison: XY CHEST XRAY 1 VIEW on DOS: 08/31/24, XY CHEST XRAY 1 VIEW on DOS: 08/29/24, XY CHEST XRAY 1 VIEW on DOS: 08/27/24 FINDINGS: Lines and Tubes: None Lungs: No focal consolidation. linear density over the left lower lung zone. 8 mm right lateral upper to Mid lung zone nodule. Pleura: No effusion. No pneumothorax. Cardiomediastinal contours: Unremarkable Bones: No acute osseous abnormality. IMPRESSION: Left lower lung zone linear atelectasis. Otherwise, no evidence of acute cardiopulmonary disease. 8 mm nodular density of the right lateral upper to mid lung zone. Labs Test 03/13/25 20:19 03/13/25 17:21 03/13/25 16:40 Range/Units Troponin I High Sensitivity 176 *H </=54 ng/L White Blood Count 7.8 4.4-10.8 10^3/uL Red Blood Count 4.15 L 4.5-5.90 10^6/uL Hemoglobin 10.9 L 13.5-17.5 g/dL Hematocrit 33.5 L 41.0-53.0 % Mean Corpuscular Volume 80.6 80.0-100.0 fL Mean Corpuscular Hemoglobin 26.3 L 28.0-32.0 pg Mean Corpuscular Hemoglobin Concent 32.7 32.0-36.0 g/dL Red Cell Distribution Width 16.7 H 11.8-14.3 % Platelet Count 234 140-450 10^3/uL Mean Platelet Volume 9.8 6.9-10.8 fL Neutrophils (%) (Auto) 71.5 37.0-80.0 % Lymphocytes (%) (Auto) 14.9 10.0-50.0 % Monocytes (%) (Auto) 6.1 0.0-12.0 % Eosinophils (%) (Auto) 6.5 0.0-7.0 % Basophils (%) (Auto) 1.0 0.0-2.0 % Neutrophils # (Auto) 5.6 1.6-8.6 10 ^3/uL Lymphocytes # (Auto) 1.2 0.4-5.4 10 ^3/uL Monocytes # (Auto) 0.5 0-1.3 10 ^3/uL Eosinophils # (Auto) 0.5 0-0.8 10 ^3/uL Basophils # (Auto) 0.1 0-0.2 10 ^3/uL Nucleated Red Blood Cells 0.1 % Sodium Level 144 136-145 mmol/L Potassium Level 5.5 H 3.5-5.1 mmol/L Chloride Level 110 H 98-107 mmol/L Carbon Dioxide Level 22 20-31 mmol/L Anion Gap 12 5-15 Blood Urea Nitrogen 64 H 9-23 mg/dL Creatinine 4.88 H 0.700-1.30 mg/dL Glomerular Filtration Rate Calc 14 >90 mL/min BUN/Creatinine Ratio 13.1 10.0-20.0 Serum Glucose 99 74-106 mg/dL Calcium Level 7.5 L 8.7-10.4 mg/dL Total Bilirubin 0.3 0.2-1.0 mg/dL Aspartate Amino Transferase (AST) 22 13-40 U/L Alanine Aminotransferase (ALT) 30 7-40 U/L Alkaline Phosphatase 200 H 46-116 U/L Total Protein 6.8 5.7-8.2 g/dL Albumin 3.7 3.2-4.8 g/dL POC Glucose 109 H 70-106 mg/dl SEPSIS Sepsis Screen Date sepsis recognized/suspect: Mar 13, 2025 Time Sepsis recognized/suspect: 2038 Recent Procedure: No On Antibiotic Therapy: No Respiratory Rate >20: No Heart Rate >90: No Temp<36 C (96.8 F) or >38.3 C: No SBP <90 or MAP <65 mmHG: No New Acute Mental Status Change: No Is the patient on CPAP, BIPAP,: No Physician Orders Electrocardigram (03/13/25 16:31) Solid Fiber Paster Operator (03/13/25 ) Chest Portable (03/13/25 17:01) Electrocardigram (03/13/25 17:01) Admit (03/13/25 19:39) Nitroglycerin Sublingual (Ntrostat Subli (03/13/25 19:45) Stat Ekg For Chest Pain (03/13/25 19:39) Notify Md Of Changes From Base (03/13/25 19:39) Truss Builder For 24 Hours (03/13/25 19:39) Emergency Dysrhythmia Protocol (03/13/25 19:39) Rhythm Strips Once Every Shift (03/13/25 19:39) Oxygen By Nasal Cannula (03/13/25 19:39) Morphine Sulfate Injection (03/13/25 19:45) Hydralazine Injection (Apresoline Inject (03/13/25 20:30) Aspirin Tablet (03/14/25 10:00) Atorvastatin (Lipitor) (03/13/25 22:00) Carvedilol Tablet (Coreg Tablet) (03/13/25 22:00) Clopidogrel Bisulfate (Plavix) (03/14/25 10:00) Nifedipine Er (Procardia Xl (Time-Releas (03/14/25 10:00) *[facility] (03/13/25 20:27) Vital Signs Date Time Temp Pulse Resp B/P (MAP) Pulse Ox O2 Delivery O2 Flow Rate FiO2 03/13/25 23:41 77 12 188/108 (134) 96 03/13/25 23:15 202/116 03/13/25 22:41 75 15 202/116 (144) 96 03/13/25 22:00 75 202/116 03/13/25 20:42 76 15 167/87 (113) 96 03/13/25 19:46 201/115 03/13/25 19:45 78 201/115 03/13/25 19:43 98.4 79 14 201/115 (143) 95 98.4 03/13/25 19:43 79 14 95 Room Air* 0 21 03/13/25 18:32 86 96 227/125 (159) 96 03/13/25 18:31 227/125 03/13/25 16:53 84 03/13/25 16:46 246/133 03/13/25 16:38 88 03/13/25 16:26 97.0 89 97 244/138 (173) 97 97.0 243/133 (169) Laboratory Tests Test 03/13/25 17:21 White Blood Count 7.8 10^3/uL (4.4-10.8) Medications Medications Dose Ordered Sig/Jadon Route Start Time Stop Time Status Last Admin Dose Admin Aspirin 325 mg ONCE ONCE PO 03/13/25 19:15 03/13/25 20:14 DC 03/13/25 19:15 325 MG Atorvastatin Calcium 40 mg HS PO 03/13/25 22:00 03/13/25 22:00 40 MG Carvedilol 6.25 mg Q12HR PO 03/13/25 22:00 03/13/25 22:00 6.25 MG Clonidine HCl 0.2 mg ONCE ONCE PO 03/13/25 16:45 03/13/25 16:46 DC 03/13/25 16:46 0.2 MG Clonidine HCl 0.2 mg ONCE ONCE PO 03/13/25 23:15 03/13/25 23:16 DC 03/13/25 23:15 0.2 MG Labetalol HCl 5 mg ONCE ONCE IV 03/13/25 17:00 03/13/25 17:11 DC 03/13/25 19:45 5 MG Nitroglycerin 0.4 mg ONCE ONCE SL 03/13/25 17:15 03/13/25 17:16 DC 03/13/25 19:46 0.4 MG Zirconium Oxide 10 gm ONCE ONCE PO 03/13/25 20:30 03/13/25 20:46 DC 03/13/25 20:30 10 GM Assessment/Plan Assessment/Plan Assessment Hypertensive urgency Chronic kidney disease Elevated troponin, demand ischemia Plan Admit the patient to telemetry to the hospitalist As needed antihypertensives Resume home medications Continue treatment per orders. Plan discussed with: Patient My Orders Orders - YAMILETH FARRAR Procedure Category Date Status Time Admit ADMIT 03/13/25 Transmitted 19:39 Nitroglycerin [facility] 03/13/25 In Process Sublingual (Ntrostat 19:45 Stat Ekg For Chest [facility] 03/13/25 In Process Pain 19:39 Notify Of Changes [facility] 03/13/25 In Process From Base 19:39 Truss Builder For [facility] 03/13/25 In Process 24 Hours 19:39 Emergency Dysrhythmia [facility] 03/13/25 In Process Protocol 19:39 Rhythm Strips Once [facility] 03/13/25 In Process Every Shift 19:39 Oxygen By Nasal RT 03/13/25 Transmitted Cannula 19:39 Morphine Sulfate [facility] 03/13/25 In Process Injection 19:45 Hydralazine Injection [facility] 03/13/25 In Process (Apresoline Inject 20:30 Aspirin Tablet [facility] 03/14/25 In Process 10:00 Atorvastatin (Lipitor) [facility] 03/13/25 In Process 22:00 Carvedilol Tablet [facility] 03/13/25 In Process (Coreg Tablet) 22:00 Clopidogrel Bisulfate [facility] 03/14/25 In Process (Plavix) 10:00 Nifedipine Er [facility] 03/14/25 In Process (Procardia Xl 10:00 *[facility] CONS 03/13/25 Transmitted -[place] 20:27 Date of Service: Mar 13, 2025 Billing Provider: YAMILETH FARRAR Common Visit Codes: [id number] INP/OBS CARE (HIGH) YAMLIETH FARRAR Mar 14, 2025 00:29
[2025-03-14] MEDS: hydrALAZINE HCL 20 MG/ML VL IV PRN (00:36)
[2025-03-14] MEDS: SODIUM ZIRCONIUM CYCL 10 GM PAK PO ONE (04:38)
--- NOTE | 2025-03-14 08:06 | ECG ---
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
[2025-03-14] MEDS: CLOPIDOGREL BISULFATE 75 MG TAB PO SCH (10:09)
--- NOTE | 2025-03-14 11:16 | DVHPN2 ---
Reviewed: H&P Changes from previous H/P or p: No Changes General: Per HPI Objective Vitals Vital Signs Date Time Temp Pulse Resp B/P (MAP) Pulse Ox O2 Delivery O2 Flow Rate FiO2 03/14/25 10:10 151/87 03/14/25 10:09 73 03/14/25 09:40 17 98 03/14/25 07:41 97.7 97.7 03/14/25 07:41 Room Air* 0 21 Exam GEN: Healthy appearing, well-developed, NAD. HEENT: NC/AT; MMM. CV: RRR, no m/r/g. LUNGS: CTAB, no w/r/c. ABD: Soft, NT/ND, NBS, no masses or organomegaly. EXT: skin Warm, well perfused. no rashes. No clubbing, cyanosis, or edema. NEURO: Ambulating with no limitations. No focal deficits. Medications Current Medications Medications Dose Ordered Sig/Jadon Route Start Time Stop Time Status Last Admin Dose Admin Nitroglycerin 0.4 mg Q5MINP PRN SL 03/13/25 19:45 Morphine Sulfate 2 mg Q30M PRN IV 03/13/25 19:45 Hydralazine HCl 10 mg Q6HP PRN IV 03/13/25 20:30 03/14/25 07:00 10 MG Aspirin 81 mg DAILY PO 03/14/25 10:00 03/14/25 10:08 81 MG Atorvastatin Calcium 40 mg HS PO 03/13/25 22:00 03/13/25 22:00 40 MG Carvedilol 6.25 mg Q12HR PO 03/13/25 22:00 03/14/25 10:09 6.25 MG Clopidogrel Bisulfate 75 mg DAILY PO 03/14/25 10:00 03/14/25 10:09 75 MG Nifedipine 60 mg DAILY PO 03/14/25 10:00 03/14/25 10:10 60 MG Laboratory Results Laboratory Tests 03/13/25 17:21 Chemistry Test 03/13/25 17:21 Albumin 3.7 g/dL (3.2-4.8) Calcium Level 7.5 mg/dL (8.7-10.4) L Total Protein 6.8 g/dL (5.7-8.2) LFT Test 03/13/25 17:21 Alanine Aminotransferase (ALT) 30 U/L (7-40) Alkaline Phosphatase 200 U/L (46-116) H Aspartate Amino Transferase (AST) 22 U/L (13-40) Total Bilirubin 0.3 mg/dL (0.2-1.0) Labs and/or images reviewed: Labs reviewed by me, Image(s) reviewed by me Assessment/Plan Assessment/Plan 49-year-old male presents for evaluation of hypertension. Patient reports having an appointment today with his primary care provider. When they did initial vitals they noted his blood pressure in the 200s. Patient is asymptomatic. No headache, blurred vision, dizziness or chest pain. He reports being compliant with his medications. Past Medical History Hypertension, diabetes, dyslipidemia, heart disease 03/14. : Patient in PCP clinic with high blood pressure in 200s. Over here has type 2 NSTEMI from hypotension. Unclear if patient is compliant with home meds. On admit patient gets hydralazine IV, labetalol IV,, clonidine p.o., Nitrostat,. Starting blood pressure medications Procardia 60, Coreg 6 b.i.d., continue other home medications. Hyperkalemia continue Lokelma once daily. Echo 9 months ago June 2024 showing EF 65% normal valves normal ventricles. Assessment Hypertensive emergency nstemi, type 2 likely due to above Hyperkalemia Chronic kidney disease Elevated troponin, demand ischemia Plan As needed antihypertensives Resume home medications Continue treatment per orders. Tele Full code Plan discussed with: Patient Date of Service: Mar 14, 2025 Billing Provider: DYLAN OWENS MD Common Visit Codes: [id number] INP/OBS CARE(HIGH) DYLAN OWENS MD Mar 14, 2025 11:16
--- NOTE | 2025-03-14 15:31 | DVHINCON2 ---
Date of service: Mar 14, 2025 Referring Physician SANAM Denny Reason for Consultation Acute kidney injury History of Present Illness 41-year-old patient with significant history of chronic kidney disease stage 4, previously on dialysis, chronic leg edema, hypertension, hyperlipidemia, diabetes type 2, legally blind, obesity morbid who presents to the hospital with hypertension incidentally found that the primary care physician's office despite compliant with his medications and diuretic daily his blood pressure was systolic in 200. He denies any recent change to his medications he complains of chronic leg edema but denies shortness of breath fever chills, Nausea vomiting or diarrhea. Patient endorses being compliant and we will Lokelma daily. Laboratory data revealed serum creatinine of 4.8, potassium of 5.5. Chest x-ray shows no evidence of cardiopulmonary process. Past Medical History Diabetes type 2, diabetic nephropathy, hypertension, chronic kidney disease stage 4, previously on hemodialysis Past Surgical History Dialysis catheter placement, Allergies: Coded Allergies: NO KNOWN ALLERGIES (Unverified , 07/21/23) Home Meds Active Scripts Metolazone (Metolazone) 5 Mg Tab, 5 MG PO DAILY for 21 Days, #21 TAB Prov:BRIAN TSE 08/31/24 Nifedipine (Nifedipine Er) 30 Mg Tab, 90 MG PO DAILY for 21 Days, #63 TAB Prov:BRIAN TSE 08/31/24 Bumetanide (Bumex Tablet) 1 Mg Tab, 2 MG PO TID for 21 Days, #126 TAB 0 Refills BLK BX WARNING-CAN LEAD TO PROFOUND DIURESIS WITH FLUID- ELECTROLYTE LOSS Prov:BRIAN TSE 08/31/24 Atorvastatin Calcium (ATORVASTATIN CALCIUM) 40 Mg Tab, 40 MG PO DAILY for 40 Days, #40 TAB 0 Refills Prov:BRIAN TSE 08/31/24 Sodium Zirconium Cyclosilicate (Lokelma) 5 Gm Selvin, 10 GM PO TID for 21 Days, #63 PACK Prov:BRIAN TSE 08/31/24 Ergocalciferol (VITAMIN D 35159 UNIT) 50,000 [place], [address] UNIT PO QWEEKLY for 21 Days, #3 CAP Prov:BRIAN TSE 08/31/24 Clopidogrel Bisulfate (CLOPIDOGREL) 75 Mg Tab, 75 MG PO DAILY for 21 Days, #21 TAB Prov:[facility] 08/31/24 Carvedilol (COREG) 3.125 Mg Tab, 6.25 MG PO Q12HR for 21 Days, #84 TAB Prov:BRIAN [facility] 08/31/24 Aspirin (Aspirin Low Dose) 81 Mg Tab, 81 MG PO DAILY for 21 Days, #21 TAB [facility] 08/31/24 Dapagliflozin Propanediol (Farxiga) 10 Mg Tab, 10 MG PO DAILY for 21 Days, #21 TAB Prov:[facility] 08/31/24 Nifedipine (Nifedipine Er) 60 Mg Tab, 1 TAB PO DAILY, #30 TAB 1 Refill Prov:DYLAN OWENS MD 07/28/24 Clonazepam (Klonopin) 0.5 Mg Tab, 0.5 TAB PO DAILYPRN PRN for 30 Days, #15 TAB Prov:VICKIE PRASAD MD 05/31/24 Reported Medications B-Complex W/ C & Folic Acid (Samantha-Bartolo Rx) Tab, 1 DAILY 05/30/24 Escitalopram Oxalate (ESCITALOPRAM OXALATE) 20 Mg Tab, 20 MG PO DAILY, TAB 12/08/23 Current Medications Current Medications Medications (Trade) Dose Ordered Sig/Jadon Route PRN Reason Start Time Stop Time Status Last Admin Nitroglycerin (Ntrostat Sublingual) 0.4 mg Q5MINP PRN SL FOR CHEST PAIN 03/13/25 19:45 Morphine Sulfate 2 mg Q30M PRN IV FOR CHEST PAIN 03/13/25 19:45 Hydralazine HCl (Apresoline Injection) 10 mg Q6HP PRN IV SBP>150 03/13/25 20:30 03/14/25 07:00 Aspirin 81 mg DAILY PO 03/14/25 10:00 03/14/25 10:08 Atorvastatin Calcium (Lipitor) 40 mg HS PO 03/13/25 22:00 03/13/25 22:00 Carvedilol (Coreg Tablet) 6.25 mg Q12HR PO 03/13/25 22:00 03/14/25 10:09 Clopidogrel Bisulfate (Plavix) 75 mg DAILY PO 03/14/25 10:00 03/14/25 10:09 Nifedipine (Procardia Xl (Time-Release)) 60 mg DAILY PO 03/14/25 10:00 03/14/25 14:54 DC 03/14/25 10:10 Zirconium Oxide (Lokelma) 10 gm DAILY PO 03/15/25 10:00 Nifedipine (Procardia Xl (Time-Release)) 60 mg BID PO 03/14/25 22:00 Bumetanide (Bumex Injection) 2 mg BID IV 03/14/25 22:00 Metolazone (Zaroxolyn) 5 mg DAILY PO 03/14/25 15:00 Family History: Diabetes mellitus G8 MOTHER G8 FATHER Hypertension G8 MOTHER G8 FATHER Thyroid disease G8 SISTER Social History Denies smoking alcohol or drug abuse Review of Systems HEENT: Oral mucosa dry Neck no JVD Cardiovascular: Denies for chest pain denies orthopnea or PND Respiratory: Denies cough or shortness of breath Gastrointestinal: Denies for nausea vomiting Musculoskeletal: Complains of leg edema Neurological: Denies focal weakness Dermatological: Denies any rash The rest of the review of systems were reviewed pertinent positives and pertinent negatives are as per HPI up to 12 points review of systems H&P Exam Vital Signs/I&O Vital Sign Date Time Temp Pulse Resp B/P (MAP) Pulse Ox O2 Delivery O2 Flow Rate FiO2 03/14/25 13:00 97.7 73 18 153/90 (111) 97 97.7 03/14/25 07:41 Room Air* 0 21 Physical Exam HEENT: No evidence of JVD, no oral ulcers. Pulmonary: Lungs are diminished on auscultation bilaterally Cardiovascular S1-S2, no S3 or S4 Abdomen: Bowel sounds positive, soft no rebound tenderness Skin: No rash Neurological: Alert, oriented, no focal weakness Musculoskeletal: 2+ pitting edema in the lower legs Labs/Diagnostic Data Labs/Diagnostic Data Laboratory Tests Test 03/13/25 20:19 03/13/25 18:23 03/13/25 17:21 03/13/25 16:40 Range/Units Troponin I High Sensitivity 176 *H 219 *H 234 *H </=54 ng/L White Blood Count 7.8 4.4-10.8 10^3/uL Red Blood Count 4.15 L 4.5-5.90 10^6/uL Hemoglobin 10.9 L 13.5-17.5 g/dL Hematocrit 33.5 L 41.0-53.0 % Mean Corpuscular Volume 80.6 80.0-100.0 fL Mean Corpuscular Hemoglobin 26.3 L 28.0-32.0 pg Mean Corpuscular Hemoglobin Concent 32.7 32.0-36.0 g/dL Red Cell Distribution Width 16.7 H 11.8-14.3 % Platelet Count 234 140-450 10^3/uL Mean Platelet Volume 9.8 6.9-10.8 fL Neutrophils (%) (Auto) 71.5 37.0-80.0 % Lymphocytes (%) (Auto) 14.9 10.0-50.0 % Monocytes (%) (Auto) 6.1 0.0-12.0 % Eosinophils (%) (Auto) 6.5 0.0-7.0 % Basophils (%) (Auto) 1.0 0.0-2.0 % Neutrophils # (Auto) 5.6 1.6-8.6 10 ^3/uL Lymphocytes # (Auto) 1.2 0.4-5.4 10 ^3/uL Monocytes # (Auto) 0.5 0-1.3 10 ^3/uL Eosinophils # (Auto) 0.5 0-0.8 10 ^3/uL Basophils # (Auto) 0.1 0-0.2 10 ^3/uL Nucleated Red Blood Cells 0.1 % Sodium Level 144 136-145 mmol/L Potassium Level 5.5 H 3.5-5.1 mmol/L Chloride Level 110 H 98-107 mmol/L Carbon Dioxide Level 22 20-31 mmol/L Anion Gap 12 5-15 Blood Urea Nitrogen 64 H 9-23 mg/dL Creatinine 4.88 H 0.700-1.30 mg/dL Glomerular Filtration Rate Calc 14 >90 mL/min BUN/Creatinine Ratio 13.1 10.0-20.0 Serum Glucose 99 74-106 mg/dL Calcium Level 7.5 L 8.7-10.4 mg/dL Total Bilirubin 0.3 0.2-1.0 mg/dL Aspartate Amino Transferase (AST) 22 13-40 U/L Alanine Aminotransferase (ALT) 30 7-40 U/L Alkaline Phosphatase 200 H 46-116 U/L Total Protein 6.8 5.7-8.2 g/dL Albumin 3.7 3.2-4.8 g/dL POC Glucose 109 H 70-106 mg/dl Chest x-ray no pulmonary edema Assessment Assessment: 1. Acute kidney injury on chronic kidney disease 2. Hyperkalemia 3. Fluid overload 4. Hypertensive urgency 5. Diabetes type 2 6. Morbid obesity 7. Anemia of chronic kidney disease 8. A troponin elevation Plan: Bumex IV plus metolazone to address signs symptoms of hypovolemia including hypertension, leg edema despite Bumex p.o. at home Hyperkalemia treated with Lokelma, low-potassium diet Depending on the clinical course he may need to be restarted on renal replacement therapy Fluid restriction less than 1 L per day Adjust antihypertensive meds as needed Continue rest of home medications Check phos, iron studies in a.m. Cardiology consult, aspirin, statin. Strict measurement of the urinary output Start terazosin Thank you very much for allowing us to participate in the care of this patient please contact if you have any questions. Plan discussed with: Patient COOPER SAEED MD Mar 14, 2025 15:31
[2025-03-14] MEDS ORDERED: SEMA4INJ SC (16:26)
[2025-03-14] MEDS ORDERED: BUM1T PO (17:26)
[2025-03-14] MEDS: BUMETANIDE 2.5mg/10ml (0.25 mg/ml) INJ IV SCH (21:46)
[2025-03-15] VITALS (8 sets, daily range): BP systolic 116–154; BP diastolic 68–93; PULSE 68–80; RESP 16–18; TEMP 97.5–97.9; O2SAT 93–98
[2025-03-15 06:57] LABS: Anion Gap 14 (5-15); Carbon Dioxide 21 mmol/L (20-31); Chloride 106 mmol/L (98-107); Potassium 4.8 mmol/L (3.5-5.1); Sodium 141 mmol/L (136-145)
[2025-03-15 07:03] LABS: BUN/Creatinine Ratio 14.1 (10.0-20.0)
[2025-03-15 07:05] LABS: Blood Urea Nitrogen 75 mg/dL (9-23); Calcium 7.1 mg/dL (8.7-10.4); Glucose 116 mg/dL (74-106)
--- NOTE | 2025-03-15 10:07 | DVHPN2 ---
Reviewed: H&P Changes from previous H/P or p: No Changes General: Per HPI Objective Vitals Vital Signs Date Time Temp Pulse Resp B/P (MAP) Pulse Ox O2 Delivery O2 Flow Rate FiO2 03/15/25 09:00 97.5 77 16 116/68 (84) 93 97.5 03/15/25 08:22 Room Air* 0 21 Intake/Output Intake and Output 03/15/25 07:00 Intake Total 480 ml Output Total 1525 ml Balance -1045 ml Intake Oral 480 ml Output Urine Total 1525 ml # Voids 1 # Bowel Movements 1 Exam GEN: Healthy appearing, well-developed, NAD. HEENT: NC/AT; MMM. CV: RRR, no m/r/g. LUNGS: CTAB, no w/r/c. ABD: Soft, NT/ND, NBS, no masses or organomegaly. EXT: skin Warm, well perfused. no rashes. No clubbing, cyanosis, or edema. NEURO: Ambulating with no limitations. No focal deficits. Medications Current Medications Medications Dose Ordered Sig/Jadon Route Start Time Stop Time Status Last Admin Dose Admin Nitroglycerin 0.4 mg Q5MINP PRN SL 03/13/25 19:45 Morphine Sulfate 2 mg Q30M PRN IV 03/13/25 19:45 Hydralazine HCl 10 mg Q6HP PRN IV 03/13/25 20:30 03/14/25 17:16 10 MG Aspirin 81 mg DAILY PO 03/14/25 10:00 03/14/25 10:08 81 MG Atorvastatin Calcium 40 mg HS PO 03/13/25 22:00 03/14/25 21:46 40 MG Carvedilol 6.25 mg Q12HR PO 03/13/25 22:00 03/14/25 21:46 6.25 MG Clopidogrel Bisulfate 75 mg DAILY PO 03/14/25 10:00 03/14/25 10:09 75 MG Zirconium Oxide 10 gm DAILY PO 03/15/25 10:00 Nifedipine 60 mg BID PO 03/14/25 22:00 03/14/25 21:47 60 MG Bumetanide 2 mg BID IV 03/14/25 22:00 03/14/25 21:46 2 MG Metolazone 5 mg DAILY PO 03/14/25 15:00 03/14/25 16:20 5 MG Laboratory Results Laboratory Tests 03/13/25 17:21 03/15/25 04:49 Chemistry Test 03/15/25 04:49 Calcium Level 7.1 mg/dL (8.7-10.4) L Labs and/or images reviewed: Labs reviewed by me, Image(s) reviewed by me Assessment/Plan Assessment/Plan 49-year-old male presents for evaluation of hypertension. Patient reports having an appointment today with his primary care provider. When they did initial vitals they noted his blood pressure in the 200s. Patient is asymptomatic. No headache, blurred vision, dizziness or chest pain. He reports being compliant with his medications. Past Medical History Hypertension, diabetes, dyslipidemia, heart disease 03/14. : Patient in PCP clinic with high blood pressure in 200s. Over here has type 2 NSTEMI from hypotension. Unclear if patient is compliant with home meds. On admit patient gets hydralazine IV, labetalol IV,, clonidine p.o., Nitrostat,. Starting blood pressure medications Procardia 60, Coreg 6 b.i.d., continue other home medications. Hyperkalemia continue Lokelma once daily. Echo 9 months ago June 2024 showing EF 65% normal valves normal ventricles. 03/15: Patient has rising BUN. Otherwise blood pressure is improved now. Hypokalemia remains resolved. Continuing Lokelma. Daily. Contacted Nephrology, they want to continue following knee function and are reassessing need for dialysis. Assessment Hypertensive emergency nstemi, type 2 likely due to above Hyperkalemia Chronic kidney disease ESRD, history of temporary dialysis via tunneled cath, Azotemia, worsening, Elevated troponin, demand ischemia Plan As needed antihypertensives Resume home medications Continue treatment per orders. Tele Full code Plan discussed with: Patient My Orders Orders - DYLAN OWENS MD Procedure Category Date Status Time Sodium Zirconium PHA 03/15/25 In Process Cyclosilicate 10:00 * Wound Consult CONS 03/14/25 Transmitted * Dietary Consult CONS 03/15/25 Transmitted 09:52 Cleanse Wound With SHAHZAD 03/15/25 In Process Wound Clean 09:05 Date of Service: Mar 15, 2025 Billing Provider: DYLAN OWENS MD Common Visit Codes: [id number] INP/OBS CARE(HIGH) DYLAN OWENS MD Mar 15, 2025 10:06
[2025-03-15] MEDS: SODIUM ZIRCONIUM CYCL 10 GM PAK PO SCH (10:15)
[2025-03-15] MEDS ORDERED: METO5TAB5 PO (15:34)
[2025-03-15] MEDS ORDERED: BUME2TAB5 PO (15:34)
--- NOTE | 2025-03-15 15:34 | DVHPN2 ---
Progress Note - Dictate Date Seen: Mar 15, 2025 Medical Necessity Reason Pt with a Central, PICC or Fol: No Subjective The patient feels much better denies shortness of breath and he stated that he wants to go home and follow up with his Nephrology as an outpatient. vital signs Vital Sign Date Time Temp Pulse Resp B/P (MAP) Pulse Ox O2 Delivery O2 Flow Rate FiO2 03/15/25 12:57 97.8 78 18 139/75 (96) 93 97.8 03/15/25 08:22 Room Air* 0 21 Total Intake and Output 03/14/25 03/14/25 03/15/25 15:00 23:00 07:00 Intake Total 240 ml 240 ml Output Total 600 ml 925 ml Balance -600 ml 240 ml -685 ml medications Current Medications Medications Dose Ordered Sig/Jadon Route Start Time Stop Time Status Last Admin Dose Admin Nitroglycerin 0.4 mg Q5MINP PRN SL 03/13/25 19:45 Morphine Sulfate 2 mg Q30M PRN IV 03/13/25 19:45 Hydralazine HCl 10 mg Q6HP PRN IV 03/13/25 20:30 03/14/25 17:16 10 MG Aspirin 81 mg DAILY PO 03/14/25 10:00 03/15/25 10:14 81 MG Atorvastatin Calcium 40 mg HS PO 03/13/25 22:00 03/14/25 21:46 40 MG Carvedilol 6.25 mg Q12HR PO 03/13/25 22:00 03/15/25 10:15 6.25 MG Clopidogrel Bisulfate 75 mg DAILY PO 03/14/25 10:00 03/15/25 10:14 75 MG Zirconium Oxide 10 gm DAILY PO 03/15/25 10:00 03/15/25 10:15 10 GM Nifedipine 60 mg BID PO 03/14/25 22:00 03/15/25 10:15 60 MG Bumetanide 2 mg BID IV 03/14/25 22:00 03/15/25 10:14 2 MG Metolazone 5 mg DAILY PO 03/14/25 15:00 03/15/25 10:15 5 MG objective HEENT: No evidence of JVD, no oral ulcers. Pulmonary: Lungs are clear on auscultation bilaterally Cardiovascular S1-S2, no S3 or S4 Abdomen: Bowel sounds positive, soft no rebound tenderness Skin: No rash Neurological: Alert, oriented, no focal weakness Extremities: No lower extremity edema. laboratory and microbiology Laboratory Tests 03/15/25 04:49 03/13/25 17:21 Test 03/15/25 04:49 Range/Units Serum Glucose 116 H 74-106 mg/dL Assessment/Plan Assessment: 1. Acute kidney injury on chronic kidney disease stage IV. Possible progression to early stage five Chronic kidney disease. December GFR was between 15 and 18 2. Hyperkalemia, resolved. Patient admits to some noncompliance with the diet prior to admission. 3. Fluid overload, improved 4. Hypertensive urgency, improved 5. Diabetes type 2 6. Morbid obesity 7. Anemia of chronic kidney disease 8. A troponin elevation Plan: Switch diuretics to p.o. Hyperkalemia treated with Lokelma, low-potassium diet. The importance of strict low-potassium diet and compliance with Lokelma was discussed with the patient to prevent deterioration, disability, life-threatening complications. 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 Fluid restriction less than 1 L per day Continue current antihypertensive meds Cardiology consult, aspirin, statin. Strict measurement of the urinary output Per patient's request, I discussed patient's current condition with Dr. Renae over the phone. Patient is also aware to follow up soon after discharge contact the office for a sooner appointment with labs. I discussed with the patient that he will soon need to be initiated on renal replacement therapy. I spoke to . Nanci Nascimento patient's sister who is assisting him in making follow up appointments and with his care Thank you very much for allowing us to participate in the care of this patient please contact if you have any questions. Dietary Evaluation Review Comments: Nutrition Recommendation: 1) Consider CCHO 75gm + renal specific 80gm protein 2) Jacob 1 pk daily 3) Monitor PO intake, lab values, weight trend, and I/O Expected Outcomes/Goals: Wound to improve Lab values to improve FU 3-5 days Plan discussed with: Patient COOPER SAEED MD Mar 15, 2025 15:34
--- NOTE | 2025-03-15 15:35 | DVHDS2 ---
Discharge Summary Date of Admission Mar 13, 2025 at 19:39 Date of Discharge: Mar 15, 2025 Labs/Diagnostic Data: Laboratory Results Test 03/15/25 04:49 03/13/25 20:19 03/13/25 17:21 03/13/25 16:40 Sodium Level 141 mmol/L (136-145) Potassium Level 4.8 mmol/L (3.5-5.1) Chloride Level 106 mmol/L (98-107) Carbon Dioxide Level 21 mmol/L (20-31) Anion Gap 14 (5-15) Blood Urea Nitrogen 75 mg/dL (9-23) Creatinine 5.32 mg/dL (0.700-1.30) Glomerular Filtration Rate Calc 12 mL/min (>90) BUN/Creatinine Ratio 14.1 (10.0-20.0) Serum Glucose 116 mg/dL (74-106) Calcium Level 7.1 mg/dL (8.7-10.4) Troponin I High Sensitivity 176 ng/L (</=54) White Blood Count 7.8 10^3/uL (4.4-10.8) Red Blood Count 4.15 10^6/uL (4.5-5.90) Hemoglobin 10.9 g/dL (13.5-17.5) Hematocrit 33.5 % (41.0-53.0) Mean Corpuscular Volume 80.6 fL (80.0-100.0) Mean Corpuscular Hemoglobin 26.3 pg (28.0-32.0) Mean Corpuscular Hemoglobin Concent 32.7 g/dL (32.0-36.0) Red Cell Distribution Width 16.7 % (11.8-14.3) Platelet Count 234 10^3/uL (140-450) Mean Platelet Volume 9.8 fL (6.9-10.8) Neutrophils (%) (Auto) 71.5 % (37.0-80.0) Lymphocytes (%) (Auto) 14.9 % (10.0-50.0) Monocytes (%) (Auto) 6.1 % (0.0-12.0) Eosinophils (%) (Auto) 6.5 % (0.0-7.0) Basophils (%) (Auto) 1.0 % (0.0-2.0) Neutrophils # (Auto) 5.6 10 ^3/uL (1.6-8.6) Lymphocytes # (Auto) 1.2 10 ^3/uL (0.4-5.4) Monocytes # (Auto) 0.5 10 ^3/uL (0-1.3) Eosinophils # (Auto) 0.5 10 ^3/uL (0-0.8) Basophils # (Auto) 0.1 10 ^3/uL (0-0.2) Nucleated Red Blood Cells 0.1 % Total Bilirubin 0.3 mg/dL (0.2-1.0) Aspartate Amino Transferase (AST) 22 U/L (13-40) Alanine Aminotransferase (ALT) 30 U/L (7-40) Alkaline Phosphatase 200 U/L (46-116) Total Protein 6.8 g/dL (5.7-8.2) Albumin 3.7 g/dL (3.2-4.8) POC Glucose 109 mg/dl (70-106) Other Laboratory Tests 03/15/25 04:49 03/13/25 17:21 Brief Hx & Hospital Course: 49-year-old male presents for evaluation of hypertension. Patient reports having an appointment today with his primary care provider. When they did initial vitals they noted his blood pressure in the 200s. Patient is asymptomatic. No headache, blurred vision, dizziness or chest pain. He reports being compliant with his medications. Past Medical History Hypertension, diabetes, dyslipidemia, heart disease 03/14. : Patient in PCP clinic with high blood pressure in 200s. Over here has type 2 NSTEMI from hypotension. Unclear if patient is compliant with home meds. On admit patient gets hydralazine IV, labetalol IV,, clonidine p.o., Nitrostat,. Starting blood pressure medications Procardia 60, Coreg 6 b.i.d., continue other home medications. Hyperkalemia continue Lokelma once daily. Echo 9 months ago June 2024 showing EF 65% normal valves normal ventricles. 03/15: Patient has rising BUN. Otherwise blood pressure is improved now. Hypokalemia remains resolved. Continuing Lokelma. Daily. Contacted Nephrology, they want to continue following knee function and are reassessing need for dialysis. Diagnosis: Hypertensive emergency nstemi, type 2 likely due to above Hyperkalemia Chronic kidney disease ESRD, history of temporary dialysis via tunneled cath, Azotemia, worsening, Elevated troponin, demand ischemia Discharge plan: - continue Coreg 6.25 mg twice daily, nifedipine XL 60 mg twice daily. - Continue Bumex 2 mg twice daily, Lokelma 10 g daily,. Continue other home medications not mentioned above -follow up with Nephrology -Follow up with DC clinic in 1 week -Follow up PCP as scheduled Condition at Discharge: Fair Final Diagnosis/Problems List Hypertensive emergency nstemi, type 2 likely due to above Hyperkalemia Chronic kidney disease ESRD, history of temporary dialysis via tunneled cath, Azotemia, worsening, Elevated troponin, demand ischemia Discharge Disposition: Home Discharge Instruct/Medications Scheduled Aspirin (Aspirin Low Dose), 81 MG PO DAILY Atorvastatin Calcium (Atorvastatin Calcium), 40 MG PO DAILY Bumetanide (Bumex Tablet), 2 MG PO TID Bumetanide (Bumex Tablet), 1 MG PO DAILY, (Reported) Carvedilol (Coreg), 6.25 MG PO Q12HR Clopidogrel Bisulfate (Clopidogrel), 75 MG PO DAILY Dapagliflozin Propanediol (Farxiga), 10 MG PO DAILY Ergocalciferol (Vitamin D 67206 Unit), 50,000 UNIT PO QWEEKLY Escitalopram Oxalate (Escitalopram Oxalate), 20 MG PO DAILY, (Reported) Metolazone (Metolazone), 5 MG PO DAILY Sodium Zirconium Cyclosilicate (Lokelma), 10 GM PO TID Scheduled PRN Clonazepam (Klonopin), 0.5 TAB PO DAILYPRN PRN Miscellaneous Medications Semaglutide (Ozempic), 5 MG SC, (Reported) Discontinued Medications B-Complex W/ C & Folic Acid (Samantha-Bartolo Rx), 1 DAILY, (Reported) Discharge Statement: "Patient was advised to return to the ER or call 911 if any headaches, dizziness, shortness of breath, chest pain, abdominal pain, bleeding, fevers, or worsening of medical condition. Patient was counseled about treatment plan, medications, possible side effects, patientverbalized understanding. All questions were answered to the best of my ability. This discharge took greater then 30 minutes in planning, reviewing documentation, counseling the patient, and discussing with other team members." ASSESSMENT ASSESSMENT Assessment Date of Service: Mar 15, 2025 Billing Provider: DYLAN OWENS MD Common Visit Codes: [id number] DISCH DAY >30min DYLAN OWENS MD Mar 15, 2025 15:35
== END 2025-03-15 17:45 | disposition home or self-care (01) | DRG 199 ==
LOC: ER 16:18 → OVERFLOW 19:39 → TELE-CENTR 03-14 13:44
PROVIDERS: ADMIT Student in an Organized Health Care Education/Training Program; ATTEND Student in an Organized Health Care Education/Training Program
DX: I16.1 Hypertensive emergency (principal); I21.A1 Myocardial infarction type 2; N18.6 End stage renal disease; D63.1 Anemia in chronic kidney disease; I13.2 Hypertensive heart and chronic kidney disease with heart failure and with stage 5 chronic kidney disease, or end stage renal disease; Z99.2 Dependence on renal dialysis; Z79.02 Long term (current) use of antithrombotics/antiplatelets; E11.22 Type 2 diabetes mellitus with diabetic chronic kidney disease; E66.01 Morbid (severe) obesity due to excess calories; F32.A Depression, unspecified; I50.9 Heart failure, unspecified; E78.5 Hyperlipidemia, unspecified; E87.5 Hyperkalemia; Z79.82 Long term (current) use of aspirin; Z95.5 Presence of coronary angioplasty implant and graft; I25.2 Old myocardial infarction; Z83.3 Family history of diabetes mellitus; Z82.49 Family history of ischemic heart disease and other diseases of the circulatory system; Z91.119 Patient's noncompliance with dietary regimen due to unspecified reason; Z68.39 Body mass index [BMI] 39.0-39.9, adult
CPT/HCPCS: 36415; 71045; 80048; 80053; 82962; 84484; 85025; 93005; G0378